=== PATIENT | male | born 1960 | race Caucasian/White ===

== ENCOUNTER → 2017-09-17 | Outpatient (CLI) | payer OTHER ==
[~2017-09-17] MED LIST: HYZ/50125; LRT5 PO; PRED20TA PO
[2017-09-17 12:07] LABS: BASO % 0.2 %; BASO ABS # 0.02 K/uL (0-0.2); COMPLETE YES; EOS % 1.4 %; HEMATOCRIT 49.2 % (42-52); IG% 1.1 %; LYMPH % 19.1 %; LYMPH ABS # 2.07 K/uL (1.2-3.4); MEAN CELL VOLUME 93.2 fL (80-100); MEAN CORPUSCULAR HGB CONC 34.3 g/dl (32-36); MEAN PLATELET VOLUME 10.3 fL (7.4-10.4); NEUT % 69.2 %; PLATELET COUNT 390 K/uL (130-400); RED BLOOD COUNT 5.28 M/uL (4.7-6.1); WHITE BLOOD COUNT 10.81 K/uL (4.8-10.8)
[2017-09-17 12:24] LABS: ALB/GLOB RATIO 1.1 (0.9-2); ALKALINE PHOSPHATASE 76 U/L (45-117); ALT/SGPT 42 U/L (12-78); AST/SGOT 19 U/L (15-37); BLOOD UREA NITROGEN 11 mg/dl (7-18); BUN/CREATININE RATIO 14.2 (10-20); CALCIUM 9.1 mg/dl (8.5-10.1); CARBON DIOXIDE 27 mmol/L (21-32); CHLORIDE 100 mmol/L (98-107); CHOLESTEROL 124 mg/dl (0-200); CHOLESTEROL/HDL RATIO 2.9; GLUCOSE 100 mg/dl (70-99); HDL CHOLESTEROL 43 mg/dl; LDL CHOLESTEROL CALCULATED 57 mg/dl; POTASSIUM 3.4 mmol/L (3.5-5.1); SODIUM 137 mmol/L (136-145); TRIGLYCERIDES 121 mg/dl (0-150); VERY LOW DENSITY LIPOPROT CALC 24 mg/dl
== END | disposition home or self-care (01) ==
LOC: C.LABBFT 08:12
PROVIDERS: ATTEND Physician Assistant Medical
DX: I10 Essential (primary) hypertension (principal); Z12.5 Encounter for screening for malignant neoplasm of prostate

== ENCOUNTER → 2017-10-03 | Outpatient (CLI) | payer OTHER ==
[2017-10-03 12:55] LABS: BASO % 0.4 %; BASO ABS # 0.03 K/uL (0-0.2); COMPLETE YES; EOS % 2.3 %; HEMATOCRIT 51.7 % (42-52); IG% 0.6 %; LYMPH % 24.6 %; LYMPH ABS # 1.95 K/uL (1.2-3.4); MEAN CELL VOLUME 92.7 fL (80-100); MEAN CORPUSCULAR HEMOGLOBIN 31.5 pg (25-34); NEUT % 62.1 %; PLATELET COUNT 345 K/uL (130-400); RED BLOOD COUNT 5.58 M/uL (4.7-6.1); WHITE BLOOD COUNT 7.92 K/uL (4.8-10.8)
[2017-10-03 13:42] LABS: ALT/SGPT 46 U/L (12-78); AST/SGOT 21 U/L (15-37); BLOOD UREA NITROGEN 17 mg/dl (7-18); BUN/CREATININE RATIO 21.5 (10-20); CALCIUM 8.9 mg/dl (8.5-10.1); CARBON DIOXIDE 29 mmol/L (21-32); CHLORIDE 101 mmol/L (98-107); GLUCOSE 101 mg/dl (70-99); POTASSIUM 3.7 mmol/L (3.5-5.1); SODIUM 134 mmol/L (136-145)
[2017-10-03 13:45] LABS: ALB/GLOB RATIO 1.2 (0.9-2); ALKALINE PHOSPHATASE 79 U/L (45-117)
[2017-10-03 13:46] LABS: ESTIMATED AVERAGE GLUCOSE 131 mg/dl; HA1C FLAG Normal (Normal)
== END | disposition home or self-care (01) ==
LOC: C.LABBFT 10:26
PROVIDERS: ATTEND Physician Assistant Medical
DX: I10 Essential (primary) hypertension (principal); R73.01 Impaired fasting glucose

== ENCOUNTER 2021-04-12 11:34 | Inpatient (IN) ==
[2021-04-12] MEDS ORDERED: ONDANSETRON INJ 2 MG/ML 2 ML VIAL IV STA (12:23)
[2021-04-12] MEDS ORDERED: MoRPHine SULFATE 4 MG/ML 1 ML CARP\\VIAL IV STA (12:23)
--- NOTE | 2021-04-12 12:38 | Emergency Department Note ---
History of Present Illness General Chief complaint: Back Injury/Pain Stated complaint: LOWER BACK PAIN ACROSS BACK,DIZZY,FELL OVER,WC Time Seen by Provider: 04/12/21 12:01 Source: patient History of Present Illness Provider complaint: Low back pain Onset (ago): hour(s) less than 1 Location: back and right Radiation: non-radiation Pain Consistency: + constant Maximum Pain Intensity: 9 Quality: + aching Exacerbated By: + movement Associated symptoms: + syncope; no chest pain, no cough, no fever/chills, no headaches, no nausea/vomiting, no shortness of breath and no weakness This is a 60-year-old male who presents with low back pain. 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 When he came to his right lower back was hurting. The pain does not radiate. He rates it a 9 out of 10 in severity. He describes it as a toothache. It is worse when he moves around. He denies any associated numbness or weakness to his legs or fecal urinary incontinence. He states he was not having back pain before he fell. He does state that he fell about a month ago when he tripped on something and he hurt his right posterior ribs and they are still bothering him. He denies having any symptoms other than lightheadedness before passing out. He did not have any chest pain, shortness of breath, palpitations, headache, neck pain, nausea or vomiting, abdominal pain, diarrhea or black or bloody stools. He does not know if he hit his head. He states that he skipped breakfast and has not eaten anything all day. Home Medications Medication Instructions Recorded Confirmed Type atorvastatin 20 mg tablet 20 mg PO HS #90 tab 02/20/21 04/12/21 Rx gabapentin 100 mg PO HS 03/10/21 04/12/21 History mirtazapine 15 mg PO HS 03/10/21 04/12/21 History tramadol 50 mg tablet 50 mg PO BID PRN #30 tab 03/14/21 04/12/21 Rx triamcinolone acetonide 0.1 % 1 applic TOPICAL BID PRN #30 g 03/14/21 04/12/21 Rx topical cream hydrochlorothiazide 25 mg PO QAM 03/26/21 04/12/21 History losartan 100 mg PO QAM 03/26/21 04/12/21 History albuterol sulfate 90 mcg/actuation 2 puff INHALATION Q6H PRN #6.7 g 04/07/21 04/12/21 Rx aerosol inhaler hydrocodone 5 mg-acetaminophen 325 1 - 2 tab PO DAILY PRN #14 tab 04/07/21 04/12/21 Rx mg tablet Allergies Allergy/AdvReac Type Severity Reaction Status Date / Time No Known Allergies Allergy Verified 04/12/21 13:39 Past Med/Surg History Medical History (Updated 04/12/21 @ 19:15 by Flaco Joiner MD) History of alcohol abuse Surgical History History of colonoscopy (10/13/12) Dr Silva, sigmoid tics, otherwise normal, recheck recommended in 5 years due to FHx (brother) S/P right knee arthroscopy 1986 Family History Brother Colorectal cancer Lung cancer Mother Lung cancer Father Myocardial infarction Denies family history of Ovarian cancer Prostate cancer Breast cancer Social History Smoking Status: Current every day smoker Tobacco Type: Cigarettes Second Hand Exposure: Yes; Hx Alcohol Use: No (quit 2010) Hx Substance Use: No Preferred Language: Turkmen 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 and A total of 10 systems reviewed and were otherwise negative Physical Exam Vital Signs Vital Signs - 24 hr 04/12/21 11:37 04/12/21 12:38 04/12/21 12:48 Temperature 36.9 C Temperature Source Temporal Artery Scan Pulse Rate 82 74 Pulse Rate [Apical] Pulse Rate from SpO2 Sensor 75 Respiratory Rate 18 25 H Respiratory Effort / Characteristics Non-Labored Spontaneous Respiratory Depth Normal Respiratory Pattern Regular Blood Pressure 115/63 139/77 Blood Pressure [Right Arm] Blood Pressure Mean 80 97 Blood Pressure Mean [Right Arm] Pulse Oximetry 93 92 92 Oxygen Delivery Method Room Air Room Air Sepsis Recent Fever Within 48 Hours No Sepsis New/Unexplained Change in Mental Status N/A Sepsis Action Taken by Nursing No Action Required 04/12/21 12:51 04/12/21 13:00 04/12/21 13:01 Temperature Temperature Source Pulse Rate 74 75 75 Pulse Rate [Apical] Pulse Rate from SpO2 Sensor 74 75 75 Respiratory Rate 24 21 26 H Respiratory Effort / Characteristics Respiratory Depth Respiratory Pattern Blood Pressure 135/75 Blood Pressure [Right Arm] Blood Pressure Mean 95 Blood Pressure Mean [Right Arm] Pulse Oximetry 90 91 92 Oxygen Delivery Method Sepsis Recent Fever Within 48 Hours Sepsis New/Unexplained Change in Mental Status Sepsis Action Taken by Nursing 04/12/21 13:30 04/12/21 14:27 04/12/21 14:28 Temperature Temperature Source Pulse Rate 75 79 Pulse Rate [Apical] Pulse Rate from SpO2 Sensor 75 78 80 Respiratory Rate 20 15 Respiratory Effort / Characteristics Respiratory Depth Respiratory Pattern Blood Pressure 139/87 Blood Pressure [Right Arm] Blood Pressure Mean 104 Blood Pressure Mean [Right Arm] Pulse Oximetry 95 96 96 Oxygen Delivery Method Sepsis Recent Fever Within 48 Hours Sepsis New/Unexplained Change in Mental Status Sepsis Action Taken by Nursing 04/12/21 14:29 04/12/21 14:30 04/12/21 15:00 Temperature Temperature Source Pulse Rate 77 Pulse Rate [Apical] 78 Pulse Rate from SpO2 Sensor 78 75 Respiratory Rate 15 16 19 Respiratory Effort / Characteristics Respiratory Depth Normal Respiratory Pattern Blood Pressure 140/83 Blood Pressure [Right Arm] 139/87 Blood Pressure Mean 102 Blood Pressure Mean [Right Arm] 104 Pulse Oximetry 96 96 94 Oxygen Delivery Method Room Air Sepsis Recent Fever Within 48 Hours Sepsis New/Unexplained Change in Mental Status Sepsis Action Taken by Nursing 04/12/21 15:01 04/12/21 15:50 04/12/21 15:51 Temperature Temperature Source Pulse Rate 79 Pulse Rate [Apical] Pulse Rate from SpO2 Sensor 73 84 80 Respiratory Rate 19 24 Respiratory Effort / Characteristics Respiratory Depth Respiratory Pattern Blood Pressure 157/91 H Blood Pressure [Right Arm] Blood Pressure Mean 113 Blood Pressure Mean [Right Arm] Pulse Oximetry 94 97 98 Oxygen Delivery Method Sepsis Recent Fever Within 48 Hours Sepsis New/Unexplained Change in Mental Status Sepsis Action Taken by Nursing 04/12/21 16:00 04/12/21 16:31 04/12/21 17:00 Temperature Temperature Source Pulse Rate 82 83 89 Pulse Rate [Apical] Pulse Rate from SpO2 Sensor 82 83 89 Respiratory Rate 17 22 18 Respiratory Effort / Characteristics Respiratory Depth Respiratory Pattern Blood Pressure 169/84 H 137/80 Blood Pressure [Right Arm] Blood Pressure Mean 112 99 Blood Pressure Mean [Right Arm] Pulse Oximetry 97 93 93 Oxygen Delivery Method Sepsis Recent Fever Within 48 Hours Sepsis New/Unexplained Change in Mental Status Sepsis Action Taken by Nursing 04/12/21 17:56 04/12/21 18:00 04/12/21 18:30 Temperature Temperature Source Pulse Rate 86 88 86 Pulse Rate [Apical] Pulse Rate from SpO2 Sensor Respiratory Rate 18 24 22 Respiratory Effort / Characteristics Respiratory Depth Respiratory Pattern Blood Pressure Blood Pressure [Right Arm] Blood Pressure Mean Blood Pressure Mean [Right Arm] Pulse Oximetry Oxygen Delivery Method Sepsis Recent Fever Within 48 Hours Sepsis New/Unexplained Change in Mental Status Sepsis Action Taken by Nursing 04/12/21 18:31 04/12/21 18:34 Temperature Temperature Source Pulse Rate 91 H 88 Pulse Rate [Apical] Pulse Rate from SpO2 Sensor Respiratory Rate 20 22 Respiratory Effort / Characteristics Respiratory Depth Respiratory Pattern Blood Pressure Blood Pressure [Right Arm] Blood Pressure Mean 139 139 Blood Pressure Mean [Right Arm] Pulse Oximetry Oxygen Delivery Method Sepsis Recent Fever Within 48 Hours Sepsis New/Unexplained Change in Mental Status Sepsis Action Taken by Nursing Constitutional: Vital signs reviewed. Eyes: Pupils are equal round reactive to light. Conjunctiva are noninjected. ENT: Pharynx is clear without erythema or exudate. Mucous membranes are moist. Neck supple without meningeal signs. Respiratory: Expiratory wheezing bilaterally. Breath sounds are equal bilaterally. Cardiovascular: Regular rate and rhythm. No rubs or gallops. GI: Soft, nondistended and nontender. Bowel sounds are present. Musculoskeletal: No peripheral edema. No lower extremity tenderness. No midline tenderness to the cervical, thoracic or lumbar spine. He does have some tenderness over the right SI joint. No hip tenderness. Integumentary: No cyanosis. or jaundice. Neurologic: The patient is awake and alert. Cranial nerves II-XII are intact. Motor is 5 out of 5 all extremities. Sensation is intact to light touch all extremities. Normal speech. No pronator drift. No limb ataxia. Psychiatric: Normal affect. Not anxious appearing. Course Administered Medications Discontinued Medications Morphine Sulfate (Morphine Sulfate 4 Mg/Ml 1 Ml Carp\Vial) 4 mg IV NOW STA Stop: 04/12/21 12:24 Last Admin: 04/12/21 12:45 Dose: 4 mg Documented by: [id number] Nicotine (Nicotine 14 Mg/24 Hr Patch) 14 mg TD NOW STA Stop: 04/12/21 16:22 Last Admin: 04/12/21 17:07 Dose: 14 mg Documented by: [id number] Nicotine Polacrilex (Nicotine Polacrilex 2 Mg Gum) 1 piece MT NOW STA Stop: 04/12/21 16:22 Last Admin: 04/12/21 17:08 Dose: 1 piece Documented by: [id number] Ondansetron HCl (Ondansetron Inj 2 Mg/Ml 2 Ml Vial) 4 mg IV NOW STA Stop: 04/12/21 12:24 Last Admin: 04/12/21 12:45 Dose: 4 mg Documented by: [id number] Medical Decision Making Differential Diagnosis Syncope, compression fracture, intervertebral disc disease, pelvic fracture, metabolic derangement, hypoglycemia, AAA Medical Records Attestation: I reviewed the patient's medical records. I did perform a limited focused review of portions of the patient's old chart on the electronic medical record. The patient did have a CT of his chest and abdomen last month which demonstrated a posterior right 11th rib fracture. He also had emphysematous changes. 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 There are also some other incidental findings. The aorta was not enlarged. Home Medications Current Medication List: was personally reviewed by me Laboratory Data Attestation: I reviewed the patient's lab results. Result diagrams: 04/12/21 12:35 04/12/21 12:35 Lab Results 04/12/21 04/12/21 04/12/21 Range/Units 12:35 12:35 12:35 WBC 8.77 (4.8-10.8) K/uL RBC 4.83 (4.7-6.1) M/uL Hgb 16.5 (14.0-18.0) g/dL Hct 46.4 (42-52) % MCV 96.1 (80-100) fL MCH 34.2 H (25-34) pg MCHC 35.6 (32-36) g/dL RDW Std Deviation 48.7 H (36.4-46.3) fL RDW Coeff of Beth 13.7 (11.5-14.5) % Plt Count 323 (130-400) K/uL MPV 9.1 (7.4-10.4) fL Immature Gran % (Auto) 0.7 % Neut % (Auto) 85.6 % Lymph % (Auto) 7.6 % Talbot % (Auto) 5.7 % Eos % (Auto) 0.3 % Baso % (Auto) 0.1 % Neut # (Auto) 7.50 H (1.4-6.5) K/uL Lymph # (Auto) 0.67 L (1.2-3.4) K/uL Talbot # (Auto) 0.50 (0.11-0.59) K/uL Eos # (Auto) 0.03 (0-0.5) K/uL Baso # (Auto) 0.01 (0-0.2) K/uL Immature Gran # (Auto) 0.06 H (0.00-0.02) K/uL Sodium 127 L (136-145) mmol/L Potassium 3.4 L (3.5-5.1) mmol/L Chloride 93 L (98-107) mmol/L Carbon Dioxide 27 (21-32) mmol/L Anion Gap 8.0 (3-11) BUN 7 (7-18) mg/dl Creatinine 0.57 L (0.6-1.4) mg/dl Est Cr Clr Drug Dosing Not Reportable Est GFR ( Amer) 128.5 ml/min Est GFR (Non-Af Amer) 110.8 ml/min BUN/Creatinine Ratio 12.3 (10-20) Glucose 110 H (70-99) mg/dl POC Glucose (70-99) mg/dl Calcium 8.5 (8.5-10.1) mg/dl Magnesium 2.3 (1.8-2.4) mg/dl Total Bilirubin 0.6 (0.2-1) mg/dl AST 34 (15-37) U/L ALT 42 (12-78) U/L Alkaline Phosphatase 68 (45-117) U/L Troponin I Cancelled < 0.015 Total Protein 6.6 (6.4-8.2) gm/dl Albumin 3.7 (3.4-5.0) gm/dl Globulin 2.9 (2.5-4.0) gm/dl Albumin/Globulin Ratio 1.3 (0.9-2) TSH 0.433 (0.300-4.500) uIu/ml Urine Color Urine Appearance (Clear) Urine pH (4.5-7.5) Ur Specific Sproul (1.000-1.030) Urine Protein (Negative) Urine Glucose (UA) (Negative) Urine Ketones (Negative) Urine Blood (Negative) Urine Nitrite (Negative) Urine Bilirubin (Negative) Urine Urobilinogen (Negative) Ur Leukocyte Esterase (Negative) Urine WBC (Auto) (0-5) /hpf Urine RBC (Auto) (0-4) /hpf U Hyaline Cast (Auto) (0-5) /lpf U Epithel Cells (Auto) (0-5) /lpf Urine Bacteria (Auto) (Negative) Ethyl Alcohol mg/dL (0-3) mg/dl COVID-19 Eval Order SARS-CoV-2 (PCR) (Negative) 04/12/21 04/12/21 04/12/21 Range/Units 12:37 12:47 14:50 WBC (4.8-10.8) K/uL RBC (4.7-6.1) M/uL Hgb (14.0-18.0) g/dL Hct (42-52) % MCV (80-100) fL MCH (25-34) pg MCHC (32-36) g/dL RDW Std Deviation (36.4-46.3) fL RDW Coeff of Beth (11.5-14.5) % Plt Count (130-400) K/uL MPV (7.4-10.4) fL Immature Gran % (Auto) % Neut % (Auto) % Lymph % (Auto) % Talbot % (Auto) % Eos % (Auto) % Baso % (Auto) % Neut # (Auto) (1.4-6.5) K/uL Lymph # (Auto) (1.2-3.4) K/uL Talbot # (Auto) (0.11-0.59) K/uL Eos # (Auto) (0-0.5) K/uL Baso # (Auto) (0-0.2) K/uL Immature Gran # (Auto) (0.00-0.02) K/uL Sodium (136-145) mmol/L Potassium (3.5-5.1) mmol/L Chloride (98-107) mmol/L Carbon Dioxide (21-32) mmol/L Anion Gap (3-11) BUN (7-18) mg/dl Creatinine (0.6-1.4) mg/dl Est Cr Clr Drug Dosing Est GFR ( Amer) ml/min Est GFR (Non-Af Amer) ml/min BUN/Creatinine Ratio (10-20) Glucose (70-99) mg/dl POC Glucose 126 H (70-99) mg/dl Calcium (8.5-10.1) mg/dl Magnesium (1.8-2.4) mg/dl Total Bilirubin (0.2-1) mg/dl AST (15-37) U/L ALT (12-78) U/L Alkaline Phosphatase (45-117) U/L Troponin I Total Protein (6.4-8.2) gm/dl Albumin (3.4-5.0) gm/dl Globulin (2.5-4.0) gm/dl Albumin/Globulin Ratio (0.9-2) TSH (0.300-4.500) uIu/ml Urine Color Urine Appearance (Clear) Urine pH (4.5-7.5) Ur Specific Sproul (1.000-1.030) Urine Protein (Negative) Urine Glucose (UA) (Negative) Urine Ketones (Negative) Urine Blood (Negative) Urine Nitrite (Negative) Urine Bilirubin (Negative) Urine Urobilinogen (Negative) Ur Leukocyte Esterase (Negative) Urine WBC (Auto) (0-5) /hpf Urine RBC (Auto) (0-4) /hpf U Hyaline Cast (Auto) (0-5) /lpf U Epithel Cells (Auto) (0-5) /lpf Urine Bacteria (Auto) (Negative) Ethyl Alcohol mg/dL 3.3 H (0-3) mg/dl COVID-19 Eval Order Covid19 at [facility] SARS-CoV-2 (PCR) (Negative) 04/12/21 04/12/21 Range/Units 14:50 15:50 WBC (4.8-10.8) K/uL RBC (4.7-6.1) M/uL Hgb (14.0-18.0) g/dL Hct (42-52) % MCV (80-100) fL MCH (25-34) pg MCHC (32-36) g/dL RDW Std Deviation (36.4-46.3) fL RDW Coeff of Beth (11.5-14.5) % Plt Count (130-400) K/uL MPV (7.4-10.4) fL Immature Gran % (Auto) % Neut % (Auto) % Lymph % (Auto) % Talbot % (Auto) % Eos % (Auto) % Baso % (Auto) % Neut # (Auto) (1.4-6.5) K/uL Lymph # (Auto) (1.2-3.4) K/uL Talbot # (Auto) (0.11-0.59) K/uL Eos # (Auto) (0-0.5) K/uL Baso # (Auto) (0-0.2) K/uL Immature Gran # (Auto) (0.00-0.02) K/uL Sodium (136-145) mmol/L Potassium (3.5-5.1) mmol/L Chloride (98-107) mmol/L Carbon Dioxide (21-32) mmol/L Anion Gap (3-11) BUN (7-18) mg/dl Creatinine (0.6-1.4) mg/dl Est Cr Clr Drug Dosing Est GFR ( Amer) ml/min Est GFR (Non-Af Amer) ml/min BUN/Creatinine Ratio (10-20) Glucose (70-99) mg/dl POC Glucose (70-99) mg/dl Calcium (8.5-10.1) mg/dl Magnesium (1.8-2.4) mg/dl Total Bilirubin (0.2-1) mg/dl AST (15-37) U/L ALT (12-78) U/L Alkaline Phosphatase (45-117) U/L Troponin I Total Protein (6.4-8.2) gm/dl Albumin (3.4-5.0) gm/dl Globulin (2.5-4.0) gm/dl Albumin/Globulin Ratio (0.9-2) TSH (0.300-4.500) uIu/ml Urine Color Yellow Urine Appearance Clear (Clear) Urine pH 6.5 (4.5-7.5) Ur Specific Sproul 1.008 (1.000-1.030) Urine Protein Negative (Negative) Urine Glucose (UA) Negative (Negative) Urine Ketones Negative (Negative) Urine Blood Trace H (Negative) Urine Nitrite Negative (Negative) Urine Bilirubin Negative (Negative) Urine Urobilinogen Negative (Negative) Ur Leukocyte Esterase Negative (Negative) Urine WBC (Auto) 0 (0-5) /hpf Urine RBC (Auto) 0-4 (0-4) /hpf U Hyaline Cast (Auto) 1-5 (0-5) /lpf U Epithel Cells (Auto) 0-5 (0-5) /lpf Urine Bacteria (Auto) Negative (Negative) Ethyl Alcohol mg/dL (0-3) mg/dl COVID-19 Eval Order SARS-CoV-2 (PCR) NEGATIVE (Negative) Imaging Data Radiologist's Impression: Cervical Spine CT 04/12/21 12:23 CT cervical spine wo con CT DOSE: 1950.78 mGy.cm CLINICAL HISTORY: 60 years-old Male with fall eval for fx. Acute head and neck injury status post fall COMPARISON: Head CT of same day TECHNIQUE: Multiple axial CT images of the cervical spine were obtained without contrast. A dose lowering technique was utilized adhering to the principles of ALARA. FINDINGS: Unremarkable soft tissues. No prevertebral edema. Calcified plaque of the carotid bulbs. Lung apices are clear without pneumothorax. Mild emphysema. Mild multilevel intervertebral disc space narrowing with associated mild to moderate spondylitic spurring and moderate facet arthrosis. Moderate to severe degeneration at C1-C2. Minimal superior endplate compression at T1 and T2, likely on a degenerative basis. No acute fracture or subluxation identified. IMPRESSION: No acute fracture or subluxation. ACT 112: Negative or not required by law. The above report was generated using voice recognition software. It may contain grammatical, syntax or spelling errors. Electronically signed by: Antonio Hunter M.D. 04/12/2021 1:[address] 04/12/21 12:23 CT head/brain wo con CLINICAL HISTORY: 60 years-old Male with syncope/fall eval for bleed. Acute head injury status post fall TECHNIQUE: Multiple axial CT images of the head were obtained without contrast. A dose lowering technique was utilized adhering to the principles of ALARA. COMPARISON: CT cervical spine of same day FINDINGS: Mildly motion degraded exam. No acute intracranial hemorrhage, midline shift, intracranial mass, hydrocephalus, territorial ischemia or abnormal extra-axial collection. The calvarium is intact. Mild mucosal thickening of the ethmoid air cells. Mastoid air cells are clear. Unremarkable soft tissues and orbits. IMPRESSION: No acute intracranial abnormality or calvarial fracture. ACT 112: Negative or not required by law. The above report was generated using voice recognition software. It may contain grammatical, syntax or spelling errors. Electronically signed by: Antonio Hunter M.D. 04/12/2021 1:[address] 04/12/21 12:23 CT lumbar spine wo con HISTORY: 60 years-old Male fall eval for fx acute low back pain status post fall COMPARISON: CT abdomen pelvis 03/10/2021, MRI lumbar spine 07/01/2007 TECHNIQUE: Multiple axial CT images of the lumbar spine were obtained without the use of IV contrast. A dose lowering technique was used consistent with the principals of ARCADIO. FINDINGS: Moderate multilevel spondylitic spurring. Mild multilevel uncovertebral disc space narrowing with moderate to severe facet arthrosis. Moderate to severe intervertebral disc space narrowing with vacuum disc phenomena at L4-L5 has progressively worsened from the 2006 comparison. Moderate sized posterior disc osteophyte complex formations at this interspace results in moderate central canal stenosis with severe narrowing of the right lateral recess. Additionally, there is a least mild to moderate right-sided neuroforaminal narrowing at this level. Multilevel posterior annular disc bulging. No acute fracture or subluxation identified. The imaged sacrum and iliac bones appear intact. Transitional lumbosacral anatomy with partial sacralization of the L5 segment. Partial bony fusion of the right SI joint. Extensive calcified plaque the abdominal aorta. No acute process of the imaged intra-abdominal or paraspinal tissues. IMPRESSION: No acute fracture or subluxation. ACT 112: Negative or not required by law. The above report was generated using voice recognition software. It may contain grammatical, syntax or spelling errors. Electronically signed by: Antonio Hunter M.D. 04/12/2021 1:27 PM Ribs w/Chest X-Ray 04/12/21 12:23 XR ribs RT min 2V w [id number] CLINICAL HISTORY: Right rib pain status post trauma COMPARISON STUDY: No previous studies for comparison. FINDINGS: The erect chest reveals no pneumothorax. There is no focal bony consolidation. There are fractures of the right posterior 10th and 11th ribs. These were present on the prior CT scan. There is increased displacement of the right 10th rib fracture. IMPRESSION: Redemonstration of right posterior 10th and 11th rib fractures. There is increased displacement of the right 10th rib fracture. ACT 112: Negative or not required by law. Electronically signed by: Emilio Tapia M.D. 04/12/2021 2:34 PM Pelvis X-Ray 04/12/21 12:39 XR pelvis 1-2V routine HISTORY: 60 years-old Male fall eval for fx acute pelvic pain status post fall COMPARISON: CT abdomen and pelvis 03/10/2021 TECHNIQUE: Portable AP view the pelvis FINDINGS: Mild to moderate osteoarthritis of the hips. No acute fracture, dislocation or avascular necrosis. Unremarkable soft tissues. IMPRESSION: No acute fracture. ACT 112: Negative or not required by law. The above report was generated using voice recognition software. It may contain grammatical, syntax or spelling errors. Electronically signed by: Antonio Hunter M.D. 04/12/2021 2:22 PM ECG Data Attestation: I personally reviewed and interpreted this ECG as follows: Indication: + syncope Rate (beats per minute): 75 Rhythm: + normal sinus ECG ST segments: no ST elevation ECG Findings: + PACs; no PVCs MDM Narrative I did evaluate the patient as noted above. The patient is presenting with a syncopal episode. He states he bent down while cleaning something at work and he just passed out. He complains of pain to the right lower back. He also has right rib pain but states that from a previous injury with rib fractures there. IV access was established. I did treat him with IV morphine and Zofran. I did place an order for continuous cardiac monitoring. The monitor showed normal sinus rhythm at a rate of 76 bpm. I did order and personally review the patient's 12-lead EKG as described above. He has no evidence of acute ischemia. I did order and personally reviewed the images of the patient's rib, chest and pelvic x-rays as described above. He has old fractures to the 10th and 11th rib with increased displacement of the 10th rib. I did order a urine analysis. He does not have a UTI. I did order and review the patient's blood work as noted in the electronic medical record. CBC is unremarkable without leukocytosis or anemia. Electrolytes demonstrate a sodium of 127 potassium of 3.4. Serum alcohol is 3.3. I did order a CT of the head, cervical and lumbar spine. I did review the images myself as well as the radiology report as described above. There is no evidence of acute intracranial hemorrhage. No acute fracture of the cervical or lumbar spine is noted. 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 I did discuss the test results with the patient. He does state that he drinks about 12 beers a day. He states that he last drank last night. He likely has hyponatremia from beer potomania. It is unclear why he passed out so I did recommend hospitalization for further work-up. He was agreeable. I did treat him with nicotine gum as well as nicotine patch. I did discuss the case with the hospitalist and correctional counselor/case manager. He currently does not show any signs of alcohol withdrawal. Impression & Plan Syncope, Acute hyponatremia, Alcohol dependence, Low back pain Discharge Plan Visit Data Chief Complaint: Back Injury/Pain Stated Complaint: LOWER BACK PAIN ACROSS BACK,DIZZY,FELL OVER,WC ED Provider: Flaco Joiner Discharge Problem: Syncope, Acute hyponatremia, Alcohol dependence, Low back pain Patient Disposition: Being Evaluated by Hospitalist Forms Stand Alone Forms: [facility] Prescriptions Prescriptions: No Action atorvastatin 20 mg tablet 20 mg PO HS Qty: 90 RF: 1 tramadol 50 mg tablet 50 mg PO BID PRN (Reason: pain) Qty: 30 RF: 0 triamcinolone acetonide 0.1 % cream 1 applic topical BID PRN (Reason: itch) Qty: 30 RF: 1 albuterol sulfate [ProAir HFA] 90 mcg/actuation HFA aerosol inhaler 2 puff inhalation Q6H PRN (Reason: shortness of breath or wheezing) Qty: 6.7 RF: 1 hydrocodone-acetaminophen 5-325 mg tablet 1 - 2 tab PO DAILY PRN (Reason: pain) Qty: 14 RF: 0 hydrochlorothiazide 25 mg tablet 25 mg PO QAM RF: 0 losartan 100 mg tablet 100 mg PO QAM RF: 0 mirtazapine 15 mg tablet 15 mg PO HS RF: 0 gabapentin 100 mg capsule 100 mg PO HS RF: 0 Referrals Referrals: Ovi Ca III, MD [Primary Care Provider] -
[2021-04-12 12:55] LABS: Basophils # (auto) 0.01 K/uL (0-0.2); Basophils % (auto) 0.1 %; Eosinophils # (auto) 0.03 K/uL (0-0.5); Eosinophils % (auto) 0.3 %; Hematocrit (blood only) 46.4 % (42-52); Hemoglobin 16.5 g/dL (14.0-18.0); Immature Granulocytes # (auto) 0.06 K/uL (0.00-0.02); Immature Granulocytes % (auto) 0.7 %; Lymphocytes # (auto) 0.67 K/uL (1.2-3.4); Lymphocytes % (auto) 7.6 %; Mean Corpuscular Hemoglobin 34.2 pg (25-34); Mean Corpuscular Hgb Conc 35.6 g/dL (32-36); Mean Corpuscular Volume 96.1 fL (80-100); Mean Platelet Volume 9.1 fL (7.4-10.4); Monocytes % (auto) 5.7 %; Neutrophils % (auto) 85.6 %; Platelet Count 323 K/uL (130-400); RDW Coefficient of Variation 13.7 % (11.5-14.5); RDW Standard Deviation 48.7 fL (36.4-46.3); Red Blood Count 4.83 M/uL (4.7-6.1); White Blood Count 8.77 K/uL (4.8-10.8)
[2021-04-12 13:14] LABS: Alanine Aminotransferase 42 U/L (12-78); Albumin Level 3.7 gm/dl (3.4-5.0); Aspartate Aminotransferase 34 U/L (15-37); BUN Creatinine Ratio 12.3 (10-20); Blood Urea Nitrogen 7 mg/dl (7-18); Calcium 8.5 mg/dl (8.5-10.1); Carbon Dioxide 27 mmol/L (21-32); Chloride 93 mmol/L (98-107); Est GFR (African American) 128.5 ml/min; Est GFR (Non-African American) 110.8 ml/min; Glucose 110 mg/dl (70-99); Magnesium 2.3 mg/dl (1.8-2.4); Potassium 3.4 mmol/L (3.5-5.1); Sodium 127 mmol/L (136-145)
--- NOTE | 2021-04-12 13:20 | CT Scan Report ---
CT head/brain wo con CLINICAL HISTORY: 60 years-old Male with syncope/fall eval for bleed. Acute head injury status post fall TECHNIQUE: Multiple axial CT images of the head were obtained without contrast. A dose lowering tech nique was utilized adhering to the principles of ALARA. COMPARISON: CT cervical spine of same day FINDINGS: Mildly motion degraded exam. No acute intracranial hemorrhage, midline shift, intracranial mass, hydr ocephalus, territorial ischemia or abnormal extra-axial collection. The calvarium is intact. Mild mucosal thickening of the ethmoid air cells. Mastoid air cells are alphonso ar. Unremarkable soft tissues and orbits. IMPRESSION: No acute intracranial abnormality or calvarial fracture. ACT 112: Negative or not required by law. The above report was generated using voice recognition software. It may contain grammatical, syntax o r spelling errors. Electronically signed by: Antonio Hunter M.D. 04/12/2021 1:19 PM
--- NOTE | 2021-04-12 13:23 | CT Scan Report ---
CT cervical spine wo con CT DOSE: 1950.78 mGy.cm CLINICAL HISTORY: 60 years-old Male with fall eval for fx. Acute head and neck injury status post fa ll COMPARISON: Head CT of same day TECHNIQUE: Multiple axial CT images of the cervical spine were obtained without contrast. A dose low ering technique was utilized adhering to the principles of ALARA. FINDINGS: Unremarkable soft tissues. No prevertebral edema. Calcified plaque of the carotid bulbs. Lung apices are clear without pneumothorax. Mild emphysema. Mild multilevel intervertebral disc space narrowing with associated mild to moderate spondylitic spur ring and moderate facet arthrosis. Moderate to severe degeneration at C1-C2. Minimal superior endplat e compression at T1 and T2, likely on a degenerative basis. No acute fracture or subluxation identifi ed. IMPRESSION: No acute fracture or subluxation. ACT 112: Negative or not required by law. The above report was generated using voice recognition software. It may contain grammatical, syntax o r spelling errors. Electronically signed by: Antonio Hunter M.D. 04/12/2021 1:22 PM
[2021-04-12 13:24] LABS: Albumin Globulin Ratio 1.3 (0.9-2); Alkaline Phosphatase 68 U/L (45-117); Bilirubin,Total 0.6 mg/dl (0.2-1); Globulin 2.9 gm/dl (2.5-4.0); Thyroid Stimulating Hormone 0.433 uIu/ml (0.300-4.500); Total Protein 6.6 gm/dl (6.4-8.2); Troponin I < 0.015 ng/ml (0-0.045)
--- NOTE | 2021-04-12 13:28 | CT Scan Report ---
CT lumbar spine wo con HISTORY: 60 years-old Male fall eval for fx acute low back pain status post fall COMPARISON: CT abdomen pelvis 03/10/2021, MRI lumbar spine 07/01/2007 TECHNIQUE: Multiple axial CT images of the lumbar spine were obtained without the use of IV contrast. A dose lowering technique was used consistent with the principals of ARCADIO. FINDINGS: Moderate multilevel spondylitic spurring. Mild multilevel uncovertebral disc space narrowing with mod erate to severe facet arthrosis. Moderate to severe intervertebral disc space narrowing with vacuum d isc phenomena at L4-L5 has progressively worsened from the 2006 comparison. Moderate sized posterior disc osteophyte complex formations at this interspace results in moderate central canal stenosis with severe narrowing of the right lateral recess. Additionally, there is a least mild to moderate right- sided neuroforaminal narrowing at this level. Multilevel posterior annular disc bulging. No acute fra cture or subluxation identified. The imaged sacrum and iliac bones appear intact. Transitional lumbos acral anatomy with partial sacralization of the L5 segment. Partial bony fusion of the right SI joint . Extensive calcified plaque the abdominal aorta. No acute process of the imaged intra-abdominal or par aspinal tissues. IMPRESSION: No acute fracture or subluxation. ACT 112: Negative or not required by law. The above report was generated using voice recognition software. It may contain grammatical, syntax o r spelling errors. Electronically signed by: Antonio Hunter M.D. 04/12/2021 1:27 PM
--- NOTE | 2021-04-12 14:24 | XRay Report ---
XR pelvis 1-2V routine HISTORY: 60 years-old Male fall eval for fx acute pelvic pain status post fall COMPARISON: CT abdomen and pelvis 03/10/2021 TECHNIQUE: Portable AP view the pelvis FINDINGS: Mild to moderate osteoarthritis of the hips. No acute fracture, dislocation or avascular necrosis. Un remarkable soft tissues. IMPRESSION: No acute fracture. ACT 112: Negative or not required by law. The above report was generated using voice recognition software. It may contain grammatical, syntax o r spelling errors. Electronically signed by: Antonio Hunter M.D. 04/12/2021 2:22 PM
--- NOTE | 2021-04-12 14:35 | XRay Report ---
XR ribs RT min 2V w CXR1V CLINICAL HISTORY: Right rib pain status post trauma COMPARISON STUDY: No previous studies for comparison. FINDINGS: The erect chest reveals no pneumothorax. There is no focal bony consolidation. There are fr actures of the right posterior 10th and 11th ribs. These were present on the prior CT scan. There is increased displacement of the right 10th rib fracture. IMPRESSION: Redemonstration of right posterior 10th and 11th rib fractures. There is increased displ acement of the right 10th rib fracture. ACT 112: Negative or not required by law. Electronically signed by: Emilio Tapia M.D. 04/12/2021 2:34 PM
[2021-04-12 16:01] LABS: Appearance Urine Clear (Clear); Bacteria Urine Automated Negative (Negative); Bilirubin Urine Negative (Negative); Blood Urine Trace (Negative); Color Urine Yellow; Epithelial Cell Urine Auto 0-5 /lpf (0-5); Glucose Urine UA Negative (Negative); Ketones Urine Negative (Negative); Leukocyte Esterase Urine Negative (Negative); Nitrite Urine Negative (Negative); Protein Urine Negative (Negative); RBC Urine Automated 0-4 /hpf (0-4); Specific Gravity Urine 1.008 (1.000-1.030); Urobilinogen Urine Negative (Negative); WBC Urine Automated 0 /hpf (0-5); pH Urine 6.5 (4.5-7.5)
[2021-04-12] MEDS ORDERED: NICOTINE POLACRILEX 2 MG GUM MT STA (16:21)
[2021-04-12] MEDS ORDERED: NICOTINE 14 MG/24 HR PATCH TD STA (16:21)
--- NOTE | 2021-04-12 18:26 | History & Physical Report ---
Date of Service April 12, 2021 Assessment & Plan (1) Syncope: From description, it sounds that the patient had a vasovagal episode. Other possibilities include orthostasis, alcohol intoxication, or vertebrobasilar insufficiency Admit to a monitored bed Check 2D echo Check orthostatics Trend cardiac enzymes Check CT angiogram of the brain/neck, namely posterior circulation With history of falls, will ask PT/OT to evaluate (2) History of alcohol abuse: Concern regarding patient's ongoing drinking. At high risk for withdrawal while hospitalized order WAAS scale, will give benzodiazepines for prevention Oral folate and thiamine (3) Wheeze: Patient is active smoker Does not appear to be short of breath and O2 sat is documented 93% on room air We will order albuterol as needed. Counseled patient presents smoking cessation. Nicotine patch ordered by ER, cindy to continue Would consider pulmonology consultation with PFTs, either here or after discharge (4) Hypertension: Continue losartan, HCTZ as ordered (5) Hyperlipidemia: Continue atorvastatin as ordered History of Present Illness Chief Complaint: Syncope Primary Care Provider: Ovi Ca MD This is a 60-year-old male with past medical history of chronic alcoholism, hypertension, hyperlipidemia that presents complaining of syncope. Patient is a very limited historian. Patient's is at bedside but was not present for the incident. 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 He tells me that he was in his normal state of health when he was scrubbing sitting on the floor. He bent over to clean something but when he stood up he had a sudden bout of coughing and then syncopized. He was out only very briefly and may have actually stopped his fall. Did not strike his head. His main complaint after this incident is pain in his back. This is mostly in the right lower spinal area without radiation down his legs or into his groin. The pain is not that severe. He denies any other symptoms either during this incident after including chest pain, abdominal pain, loss of bladder or bowel control, headache, visual changes, diaphoresis, or other issues. Patient's tells me that the patient is a significant consumer of alcohol. He drinks approximately 12 beers daily, starting as soon as he wakes up in the morning. is also concerned as the patient has had falls in the past, both at work and at home. In fact, patient was seen status post fall on 03/26 in which he fractured his 10th and 11th rib on the right.'s fractures are demonst rated on imaging today as well. Allergies Allergy/AdvReac Type Severity Reaction Status Date / Time No Known Allergies Allergy Verified 04/12/21 13:39 Home Medications Medication Instructions Recorded Confirmed Type atorvastatin 20 mg tablet 20 mg PO HS #90 tab 02/20/21 04/12/21 Rx gabapentin 100 mg PO HS 03/10/21 04/12/21 History mirtazapine 15 mg PO HS 03/10/21 04/12/21 History tramadol 50 mg tablet 50 mg PO BID PRN #30 tab 03/14/21 04/12/21 Rx triamcinolone acetonide 0.1 % 1 applic TOPICAL BID PRN #30 g 03/14/21 04/12/21 Rx topical cream hydrochlorothiazide 25 mg PO QAM 03/26/21 04/12/21 History losartan 100 mg PO QAM 03/26/21 04/12/21 History albuterol sulfate 90 mcg/actuation 2 puff INHALATION Q6H PRN #6.7 g 04/07/21 04/12/21 Rx aerosol inhaler hydrocodone 5 mg-acetaminophen 325 1 - 2 tab PO DAILY PRN #14 tab 04/07/2107/25 Rx mg tablet Past Med/Surg History Medical History History of alcohol abuse quit 2010 Surgical History History of colonoscopy (10/13/12) Dr Silva, sigmoid tics, otherwise normal, recheck recommended in 5 years due to FHx (brother) S/P right knee arthroscopy 1986 Family History Brother Colorectal cancer Lung cancer Mother Lung cancer Father Myocardial infarction Denies family history of Ovarian cancer Prostate cancer Breast cancer Social History Smoking Status: Current every day smoker Tobacco Type: Cigarettes Second Hand Exposure: Yes; Hx Alcohol Use: No (quit 2010) Hx Substance Use: No Preferred Language: Turkish 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 Soak Required: No marital status: Current Living Situation: Alone Current Living Situation Comment: [employer] current occupational status: employed Feels Safe at Home: Yes Review of Systems Constitutional: no fever, no chills, no weakness, no weight loss and no weight gain Eyes: as per Subjective / HPI Respiratory: no cough, no chest congestion, no dyspnea and no dyspnea on exertion Cardiovascular: no chest pain, no orthopnea, no palpitations, no lightheadedness and no edema Gastrointestinal: no abdominal pain, no nausea, no vomiting, no constipation and no diarrhea/loose stools Musculoskeletal: no back pain, no neck pain, no joint pain, no stiffness and no myalgia Integumentary: no rash Neurologic: + falls and + syncope; no gait abnormality, no unsteadiness, no generalized weakness, no seizure-like activity and no headache(s) Physical Exam Constitutional: cooperative; no acute distress Neck: trachea midline, no thyromegaly Respiratory: normal respiratory effort Auscultation: lungs clear to auscultation bilaterally and + wheezes (High-pitched expiratory wheeze scattered throughout); no crackles, no rales and no rhonchi Cardiovascular: Rate/Rhythm: regular rate and regular rhythm Heart Sounds: normal S1 and normal S2; no murmur Gastrointestinal (Abdomen): Inspection/Auscultation: abdomen normal to inspection Percussion/Palpation: abdomen soft; abdomen nontender, no guarding, abdomen not rigid and no hepatosplenomegaly Skin: no rashes, warm and dry Results & Data Results & Data ([facility]) Vital Signs (Past 12 Hours) Vital Signs Temp Pulse Pulse Resp BP BP Pulse Ox 04/12/21 17:00 89 18 137/80 93 04/12/21 16:31 83 22 93 04/12/21 16:00 82 17 169/84 H 97 04/12/21 15:51 79 24 98 04/12/21 15:50 157/91 H 97 04/12/21 15:01 19 94 04/12/21 15:00 19 140/83 94 04/12/21 14:30 77 16 96 04/12/21 14:29 78 15 139/87 96 04/12/21 14:28 79 15 139/87 96 04/12/21 14:27 96 04/12/21 13:30 75 20 95 04/12/21 13:01 75 26 H 92 04/12/21 13:00 75 21 135/75 91 04/12/21 12:51 74 24 90 04/12/21 12:48 92 04/12/21 12:38 74 25 H 139/77 92 04/12/21 11:37 36.9 C 82 18 115/[address] lumbar spine wo con HISTORY: 60 years-old Male fall eval for fx acute low back pain status post fall COMPARISON: CT abdomen pelvis 03/10/2021, MRI lumbar spine 07/01/2007 TECHNIQUE: Multiple axial CT images of the lumbar spine were obtained without the use of IV contrast. A dose lowering technique was used consistent with the principals of ALARA. FINDINGS: Moderate multilevel spondylitic spurring. Mild multilevel uncovertebral disc space narrowing with moderate to severe facet arthrosis. Moderate to severe intervertebral disc space narrowing with vacuum disc phenomena at L4-L5 has progressively worsened from the 2006 comparison. Moderate sized posterior disc osteophyte complex formations at this interspace results in moderate central c anal stenosis with severe narrowing of the right lateral recess. Additionally, there is a least mild to moderate right-sided neuroforaminal narrowing at this level. Multilevel posterior annular disc bulging. No acute fracture or subluxation identified. The imaged sacrum and iliac bones appear intact. Transitional lumbosacral anatomy with partial sacralization of the L5 segment. Partial bony fusion of the right SI joint. Extensive calcified plaque the abdominal aorta. No acute process of the imaged intra-abdominal or paraspinal tissues. IMPRESSION: No acute fracture or subluxation. ---- XR ribs RT min 2V w CXR1V CLINICAL HISTORY: Right rib pain status post trauma COMPARISON STUDY: No previous studies for comparison. FINDINGS: The erect chest reveals no pneumothorax. There is no focal bony consolidation. There are fractures of the right posterior 10th and 11th ribs. These were present on the prior CT scan. There is increased displacement of the right 10th rib fracture. IMPRESSION: Redemonstration of right posterior 10th and 11th rib fractures. There is increased displacement of the right 10th rib fracture. PG Care Time/CCT Total # of Minutes Spent Total Time Spent with Patient: Total time spent is greater than 50% in coordination of care (as documented) at patient's floor/unit and/or counseling patient: Coding Level of Care Code 01304 Initial Inpt Care Lvl 3 Diagnoses Syncope R55 History of alcohol abuse F10.11 Wheeze R06.2 Hypertension I10 Hyperlipidemia E78.5
[2021-04-12] MEDS ORDERED: chlordiazePOXIDE ALCOHOL WITHDRAWL 50MG PO STA (20:52)
[2021-04-12] MEDS ORDERED: ACETAMINOPHEN 325 MG TAB PO PRN (20:52)
[2021-04-12] MEDS ORDERED: ONDANSETRON INJ 2 MG/ML 2 ML VIAL IV PRN (20:52)
[2021-04-12] MEDS ORDERED: traMADol HCL 50 MG TABLET PO PRN (20:52)
[2021-04-12] MEDS ORDERED: LORazepam 1 MG/2 ML VIAL IV PRN (20:52)
[2021-04-12] MEDS ORDERED: LORazepam 1 MG TAB PO PRN (20:52)
[2021-04-12] MEDS ORDERED: MIRTAZAPINE TAB 15 MG TAB PO SCH (21:00)
[2021-04-12] MEDS ORDERED: ALBUTEROL HFA 8 GM INHALER INH PRN (21:18)
[2021-04-12] MEDS ORDERED: OPTIRAY 350 500ml IV ONE (21:24)
[2021-04-12] MEDS ORDERED: GABAPENTIN 100 MG CAP PO SCH (21:30)
[2021-04-12] MEDS ORDERED: ENOXAPARIN INJ 40 MG/0.4 ML SYR SQ SCH (21:30)
[2021-04-12] MEDS ORDERED: ATORVASTATIN 20 MG TAB PO SCH (21:30)
[2021-04-12] MEDS: THIAMINE HCL 100 MG TAB PO SCH (22:34)
[2021-04-12] MEDS: FOLIC ACID 1 MG TAB PO SCH (22:34)
[2021-04-12] MEDS: chlordiazePOXIDE HCl 25 MG CAP PO SCH (22:36)
[2021-04-13 02:44] LABS: Basophils # (auto) 0.01 K/uL (0-0.2); Basophils % (auto) 0.1 %; Eosinophils # (auto) 0.16 K/uL (0-0.5); Eosinophils % (auto) 2.3 %; Hematocrit (blood only) 47.6 % (42-52); Hemoglobin 16.5 g/dL (14.0-18.0); Immature Granulocytes # (auto) 0.05 K/uL (0.00-0.02); Immature Granulocytes % (auto) 0.7 %; Lymphocytes # (auto) 1.28 K/uL (1.2-3.4); Lymphocytes % (auto) 18.3 %; Mean Corpuscular Hemoglobin 34.1 pg (25-34); Mean Corpuscular Hgb Conc 34.7 g/dL (32-36); Mean Corpuscular Volume 98.3 fL (80-100); Monocytes # (auto) 1.14 K/uL (0.11-0.59); Monocytes % (auto) 16.3 %; Neutrophils # (auto) 4.36 K/uL (1.4-6.5); Neutrophils % (auto) 62.3 %; Platelet Count 321 K/uL (130-400); RDW Standard Deviation 50.3 fL (36.4-46.3); Red Blood Count 4.84 M/uL (4.7-6.1)
[2021-04-13 02:52] LABS: Prothrombin Time 10.1 Seconds (9.0-12.0)
[2021-04-13 03:04] LABS: BUN Creatinine Ratio 14.1 (10-20); Blood Urea Nitrogen 11 mg/dl (7-18); Calcium 8.2 mg/dl (8.5-10.1); Carbon Dioxide 34 mmol/L (21-32); Chloride 99 mmol/L (98-107); Creatinine Clr Calc Pharmacy 118.3 ml/min; Est GFR (African American) 113.5 ml/min; Est GFR (Non-African American) 97.9 ml/min; Glucose 103 mg/dl (70-99); Magnesium 2.8 mg/dl (1.8-2.4); Potassium 3.5 mmol/L (3.5-5.1); Sodium 136 mmol/L (136-145)
[2021-04-13 03:07] LABS: Chol HDL Ratio 2; Cholesterol 126 mg/dl (0-200); HDL Cholesterol 68 mg/dl; LDL Cholesterol Calculated 43 mg/dl; Triglycerides 77 mg/dl (0-150); Troponin I < 0.015 ng/ml (0-0.045); VLDL Cholesterol 15 mg/dl
[2021-04-13] MEDS: chlordiazePOXIDE HCl 25 MG CAP PO SCH ×2 (04:14→08:22)
--- NOTE | 2021-04-13 07:40 | CT Scan Report ---
NECK CTA HISTORY: syncope TECHNIQUE: Multiaxial CT images of the neck were performed following the intravenous administration o f contrast to evaluate the major cervical vessels. Maximum intensity projection images were also obta ined. All measurements were calculated based on NASCET criteria. A dose lowering technique was utili zed adhering to the principles of ALARA. COMPARISON STUDY: None. FINDINGS: The aortic arch and proximal great vessels are widely patent. There is no significant sten osis, occlusion, or dissection identified within the bilateral common carotid, internal carotid, or v ertebral arteries. Mild calcified plaque within the bilateral carotid bifurcations. Emphysema. IMPRESSION: No significant stenosis, occlusion, or dissection identified within the carotid or vertebral arteries . ACT 112: Negative or not required by law. Electronically signed by: Timothy Evans M.D. 04/13/2021 7:39 AM
[2021-04-13] MEDS: THIAMINE HCL 100 MG TAB PO SCH (08:19)
[2021-04-13] MEDS: FOLIC ACID 1 MG TAB PO SCH (08:19)
--- NOTE | 2021-04-13 08:32 | CT Scan Report ---
CTA ANGIOGRAPHY OF THE HEAD CLINICAL HISTORY: Syncope. COMPARISON STUDY: Head CT performed earlier today. TECHNIQUE: Helical axial images of the head were obtained following uneventful intravenous administr ation of 117 cc of Optiray. Sagittal and coronal reconstructions were viewed as well as maximal inten sity projections on an independent 3-D workstation. Automated exposure control was utilized for the study. A dose lowering technique was utilized adhering to the principles of ALARA. CT DOSE: 1213.81 mGycm FINDINGS: This exam is compromised by artifact. There is moderate plaque within bilateral cavernous c arotids without severe stenosis. Sensitivity for detection of stenoses within the intracranial vessel s is diminished on this exam. There is no abrupt vessel cut off. The posterior circulation is intact. No intracranial aneurysm is identified. No intraluminal thrombus is identified. Major dural sinuses are patent. There is no calvarial fracture. Ventricular system is unremarkable. Basal cisterns are pa tent. There are no extra-axial collections. IMPRESSION: 1. No intracranial aneurysm or central vessel occlusion. 2. Technically compromised exam, as described above. Moderate atherosclerotic plaque within the bilat eral cavernous carotids without severe stenosis. ACT 112: Negative or not required by law. Electronically signed by: Galen Frye M.D. 04/13/2021 8:31 AM
[2021-04-13] MEDS ORDERED: hydroCHLOROthiazide 25 MG TAB PO SCH (09:00)
[2021-04-13] MEDS ORDERED: LOSARTAN POTASSIUM 50 MG TAB PO SCH (09:00)
--- NOTE | 2021-04-13 22:51 | XCELERA ---
[id number]
--- NOTE | 2021-04-14 06:09 | Electrocardiogram Report ---
Test Reason : Blood Pressure : / mmHG Vent. Rate : 075 BPM Atrial Rate : 075 BPM P-R Int : 158 ms QRS Dur : 096 ms QT Int : 396 ms P-R-T Axes : 076 -02 070 degrees QTc Int : 442 ms Sinus rhythm with Premature atrial complexes Otherwise normal ECG When compared with ECG of 10-MAR-2021 22:20, Premature atrial complexes are now Present Nonspecific T wave abnormality no longer evident in Anterior leads Confirmed by Uday Whitt ([id number]) on 04/14/2021 6:09:01 AM Referred By: REFERRED SELF Confirmed By:Uday Whitt
--- NOTE | 2021-04-15 12:36 | Discharge Summary ---
Date of Service April 13, 2021 Admission HPI Per Admitting Provider This is a 60-year-old male with past medical history of chronic alcoholism, hypertension, hyperlipidemia that presents complaining of syncope. Patient is a very limited historian. Patient's is at bedside but was not present for the incident. 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 He tells me that he was in his normal state of health when he was scrubbing sitting on the floor. He bent over to clean something but when he stood up he had a sudden bout of coughing and then syncopized. He was out only very briefly and may have actually stopped his fall. Did not strike his head. His main complaint after this incident is pain in his back. This is mostly in the right lower spinal area without radiation down his legs or into his groin. The pain is not that severe. He denies any other symptoms either during this incident after including chest pain, abdominal pain, loss of bladder or bowel control, headache, visual changes, diaphoresis, or other issues. Patient's tells me that the patient is a significant consumer of alcohol. He drinks approximately 12 beers daily, starting as soon as he wakes up in the morning. is also concerned as the patient has had falls in the past, both at work and at home. In fact, patient was seen status post fall on 03/26 in which he fractured his 10th and 11th rib on the right.'s fractures are demonstrated on imaging today as well. Principal Diagnosis syncope Discharge Exam Constitutional: cooperative; no acute distress Neck: trachea midline, no thyromegaly Respiratory: normal respiratory effort Auscultation: lungs clear to auscultation bilaterally; no crackles, no rales and no rhonchi Cardiovascular: Rate/Rhythm: regular rate and regular rhythm Heart Sounds: normal S1 and normal S2; no murmur Gastrointestinal (Abdomen): Inspection/Auscultation: abdomen normal to inspection Percussion/Palpation: abdomen soft; abdomen nontender, no guarding, abdomen not rigid and no hepatosplenomegaly Skin: no rashes, warm and dry Discharge Data Allergies Allergy/AdvReac Type Severity Reaction Status Date / Time No Known Allergies Allergy Verified 04/12/21 13:39 Consultations 04/12/21 14:48 ED Decision to Admit Stat 04/12/21 16:21 ED Decision to Admit Stat Ordered Studies 04/12/21 12:23 CT cervical spine wo con Stat CT head/brain wo con Stat CT lumbar spine wo con Stat 04/12/21 20:52 CT angio head w con Urgent CT angio neck with con Urgent Hospital Course (1) Syncope: From description, it sounds that the patient had a vasovagal episode. Other possibilities include orthostasis, alcohol intoxication, or vertebrobasilar insufficiency Admit to a monitored bed Check 2D echo: negative BP was stable. Cardiac enzymes were negative. Checked CT angiogram of the brain/neck, namely posterior circulation: negative for stenosis. With history of falls,had PT eval patient. Patient can return home. Recomend to stop drinking, however, patient is not interested in rehab at this time. (2) History of alcohol abuse: Concern regarding patient's ongoing drinking. At high risk for withdrawal while hospitalized order WAAS scale, will give benzodiazepines for prevention Oral folate and thiamine (3) Wheeze: Patient is active smoker Does not appear to be short of breath and O2 sat is documented 93% on room air We will order albuterol as needed. Counseled patient presents smoking cessation. Nicotine patch ordered by ER, cindy to continue Would consider pulmonology consultation with PFTs, after discharge. will defer to PCP. (4) Hypertension: Continue losartan, HCTZ as ordered (5) Hyperlipidemia: Continue atorvastatin as ordered Total Time Total Time Spent Total Time Spent (In Minutes): 32 Total Time Includes: Examination of the Patient, Discharge Planning and Medication Reconciliation Discharge Plan Discharge Items Patient Disposition: Home - Self-Care Reason For Visit: syncope Discharge Diagnosis: SYNCOPE Activity: Resume your previous activity Non-emergency contact: Primary Care Provider Call non-emergency contact if: you have any medication questions Follow-up/Referrals: Ovi Ca III, MD [Primary Care Provider] - 04/19/21 10:30 am (Your appointment is with the physician assistant professor in family studies, Malina Hurley. If you have any questions or need to change this appointment, please call [phone].) Diet: Heart Healthy Add Attending Provider Instructions: You were diagnosed with a vasovagal syncopal episode. Meaning you passed out. Vasovagal syncope ([id number] [id number]) occurs when you faint because your body overreacts to certain triggers, such as the sight of blood or extreme emotional distress. The vasovagal syncope trigger causes your heart rate and blood pressure to drop suddenly. We checked your heart rate and rhythm while you were hospitalized, which was normal. We checked for any bloackages in your arteries in your neck which was also normal. Recommend you limit alcohol use. Pending Studies at Discharge: No Stand-Alone Forms: My [facility], Work/School Release, Smoking Cessation Medications and DC Order Prescriptions: New thiamine HCl (vitamin B1) [Vitamin B-1] 100 mg Tablet 100 mg PO QAM Qty: 30 RF: 0 folic acid 1 mg Tablet 1 mg PO QAM Qty: 30 RF: 0 Continued atorvastatin 20 mg tablet 20 mg PO HS Qty: 90 RF: 1 tramadol 50 mg tablet 50 mg PO BID PRN (Reason: pain) Qty: 30 RF: 0 triamcinolone acetonide 0.1 % cream 1 applic topical BID PRN (Reason: itch) Qty: 30 RF: 1 albuterol sulfate [ProAir HFA] 90 mcg/actuation HFA aerosol inhaler 2 puff inhalation Q6H PRN (Reason: shortness of breath or wheezing) Qty: 6.7 RF: 1 hydrocodone-acetaminophen 5-325 mg tablet 1 - 2 tab PO DAILY PRN (Reason: pain) Qty: 14 RF: 0 hydrochlorothiazide 25 mg tablet 25 mg PO QAM RF: 0 losartan 100 mg tablet 100 mg PO QAM RF: 0 mirtazapine 15 mg tablet 15 mg PO HS RF: 0 gabapentin 100 mg capsule 100 mg PO HS RF: 0 Discharge Orders: Discharge Order (Routine); Ordered 04/13/21 Ordered By: Norberto Cardenas Admission Data Admit Date/Time: 04/12/21 18:28 Attending Provider: Norberto Cardenas Admit Provider: Santos Shaw Primary Care Provider: Ovi Ca III Other Providers: Santos Shaw Other Interventions: Discharge Summary Assessment (RN) Last Done: 04/13/21 15:38 Coding Level of Care Code D/C Day Management >30 mins Diagnoses Syncope R55 Syncope type: unspecified History of alcohol abuse F10.11 Wheeze R06.2 Hypertension I10 Hyperlipidemia E78.5
== END 2021-04-13 17:04 | disposition home or self-care (01) | DRG 312 ==
LOC: ED 11:34 → SUATTDRO 18:28 → 2W 18:28

== ENCOUNTER 2022-07-10 14:04 | Inpatient (IN) ==
--- NOTE | 2022-07-10 14:39 | Emergency Department Note ---
History of Present Illness General Chief complaint: Referred by Doctor Stated complaint: RETAINING FLUID Time Seen by Provider: 07/10/22 14:19 History of Present Illness 61-year-old male presents to the ED with a chief complaint of having too much fluid in his body everywhere. The patient states that his symptoms have been going on for greater than 6 months. 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 He saw Dr. Velasquez on who recommended that he come to the hospital for admission. The patient denies having any chest pains. He does have exertional shortness of breath. He is a smoker. He denies any upper respiratory symptoms. He did finish a course of antibiotics 5 days ago for cellulitis of his legs. He states that Dr. Velasquez told him that he gained about 20 pounds in a short period of time. Home Medications Medication Instructions Recorded Confirmed Type gabapentin 100 mg capsule 100 mg PO HS 03/10/21 05/19/21 History mirtazapine 15 mg tablet 15 mg PO HS 03/10/21 05/19/21 History tramadol 50 mg tablet 50 mg PO BID PRN pain #30 tabs 03/14/21 05/19/21 Rx triamcinolone acetonide 0.1 % 1 applic topical BID PRN itch #30 03/14/21 05/19/21 Rx topical cream grams hydrochlorothiazide 25 mg tablet 25 mg PO QAM 03/26/21 05/19/21 History losartan 100 mg tablet 100 mg PO QAM 03/26/21 05/19/21 History albuterol sulfate 90 mcg/actuation 2 puff inhalation Q6H PRN 04/07/21 05/19/21 Rx aerosol inhaler (ProAir HFA) shortness of breath or wheezing #6.7 grams hydrocodone 5 mg-acetaminophen 325 1 - 2 tab PO DAILY PRN pain #14 04/07/21 05/19/21 Rx mg tablet tabs folic acid 1 mg tablet 1 mg PO QAM #30 tabs 04/13/21 05/19/21 Rx thiamine HCl (vitamin B1) 100 mg 100 mg PO QAM #30 tabs 04/13/21 05/19/21 Rx tablet (Vitamin B-1) fluticasone propionate 50 2 spray intranasal DAILY #9.9 mL 06/16/21 07/16/21 Rx mcg/actuation nasal spray,suspension (Allergy Relief (fluticasone)) varenicline 0.5 mg (11)-1 mg (42) See Rx Instructions .Route 04/19/21 05/19/21 Rx tablets in a dose pack (Chantix .COMPLEX #53 ea Starting Month Box) varenicline 1 mg tablet (Chantix 1 mg PO BID #56 tabs 05/09/21 05/19/21 Rx Continuing Month Box) atorvastatin 20 mg tablet 20 mg PO HS #90 tabs 09/14/21 Rx amoxicillin 875 mg-potassium 1 tab PO BID #14 tabs 11/10/21 11/10/21 Rx clavulanate 125 mg tablet (Augmentin) Allergies Allergy/AdvReac Type Severity Reaction Status Date / Time No Known Allergies Allergy Verified 05/19/21 08:58 Past Med/Surg History Medical History History of alcohol abuse Surgical History History of colonoscopy (10/13/12) Dr Silva, sigmoid tics, otherwise normal, recheck recommended in 5 years due to FHx (brother) S/P right knee arthroscopy 1986 Family History Brother Colorectal cancer Lung cancer Mother Lung cancer Father Myocardial infarction Denies family history of Ovarian cancer Prostate cancer Breast cancer Social History Smoking Status: Never smoker Tobacco Type: Cigarettes Cigarettes Per Day: 40; Second Hand Exposure: Yes; Hx Alcohol Use: Yes Alcohol type: beer Hx Substance Use: No Preferred Language: Syrian 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 Beliefs That Will Affect Care: None marital status: Current Living Situation: Alone Current Living Situation Comment: [employer] current occupational status: employed Feels Safe at Home: Yes Assistive Devices: Glasses Review of Systems A total of 10 systems reviewed and were otherwise negative Physical Exam Vital Signs Vital Signs - 24 hr 07/10/22 14:15 Temperature 36.7 C Temperature Source Oral Pulse Rate 85 Respiratory Rate 22 Respiratory Effort / Characteristics Labored Respiratory Pattern Regular Blood Pressure 142/83 H Blood Pressure Mean 102 Blood Pressure Position Sitting Pulse Oximetry 93 Oxygen Delivery Method Room Air Sepsis Recent Fever Within 48 Hours No Sepsis New/Unexplained Change in Mental Status No Sepsis Action Taken by Nursing No Action Required CONSTITUTIONAL/VITAL SIGNS: Reviewed / noted above. GENERAL: Non-toxic in appearance. INTEGUMENTARY: Warm, dry, and [place]. HEAD: Normocephalic. EYES: without scleral icterus or trauma. ENT/OROPHARYNX: clear and moist. LYMPHADENOPATHY/NECK: Is supple without lymphadenopathy or meningismus. RESPIRATORY: Basilar crackles to auscultation bilaterally. No increased work of breathing. CARDIOVASCULAR: Regular rate and rhythm. GI/ABDOMEN: Soft and nontender. No organomegaly or pulsatile mass. EXTREMITIES: Warm and well perfused. Bilateral pedal edema with multiple scratch randall and skin lesions related to scratching his legs. There is also bilateral erythema. BACK: No CVA tenderness. NEUROLOGICAL: Intact without focal deficits. PSYCHIATRIC: normal affect. MUSCULOSKELETAL: Normally developed with good muscle tone. TRIAGE NURSING DOCUMENTATION REVIEWED. Medical Decision Making Differential Diagnosis The differential was considered includes acute myocardial infarction, acute coronary syndrome, myocarditis, pericarditis, pericardial effusions /tamponad, esophageal perforation, pulmonary embolism, pneumonia, pneumothorax, cardiomyopathy, congestive heart, anemia , COPD/asthma exacerbation. Medical Records Attestation: I reviewed the patient's medical records. Home Medications Current Medication List: was personally reviewed by me Laboratory Data Attestation: I reviewed the patient's lab results. Result diagrams: 07/10/22 15:05 07/10/22 15:05 Lab Results 07/10/22 07/10/22 07/10/22 Range/Units 15:05 15:05 15:05 WBC 8.87 (4.8-10.8) K/ul RBC 4.83 (4.63-6.08) M/uL Hgb 15.7 (14.0-18.0) g/dl Hct 45.5 (40.1-51.0) % MCV 94.2 (80.0-100.0) fL MCH 32.5 (25.0-34.0) pg MCHC 34.5 (32.0-36.0) g/dL RDW Std Deviation 49.2 H (36.4-46.3) fL RDW Coeff of Beth 14.3 (11.5-14.5) % Plt Count 371 (130-400) K/uL MPV 9.4 (9.4-12.4) fL Immature Gran % (Auto) 2.7 % Neut % (Auto) 66.3 % Lymph % (Auto) 14.4 % [place] % (Auto) 12.4 % Eos % (Auto) 3.5 % Baso % (Auto) 0.7 % Neut # (Auto) 5.88 (1.4-6.5) K/uL Lymph # (Auto) 1.28 (1.2-3.4) K/uL [place] # (Auto) 1.10 H (0.24-0.82) K/uL Eos # (Auto) 0.31 (0-0.50) K/uL Baso # (Auto) 0.06 (0-0.2) K/uL Immature Gran # (Auto) 0.24 H (0.00-0.02) K/uL Sodium 134 L (136-145) mmol/L Potassium TNP Chloride 101 (98-107) mmol/L Carbon Dioxide 27 (21-32) mmol/L Anion Gap 6 (3-11) BUN 11 (6-23) mg/dl Creatinine 0.65 (0.6-1.4) mg/dl Est Cr Clr Drug Dosing 151.9 ml/min Est GFR ( Amer) 120.8 ml/min Est GFR (Non-Af Amer) 104.3 ml/min BUN/Creatinine Ratio 16.9 (10-20) Glucose 92 (70-99(Fasting)) mg/dl Calcium 8.7 (8.5-10.1) mg/dl Total Bilirubin 0.4 (0.2-1.0) mg/dl AST TNP ALT 32 (7-52) U/L Alkaline Phosphatase 63 (34-104) U/L Troponin I High Sens 11.2 (0-20) pg/ml B-Natriuretic Peptide 51 (0-100) pg/ml Total Protein 6.7 (6.0-8.3) gm/dl Albumin 3.8 (3.4-5.0) gm/dl Globulin 2.9 (2.5-4.0) gm/dl Albumin/Globulin Ratio 1.3 (0.9-2) Imaging Data Radiologist's Impression: Chest X-Ray 07/10/22 14:20 XR chest 1V portable HISTORY: Atypical Chest Pain COMPARISON: Chest and right rib series 04/12/2021. FINDINGS: No pneumothorax. No pleural effusions. The cardiac silhouette is normal in size. No focal lung consolidations to suggest pneumonia. No evidence for pulmonary edema. Mild diffuse interstitial thickening which is likely chronic. This remains unchanged. There is an old, healed left chest clavicle fracture. IMPRESSION: No significant change compared to the prior study. No acute process. ACT 112: Negative or not required by law. Electronically signed by: Timothy Evans M.D. 07/10/2022 3:45 PM ECG Data Attestation: I personally reviewed and interpreted this ECG as follows: MDM Narrative 61-year-old male with ongoing fluid buildup that has not responded well to outpatient diuretics. 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 Velasquez, recommended that he come to the hospital for admission for diuresis. Details listed above. He does have pedal edema bilaterally with some possibly chronic appearing erythema to the legs. His vital signs are stable. He does have some bibasilar crackles on exam of his lungs. The patient CBC and chemistry panel was unremarkable. Troponin is negative. BNP is normal. Chest x-ray did not show acute process. EKG shows a normal sinus rhythm. The patient was treated with IV Lasix for his peripheral edema. He will be seen by the hospitalist for further evaluation and care. Impression & Plan Pedal edema, Fluid overload, Rapid weight gain Discharge Plan Visit Data Chief Complaint: Referred by Doctor Stated Complaint: RETAINING FLUID ED Provider: Diaz Castellanos Discharge Problem: Pedal edema, Fluid overload, Rapid weight gain Patient Disposition: Being Evaluated by Hospitalist Forms Stand Alone Forms: My [facility] [employer] Prescriptions Prescriptions: No Action atorvastatin 20 mg tablet 20 mg PO HS Qty: 90 1RF tramadol 50 mg tablet 50 mg PO BID PRN (Reason: pain) Qty: 30 0RF triamcinolone acetonide 0.1 % cream 1 applic topical BID PRN (Reason: itch) Qty: 30 1RF albuterol sulfate [ProAir HFA] 90 mcg/actuation HFA aerosol inhaler 2 puff inhalation Q6H PRN (Reason: shortness of breath or wheezing) Qty: 6.7 1RF hydrocodone-acetaminophen 5-325 mg tablet 1 - 2 tab PO DAILY PRN (Reason: pain) Qty: 14 0RF Chantix Starting Month Box 0.5 mg (11)- 1 mg (42) tablets,dose pack See Rx Instructions .ROUTE .COMPLEX Qty: 53 0RF Rx Instructions: Use as directed; fluticasone propionate [Allergy Relief (fluticasone)] 50 mcg/actuation spray,suspension 2 spray intranasal DAILY Qty: 9.9 2RF Rx Instructions: administer into each nostril Chantix Continuing Month Box 1 mg tablet 1 mg PO BID Qty: 56 4RF amoxicillin-pot clavulanate [Augmentin] 875-125 mg tablet 1 tab PO BID Qty: 14 0RF hydrochlorothiazide 25 mg tablet 25 mg PO QAM losartan 100 mg tablet 100 mg PO QAM thiamine HCl (vitamin B1) [Vitamin B-1] 100 mg Tablet 100 mg PO QAM Qty: 30 0RF folic acid 1 mg Tablet 1 mg PO QAM Qty: 30 0RF mirtazapine 15 mg tablet 15 mg PO HS gabapentin 100 mg capsule 100 mg PO HS Referrals Referrals: Ovi Ca III, MD [Physician] -
[2022-07-10 15:20] LABS: Basophils # (auto) 0.06 K/uL (0-0.2); Basophils % (auto) 0.7 %; Eosinophils # (auto) 0.31 K/uL (0-0.50); Eosinophils % (auto) 3.5 %; Hematocrit (blood only) 45.5 % (40.1-51.0); Hemoglobin 15.7 g/dl (14.0-18.0); Immature Granulocytes # (auto) 0.24 K/uL (0.00-0.02); Immature Granulocytes % (auto) 2.7 %; Lymphocytes # (auto) 1.28 K/uL (1.2-3.4); Lymphocytes % (auto) 14.4 %; Mean Corpuscular Hemoglobin 32.5 pg (25.0-34.0); Mean Corpuscular Hgb Conc 34.5 g/dL (32.0-36.0); Mean Corpuscular Volume 94.2 fL (80.0-100.0); Mean Platelet Volume 9.4 fL (9.4-12.4); Monocytes % (auto) 12.4 %; Neutrophils # (auto) 5.88 K/uL (1.4-6.5); Neutrophils % (auto) 66.3 %; Platelet Count 371 K/uL (130-400); RDW Coefficient of Variation 14.3 % (11.5-14.5); RDW Standard Deviation 49.2 fL (36.4-46.3); Red Blood Count 4.83 M/uL (4.63-6.08); White Blood Count 8.87 K/ul (4.8-10.8)
--- NOTE | 2022-07-10 15:47 | XRay Report ---
XR chest 1V portable HISTORY: Atypical Chest Pain COMPARISON: Chest and right rib series 04/12/2021. FINDINGS: No pneumothorax. No pleural effusions. The cardiac silhouette is normal in size. No focal l shalonda consolidations to suggest pneumonia. No evidence for pulmonary edema. Mild diffuse interstitial t hickening which is likely chronic. This remains unchanged. There is an old, healed left chest clavicl e fracture. IMPRESSION: No significant change compared to the prior study. No acute process. ACT 112: Negative or not required by law. Electronically signed by: Timothy Evans M.D. 07/10/2022 3:45 PM
[2022-07-10 16:00] LABS: Alanine Aminotransferase 32 U/L (7-52); Albumin Globulin Ratio 1.3 (0.9-2); Albumin Level 3.8 gm/dl (3.4-5.0); Alkaline Phosphatase 63 U/L (34-104); Anion Gap 6 (3-11); BUN Creatinine Ratio 16.9 (10-20); Bilirubin,Total 0.4 mg/dl (0.2-1.0); Blood Urea Nitrogen 11 mg/dl (6-23); Calcium 8.7 mg/dl (8.5-10.1); Carbon Dioxide 27 mmol/L (21-32); Chloride 101 mmol/L (98-107); Creatinine Clr Calc Pharmacy 151.9 ml/min; Est GFR (African American) 120.8 ml/min; Est GFR (Non-African American) 104.3 ml/min; Globulin 2.9 gm/dl (2.5-4.0); Glucose 92 mg/dl (70-99(Fasting)); Sodium 134 mmol/L (136-145); Total Protein 6.7 gm/dl (6.0-8.3)
[2022-07-10 16:28] LABS: Troponin I High Sensitivity 11.2 pg/ml (0-20)
[2022-07-10] MEDS ORDERED: FUROSEMIDE 40 MG/4 ML VIAL IV ONE (16:33)
--- NOTE | 2022-07-10 17:53 | History & Physical Report ---
Date of Service July 10, 2022 Assessment & Plan (1) Acute right heart failure: Plan: Preserved EF on echo performed in May 25 with heart failure syndrome reported including LE swelling, weight gain, worsening dyspnea on exertion, decreased exercise intolerance, orthopnea and PND. Patient had normal RV systolic function and no evidence of pulmonary hypertension at that time but has severe lung disease and continues to smoke 4 packs of cigarettes per day. He is also a heavy drinker, reportedly drinking 12-24 beers daily. He has a high salt diet. Good response to Lasix 40mg IV with 2L out. Will continue IV Lasix, restrict sodium and consult cardiology. Strict I/Os, daily standing weights and low sodium diet ordered. (2) Bilateral lower leg cellulitis: Plan: Recent course of Augmentin as outpatient. This improved his redness and swelling but it is still present. There are significant scratch wounds present in lower legs and patient reports chronic bed bug infestation at his home. Notably patient has VERY poor hygiene evidenced by caked up black material on the soles of his feet which stick to his socks as one example. Will give option of benadryl as needed and would have the patient shower/clean his feet prior to considering any topical steroids. Isolation precautions. (3) Pericardial effusion: Plan: Some improvement on limited repeat echo performed in June. Management per cardiology. (4) HTN (hypertension): Plan: Elevated BP to 160/90. Cont with Lasix IV daily along with home spironolactone and losartan. Pt is somewhat stressed coming into the hospital. Will follow BP on the floor and use parenteral agents overnight as needed for persistent BP elevation. (5) Alcohol dependence: Plan: Heavy alcohol use with high risk of withdrawal. Cont home gabapentin, Ativan PO PRN symptoms. Thiamine tonight IV and then daily and folate supplementation daily. (6) Tobacco use disorder: Plan: Heavy smoker, encouraged to quit. Contemplative phase. Nicotine patch while in the hospital. (7) Granulomatous lung disease: Plan: chronic, stable but likely contributing to chronic SOB, h/o sarcoidosis and has evidence of old granulomatous lung disease per outpatient workup, though given no significantly enlarged lymph nodes, jig builder feels the left hilar calcifications seen are from prior histo or blastomycosis. (8) COPD (chronic obstructive pulmonary disease): Plan: chronic, not in exacerbation. Ongoing heavy smoking. Min wheezing related to smoking. Nicotine patch while in the hospital. Encouraged to quit. Followed by [facility] pulmonology who started him on once daily Anoro in Jun 2022. Cont this daily while admitted. Gladys PRN. (9) Severe obesity: Plan: Weight loss encouraged. Needs to change eating and lifestyle habits. (10) DVT prophylaxis: Plan: Lovenox BID Full Code confirmed on admission Girlfriend is at bedside and states she wants to be mPOA Patient has living adult children and this needs to be legally stated. Will ask CM to help with notarizing this information while patient is in the hospital if that is available. Elizabeth Mackenzie DO [facility] Hospitalist History of Present Illness Chief Complaint: swelling/weight gain Primary Care Provider: Khai Mejia MD 61 yo M presents with acute on chronic dyspnea and increased lower extremity and weight gain. 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 Weight has increased 40 lbs over the past several months. Last week, HCTZ was stopped and he was started on Lasix 40mg BID and spironolactone 12.5mg daily. He was also started on a course of Augmentin for lower extremity cellulitis which improved his legs but they are still symptomatic with swelling, itching and redness. He reports feeling very itchy and has a self-reported infestation with bedbugs at his home. Over the past several months he reports he is unable to walk 30 feet without stopping and short of breath. Now this has progressed and he is SOB at rest. ROS reveals +cough, whitish productive No fevers, no chills. He indulges in a high salt diet with 3 meat pizzas, potato chips, and easy prep food. Has +2 pillow orthopnea, +PND, denies chest pain symptoms. Smokes 4 packs cigarettes per day and drinks 12-24 beers daily. Reportedly was evicted from his residence in [place] and is homeless. 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 Allergies Allergy/AdvReac Type Severity Reaction Status Date / Time No Known Allergies Allergy Verified 07/10/22 17:55 Home Medications Medication Instructions Recorded Confirmed Type gabapentin 100 mg capsule 100 mg PO BID 03/10/21 07/10/22 History mirtazapine 15 mg tablet 15 mg PO HS 03/10/21 07/10/22 History losartan 100 mg tablet 100 mg PO QAM 03/26/21 07/10/22 History fluticasone propionate 50 2 spray intranasal DAILY #9.9 mL 04/19/21 07/10/22 Rx mcg/actuation nasal spray,suspension (Allergy Relief (fluticasone)) atorvastatin 20 mg tablet 20 mg PO HS #90 tabs 09/14/21 07/10/22 Rx acetaminophen 500 mg tablet 1,000 mg PO QID PRN Pain 07/10/22 07/10/22 History (Tylenol Extra Strength) albuterol sulfate 90 mcg/actuation 2 puff inhalation QID PRN 07/10/22 07/10/22 History aerosol inhaler Shortness Of Breath Or Wheezing furosemide 40 mg tablet 40 mg PO BID 07/10/22 07/10/22 History spironolactone 25 mg tablet 12.5 mg PO DAILY 07/10/22 07/10/22 History umeclidinium 62.5 mcg-vilanterol 1 inh inhalation QAM 07/10/22 07/10/22 History 25 mcg/actuation powdr for inhalation Past Med/Surg History Medical History Centrilobular emphysema Granulomatous lung disease History of alcohol abuse Severe obesity Tobacco use disorder Surgical History History of colonoscopy (10/13/12) Dr Silva, sigmoid tics, otherwise normal, recheck recommended in 5 years due to FHx (brother) S/P right knee arthroscopy 1986 Family History Brother Colorectal cancer Lung cancer Mother Lung cancer Father Myocardial infarction Denies family history of Ovarian cancer Prostate cancer Breast cancer Social History Smoking Status: Never smoker Tobacco Type: Cigarettes Cigarettes Per Day: 40; Second Hand Exposure: Yes; Hx Alcohol Use: Yes Alcohol type: beer Hx Substance Use: No Preferred Language: Turkish 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 Physical Exam Physical Exam: CONSTITUTIONAL: obese, vitals as above, generally well- appearing, NAD EYES: EOMI bilaterally, PERRL, normal conjunctivae, no scleral icterus ENT: external ear and nose normal, oropharynx clear NECK: trachea midline RESPIRATORY: decreased breath sounds at bilateral bases, scant wheezing in upper lobes, no crackles or rales. Normal respiratory effort but there is SOB with minimal exertion while sitting in bed, +conversational dyspnea. CARDIOVASCULAR: regular rate and rhythm, S1 and 2 heard without murmurs, gallops or rubs, no JVD, no peripheral edema CHEST: inspection of chest was normal GASTROINTESTINAL: soft, nonspecific generalized TTP, nondistended, protuberant, MUSCULOSKELETAL: strength 5/5 throughout, head is normocephalic and atraumatic, neck supple, normal palpation of chest wall without tenderness SKIN: warm and dry, with increased warmth and redness in bilateral lower extremities including feet. Skin is tense and swollen without pitting edema and there are multiple scratch wounds present. Cellulitis appearance extends to mid shins. NEUROLOGIC: CN 2-12 grossly intact, no sensory deficit, normal cognition, normal speech, no tremor PSYCHIATRIC: alert cooperative and oriented to person, place and time. Results & Data Results & Data ([facility]) Vital Signs (Past 12 Hours) Vital Signs Temp Pulse Pulse Resp BP BP Pulse Ox 07/10/22 16:06 94 H 16 160/69 H 96 07/10/22 14:20 96 07/10/22 14:15 36.7 C 85 22 142/83 H 93 O2 Del Method 07/10/22 16:06 Room Air 07/10/22 14:20 Room Air 07/10/22 14:15 Room Air Laboratory Results Short CBC 07/10/22 Range/Units 15:05 WBC 8.87 (4.8-10.8) K/ul Hgb 15.7 (14.0-18.0) g/dl Hct 45.5 (40.1-51.0) % Plt Count 371 (130-400) K/uL BMP 07/10/22 15:05 Sodium 134 L Potassium TNP Chloride 101 Carbon Dioxide 27 BUN 11 Creatinine 0.65 Glucose 92 Calcium 8.7 Liver Function 07/10/22 Range/Units 15:05 Total Bilirubin 0.4 (0.2-1.0) mg/dl AST TNP ALT 32 (7-52) U/L Alkaline Phosphatase 63 (34-104) U/L Albumin 3.8 (3.4-5.0) gm/dl Diagnostic Findings Chest X-Ray 07/10/22 14:20 XR chest 1V portable HISTORY: Atypical Chest Pain COMPARISON: Chest and right rib series 04/12/2021. FINDINGS: No pneumothorax. No pleural effusions. The cardiac silhouette is normal in size. No focal lung consolidations to suggest pneumonia. No evidence for pulmonary edema. Mild diffuse interstitial thickening which is likely chronic. This remains unchanged. There is an old, healed left chest clavicle fracture. IMPRESSION: No significant change compared to the prior study. No acute process. ACT 112: Negative or not required by law. Electronically signed by: Timothy Evans M.D. 07/10/2022 3:45 PM Code Status & VTE Plan VTE Prophylaxis Plan VTE Prophylaxis will be ordered: Yes (1) Alcohol dependence Substance use status: unspecified alcohol-induced disorder Qualified Code(s): F10.29 - Alcohol dependence with unspecified alcohol-induced disorder
[2022-07-10] MEDS ORDERED: diphenhydrAMINE Capsule 25 MG CAP PO PRN (20:05)
[2022-07-10] MEDS ORDERED: LORazepam 1 MG TAB PO PRN (20:05)
[2022-07-10] MEDS ORDERED: ALBUT/IPRATROP 3MG/0.5MG NEB 3 ML VIAL NEB PRN (20:05)
[2022-07-10] MEDS: ceFAZolin 2000MG 2,000 MG/15 ML SYR IV SCH (20:19)
[2022-07-10] MEDS ORDERED: THIAMINE HCL 100 MG in SYRINGE 9 ML IV ONE (20:30)
[2022-07-10] MEDS: THIAMINE HCL 100 MG TAB PO SCH (20:50)
[2022-07-10] MEDS: MIRTAZAPINE TAB 15 MG TAB PO SCH (20:51)
[2022-07-10] MEDS: FOLIC ACID 1 MG TAB PO SCH (20:51)
[2022-07-10] MEDS: GABAPENTIN 100 MG CAP PO SCH (20:51)
[2022-07-10] MEDS: ENOXAPARIN INJ 40 MG/0.4 ML SYR SQ SCH (20:51)
[2022-07-10] MEDS: ATORVASTATIN 20 MG TAB PO SCH (20:51)
[2022-07-10 21:19] LABS: Appearance Urine Clear (Clear); Bilirubin Urine Negative (Negative); Blood Urine Negative (Negative); Color Urine Yellow; Glucose Urine UA Negative (Negative); Ketones Urine Negative (Negative); Leukocyte Esterase Urine Negative (Negative); Nitrite Urine Negative (Negative); Protein Urine Negative (Negative); Urobilinogen Urine Negative (Negative); pH Urine 6.5 (4.5-7.5)
[2022-07-10 21:49] LABS: Amphetamines+Metham, Urine Neg (Neg); Barbiturates, Urine Neg (Neg); Benzodiazepine, Urine Neg (Neg); Cocaine, Urine Neg (Neg); Creatinine Urine Random 59.4 mg/dl; MDMA (Ecstacy), Urine Neg (Neg); Methadone, Urine Neg (Neg); Opiate, Urine Neg (Neg); Phencyclidine, Urine Neg (Neg); Protein Creatinine Ratio Urine 0.1 (0-0.2); Total Protein Urine Random 4.3 mg/dl (0-11.9)
[2022-07-10 22:17] LABS: Potassium 4.2 mmol/L (3.5-5.1)
[2022-07-10] MEDS: NICOTINE 21 MG/24 HR TDSY TD SCH (23:17)
[2022-07-11] MEDS: ceFAZolin 2000MG 2,000 MG/15 ML SYR IV SCH ×3 (04:52→21:06)
[2022-07-11 07:48] LABS: Hematocrit (blood only) 50.9 % (40.1-51.0); Hemoglobin 16.6 g/dl (14.0-18.0); Mean Corpuscular Hemoglobin 31.9 pg (25.0-34.0); Mean Corpuscular Hgb Conc 32.6 g/dL (32.0-36.0); Mean Corpuscular Volume 97.9 fL (80.0-100.0); Platelet Count 369 K/uL (130-400); RDW Coefficient of Variation 14.7 % (11.5-14.5); White Blood Count 8.59 K/ul (4.8-10.8)
[2022-07-11 08:06] LABS: Estimated Average Glucose 140 mg/dl; Hemoglobin A1C 6.5 % (4.5-5.6)
[2022-07-11 08:10] LABS: BUN Creatinine Ratio 17.1 (10-20); Est GFR (African American) 109.8 ml/min; Est GFR (Non-African American) 94.8 ml/min; Magnesium 2.3 mg/dl (1.7-2.4); Potassium 3.9 mmol/L (3.5-5.1)
--- NOTE | 2022-07-11 08:49 | Cardiology Consultation ---
Date of Consultation July 11, 2022 Assessment & Plan (1) Acute right heart failure: (2) HTN (hypertension): (3) Pericardial effusion: (1) Acute right heart failure: - patient with fluid retention, noted significant alcohol dependence, 24 beers servings per day on a regular basis. - Likely has underlying right ventricular systolic dysfunction on the basis of underlying lung disease with superimposed fluid retention. Continue current dose of furosemide 40 milligrams IV daily. - Increase spironolactone from 12.5 milligrams daily to 25 milligrams daily. (2) HTN (hypertension): - Continue furosemide, spironolactone, losartan. - Continue alcohol withdrawal prophylaxis, patient currently receiving gabapentin. (3) Pericardial effusion: - Stable on recent echocardiogram is outpatient, 06/27/22. No need to repeat at present. DVT prophylaxis: SQ lovenox. Pt on contact isolation for "bed bugs". History of Present Illness Attending Physician: Valeri Carrillo MD History of Present Illness Santos Malloy is a 61-year-old male seen in cardiology consultation per the request of Dr. Mackenzie for evaluation and management of acute on chronic right- sided congestive heart failure. Patient notes progressive lower extremity edema and shortness of breath over a six-month interval. On 07/05/2022 he had been seen as an outpatient by Dr. Velasquez of our practice in cardiology consultation for the same complaint. At that time, significant lower extremity edema noted, and inpatient level care had been recommended but the patient declined. He was therefore treated with furosemide 40 milligrams twice daily, spironolactone 25 milligrams daily. He ultimately presented yesterday to the emergency department. Patient seen 40 milligrams IV furosemide yesterday at 4:33 p.m, Another dose administered this morning. Does not appear that his intake and output summary is accurate, but the patient subjectively describes having had a vigorous diuresis urinating on m ultiple occasions. Echocardiogram performed as an outpatient at [facility] 05/10/2022 revealed mild concentric left ventricular hypertrophy, LVEF normal 64% without regional wall motion abnormalities, moderate right ventricular chamber enlargement with sotalol right ventricular hypokinesis, moderate sized anterior loculated pericardial effusion. Follow-up focused echocardiogram performed 06/27/2022 revealed interval improvement, with a small residual circumferential pericardial effusion. 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 [employer] Allergies Allergy/AdvReac Type Severity Reaction Status Date / Time No Known Allergies Allergy Verified 07/10/22 17:55 Home Medications Medication Instructions Recorded Confirmed Type gabapentin 100 mg capsule 100 mg PO BID 03/10/21 07/10/22 History mirtazapine 15 mg tablet 15 mg PO HS 03/10/21 07/10/22 History losartan 100 mg tablet 100 mg PO QAM 03/26/21 07/10/22 History fluticasone propionate 50 2 spray intranasal DAILY #9.9 mL 04/19/21 07/10/22 Rx mcg/actuation nasal spray,suspension (Allergy Relief (fluticasone)) atorvastatin 20 mg tablet 20 mg PO HS #90 tabs 09/14/21 07/10/22 Rx acetaminophen 500 mg tablet 1,000 mg PO QID PRN Pain 07/10/22 07/10/22 History (Tylenol Extra Strength) albuterol sulfate 90 mcg/actuation 2 puff inhalation QID PRN 07/10/22 07/10/22 History aerosol inhaler Shortness Of Breath Or Wheezing furosemide 40 mg tablet 40 mg PO BID 07/10/22 07/10/22 History spironolactone 25 mg tablet 12.5 mg PO DAILY 07/10/22 07/10/22 History umeclidinium 62.5 mcg-vilanterol 1 inh inhalation QAM 07/10/22 07/10/22 History 25 mcg/actuation powdr for inhalation Patient History Medical History Centrilobular emphysema Granulomatous lung disease History of alcohol abuse Severe obesity Tobacco use disorder Surgical History History of colonoscopy (10/13/12) Dr Silva, sigmoid tics, otherwise normal, recheck recommended in 5 years due to FHx (brother) S/P right knee arthroscopy 1986 Family History Brother Colorectal cancer Lung cancer Mother Lung cancer Father Myocardial infarction Denies family history of Ovarian cancer Prostate cancer Breast cancer Social History Smoking Status: Heavy tobacco smoker Tobacco Type: Cigarettes Cigarettes Per Day: 40; Second Hand Exposure: Yes; Hx Alcohol Use: Yes Alcohol type: beer Hx Substance Use: No Preferred Language: [place] Communication Ability: Effective Rough Rice Grader Required: No Beliefs That Will Affect Care: None marital status: Current Living Situation: Alone current occupational status: employed Feels Safe at Home: No Is there a partner from a previous relationship who is making you feel unsafe now?: No Would You Like to Speak to Someone About Your Situation: No ("dealing with it") Safety Concerns: Afraid for Self Assistive Devices: Glasses Review of Systems Review of Systems: All systems reviewed & are unremarkable except as noted in HPI & below Physical Exam Constitutional: no acute distress Respiratory: respiratory status comfortable, sitting up at 90, stethoscope not utilized as patient was recently placed on isolation precaution, an isolation stethoscope is not readily available to time my assessment. Cardiovascular: stethoscope not utilized as patient was recently placed on isolation precaution, an isolation stethoscope is not readily available to time my assessment. Telemetry =SR in the 60s 2+ Bilateral lower extremity edema, mild erythema with feet, skin on the lower legs with multiple ulcerations of varying levels of healing Neurologic: PERRL, EOMI, accommodation nl, no face palsy, no dysarthria Results & Data ([facility]) Vital Signs (Past 12 Hours) Vital Signs Temp Pulse Pulse Resp BP BP Pulse Ox 07/11/22 07:19 36.5 C 80 17 161/84 H 95 07/11/22 04:01 36.4 C L 76 18 151/89 H 95 07/10/22 23:00 86 07/10/22 21:45 07/10/22 23:19 36.9 C 81 20 171/99 H 165/105 H 96 O2 Del Method 07/11/22 07:19 Room Air 07/11/22 04:01 Room Air 07/10/22 23:00 07/10/22 21:45 Room Air 07/10/22 23:19 Room Air Laboratory Results Cardiac Enzymes 07/10/22 07/10/22 07/10/22 Range/Units 15:05 15:05 21:43 AST TNP 30 Troponin I High Sens 11.2 (0-20) pg/ml B-Natriuretic Peptide 51 (0-100) pg/ml Coagulation 07/10/22 Range/Units 15:05 B-Natriuretic Peptide 51 (0-100) pg/ml CBC 07/10/22 07/11/22 Range/Units 15:05 07:30 WBC 8.87 8.59 (4.8-10.8) K/ul RBC 4.83 5.20 (4.63-6.08) M/uL Hgb 15.7 16.6 (14.0-18.0) g/dl Hct 45.5 50.9 (40.1-51.0) % Plt Count 371 369 (130-400) K/uL Neut # (Auto) 5.88 (1.4-6.5) K/uL Lymph # (Auto) 1.28 (1.2-3.4) K/uL Jerome # (Auto) 1.10 H (0.24-0.82) K/uL Eos # (Auto) 0.31 (0-0.50) K/uL Baso # (Auto) 0.06 (0-0.2) K/uL Comprehensive Metabolic Panel 07/10/22 07/10/22 07/11/22 Range/Units 15:05 21:43 07:30 Sodium 134 L 138 (136-145) mmol/L Potassium TNP 4.2 3.9 Chloride 101 100 (98-107) mmol/L Carbon Dioxide 27 32 (21-32) mmol/L BUN 11 14 (6-23) mg/dl Creatinine 0.65 0.82 (0.6-1.4) mg/dl Glucose 92 111 H (70-99(Fasting)) mg/dl Calcium 8.7 9.0 (8.5-10.1) mg/dl AST TNP 30 ALT 32 (7-52) U/L Alkaline Phosphatase 63 (34-104) U/L Total Protein 6.7 (6.0-8.3) gm/dl Albumin 3.8 (3.4-5.0) gm/dl Intake and Output 07/10/22 07/11/22 07/11/22 22:59 06:59 14:59 Intake Total 550 / 550 Output Total 100 / 450 350 / 450 Balance -100 / 100 200 / 100 Intake: Oral 550 / 550 Output: Urine 100 / 450 350 / 450 Other: # Unmeasured Voids 1 Weight 118.7 kg 124.2 kg 124.2 kg Weight Measurement Method Built in [facility] Built in [facility] Patient Weight 07/12/22 06:59 Weight 124.2 kg Diagnostic Findings EKG performed today 07/10/2022 reveals sinus rhythm 89 beats per minute, normal EKG
[2022-07-11] MEDS: ENOXAPARIN INJ 40 MG/0.4 ML SYR SQ SCH ×2 (08:55→21:08)
[2022-07-11] MEDS: LOSARTAN POTASSIUM 50 MG TAB PO SCH (08:56)
[2022-07-11] MEDS: FLUTICASONE PROPIONATE NA SPR 16 GM BTL NAE SCH (08:56)
[2022-07-11] MEDS: GABAPENTIN 100 MG CAP PO SCH ×2 (08:56→21:07)
[2022-07-11] MEDS: FOLIC ACID 1 MG TAB PO SCH (08:56)
[2022-07-11] MEDS ORDERED: SPIRONOLACTONE 12.5 MG TAB PO SCH (09:00)
[2022-07-11] MEDS: UMECLIDINIUM/VILANTEROL 62.5/25MCG 7 PUFFS/INHALER INH SCH (09:00)
[2022-07-11] MEDS: FUROSEMIDE 40 MG/4 ML VIAL IV SCH (09:04)
[2022-07-11] MEDS: THIAMINE HCL 100 MG TAB PO SCH (09:04)
[2022-07-11] MEDS: NICOTINE 21 MG/24 HR TDSY TD SCH (12:47)
--- NOTE | 2022-07-11 17:42 | Electrocardiogram Report ---
Test Reason : Blood Pressure : / mmHG Vent. Rate : 089 BPM Atrial Rate : 089 BPM P-R Int : 150 ms QRS Dur : 096 ms QT Int : 356 ms P-R-T Axes : 058 -15 059 degrees QTc Int : 433 ms Normal sinus rhythm Normal ECG When compared with ECG of 12-APR-2021 13:00, Premature atrial complexes are no longer Present Confirmed by Wisam Trivedi ([id number]) on 07/11/2022 5:42:41 PM Referred By: REFERRED SELF Confirmed By:Aldo Trivedi
--- NOTE | 2022-07-11 17:50 | Hospitalist Progress Note ---
Date of Service July 11, 2022 Assessment & Plan (1) Acute right heart failure: Plan: Present on admission with worsening SOB and orthopnea. He is heavy drinker, reportedly drinking 12-24 b BNP 51 on admission ECHO on 05/25 (outpatient) showed mild concentric left ventricular hypertrophy, LVEF normal 64% without regional wall motion abnormalities, moderate right ventricular chamber enlargement with right ventricular hypokinesis, moderate sized anterior loculated pericardial effusion. Received IV lasix in the ER cardiology on board recommended to continue lasix 40mg IV and spironolactone increased to 25mg daily Monitor I/O and electrolytes (2) Bilateral lower leg cellulitis: Plan: Completed Recent course of Augmentin as outpatient. There are significant scratch wounds present in lower legs and patient reports chronic bed bug infestation at his home. Continue cefazolin IV q8h erythema clinically improves (3) Pericardial effusion: Plan: Stable on recent echocardiogram is outpatient, 06/27/22. No need to repeat echo as per cardiology (4) HTN (hypertension): Plan: BP improved Continue furosemide, spironolactone, losartan. Continue monitor BP (5) Alcohol dependence: Plan: Heavy alcohol use with high risk of withdrawal. denies any history of alcohol withdrawal ( he never spent a day without drinking any alcohol) Will add Librium BID Cont home gabapentin, Ativan PO PRN symptoms. Continue monitor closely for sign of alcohol withdrawal Continue thiamine and folic acid Counseling on alcohol cessation (6) Tobacco use disorder: Plan: Continue Nicotine patch while in the hospital. Counseling tobacco cessation (7) Granulomatous lung disease: Plan: chronic, stable but likely contributing to chronic SOB, h/o sarcoidosis and has evidence of old granulomatous lung disease per outpatient workup, though given no significantly enlarged lymph nodes, palaeontologist feels the left hilar calcifications seen are from prior histo or blastomycosis. (8) COPD (chronic obstructive pulmonary disease): Plan: Continue Anoro inhaler Follow up with [facility] pulmonology Continue Duoneb prn Counseling on tobacco cessation (9) Severe obesity: Plan: Weight loss encouraged. Needs to change eating and lifestyle habits. (10) DVT prophylaxis: Plan: Continue Lovenox BID Code status Full Code Admission and Anticipated Discharge Date Admission Date: July 10, 2022 Subjective Pt was seen and examined for follow up of SOB and LE edema and redness Lying in bed with no acute distress Pt said that his breathing improves significantly He aid that he has been diuresed well denies any chest pain, palpitation, dizziness and SOB Review of Systems Review of Systems: All systems reviewed & are unremarkable except as noted in Subjective Physical Exam Physical Exam: General- No acute distress Head- atraumatic Eyes- PERRL, EOMI, ENT- oropharynx clear Neck- supple, no JVD Lungs- clear to auscultation Heart- regular rhythm; no murmur Abdomen- normal bowel sounds, soft, nontender Extremities- + B/L edema, mild erythema with feet, multiple ulcerations/healing in both legs Neuro- alert, oriented x 3; PERRL, EOMI; no facial palsy; no dysarthria Skin- warm & dry Results & Data Results & Data ([facility]) Vital Signs (Past 12 Hours) Vital Signs Temp Pulse Pulse Resp BP Pulse Ox O2 Del Method 07/11/22 16:00 37 C 79 16 131/84 96 Room Air 07/11/22 16:31 79 07/11/22 11:39 36.4 C L 76 17 126/85 96 Room Air 07/11/22 07:00 Room Air 07/11/22 07:00 76 07/11/22 07:19 36.5 C 80 17 161/84 H 95 Room Air (1) Alcohol dependence Substance use status: unspecified alcohol-induced disorder Qualified Code(s): F10.29 - Alcohol dependence with unspecified alcohol-induced disorder
[2022-07-11] MEDS: MIRTAZAPINE TAB 15 MG TAB PO SCH (21:07)
[2022-07-11] MEDS: ATORVASTATIN 20 MG TAB PO SCH (21:08)
[2022-07-12] MEDS: ceFAZolin 2000MG 2,000 MG/15 ML SYR IV SCH ×3 (03:44→20:05)
[2022-07-12 08:05] LABS: BUN Creatinine Ratio 26.3 (10-20); Calcium 8.4 mg/dl (8.5-10.1); Creatinine Clr Calc Pharmacy 127.3 ml/min; Est GFR (African American) 113.3 ml/min; Est GFR (Non-African American) 97.8 ml/min; Potassium 3.9 mmol/L (3.5-5.1)
[2022-07-12] MEDS: NICOTINE 21 MG/24 HR TDSY TD SCH (09:40)
[2022-07-12] MEDS: GABAPENTIN 100 MG CAP PO SCH ×2 (09:40→20:08)
[2022-07-12] MEDS: ENOXAPARIN INJ 40 MG/0.4 ML SYR SQ SCH ×2 (09:41→20:07)
[2022-07-12] MEDS: LOSARTAN POTASSIUM 50 MG TAB PO SCH (09:41)
[2022-07-12] MEDS: FOLIC ACID 1 MG TAB PO SCH (09:41)
[2022-07-12] MEDS: THIAMINE HCL 100 MG TAB PO SCH (09:42)
[2022-07-12] MEDS: SPIRONOLACTONE 25 MG TAB PO SCH (09:43)
[2022-07-12] MEDS: FLUTICASONE PROPIONATE NA SPR 16 GM BTL NAE SCH (09:43)
[2022-07-12] MEDS: UMECLIDINIUM/VILANTEROL 62.5/25MCG 7 PUFFS/INHALER INH SCH (09:44)
[2022-07-12] MEDS: FUROSEMIDE 40 MG/4 ML VIAL IV SCH (09:49)
--- NOTE | 2022-07-12 10:08 | Cardiology Progress Note ---
Date of Service July 12, 2022 Assessment & Plan (1) Acute right heart failure: (2) HTN (hypertension): (3) Pericardial effusion: Plan: (1) Acute right heart failure: - patient with fluid retention, noted significant alcohol dependence, 24 beers servings per day on a regular basis. -Given vigorous diuresis in the last 24 hours, continue current dose of furosemide 40 mg IV every 24 hours, spironolactone 25 mg p.o. daily. (2) HTN (hypertension): - Continue furosemide, spironolactone, losartan. - Continue alcohol withdrawal prophylaxis, patient currently receiving Librium and gabapentin. (3) Pericardial effusion: - Stable on recent echocardiogram is outpatient, 06/27/22. No need to repeat at present. DVT prophylaxis: SQ lovenox. Admission and Anticipated Discharge Date Admission Date: July 10, 2022 Subjective Patient seen in cardiology follow-up of his chief complaint of dyspnea on exertion, lower extremity swelling. Patient reports interval improvement. He is no longer on contact isolation. 3.7 L of urine output noted in the last 24 hours, net negative balance 3.1 L. Physical Exam Constitutional: no acute distress Chronically ill appearance Respiratory: Mildly reduced breath sounds at bases Cardiovascular: 2+ lower extremity edema Skin: Multiple ulcerations of the lower legs of varying stages of healing, slightly improved compared to yesterday. Neurologic: PERRL, EOMI, accommodation nl, no face palsy, no dysarthria Results & Data ([facility]) Vital Signs (Past 12 Hours) Vital Signs Temp Pulse Pulse Resp BP Pulse Ox O2 Del Method 07/12/22 07:32 37.4 C 72 18 152/92 H 97 Room Air 07/12/22 03:41 36.5 C 80 20 150/85 H 95 Room Air 07/11/22 23:00 81 07/11/22 23:25 36.7 C 76 22 132/92 95 Room Air
--- NOTE | 2022-07-12 17:14 | Hospitalist Progress Note ---
Date of Service July 12, 2022 Assessment & Plan (1) Acute right heart failure: Plan: Present on admission with worsening SOB and orthopnea. He is heavy drinker, reportedly drinking 12-24 b BNP 51 on admission ECHO on 05/25 (outpatient) showed mild concentric left ventricular hypertrophy, LVEF normal 64% without regional wall motion abnormalities, moderate right ventricular chamber enlargement with right ventricular hypokinesis, moderate sized anterior loculated pericardial effusion. Received IV lasix in the ER cardiology on board continue lasix 40mg IV and spironolactone 25mg daily Monitor I/O and electrolytes (2) Bilateral lower leg cellulitis: Plan: Completed Recent course of Augmentin as outpatient. There are significant scratch wounds present in lower legs and patient reports chronic bed bug infestation at his home. Continue cefazolin IV q8h erythema clinically improves (3) Pericardial effusion: Plan: Stable on recent echocardiogram is outpatient, 06/27/22. No need to repeat echo as per cardiology (4) HTN (hypertension): Plan: BP improved Continue furosemide, spironolactone, losartan. Continue monitor BP (5) Alcohol dependence: Plan: Heavy alcohol use with high risk of withdrawal. denies any history of alcohol withdrawal ( he never spent a day without drinking any alcohol) Continue Librium BID for now, consider to taper tomorrow Cont home gabapentin, Ativan PO PRN symptoms. No sign of alcohol withdrawal symptoms Continue monitor closely for sign of alcohol withdrawal Continue thiamine and folic acid Counseling on alcohol cessation (6) Tobacco use disorder: Plan: Continue Nicotine patch while in the hospital. Counseling tobacco cessation (7) Granulomatous lung disease: Plan: chronic, stable but likely contributing to chronic SOB, h/o sarcoidosis and has evidence of old granulomatous lung disease per outpatient workup, though given no significantly enlarged lymph nodes, slate splitter feels the left hilar calcifications seen are from prior histo or blastomycosis. (8) COPD (chronic obstructive pulmonary disease): Plan: Continue Anoro inhaler Follow up with [facility] pulmonology Continue Duoneb prn Counseling on tobacco cessation (9) Severe obesity: Plan: Weight loss encouraged. Needs to change eating and lifestyle habits. (10) DVT prophylaxis: Plan: Continue Lovenox BID Code status Full Code Admission and Anticipated Discharge Date Admission Date: July 10, 2022 Subjective Pt was seen and examined for follow up of SOB and LE edema and redness Sitting in chair with no acute distress Pt said that he feels alot better today Pt said that his breathing continue to improve denies any chest pain, palpitation, dizziness and SOB Review of Systems Review of Systems: All systems reviewed & are unremarkable except as noted in Subjective Physical Exam Physical Exam: General- No acute distress Head- atraumatic Eyes- PERRL, EOMI, ENT- oropharynx clear Neck- supple, no JVD Lungs- clear to auscultation Heart- regular rhythm; no murmur Abdomen- normal bowel sounds, soft, nontender Extremities- + B/L edema, mild erythema with feet, multiple ulcerations/healing in both legs Neuro- alert, oriented x 3; PERRL, EOMI; no facial palsy; no dysarthria Skin- warm & dry Results & Data Results & Data ([facility]) Vital Signs (Past 12 Hours) Vital Signs Temp Pulse Pulse Resp BP Pulse Ox O2 Del Method 07/12/22 15:44 36.5 C 80 18 123/82 95 Room Air 07/12/22 11:38 72 07/12/22 11:38 Room Air 07/12/22 11:00 37.2 C 86 17 126/85 96 Room Air 07/12/22 07:32 37.4 C 72 18 152/92 H 97 Room Air (1) Alcohol dependence Substance use status: unspecified alcohol-induced disorder Qualified Code(s): F10.29 - Alcohol dependence with unspecified alcohol-induced disorder
[2022-07-12] MEDS: ACETAMINOPHEN 325 MG TAB PO PRN (20:06)
[2022-07-12] MEDS: ATORVASTATIN 20 MG TAB PO SCH (20:07)
[2022-07-12] MEDS: MIRTAZAPINE TAB 15 MG TAB PO SCH (20:08)
[2022-07-13] MEDS: ceFAZolin 2000MG 2,000 MG/15 ML SYR IV SCH ×3 (05:14→21:04)
[2022-07-13 07:26] LABS: BUN Creatinine Ratio 19.2 (10-20); Calcium 8.5 mg/dl (8.5-10.1); Creatinine Clr Calc Pharmacy 124.3 ml/min; Est GFR (African American) 112.1 ml/min; Est GFR (Non-African American) 96.7 ml/min
--- NOTE | 2022-07-13 10:11 | Cardiology Progress Note ---
Date of Service July 13, 2022 Assessment & Plan (1) Acute right heart failure: Plan: -increase furosemide to 40 mg BID at 7 am , 1400. -Continue spironolactone 25 mg daily. -Add Flomax as pt describes slow urine stream. -may consider a trial of metolazone tomorrow. (2) Bilateral lower leg cellulitis: Plan: -Continue IV cefazolin. -Lovenox for DVT prophylaxis. Admission and Anticipated Discharge Date Admission Date: July 10, 2022 Subjective Patient seen in cardiology follow up. SOB improved , but still has significant LE edema. Urine output less vigorous in the last 24 hrs. Telemetry reveals SR in the 70s. Physical Exam Constitutional: WD/WN, vitals as above Respiratory: mildly reduced BS at the bases Cardiovascular: Rate/Rhythm: regular rate Heart Sounds: no murmur Extremities: + edema (2+ LE edema ) Gastrointestinal (Abdomen): normal bowel sounds, soft, nontender, no hepatosplenomegaly Neurologic: PERRL, EOMI, accommodation nl, no face palsy, no dysarthria Results & Data ([facility]) Vital Signs (Past 12 Hours) Vital Signs Temp Pulse Pulse Resp BP BP Pulse Ox 07/13/22 07:50 36.6 C 90 19 124/84 94 07/13/22 06:27 73 07/13/22 05:15 37.2 C 82 16 157/87 H 94 07/12/22 23:28 36.7 C 71 20 112/62 95 O2 Del Method 07/13/22 07:50 Room Air 07/13/22 06:27 07/13/22 05:15 Room Air 07/12/22 23:28 Room Air
[2022-07-13] MEDS: NICOTINE 21 MG/24 HR TDSY TD SCH (10:20)
[2022-07-13] MEDS: FLUTICASONE PROPIONATE NA SPR 16 GM BTL NAE SCH (10:22)
[2022-07-13] MEDS: ENOXAPARIN INJ 40 MG/0.4 ML SYR SQ SCH ×2 (10:22→21:05)
[2022-07-13] MEDS: LOSARTAN POTASSIUM 50 MG TAB PO SCH (10:23)
[2022-07-13] MEDS: FOLIC ACID 1 MG TAB PO SCH (10:23)
[2022-07-13] MEDS: SPIRONOLACTONE 25 MG TAB PO SCH (10:23)
[2022-07-13] MEDS: GABAPENTIN 100 MG CAP PO SCH ×2 (10:23→21:05)
[2022-07-13] MEDS: THIAMINE HCL 100 MG TAB PO SCH (10:24)
[2022-07-13] MEDS: UMECLIDINIUM/VILANTEROL 62.5/25MCG 7 PUFFS/INHALER INH SCH (10:24)
[2022-07-13] MEDS: TAMSULOSIN HCL 0.4 MG CAP PO SCH (10:42)
[2022-07-13] MEDS: FUROSEMIDE 40 MG/4 ML VIAL IV SCH (13:46)
[2022-07-13] MEDS: POLYETHYLENE (MIRALAX) 17 GM PACK PO PRN (16:28)
--- NOTE | 2022-07-13 18:38 | Hospitalist Progress Note ---
Date of Service July 13, 2022 Assessment & Plan (1) Acute right heart failure: Plan: Present on admission with worsening SOB and orthopnea. He is heavy drinker, reportedly drinking 12-24 b BNP 51 on admission ECHO on 05/25 (outpatient) showed mild concentric left ventricular hypertrophy, LVEF normal 64% without regional wall motion abnormalities, moderate right ventricular chamber enlargement with right ventricular hypokinesis, moderate sized anterior loculated pericardial effusion. Received IV lasix in the ER cardiology on board Lasix increased to 40mg IV BID Continue spironolactone 25mg daily Monitor I/O and electrolytes (2) Bilateral lower leg cellulitis: Plan: Completed Recent course of Augmentin as outpatient. There are significant scratch wounds present in lower legs and patient reports chronic bed bug infestation at his home. Continue cefazolin IV q8h Stable (3) Pericardial effusion: Plan: Stable on recent echocardiogram is outpatient, 06/27/22. No need to repeat echo as per cardiology (4) HTN (hypertension): Plan: BP improved Continue furosemide, spironolactone, losartan. Continue monitor BP (5) Alcohol dependence: Plan: Heavy alcohol use with high risk of withdrawal. denies any history of alcohol withdrawal ( he never spent a day without drinking any alcohol) Continue Librium BID for now, consider to taper tomorrow Cont home gabapentin, Ativan PO PRN symptoms. No sign of alcohol withdrawal symptoms Continue monitor closely for sign of alcohol withdrawal Continue thiamine and folic acid Counseling on alcohol cessation (6) Tobacco use disorder: Plan: Continue Nicotine patch while in the hospital. Counseling tobacco cessation (7) Granulomatous lung disease: Plan: chronic, stable but likely contributing to chronic SOB, h/o sarcoidosis and has evidence of old granulomatous lung disease per outpatient workup, though given no significantly enlarged lymph nodes, chief quality officer feels the left hilar calcifications seen are from prior histo or blastomycosis. (8) COPD (chronic obstructive pulmonary disease): Plan: Continue Anoro inhaler Follow up with [facility] pulmonology Continue Duoneb prn Counseling on tobacco cessation (9) Severe obesity: Plan: Weight loss encouraged. Needs to change eating and lifestyle habits. (10) DVT prophylaxis: Plan: Continue Lovenox BID Code status Full Code Admission and Anticipated Discharge Date Admission Date: July 10, 2022 Subjective Pt was seen and examined for follow up of SOB and LE edema and redness Sitting in chair with no acute distress Pt said that he feels much better today He said that he was walking in the hallway Denies any chest pain, palpitation, dizziness and SOB Review of Systems Review of Systems: All systems reviewed & are unremarkable except as noted in Subjective Physical Exam Physical Exam: General- No acute distress Head- atraumatic Eyes- PERRL, EOMI, ENT- oropharynx clear Neck- supple, no JVD Lungs- clear to auscultation Heart- regular rhythm; no murmur Abdomen- normal bowel sounds, soft, nontender Extremities- + B/L edema, mild erythema with feet, multiple ulcerations/healing in both legs Neuro- alert, oriented x 3; PERRL, EOMI; no facial palsy; no dysarthria Skin- warm & dry Results & Data Results & Data ([facility]) Vital Signs (Past 12 Hours) Vital Signs Temp Pulse Resp BP BP Pulse Ox O2 Del Method 07/13/22 15:27 36.6 C 84 19 94/64 L 94 Room Air 07/13/22 08:00 Room Air 07/13/22 10:54 36.6 C 79 19 141/84 H 97 Room Air 07/13/22 07:50 36.6 C 90 19 124/84 94 Room Air (1) Alcohol dependence Substance use status: unspecified alcohol-induced disorder Qualified Code(s): F10.29 - Alcohol dependence with unspecified alcohol-induced disorder
[2022-07-13] MEDS: ATORVASTATIN 20 MG TAB PO SCH (21:06)
[2022-07-13] MEDS: MIRTAZAPINE TAB 15 MG TAB PO SCH (21:06)
[2022-07-14] MEDS: ceFAZolin 2000MG 2,000 MG/15 ML SYR IV SCH ×3 (03:07→20:30)
[2022-07-14] MEDS: FUROSEMIDE 40 MG/4 ML VIAL IV SCH ×3 (08:17→14:53)
[2022-07-14] MEDS: UMECLIDINIUM/VILANTEROL 62.5/25MCG 7 PUFFS/INHALER INH SCH (08:21)
[2022-07-14] MEDS: NICOTINE 21 MG/24 HR TDSY TD SCH (08:22)
[2022-07-14] MEDS: ENOXAPARIN INJ 40 MG/0.4 ML SYR SQ SCH ×2 (08:23→20:30)
[2022-07-14] MEDS: FLUTICASONE PROPIONATE NA SPR 16 GM BTL NAE SCH (08:23)
[2022-07-14] MEDS: LOSARTAN POTASSIUM 50 MG TAB PO SCH (08:24)
[2022-07-14] MEDS: GABAPENTIN 100 MG CAP PO SCH ×2 (08:24→20:31)
[2022-07-14] MEDS: SPIRONOLACTONE 25 MG TAB PO SCH (08:24)
[2022-07-14] MEDS: FOLIC ACID 1 MG TAB PO SCH (08:25)
[2022-07-14] MEDS: TAMSULOSIN HCL 0.4 MG CAP PO SCH (08:25)
[2022-07-14] MEDS: THIAMINE HCL 100 MG TAB PO SCH (08:25)
[2022-07-14] MEDS: ACETAMINOPHEN 325 MG TAB PO PRN (08:45)
[2022-07-14 09:04] LABS: BUN Creatinine Ratio 18.7 (10-20); Calcium 8.8 mg/dl (8.5-10.1); Creatinine Clr Calc Pharmacy 128.9 ml/min; Est GFR (African American) 113.9 ml/min; Est GFR (Non-African American) 98.3 ml/min
--- NOTE | 2022-07-14 11:38 | Cardiology Progress Note ---
Date of Service July 14, 2022 Assessment & Plan (1) Acute right heart failure: Plan: -continue furosemide to 40 mg BID at 7 am , 1400. -Continue spironolactone 25 mg daily. -Added Flomax as pt describes slow urine stream on 07/13. (2) Bilateral lower leg cellulitis: Plan: -Continue IV cefazolin. -Lovenox for DVT prophylaxis. (3) PSVT (paroxysmal supraventricular tachycardia): Plan: -Add low dose metoprolol. Admission and Anticipated Discharge Date Admission Date: July 10, 2022 Subjective Pt seen in follow up. 1.6 L of urine output noted yesterday. LE edema slightly improved. Telemetry reveals SR in the 80s. A [address] noted at 6:52 am today. Physical Exam Constitutional: WD/WN, vitals as above no acute distress Cardiovascular: Rate/Rhythm: regular rate Heart Sounds: no murmur Extremities: + edema (2+ LE edema ) Gastrointestinal (Abdomen): normal bowel sounds, soft, nontender, no hepatosplenomegaly Neurologic: PERRL, EOMI, accommodation nl, no face palsy, no dysarthria Results & Data ([facility]) Vital Signs (Past 12 Hours) Vital Signs Temp Pulse Pulse Resp BP Pulse Ox O2 Del Method 07/14/22 08:16 37.2 C 91 H 22 119/72 100 Room Air 07/14/22 04:11 Room Air 07/14/22 04:10 75 07/14/22 03:47 36.6 C 81 18 135/83 93 Room Air
[2022-07-14] MEDS: METOPROLOL TARTRATE 25 MG TAB PO SCH ×2 (14:49→20:31)
--- NOTE | 2022-07-14 17:52 | Hospitalist Progress Note ---
Date of Service July 14, 2022 Assessment & Plan (1) Acute right heart failure: Plan: Present on admission with worsening SOB and orthopnea. He is heavy drinker, reportedly drinking 12-24 b BNP 51 on admission ECHO on 05/25 (outpatient) showed mild concentric left ventricular hypertrophy, LVEF normal 64% without regional wall motion abnormalities, moderate right ventricular chamber enlargement with right ventricular hypokinesis, moderate sized anterior loculated pericardial effusion. Received IV lasix in the ER cardiology on board Continue Lasix 40mg IV BID Continue spironolactone 25mg daily Monitor I/O and electrolytes (2) Bilateral lower leg cellulitis: Plan: Completed Recent course of Augmentin as outpatient. There are significant scratch wounds present in lower legs and patient reports chronic bed bug infestation at his home. Continue cefazolin IV q8h Stable (3) Pericardial effusion: Plan: Stable on recent echocardiogram is outpatient, 06/27/22. No need to repeat echo as per cardiology (4) PSVT (paroxysmal supraventricular tachycardia): Plan: Tele monitor showed [address] this morning Asymptomatic cardiology awared and started on Low dde metoprolol 12.5 mg BID (5) HTN (hypertension): Plan: BP improved Continue furosemide, spironolactone, losartan. Continue monitor BP (6) Alcohol dependence: Plan: Heavy alcohol use with high risk of withdrawal. denies any history of alcohol withdrawal ( he never spent a day without drinking any alcohol) Continue Librium BID for now, will taper to 5mg BID Cont home gabapentin, Ativan PO PRN symptoms. No sign of alcohol withdrawal symptoms Continue monitor closely for sign of alcohol withdrawal Continue thiamine and folic acid Counseling on alcohol cessation (7) Tobacco use disorder: Plan: Continue Nicotine patch while in the hospital. Counseling tobacco cessation (8) Granulomatous lung disease: Plan: chronic, stable but likely contributing to chronic SOB, h/o sarcoidosis and has evidence of old granulomatous lung disease per outpatient workup, though given no significantly enlarged lymph nodes, doll wig hackler feels the left hilar calcifications seen are from prior histo or blastomycosis. (9) COPD (chronic obstructive pulmonary disease): Plan: Continue Anoro inhaler Follow up with [facility] pulmonology Continue Duoneb prn Counseling on tobacco cessation (10) Severe obesity: Plan: Weight loss encouraged. Needs to change eating and lifestyle habits. (11) DVT prophylaxis: Plan: Continue Lovenox BID Code status Full Code Admission and Anticipated Discharge Date Admission Date: July 10, 2022 Subjective Pt was seen and examined for follow up of SOB and LE edema and redness Sitting in chair with no acute distress Telemonitor showed 14 beat atrial tach this morning Denies any chest pain, palpitation, dizziness and SOB Review of Systems Review of Systems: All systems reviewed & are unremarkable except as noted in Subjective Physical Exam Physical Exam: General- No acute distress Head- atraumatic Eyes- PERRL, EOMI, ENT- oropharynx clear Neck- supple, no JVD Lungs- clear to auscultation Heart- regular rhythm; no murmur Abdomen- normal bowel sounds, soft, nontender Extremities- + B/L edema, mild erythema with feet, multiple ulcerations/healing in both legs Neuro- alert, oriented x 3; PERRL, EOMI; no facial palsy; no dysarthria Skin- warm & dry Results & Data Results & Data ([facility]) Vital Signs (Past 12 Hours) Vital Signs Temp Pulse Pulse Resp BP BP Pulse Ox 07/14/22 15:29 36.8 C 76 19 133/80 96 07/14/22 14:46 36.5 C 80 16 120/80 95 07/14/22 13:47 80/54 L 100/68 07/14/22 11:25 36.7 C 73 20 101/65 95 07/14/22 07:30 07/14/22 06:45 73 07/14/22 08:16 37.2 C 91 H 22 119/72 100 O2 Del Method 07/14/22 15:29 Room Air 07/14/22 14:46 Room Air 07/14/22 13:47 07/14/22 11:25 Room Air 07/14/22 07:30 Room Air 07/14/22 06:45 07/14/22 08:16 Room Air (1) Alcohol dependence Substance use status: unspecified alcohol-induced disorder Qualified Code(s): F10.29 - Alcohol dependence with unspecified alcohol-induced disorder
[2022-07-14] MEDS: chlordiazePOXIDE HCl 5 MG CAP PO SCH (20:30)
[2022-07-14] MEDS: ATORVASTATIN 20 MG TAB PO SCH (20:31)
[2022-07-14] MEDS: MIRTAZAPINE TAB 15 MG TAB PO SCH (20:34)
[2022-07-14] MEDS: POLYETHYLENE (MIRALAX) 17 GM PACK PO PRN (20:41)
[2022-07-15] MEDS: ceFAZolin 2000MG 2,000 MG/15 ML SYR IV SCH ×2 (04:49→13:28)
[2022-07-15] MEDS: FUROSEMIDE 40 MG/4 ML VIAL IV SCH ×2 (06:07→13:28)
[2022-07-15 08:53] LABS: BUN Creatinine Ratio 27.3 (10-20); Calcium 8.7 mg/dl (8.5-10.1); Creatinine Clr Calc Pharmacy 125.5 ml/min; Est GFR (African American) 112.7 ml/min; Est GFR (Non-African American) 97.3 ml/min; Potassium 4.2 mmol/L (3.5-5.1)
[2022-07-15] MEDS: POLYETHYLENE (MIRALAX) 17 GM PACK PO PRN (09:07)
[2022-07-15] MEDS: ACETAMINOPHEN 325 MG TAB PO PRN (09:08)
[2022-07-15] MEDS: NICOTINE 21 MG/24 HR TDSY TD SCH (09:09)
[2022-07-15] MEDS: ENOXAPARIN INJ 40 MG/0.4 ML SYR SQ SCH ×2 (09:10→20:06)
[2022-07-15] MEDS: FLUTICASONE PROPIONATE NA SPR 16 GM BTL NAE SCH (09:10)
[2022-07-15] MEDS: UMECLIDINIUM/VILANTEROL 62.5/25MCG 7 PUFFS/INHALER INH SCH (09:11)
[2022-07-15] MEDS: GABAPENTIN 100 MG CAP PO SCH ×2 (09:11→20:06)
[2022-07-15] MEDS: THIAMINE HCL 100 MG TAB PO SCH (09:11)
[2022-07-15] MEDS: FOLIC ACID 1 MG TAB PO SCH (09:11)
[2022-07-15] MEDS: METOPROLOL TARTRATE 25 MG TAB PO SCH ×2 (09:11→20:06)
[2022-07-15] MEDS: LOSARTAN POTASSIUM 50 MG TAB PO SCH (09:11)
[2022-07-15] MEDS: TAMSULOSIN HCL 0.4 MG CAP PO SCH (09:11)
[2022-07-15] MEDS: SPIRONOLACTONE 25 MG TAB PO SCH (09:13)
[2022-07-15] MEDS: chlordiazePOXIDE HCl 5 MG CAP PO SCH (09:16)
[2022-07-15] MEDS ORDERED: traMADol HCL 50 MG TABLET PO PRN (10:14)
[2022-07-15] MEDS: LIDOCAINE 5% 1 PATCH TD SCH (11:50)
[2022-07-15] MEDS ORDERED: metOLazone 2.5 MG TABLET PO ONE (13:51)
[2022-07-15] MEDS ORDERED: POTASSIUM CHLORIDE CRTAB 20 MEQ TABCR PO STA (13:57)
--- NOTE | 2022-07-15 13:57 | Cardiology Progress Note ---
Date of Service July 15, 2022 Assessment & Plan (1) Acute right heart failure: Plan: -continue furosemide 40 mg IV BID, add metolazone 2.5 mg x 1 now. -Continue spironolactone 25 mg daily. -add potassium dose x 1 as anticipate potassium loss with metolazone (2) Bilateral lower leg cellulitis: Plan: -Continue antibtiotics. Perhaps transition or oral agent to reduce IV input. (3) PSVT (paroxysmal supraventricular tachycardia): Plan: -Continue metoprolol , 25 mb BID. DISPOSITION: -pt describes himself as homeless. Perhaps case management and help connect pt to resources. Admission and Anticipated Discharge Date Admission Date: July 10, 2022 Subjective Pt seen in follow up. LE edema a bit worse today. Telemetry reveals SR in the 60s, no recurrent SVT since brief episode in am of 07/14/22/ Review of Systems Review of Systems: All systems reviewed & are unremarkable except as noted in HPI & below Physical Exam Constitutional: no acute distress Respiratory: normal respiratory effort, lungs clear to auscultation Cardiovascular: Rate/Rhythm: regular rate Heart Sounds: no murmur Extremities: + edema (2+ LE edema) Gastrointestinal (Abdomen): normal bowel sounds, soft, nontender, no hepatosplenomegaly Skin: legs ulcers Neurologic: PERRL, EOMI, accommodation nl, no face palsy, no dysarthria Results & Data ([facility]) Vital Signs (Past 12 Hours) Vital Signs Temp Pulse Resp BP Pulse Ox O2 Del Method 07/15/22 11:32 36.5 C 68 18 97/61 L 95 Room Air 07/15/22 07:18 37.2 C 75 22 113/65 92 Room Air 07/15/22 04:00 36.5 C 79 18 137/81 90 Room Air
--- NOTE | 2022-07-15 15:37 | Hospitalist Progress Note ---
Date of Service July 15, 2022 Assessment & Plan (1) Acute right heart failure: Plan: Present on admission with worsening SOB and orthopnea. He is heavy drinker, reportedly drinking 12-24 b BNP 51 on admission ECHO on 05/25 (outpatient) showed mild concentric left ventricular hypertrophy, LVEF normal 64% without regional wall motion abnormalities, moderate right ventricular chamber enlargement with right ventricular hypokinesis, moderate sized anterior loculated pericardial effusion. Received IV lasix in the ER cardiology on board Continue Lasix 40mg IV BID and spironolactone 25mg daily Metolazone 2.5mg x1 given today Monitor I/O and electrolytes Continue monitor BMP while on diuretic (2) Bilateral lower leg cellulitis: Plan: Completed Recent course of Augmentin as outpatient. There are significant scratch wounds present in lower legs and patient reports chronic bed bug infestation at his home. On cefazolin IV q8h, will transition to Cefdinir Stable (3) Pericardial effusion: Plan: Stable on recent echocardiogram is outpatient, 06/27/22. No need to repeat echo as per cardiology (4) PSVT (paroxysmal supraventricular tachycardia): Plan: Tele monitor showed [address] this morning Asymptomatic Continue metoprolol 12.5 mg BID (5) HTN (hypertension): Plan: BP improved Continue furosemide, spironolactone, losartan. Continue monitor BP (6) Alcohol dependence: Plan: Heavy alcohol use with high risk of withdrawal. denies any history of alcohol withdrawal ( he never spent a day without drinking any alcohol) Continue Librium BID for now, will taper to 5mg daily, then d/c Cont home gabapentin, Ativan PO PRN symptoms. No sign of alcohol withdrawal symptoms Continue monitor closely for sign of alcohol withdrawal Continue thiamine and folic acid Counseling on alcohol cessation (7) Tobacco use disorder: Plan: Continue Nicotine patch while in the hospital. Counseling tobacco cessation (8) Granulomatous lung disease: Plan: chronic, stable but likely contributing to chronic SOB, h/o sarcoidosis and has evidence of old granulomatous lung disease per outpatient workup, though given no significantly enlarged lymph nodes, it support technician feels the left hilar calcifications seen are from prior histo or blastomycosis. (9) COPD (chronic obstructive pulmonary disease): Plan: Continue Anoro inhaler [place] [facility] [place] Continue Duoneb prn Counseling on tobacco cessation (10) Severe obesity: Plan: Weight loss encouraged. Needs to change eating and lifestyle habits. (11) DVT prophylaxis: Plan: Continue Lovenox BID Code status Full Code Admission and Anticipated Discharge Date Admission Date: July 10, 2022 Subjective Pt was seen and examined for follow up of SOB and LE edema and redness Sitting in chair with no acute distress He said that early today that he had back pain and stiffness Denies any chest pain, palpitation, dizziness and SOB Review of Systems Review of Systems: All systems reviewed & are unremarkable except as noted in Subjective Physical Exam Physical Exam: General- No acute distress Head- atraumatic Eyes- PERRL, EOMI, ENT- oropharynx clear Neck- supple, no JVD Lungs- clear to auscultation Heart- regular rhythm; no murmur Abdomen- normal bowel sounds, soft, nontender Extremities- + B/L edema, mild erythema with feet, multiple ulcerations/healing in both legs Neuro- alert, oriented x 3; PERRL, EOMI; no facial palsy; no dysarthria Skin- warm & dry Results & Data Results & Data ([facility]) Vital Signs (Past 12 Hours) Vital Signs Temp Pulse Resp BP Pulse Ox O2 Del Method 07/15/22 15:17 36.5 C 65 20 122/76 95 Room Air 07/15/22 11:32 36.5 C 68 18 97/61 L 95 Room Air 07/15/22 07:18 37.2 C 75 22 113/65 92 Room Air 07/15/22 04:00 36.5 C 79 18 137/81 90 Room Air (1) Alcohol dependence Substance use status: unspecified alcohol-induced disorder Qualified Code(s): F10.29 - Alcohol dependence with unspecified alcohol-induced disorder
[2022-07-15] MEDS ORDERED: POTASSIUM CHLORIDE CRTAB 20 MEQ TABCR PO ONE (18:00)
[2022-07-15] MEDS: ATORVASTATIN 20 MG TAB PO SCH (20:06)
[2022-07-15] MEDS: MIRTAZAPINE TAB 15 MG TAB PO SCH (20:06)
[2022-07-15] MEDS: CEFDINIR 300 MG CAP PO SCH (20:06)
[2022-07-16] MEDS: FUROSEMIDE 40 MG/4 ML VIAL IV SCH ×2 (06:11→14:18)
[2022-07-16 07:04] LABS: BUN Creatinine Ratio 30.9 (10-20); Calcium 8.7 mg/dl (8.5-10.1); Creatinine Clr Calc Pharmacy 141.9 ml/min; Est GFR (African American) 118.6 ml/min; Est GFR (Non-African American) 102.4 ml/min; Potassium 4.1 mmol/L (3.5-5.1)
[2022-07-16] MEDS ORDERED: chlordiazePOXIDE HCl 5 MG CAP PO SCH (09:00)
[2022-07-16] MEDS: SPIRONOLACTONE 25 MG TAB PO SCH (10:07)
[2022-07-16] MEDS: THIAMINE HCL 100 MG TAB PO SCH (10:08)
[2022-07-16] MEDS: CEFDINIR 300 MG CAP PO SCH ×2 (10:08→20:30)
[2022-07-16] MEDS: GABAPENTIN 100 MG CAP PO SCH ×2 (10:08→20:30)
[2022-07-16] MEDS: TAMSULOSIN HCL 0.4 MG CAP PO SCH (10:08)
[2022-07-16] MEDS: FOLIC ACID 1 MG TAB PO SCH (10:09)
[2022-07-16] MEDS: METOPROLOL TARTRATE 25 MG TAB PO SCH ×2 (10:09→20:30)
[2022-07-16] MEDS: LOSARTAN POTASSIUM 50 MG TAB PO SCH (10:09)
[2022-07-16] MEDS: LIDOCAINE 5% 1 PATCH TD SCH (10:10)
[2022-07-16] MEDS: FLUTICASONE PROPIONATE NA SPR 16 GM BTL NAE SCH (10:11)
[2022-07-16] MEDS: ENOXAPARIN INJ 40 MG/0.4 ML SYR SQ SCH ×2 (10:11→20:30)
[2022-07-16] MEDS: NICOTINE 21 MG/24 HR TDSY TD SCH (10:12)
[2022-07-16] MEDS: UMECLIDINIUM/VILANTEROL 62.5/25MCG 7 PUFFS/INHALER INH SCH (10:13)
[2022-07-16] MEDS ORDERED: POTASSIUM CHLORIDE CRTAB 20 MEQ TABCR PO STA (13:36)
[2022-07-16] MEDS ORDERED: metOLazone 2.5 MG TABLET PO ONE (13:38)
[2022-07-16] MEDS: ACETAMINOPHEN 325 MG TAB PO PRN (14:18)
[2022-07-16] MEDS: POLYETHYLENE (MIRALAX) 17 GM PACK PO PRN (14:19)
--- NOTE | 2022-07-16 15:37 | Cardiology Progress Note ---
Date of Service July 16, 2022 Assessment & Plan (1) Acute right heart failure: Plan: -continue furosemide 40 mg IV BID, add metolazone 2.5 mg x 1 now (administer 07/15, 07/16) -Continue spironolactone 25 mg daily. -add potassium dose x 2 given treatment with metolazone. (2) Bilateral lower leg cellulitis: Plan: -Transition to oral cefdinir 07/15/2022. (3) PSVT (paroxysmal supraventricular tachycardia): Plan: -Without clinical recurrence on telemetry. Continue metoprolol , 25 mg BID. (4) Alcohol dependence: Plan: -Patient on Librium for withdrawal prophylaxis. DISPOSITION: -pt describes himself as homeless. Case management input noted and appreciated with regards to providing patient with list of shelters, patient also apparently has some family with whom he can stay on a short-term basis. Admission and Anticipated Discharge Date Admission Date: July 10, 2022 Subjective Patient seen in cardiology follow-up of shortness of breath, lower extremity edema. Most significant subjective complaint is back pain when he walks in the hallway at present. Telemetry reveals sinus rhythm in the 70s. He received met olazone 2.5 mg orally yesterday 07/15/2022 in addition to 40 mg of IV furosemide twice daily, with significant urine output, 3.7 L of urine output, net -2.4 L. IV antibiotics have since been discontinued and he is on treatment oral cefdinir. Review of Systems Review of Systems: All systems reviewed & are unremarkable except as noted in HPI & below Physical Exam Constitutional: no acute distress Respiratory: normal respiratory effort, lungs clear to auscultation Cardiovascular: Rate/Rhythm: regular rate Heart Sounds: no murmur Extremities: + edema (2+ LE edema) Gastrointestinal (Abdomen): normal bowel sounds, soft, nontender, no hepatosplenomegaly Neurologic: PERRL, EOMI, accommodation nl, no face palsy, no dysarthria Results & Data ([facility]) Vital Signs (Past 12 Hours) Vital Signs Temp Pulse Pulse Resp BP Pulse Ox O2 Del Method 07/16/22 11:12 36.8 C 78 18 141/84 H 96 Room Air 07/16/22 06:57 71 07/16/22 06:33 36.6 C 69 17 139/79 95 Room Air 07/16/22 04:07 63 (1) Alcohol dependence Substance use status: unspecified alcohol-induced disorder Qualified Code(s): F10.29 - Alcohol dependence with unspecified alcohol-induced disorder
--- NOTE | 2022-07-16 18:17 | Hospitalist Progress Note ---
Date of Service July 16, 2022 Assessment & Plan (1) Acute right heart failure: Plan: Present on admission with worsening SOB and orthopnea. He is heavy drinker, reportedly drinking 12-24 b BNP 51 on admission ECHO on 05/25 (outpatient) showed mild concentric left ventricular hypertrophy, LVEF normal 64% without regional wall motion abnormalities, moderate right ventricular chamber enlargement with right ventricular hypokinesis, moderate sized anterior loculated pericardial effusion. Received IV lasix in the ER cardiology on board Continue Lasix 40mg IV BID and spironolactone 25mg daily Metolazone 2.5mg x1 given today Monitor I/O and electrolytes Continue monitor BMP while on diuretic (2) Bilateral lower leg cellulitis: Plan: Completed Recent course of Augmentin as outpatient. There are significant scratch wounds present in lower legs and patient reports chronic bed bug infestation at his home. On cefazolin IV q8h, will transition to Cefdinir Continue cefdinir daily Stable (3) Pericardial effusion: Plan: Stable on recent echocardiogram is outpatient, 06/27/22. No need to repeat echo as per cardiology (4) PSVT (paroxysmal supraventricular tachycardia): Plan: Tele monitor showed [address] this morning Asymptomatic Continue metoprolol 12.5 mg BID (5) HTN (hypertension): Plan: BP improved Continue furosemide, spironolactone, losartan. Continue monitor BP (6) Alcohol dependence: Plan: Heavy alcohol use with high risk of withdrawal. denies any history of alcohol withdrawal ( he never spent a day without drinking any alcohol) Librium taper, then D/C today Cont home gabapentin, Ativan PO PRN symptoms. No sign of alcohol withdrawal symptoms Continue monitor closely for sign of alcohol withdrawal Continue thiamine and folic acid Counseling on alcohol cessation (7) Tobacco use disorder: Plan: Continue Nicotine patch while in the hospital. 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 (9) COPD (chronic obstructive pulmonary disease): Plan: Continue Anoro inhaler Follow up with [facility] pulmonology Continue Duoneb prn Counseling on tobacco cessation (10) Severe obesity: Plan: Weight loss encouraged. Needs to change eating and lifestyle habits. (11) DVT prophylaxis: Plan: Continue Lovenox BID Code status Full Code Admission and Anticipated Discharge Date Admission Date: July 10, 2022 Subjective Pt was seen and examined for follow up of SOB and LE edema and redness Sitting in chair with no acute distress He said that his pain improves Denies any chest pain, palpitation, dizziness and SOB Review of Systems Review of Systems: All systems reviewed & are unremarkable except as noted in Subjective Physical Exam Physical Exam: General- No acute distress Head- atraumatic Eyes- PERRL, EOMI, ENT- oropharynx clear Neck- supple, no JVD Lungs- clear to auscultation Heart- regular rhythm; no murmur Abdomen- normal bowel sounds, soft, nontender Extremities- + B/L edema, mild erythema with feet, multiple ulcerations/healing in both legs Neuro- alert, oriented x 3; PERRL, EOMI; no facial palsy; no dysarthria Skin- warm & dry Results & Data Results & Data ([facility]) Vital Signs (Past 12 Hours) Vital Signs Temp Pulse Pulse Resp BP Pulse Ox O2 Del Method 07/16/22 08:00 Room Air 07/16/22 15:59 36.5 C 68 18 94/66 L 95 Room Air 07/16/22 11:12 36.8 C 78 18 141/84 H 96 Room Air 07/16/22 06:57 71 07/16/22 06:33 36.6 C 69 17 139/79 95 Room Air (1) Alcohol dependence Substance use status: unspecified alcohol-induced disorder Qualified Code(s): F10.29 - Alcohol dependence with unspecified alcohol-induced disorder
[2022-07-16] MEDS: MIRTAZAPINE TAB 15 MG TAB PO SCH (20:30)
[2022-07-16] MEDS: ATORVASTATIN 20 MG TAB PO SCH (20:30)
[2022-07-16] MEDS ORDERED: POTASSIUM CHLORIDE CRTAB 20 MEQ TABCR PO ONE (21:00)
[2022-07-17] MEDS: FUROSEMIDE 40 MG/4 ML VIAL IV SCH ×2 (05:54→14:34)
[2022-07-17 07:44] LABS: BUN Creatinine Ratio 25.7 (10-20); Calcium 8.8 mg/dl (8.5-10.1); Creatinine Clr Calc Pharmacy 95.5 ml/min; Est GFR (Non-African American) 79.3 ml/min
[2022-07-17] MEDS: METOPROLOL TARTRATE 25 MG TAB PO SCH ×2 (09:20→21:05)
[2022-07-17] MEDS: GABAPENTIN 100 MG CAP PO SCH ×2 (09:20→21:05)
[2022-07-17] MEDS: THIAMINE HCL 100 MG TAB PO SCH (09:21)
[2022-07-17] MEDS: LIDOCAINE 5% 1 PATCH TD SCH (09:21)
[2022-07-17] MEDS: TAMSULOSIN HCL 0.4 MG CAP PO SCH (09:21)
[2022-07-17] MEDS: CEFDINIR 300 MG CAP PO SCH (09:21)
[2022-07-17] MEDS: FOLIC ACID 1 MG TAB PO SCH (09:21)
[2022-07-17] MEDS: SPIRONOLACTONE 25 MG TAB PO SCH (09:21)
[2022-07-17] MEDS: LOSARTAN POTASSIUM 50 MG TAB PO SCH (09:21)
[2022-07-17] MEDS: FLUTICASONE PROPIONATE NA SPR 16 GM BTL NAE SCH (09:22)
[2022-07-17] MEDS: ENOXAPARIN INJ 40 MG/0.4 ML SYR SQ SCH ×2 (09:22→21:06)
[2022-07-17] MEDS: NICOTINE 21 MG/24 HR TDSY TD SCH (09:23)
[2022-07-17] MEDS: UMECLIDINIUM/VILANTEROL 62.5/25MCG 7 PUFFS/INHALER INH SCH (09:24)
--- NOTE | 2022-07-17 12:07 | Cardiology Progress Note ---
Date of Service July 17, 2022 Assessment & Plan (1) Acute right heart failure: Plan: -continue furosemide 40 mg IV BID, add metolazone 2.5 mg x 1 (administered 07/15, 07/16) -Continue spironolactone 25 mg daily. -will reconsider another dose of metolazone 07/18, none today. -Now on flomax to help with urinary outflow , facilitate diureses (2) Bilateral lower leg cellulitis: Plan: -Transitioned to oral cefdinir 07/15/2022. (3) PSVT (paroxysmal supraventricular tachycardia): Plan: -Without clinical recurrence on telemetry. Continue metoprolol , 25 mg BID. (4) Alcohol dependence: Plan: -Patient on Librium for withdrawal prophylaxis. DISPOSITION: -pt describes himself as homeless. Case management input noted and appreciated with regards to providing patient with list of shelters, patient also apparently has some family with whom he can stay on a short-term basis. Admission and Anticipated Discharge Date Admission Date: July 10, 2022 Subjective Patient seen in cardiology follow-up. He continues to walk in the [place]. Ongoing lower extremity edema. Urine output of 2.9 L yesterday with the administration of furosemide and metolazone, net -2 L. Physical Exam Constitutional: no acute distress Respiratory: normal respiratory effort, lungs clear to auscultation Cardiovascular: Rate/Rhythm: regular rate Heart Sounds: no murmur Extremities: + edema (2+ LE edema) Gastrointestinal (Abdomen): normal bowel sounds, soft, nontender, no hepatosplenomegaly Neurologic: PERRL, EOMI, accommodation nl, no face palsy, no dysarthria Results & Data ([facility]) Vital Signs (Past 12 Hours) Vital Signs Temp Pulse Resp BP Pulse Ox O2 Del Method 07/17/22 11:09 36.5 C 71 18 99/63 L 96 Room Air 07/17/22 07:18 36.7 C 66 17 110/73 91 Room Air 07/17/22 03:40 36.4 C L 72 20 124/70 90 Room Air Laboratory Results Comprehensive Metabolic Panel 07/17/22 Range/Units 06:34 Sodium 133 L (136-145) mmol/L Potassium 4.0 (3.5-5.1) mmol/L Chloride 95 L (98-107) mmol/L Carbon Dioxide 32 (21-32) mmol/L BUN 26 H (6-23) mg/dl Creatinine 1.01 D (0.6-1.4) mg/dl Glucose 117 H (70-99(Fasting)) mg/dl Calcium 8.8 (8.5-10.1) mg/dl Intake and Output 07/16/22 07/17/22 07/17/22 22:59 06:59 14:59 Intake Total 120 / 965 Output Total 200 / 2991 1000 / 2991 Balance -200 / -2025 - / -2025 Intake: Oral 120 / 965 Output: Urine 200 / 2990 1000 / 2990 (1) Alcohol dependence Substance use status: unspecified alcohol-induced disorder Qualified Code(s): F10.29 - Alcohol dependence with unspecified alcohol-induced disorder
--- NOTE | 2022-07-17 17:45 | Hospitalist Progress Note ---
Date of Service July 17, 2022 Assessment & Plan (1) Acute right heart failure: Plan: Present on admission with worsening SOB and orthopnea. He is heavy drinker, reportedly drinking 12-24 b BNP 51 on admission ECHO on 05/25 (outpatient) showed mild concentric left ventricular hypertrophy, LVEF normal 64% without regional wall motion abnormalities, moderate right ventricular chamber enlargement with right ventricular hypokinesis, moderate sized anterior loculated pericardial effusion. Received IV lasix in the ER cardiology on board Currently on Lasix 40mg IV BID and spironolactone 25mg daily. Held last dose of Lasix due to low BP and dizziness Monitor I/O and electrolytes Continue monitor BMP while on diuretic (2) Bilateral lower leg cellulitis: Plan: Completed Recent course of Augmentin as outpatient. There are significant scratch wounds present in lower legs and patient reports chronic bed bug infestation at his home. On cefazolin IV q8h, will transition to Cefdinir Continue cefdinir BID Stable (3) Pericardial effusion: Plan: Stable on recent echocardiogram is outpatient, 06/27/22. No need to repeat echo as per cardiology (4) PSVT (paroxysmal supraventricular tachycardia): Plan: Tele monitor showed [address] this morning Asymptomatic Continue metoprolol 12.5 mg BID (5) HTN (hypertension): Plan: BP was running low today On furosemide, spironolactone, losartan. Last dose lasix was help Will hold losartan Continue monitor BP (6) Alcohol dependence: Plan: Heavy alcohol use with high risk of withdrawal. denies any history of alcohol withdrawal ( he never spent a day without drinking any alcohol) Librium taper, then D/C today Cont home gabapentin, Ativan PO PRN symptoms. No sign of alcohol withdrawal symptoms Continue monitor closely for sign of alcohol withdrawal Continue thiamine and folic acid Counseling on alcohol cessation stable (7) Tobacco use disorder: Plan: Continue Nicotine patch while in the hospital. Counseling tobacco cessation (8) Granulomatous lung disease: Plan: chronic, stable but likely contributing to chronic SOB, h/o sarcoidosis and has evidence of old granulomatous lung disease per outpatient workup, though given no significantly enlarged lymph nodes, manager printing feels the left hilar calcifications seen are from prior histo or blastomycosis. (9) COPD (chronic obstructive pulmonary disease): Plan: Continue Anoro inhaler Follow up with [facility] [place] pulmonology Continue Duoneb prn Counseling on tobacco cessation (10) Severe obesity: Plan: Weight loss encouraged. Needs to change eating and lifestyle habits. (11) DVT prophylaxis: Plan: Continue Lovenox BID Code status Full Code Admission and Anticipated Discharge Date Admission Date: July 10, 2022 Subjective Pt was seen and examined for follow up of SOB and LE edema and redness Sitting in chair with no acute distress early this morning Nurse said pt blood pressure was low in the 80's and he was feeling dizzy I checked on him later around 5pm and he said that he feels ok with no dizziness now Denies any chest pain, palpitation, dizziness and SOB Review of Systems Review of Systems: All systems reviewed & are unremarkable except as noted in Subjective Physical Exam Physical Exam: General- No acute distress Head- atraumatic Eyes- PERRL, EOMI, ENT- oropharynx clear Neck- supple, no JVD Lungs- clear to auscultation Heart- regular rhythm; no murmur Abdomen- normal bowel sounds, soft, nontender Extremities- + B/L edema, mild erythema with feet, multiple ulcerations/healing in both legs Neuro- alert, oriented x 3; PERRL, EOMI; no facial palsy; no dysarthria Skin- warm & dry Results & Data Results & Data ([facility]) Vital Signs (Past 12 Hours) Vital Signs Temp Pulse Pulse Resp BP Pulse Ox O2 Del Method 07/17/22 13:40 80 80/54 L 07/17/22 15:51 36.6 C 64 17 94/63 L 95 Room Air 07/17/22 12:57 68 07/17/22 12:57 Room Air 07/17/22 11:09 36.5 C 71 18 99/63 L 96 Room Air 07/17/22 07:18 36.7 C 66 17 110/73 91 Room Air (1) Alcohol dependence Substance use status: unspecified alcohol-induced disorder Qualified Code(s): F10.29 - Alcohol dependence with unspecified alcohol-induced disorder
[2022-07-17] MEDS: MIRTAZAPINE TAB 15 MG TAB PO SCH (21:05)
[2022-07-17] MEDS: ATORVASTATIN 20 MG TAB PO SCH (21:05)
[2022-07-18 06:27] LABS: BUN Creatinine Ratio 29.6 (10-20); Calcium 8.7 mg/dl (8.5-10.1); Creatinine Clr Calc Pharmacy 98.5 ml/min; Est GFR (African American) 95.4 ml/min; Est GFR (Non-African American) 82.3 ml/min; Magnesium 2.3 mg/dl (1.7-2.4)
[2022-07-18] MEDS: FUROSEMIDE 40 MG/4 ML VIAL IV SCH ×2 (08:02→13:48)
[2022-07-18] MEDS: ENOXAPARIN INJ 40 MG/0.4 ML SYR SQ SCH ×2 (09:12→21:06)
[2022-07-18] MEDS: FLUTICASONE PROPIONATE NA SPR 16 GM BTL NAE SCH (09:13)
[2022-07-18] MEDS: METOPROLOL TARTRATE 25 MG TAB PO SCH ×2 (09:13→21:05)
[2022-07-18] MEDS: THIAMINE HCL 100 MG TAB PO SCH (09:14)
[2022-07-18] MEDS: SPIRONOLACTONE 25 MG TAB PO SCH (09:15)
[2022-07-18] MEDS: TAMSULOSIN HCL 0.4 MG CAP PO SCH (09:15)
[2022-07-18] MEDS: GABAPENTIN 100 MG CAP PO SCH ×2 (09:15→21:05)
[2022-07-18] MEDS: LIDOCAINE 5% 1 PATCH TD SCH (09:16)
[2022-07-18] MEDS: FOLIC ACID 1 MG TAB PO SCH (09:16)
[2022-07-18] MEDS: NICOTINE 21 MG/24 HR TDSY TD SCH (09:17)
[2022-07-18] MEDS: UMECLIDINIUM/VILANTEROL 62.5/25MCG 7 PUFFS/INHALER INH SCH (09:17)
--- NOTE | 2022-07-18 16:32 | Hospitalist Progress Note ---
Date of Service July 18, 2022 Assessment & Plan (1) Acute right heart failure: Plan: Present on admission with worsening SOB and orthopnea. He is heavy drinker, reportedly drinking 12-24 b BNP 51 on admission ECHO on 05/25 (outpatient) showed mild concentric left ventricular hypertrophy, LVEF normal 64% without regional wall motion abnormalities, moderate right ventricular chamber enlargement with right ventricular hypokinesis, moderate sized anterior loculated pericardial effusion. Received IV lasix in the ER Appreciate cardiology input and recommendation Currently on Lasix 40mg IV BID and spironolactone 25mg daily. Held last dose of Lasix due to low BP and dizziness Has been getting metolazone as well as per instruction Blood pressure has been stable at more than 100 systolic Denies any more dizziness with ambulation Monitor I/O and electrolytes -advised to drink not more than 1500 mL of fluid in a day Will monitor electrolytes (2) Bilateral lower leg cellulitis: Plan: Completed Recent course of Augmentin as outpatient. There are significant scratch wounds present in lower legs and patient reports chronic bed bug infestation at his home. On cefazolin IV q8h, will transition to Cefdinir Continue cefdinir BID Stable No aspirating of infection and will continue current antibiotic for a total of 7 to 10-day (3) Pericardial effusion: Plan: Stable on recent echocardiogram is outpatient, 06/27/22. No need to repeat echo as per cardiology (4) PSVT (paroxysmal supraventricular tachycardia): Plan: Tele monitor showed [address] this morning Asymptomatic Continue metoprolol 12.5 mg BID No cardiac symptoms (5) HTN (hypertension): Plan: BP was running low today On furosemide, spironolactone, losartan. Last dose lasix was help Will hold losartan Continue monitor BP (6) Alcohol dependence: Plan: Heavy alcohol use with high risk of withdrawal. denies any history of alcohol withdrawal ( he never spent a day without drinking any alcohol) Librium taper, then D/C today Cont home gabapentin, Ativan PO PRN symptoms. No sign of alcohol withdrawal symptoms Continue monitor closely for sign of alcohol withdrawal Continue thiamine and folic acid Counseling on alcohol cessation Strongly advised to quit drinking (7) Tobacco use disorder: Plan: Continue Nicotine patch while in the hospital. Counseling tobacco cessation Strongly advised to quit smoking (8) Granulomatous lung disease: Plan: chronic, stable but likely contributing to chronic SOB, h/o sarcoidosis and has evidence of old granulomatous lung disease per outpatient workup, though given no significantly enlarged lymph nodes, gas tester feels the left hilar calcifications seen are from prior histo or blastomycosis. (9) COPD (chronic obstructive pulmonary disease): Plan: Continue Anoro inhaler Follow up with [facility] pulmonology Continue Duoneb prn Counseling on tobacco cessation (10) Severe obesity: Plan: Weight loss encouraged. Needs to change eating and lifestyle habits. (11) DVT prophylaxis: Plan: Continue Lovenox BID Code status Full Code Admission and Anticipated Discharge Date Admission Date: July 10, 2022 Subjective 07/18/2022 The patient was seen and examined in telemetry unit He has had dizzy spells last night likely secondary to low blood pressure Blood pressure has been running more than 95 and denies any more spells Denies any other symptoms Review of Systems Review of Systems: All systems reviewed and are unremarkable except as noted below Cardiovascular: Additional Comments: No chest pain palpitation or shortness of breath Physical Exam Physical Exam: Sitting on a chair without any acute distress Constitutional: well developed, well nourished and + obese Eyes: PERRL, conjunctivae normal, anicteric sclerae ENMT: external ear and nose normal, oropharynx normal Neck: trachea midline, no thyromegaly Respiratory: no respiratory distress Auscultation: + diminished lung sounds; no crackles Cardiovascular: Rate/Rhythm: regular rate and regular rhythm; not tachycardic Heart Sounds: normal S1 and normal S2; no murmur Extremities: + edema (1+ e little bilaterally) Gastrointestinal (Abdomen): Inspection/Auscultation: normal bowel sounds; abdomen not distended Percussion/Palpation: abdomen soft; abdomen nontender Musculoskeletal: No acute arthritis involving any joint Neurologic: Alert, awake and oriented x3. No focal sensory or no motor deficit appreciated Psychiatric: A+Ox3, euthymic affect Lymphatic: no cervical or axillary lymphadenopathy Results & Data Results & Data ([facility]) Vital Signs (Past 12 Hours) Vital Signs Temp Pulse Pulse Resp BP Pulse Ox O2 Del Method 07/18/22 06:45 69 07/18/22 08:00 Room Air 07/18/22 07:20 36.5 C 78 16 114/72 94 Room Air Laboratory Results [facility] 07/18/22 05:59 Sodium 133 L Potassium 4.0 Chloride 96 L Carbon Dioxide 30 BUN 29 H Creatinine 0.98 Glucose 122 H Calcium 8.7 Medications Administered Current Inpatient Medications Acetaminophen (Acetaminophen 325 Mg Tab) 650 mg PO Q4H PRN PRN Reason: Pain or Fever Stop: 08/09/22 20:04 Last Admin: 07/16/22 14:18 Dose: 650 mg Albuterol (Albut/Ipratrop 3mg/0.5mg Neb 3 Ml Vial) 3 ml NEB QIDR PRN; Protocol PRN Reason: SOB/wheezing Stop: 08/09/22 20:04 Atorvastatin Calcium (Atorvastatin 20 Mg Tab) 20 mg PO HS FINESSE Stop: 08/09/22 20:59 Last Admin: 07/17/22 21:05 Dose: 20 mg Diphenhydramine HCl (Diphenhydramine Capsule 25 Mg Cap) 25 mg PO Q6H PRN PRN Reason: itching Stop: 08/09/22 20:04 Last Admin: 07/11/22 21:25 Dose: 25 mg Enoxaparin Sodium (Enoxaparin Inj 40 Mg/0.4 Ml Syr) 40 mg SQ Q12 [facility] Stop: 08/09/22 20:59 Last Admin: 07/18/22 09:12 Dose: 40 mg Fluticasone Propionate (Fluticasone Propionate Na Spr 16 Gm Btl) 2 sprays [place] DAILY [facility] Stop: 08/10/22 08:59 Last Admin: 07/18/22 09:13 Dose: 2 sprays Folic Acid (Folic Acid 1 Mg Tab) 1 mg PO QAM [facility] Stop: 08/09/22 20:04 Last Admin: 07/18/22 09:16 Dose: 1 mg Furosemide (Furosemide 40 Mg/4 Ml Vial) 40 mg IV [id number] [facility] Stop: 08/12/22 13:59 Last Admin: 07/18/22 13:48 Dose: 40 mg Gabapentin (Gabapentin 100 Mg Cap) 100 mg PO BID [facility] Stop: 08/09/22 20:59 Last Admin: 07/18/22 09:15 Dose: 100 mg Lidocaine (Lidocaine 5% 1 Patch) 1 patch TD QAM [facility] Stop: 08/14/22 10:29 Last Admin: 07/18/22 09:16 Dose: 1 patch Lorazepam (Lorazepam 1 Mg Tab) 1 mg PO ONE PRN; Protocol PRN Reason: EtoH Withdrawal AWSS 6,7,8,9,10 Losartan Potassium (Losartan Potassium 50 Mg Tab) 100 mg PO QAM [facility] Stop: 08/10/22 08:59 Last Admin: 07/17/22 09:21 Dose: 100 mg Metoprolol Tartrate (Metoprolol Tartrate 25 Mg Tab) 12.5 mg PO BID [facility] Stop: 08/13/22 11:44 Last Admin: 07/18/22 09:13 Dose: 12.5 mg Mirtazapine (Mirtazapine Tab 15 Mg Tab) 15 mg PO HS [facility]ES[facility] Stop: 08/09/22 20:59 Last Admin: 07/17/22 21:05 Dose: 15 mg Miscellaneous (Remove Nicoderm Patch) 1 each N/A DAILY@0859 [facility] Stop: 08/10/22 08:58 Last Admin: 07/18/22 09:13 Dose: 1 each Miscellaneous (Remove Lidoderm Patch) 1 each N/A DAILY@2100 [facility] Stop: 08/14/22 20:59 Last Admin: 07/17/22 21:05 Dose: 1 each Nicotine (Nicotine 21 Mg/24 Hr Tdsy) 21 mg TD QAM [facility] Stop: 08/09/22 17:44 Last Admin: 07/18/22 09:17 Dose: 21 mg Polyethylene Glycol (Polyethylene (Miralax) 17 Gm Pack) 17 gm PO DAILY PRN PRN Reason: Constipation Stop: 08/09/22 20:04 Last Admin: 07/16/22 14:19 Dose: 17 gm Spironolactone (Spironolactone 25 Mg Tab) 25 mg PO DAILY [facility] Stop: 08/11/22 08:59 Last Admin: 07/18/22 09:15 Dose: 25 mg Tamsulosin HCl (Tamsulosin Hcl 0.4 Mg Cap) 0.4 mg PO QAM [facility] Stop: 08/12/22 10:14 Last Admin: 07/18/22 09:15 Dose: 0.4 mg Thiamine HCl (Thiamine Hcl 100 Mg Tab) 100 mg PO QAM [facility] Stop: 08/09/22 20:04 Last Admin: 07/18/22 09:14 Dose: 100 mg Tramadol HCl (Tramadol Hcl 50 Mg Tablet) 50 mg PO Q12H PRN PRN Reason: Pain Stop: 08/14/22 10:13 Last Admin: 07/16/22 10:06 Dose: 50 mg Umeclidinium/Vilanterol (Umeclidinium/Vilanterol 62.5/25mcg 7 Puffs/Inhaler) 1 puffs INH QAM [facility] Stop: 08/10/22 08:59 Last Admin: 07/18/22 09:17 Dose: 1 puffs (1) Alcohol dependence Substance use status: unspecified alcohol-induced disorder Qualified Code(s): F10.29 - Alcohol dependence with unspecified alcohol-induced disorder
--- NOTE | 2022-07-18 18:41 | Cardiology Progress Note ---
Date of Service July 18, 2022 Assessment & Plan (1) Acute right heart failure: Plan: -continue furosemide 40 mg IV BID, add metolazone 2.5 mg x 1 (administered 07/15, 07/16) -Continue spironolactone 25 mg daily. -Held off on additional metolazone given sodium of 133, chloride 96. -Now on flomax to help with urinary outflow , facilitate diureses -Slowly making progress. (2) Bilateral lower leg cellulitis: Plan: -Transitioned to oral cefdinir 07/15/2022. (3) PSVT (paroxysmal supraventricular tachycardia): Plan: -Without clinical recurrence on telemetry. Continue metoprolol , 25 mg BID. (4) Alcohol dependence: Plan: -Patient on Librium for withdrawal prophylaxis. DISPOSITION: -pt describes himself as homeless. Case management input noted and appreciated with regards to providing patient with list of shelters, patient also apparently has some family with whom he can stay on a short-term basis. Admission and Anticipated Discharge Date Admission Date: July 10, 2022 Subjective Patient seen in cardiology follow-up. Edema slightly improved. Telemetry reveals sinus rhythm in the 70s Physical Exam Constitutional: no acute distress Respiratory: normal respiratory effort, lungs clear to auscultation Cardiovascular: Rate/Rhythm: regular rate Heart Sounds: no murmur Extremities: + edema (2+ LE edema) Gastrointestinal (Abdomen): normal bowel sounds, soft, nontender, no hepatosplenomegaly Neurologic: PERRL, EOMI, accommodation nl, no face palsy, no dysarthria Results & Data ([facility]) Vital Signs (Past 12 Hours) Vital Signs Temp Pulse Pulse Resp BP Pulse Ox O2 Del Method 07/18/22 15:00 78 07/18/22 06:45 69 07/18/22 08:00 Room Air 07/18/22 07:20 36.5 C 78 16 114/72 94 Room Air (1) Alcohol dependence Substance use status: unspecified alcohol-induced disorder Qualified Code(s): F10.29 - Alcohol dependence with unspecified alcohol-induced disorder
[2022-07-18] MEDS ORDERED: ALBUTEROL HFA 8 GM INHALER INH PRN (20:23)
[2022-07-18] MEDS: ATORVASTATIN 20 MG TAB PO SCH (21:06)
[2022-07-18] MEDS: MIRTAZAPINE TAB 15 MG TAB PO SCH (21:06)
[2022-07-19 08:05] LABS: Basophils # (auto) 0.05 K/uL (0-0.2); Basophils % (auto) 0.7 %; Eosinophils # (auto) 0.22 K/uL (0-0.50); Eosinophils % (auto) 2.9 %; Hematocrit (blood only) 54.6 % (40.1-51.0); Hemoglobin 18.3 g/dl (14.0-18.0); Immature Granulocytes # (auto) 0.14 K/uL (0.00-0.02); Immature Granulocytes % (auto) 1.8 %; Mean Corpuscular Hemoglobin 31.8 pg (25.0-34.0); Mean Corpuscular Hgb Conc 33.5 g/dL (32.0-36.0); Mean Platelet Volume 9.7 fL (9.4-12.4); Monocytes # (auto) 1.11 K/uL (0.24-0.82); Monocytes % (auto) 14.5 %; Neutrophils # (auto) 4.81 K/uL (1.4-6.5); Neutrophils % (auto) 63.1 %; Platelet Count 345 K/uL (130-400); RDW Coefficient of Variation 13.5 % (11.5-14.5); RDW Standard Deviation 47.3 fL (36.4-46.3); Red Blood Count 5.75 M/uL (4.63-6.08); White Blood Count 7.63 K/ul (4.8-10.8)
[2022-07-19] MEDS: METOPROLOL TARTRATE 25 MG TAB PO SCH ×2 (08:05→20:10)
[2022-07-19] MEDS: THIAMINE HCL 100 MG TAB PO SCH (08:06)
[2022-07-19] MEDS: SPIRONOLACTONE 25 MG TAB PO SCH (08:06)
[2022-07-19] MEDS: GABAPENTIN 100 MG CAP PO SCH ×2 (08:06→20:10)
[2022-07-19] MEDS: ENOXAPARIN INJ 40 MG/0.4 ML SYR SQ SCH ×2 (08:06→20:09)
[2022-07-19] MEDS: FLUTICASONE PROPIONATE NA SPR 16 GM BTL NAE SCH (08:06)
[2022-07-19] MEDS: FUROSEMIDE 40 MG/4 ML VIAL IV SCH ×2 (08:06→15:00)
[2022-07-19] MEDS: FOLIC ACID 1 MG TAB PO SCH (08:06)
[2022-07-19] MEDS: TAMSULOSIN HCL 0.4 MG CAP PO SCH (08:06)
[2022-07-19] MEDS: NICOTINE 21 MG/24 HR TDSY TD SCH (08:07)
[2022-07-19] MEDS: LIDOCAINE 5% 1 PATCH TD SCH (08:07)
[2022-07-19] MEDS: UMECLIDINIUM/VILANTEROL 62.5/25MCG 7 PUFFS/INHALER INH SCH (08:08)
[2022-07-19 09:54] LABS: Calcium 9.2 mg/dl (8.5-10.1); Creatinine Clr Calc Pharmacy 95.8 ml/min; Est GFR (African American) 93.1 ml/min; Est GFR (Non-African American) 80.3 ml/min; Magnesium 2.2 mg/dl (1.7-2.4); Phosphorus 2.8 mg/dl (2.5-4.9); Potassium 3.6 mmol/L (3.5-5.1)
--- NOTE | 2022-07-19 13:27 | Cardiology Progress Note ---
Date of Service July 19, 2022 Assessment & Plan (1) Acute right heart failure: Plan: -Patient has been on furosemide 40 mg IV BID, metolazone 2.5 mg x 2 doses (administered 07/15, 07/16) -Continue spironolactone 25 mg daily. -Stable mild hyponatremia noted, 133 mmol/L, chloride also little bit low. Likely related to vigorous diuresis. -Now on flomax to help with urinary outflow , facilitate diureses -Discontinue IV furosemide after 2 PM dose 07/19. -Start furosemide 40 mg p.o. twice daily 07/20, if blood pressure stable, chemistry panel stable -Losartan remains on hold due to relative hypotension for now. (2) Bilateral lower leg cellulitis: Plan: -Transitioned to oral cefdinir 07/15/2022. (3) PSVT (paroxysmal supraventricular tachycardia): Plan: -Without clinical recurrence on telemetry. Continue metoprolol , 25 mg BID. (4) Alcohol dependence: Plan: -Patient on Librium for withdrawal prophylaxis. DISPOSITION: -pt describes himself as homeless. Case management input noted and appreciated with regards to providing patient with list of shelters, patient also apparently has some family with whom he can stay on a short-term basis. When I discussed this with him however today 07/19/2022, he states he did not have any family members with whom he can stay. Anticipated cardiology medications at discharge Furosemide 40 mg p.o. twice daily Spironolactone 25 mg daily Likely resume losartan 50 mg daily at time of discharge Metoprolol tartrate 25 mg twice daily Atorvastatin 20 mg daily Admission and Anticipated Discharge Date Admission Date: July 10, 2022 Subjective Patient seen in cardiology follow-up of lower extremity edema, shortness of breath. Notes breathing is doing well. Chronic musculoskeletal back pain relatively stable and unchanged. He has been going for frequent walks in the hallway. Edema slightly improved. Urine output 2.9 L in the last 24 hours, -2.8 L for the day. Review of Systems Review of Systems: All systems reviewed & are unremarkable except as noted in HPI & below Physical Exam Constitutional: no acute distress Respiratory: normal respiratory effort, lungs clear to auscultation Cardiovascular: Rate/Rhythm: regular rate Heart Sounds: no murmur Extremities: + edema (2+ LE edema) Gastrointestinal (Abdomen): normal bowel sounds, soft, nontender, no hepatosplenomegaly Neurologic: PERRL, EOMI, accommodation nl, no face palsy, no dysarthria Results & Data ([facility]) Vital Signs (Past 12 Hours) Vital Signs Temp Pulse Pulse Resp BP Pulse Ox O2 Del Method 07/19/22 08:00 66 07/19/22 08:00 Room Air 07/19/22 08:13 36.7 C 77 18 135/77 95 Room Air 07/19/22 03:55 36.6 C 62 20 116/78 97 Room Air Laboratory Results CBC 07/19/22 Range/Units 07:48 WBC 7.63 (4.8-10.8) K/ul RBC 5.75 (4.63-6.08) M/uL Hgb 18.3 H (14.0-18.0) g/dl Hct 54.6 H (40.1-51.0) % Plt Count 345 (130-400) K/uL Neut # (Auto) 4.81 (1.4-6.5) K/uL Lymph # (Auto) 1.30 (1.2-3.4) K/uL [place] # (Auto) 1.11 H (0.24-0.82) K/uL Eos # (Auto) 0.22 (0-0.50) K/uL Baso # (Auto) 0.05 (0-0.2) K/uL Comprehensive Metabolic Panel 07/19/22 07/19/22 Range/Units 07:48 09:06 Sodium Cancelled 132 L Potassium Cancelled 3.6 Chloride Cancelled 90 L Carbon Dioxide Cancelled 35 H BUN Cancelled 24 H Creatinine Cancelled 1.00 Glucose Cancelled 191 H Calcium Cancelled 9.2 Intake and Output 07/18/22 07/19/22 07/19/22 22:59 06:59 14:59 Intake Total 100 / 100 Output Total 2350 / 2950 600 / 2950 Balance -2350 / -2850 -500 / -2850 Intake: Oral 100 / 100 Output: Urine 2350 / 2950 600 / 2950 Other: # Unmeasured Voids 1 Weight 121.9 kg Weight Measurement Method Standing Scale (1) Alcohol dependence Substance use status: unspecified alcohol-induced disorder Qualified Code(s): F10.29 - Alcohol dependence with unspecified alcohol-induced disorder
[2022-07-19] MEDS: ACETAMINOPHEN 325 MG TAB PO PRN (15:04)
--- NOTE | 2022-07-19 16:25 | Hospitalist Progress Note ---
Date of Service July 19, 2022 Assessment & Plan (1) Acute right heart failure: Plan: Present on admission with worsening SOB and orthopnea. He is heavy drinker, reportedly drinking 12-24 b BNP 51 on admission ECHO on 05/25 (outpatient) showed mild concentric left ventricular hypertrophy, LVEF normal 64% without regional wall motion abnormalities, moderate right ventricular chamber enlargement with right ventricular hypokinesis, moderate sized anterior loculated pericardial effusion. Received IV lasix in the ER Appreciate cardiology input and recommendation Currently on Lasix 40mg IV BID and spironolactone 25mg daily. Held last dose of Lasix due to low BP and dizziness Has been getting metolazone as well as per instruction Blood pressure has been stable at more than 100 systolic Denies any more dizziness with ambulation Monitor I/O and electrolytes -advised to drink not more than 1500 mL of fluid in a day Will monitor electrolytes Medications have been adjusted as per the cardiology He remains stable to be discharged (2) Bilateral lower leg cellulitis: Plan: Completed Recent course of Augmentin as outpatient. There are significant scratch wounds present in lower legs and patient reports chronic bed bug infestation at his home. On cefazolin IV q8h, will transition to Cefdinir Continue cefdinir BID Stable No aspirating of infection and will continue current antibiotic for a total of 7 to 10-day No evidence of worsening cellulitis (3) Pericardial effusion: Plan: Stable on recent echocardiogram is outpatient, 06/27/22. No need to repeat echo as per cardiology (4) PSVT (paroxysmal supraventricular tachycardia): Plan: Tele monitor showed [address] this morning Asymptomatic Continue metoprolol 12.5 mg BID No cardiac symptoms (5) HTN (hypertension): Plan: BP was running low today On furosemide, spironolactone, losartan. Last dose lasix was help Will hold losartan Continue monitor BP (6) Alcohol dependence: Plan: Heavy alcohol use with high risk of withdrawal. denies any history of alcohol withdrawal ( he never spent a day without drinking any alcohol) Librium taper, then D/C today Cont home gabapentin, Ativan PO PRN symptoms. No sign of alcohol withdrawal symptoms Continue monitor closely for sign of alcohol withdrawal Continue thiamine and folic acid Counseling on alcohol cessation Strongly advised to quit drinking (7) Tobacco use disorder: Plan: Continue Nicotine patch while in the hospital. Counseling tobacco cessation Strongly advised to quit smoking (8) Granulomatous lung disease: Plan: chronic, stable but likely contributing to chronic SOB, h/o sarcoidosis and has evidence of old granulomatous lung disease per outpatient workup, though given no significantly enlarged lymph nodes, analyst sales feels the left hilar calcifications seen are from prior histo or blastomycosis. (9) COPD (chronic obstructive pulmonary disease): Plan: Continue Anoro inhaler Follow up with [facility] pulmonology Continue Duoneb prn Counseling on tobacco cessation (10) Severe obesity: Plan: Weight loss encouraged. Needs to change eating and lifestyle habits. (11) DVT prophylaxis: Plan: Continue Lovenox BID Code status Full Code Admission and Anticipated Discharge Date Admission Date: July 10, 2022 Subjective 07/18/2022 The patient was seen and examined in telemetry unit He has had dizzy spells last night likely secondary to low blood pressure Blood pressure has been running more than 95 and denies any more spells Denies any other symptoms 07/19/2022 Patient was seen and examined in telemetry unit He has been feeling much better and is ready to be discharged but he does not have any place to go Denies any more symptoms of dizziness and has been moving around in the hallway without any symptoms Review of Systems Review of Systems: All systems reviewed and are unremarkable except as noted below Cardiovascular: Additional Comments: No chest pain palpitation or shortness of breath Physical Exam Physical Exam: Sitting on a chair without any acute distress Constitutional: well developed, well nourished and + obese Eyes: PERRL, conjunctivae normal, anicteric sclerae ENMT: external ear and nose normal, oropharynx normal Neck: trachea midline, no thyromegaly Respiratory: no respiratory distress Auscultation: + diminished lung sounds; no crackles Cardiovascular: Rate/Rhythm: regular rate and regular rhythm; not tachycardic Heart Sounds: normal S1 and normal S2; no murmur Extremities: + edema (1+ edema bilaterally) Gastrointestinal (Abdomen): Inspection/Auscultation: normal bowel sounds; abdomen not distended Percussion/Palpation: abdomen soft; abdomen nontender Psychiatric: A+Ox3, euthymic affect Lymphatic: no cervical or axillary lymphadenopathy Results & Data Results & Data ([facility]) Vital Signs (Past 12 Hours) Vital Signs Temp Pulse Pulse Resp BP Pulse Ox O2 Del Method 07/19/22 08:00 66 07/19/22 08:00 Room Air 07/19/22 08:13 36.7 C 77 18 135/77 95 Room Air Laboratory Results Short CBC 07/19/22 Range/Units 07:48 WBC 7.63 (4.8-10.8) K/ul Hgb 18.3 H (14.0-18.0) g/dl Hct 54.6 H (40.1-51.0) % Plt Count 345 (130-400) K/uL BMP 07/19/22 07/19/22 07:48 09:06 Sodium Cancelled 132 L Potassium Cancelled 3.6 Chloride Cancelled 90 L Carbon Dioxide Cancelled 35 H BUN Cancelled 24 H Creatinine Cancelled 1.00 Glucose Cancelled 191 H Calcium Cancelled 9.2 Medications Administered Current Inpatient Medications Acetaminophen (Acetaminophen 325 Mg Tab) 650 mg PO Q4H PRN PRN Reason: Pain or Fever Stop: 08/09/22 20:04 Last Admin: 07/19/22 15:04 Dose: 650 mg Albuterol (Albuterol Hfa 8 Gm Inhaler) 2 puffs INH QIDR PRN PRN Reason: Shortness Of Breath Or Wheezin Stop: 08/17/22 20:22 Last Admin: 07/18/22 21:04 Dose: 2 puffs Atorvastatin Calcium (Atorvastatin 20 Mg Tab) 20 mg PO HS [facility] Stop: 08/09/22 20:59 Last Admin: 07/18/22 21:06 Dose: 20 mg Diphenhydramine HCl (Diphenhydramine Capsule 25 Mg Cap) 25 mg PO Q6H PRN PRN Reason: itching Stop: 08/09/22 20:04 Last Admin: 07/11/22 21:25 Dose: 25 mg Enoxaparin Sodium (Enoxaparin Inj 40 Mg/0.4 Ml Syr) 40 mg SQ Q12 [facility] Stop: 08/09/22 20:59 Last Admin: 07/19/22 08:06 Dose: 40 mg Fluticasone Propionate (Fluticasone Propionate Na Spr 16 Gm Btl) 2 sprays HAYDEN DAILY [facility] Stop: 08/10/22 08:59 Last Admin: 07/19/22 08:06 Dose: 2 sprays Folic Acid (Folic Acid 1 Mg Tab) 1 mg PO QAM [facility] Stop: 08/09/22 20:04 Last Admin: 07/19/22 08:06 Dose: 1 mg Gabapentin (Gabapentin 100 Mg Cap) 100 mg PO BID [facility] Stop: 08/09/22 20:59 Last Admin: 07/19/22 08:06 Dose: 100 mg Lidocaine (Lidocaine 5% 1 Patch) 1 patch TD QAM [facility] Stop: 08/14/22 10:29 Last Admin: 07/19/22 08:07 Dose: 1 patch Lorazepam (Lorazepam 1 Mg Tab) 1 mg PO ONE PRN; Protocol PRN Reason: EtoH Withdrawal AWSS 6,7,8,9,10 Losartan Potassium (Losartan Potassium 50 Mg Tab) 100 mg PO QAM [facility] Stop: 08/10/22 08:59 Last Admin: 07/17/22 09:21 Dose: 100 mg Metoprolol Tartrate (Metoprolol Tartrate 25 Mg Tab) 12.5 mg PO BID [facility] Stop: 08/13/22 11:44 Last Admin: 07/19/22 08:05 Dose: 12.5 mg Mirtazapine (Mirtazapine Tab 15 Mg Tab) 15 mg PO HS [facility] Stop: 08/09/22 20:59 Last Admin: 07/18/22 21:06 Dose: 15 mg Miscellaneous (Remove Nicoderm Patch) 1 each N/A DAILY@0859 [facility] Stop: 08/10/22 08:58 Last Admin: 07/19/22 08:08 Dose: 1 each Miscellaneous (Remove Lidoderm Patch) 1 each N/A DAILY@2100 [facility] Stop: 08/14/22 20:59 Last Admin: 07/18/22 21:06 Dose: 1 each Nicotine (Nicotine 21 Mg/24 Hr Tdsy) 21 mg TD QAM [facility] Stop: 08/09/22 17:44 Last Admin: 07/19/22 08:07 Dose: 21 mg Polyethylene Glycol (Polyethylene (Miralax) 17 Gm Pack) 17 gm PO DAILY PRN PRN Reason: Constipation Stop: 08/09/22 20:04 Last Admin: 07/16/22 14:19 Dose: 17 gm Spironolactone (Spironolactone 25 Mg Tab) 25 mg PO DAILY [facility] Stop: 08/11/22 08:59 Last Admin: 07/19/22 08:06 Dose: 25 mg Tamsulosin HCl (Tamsulosin Hcl 0.4 Mg Cap) 0.4 mg PO QAM [facility] Stop: 08/12/22 10:14 Last Admin: 07/19/22 08:06 Dose: 0.4 mg Thiamine HCl (Thiamine Hcl 100 Mg Tab) 100 mg PO QAM [facility] Stop: 08/09/22 20:04 Last Admin: 07/19/22 08:06 Dose: 100 mg Tramadol HCl (Tramadol Hcl 50 Mg Tablet) 50 mg PO Q12H PRN PRN Reason: Pain Stop: 08/14/22 10:13 Last Admin: 07/16/22 10:06 Dose: 50 mg Umeclidinium/Vilanterol (Umeclidinium/Vilanterol 62.5/25mcg 7 Puffs/Inhaler) 1 puffs INH QAM [facility] Stop: 08/10/22 08:59 Last Admin: 07/19/22 08:08 Dose: 1 puffs (1) Alcohol dependence Substance use status: unspecified alcohol-induced disorder Qualified Code(s): F10.29 - Alcohol dependence with unspecified alcohol-induced disorder
[2022-07-19] MEDS: ATORVASTATIN 20 MG TAB PO SCH (20:08)
[2022-07-19] MEDS: MIRTAZAPINE TAB 15 MG TAB PO SCH (20:11)
[2022-07-20] MEDS ORDERED: FUROSEMIDE 40 MG TAB PO SCH (07:00)
[2022-07-20] MEDS: METOPROLOL TARTRATE 25 MG TAB PO SCH ×2 (09:08→20:32)
[2022-07-20] MEDS: FOLIC ACID 1 MG TAB PO SCH (09:09)
[2022-07-20] MEDS: TAMSULOSIN HCL 0.4 MG CAP PO SCH (09:09)
[2022-07-20] MEDS: FLUTICASONE PROPIONATE NA SPR 16 GM BTL NAE SCH (09:09)
[2022-07-20] MEDS: SPIRONOLACTONE 25 MG TAB PO SCH (09:09)
[2022-07-20] MEDS: GABAPENTIN 100 MG CAP PO SCH ×2 (09:09→20:31)
[2022-07-20] MEDS: THIAMINE HCL 100 MG TAB PO SCH (09:09)
[2022-07-20] MEDS: LIDOCAINE 5% 1 PATCH TD SCH (09:10)
[2022-07-20] MEDS: NICOTINE 21 MG/24 HR TDSY TD SCH (09:10)
[2022-07-20] MEDS: UMECLIDINIUM/VILANTEROL 62.5/25MCG 7 PUFFS/INHALER INH SCH (09:11)
[2022-07-20] MEDS: ENOXAPARIN INJ 40 MG/0.4 ML SYR SQ SCH ×2 (09:16→20:31)
[2022-07-20 10:25] LABS: BUN Creatinine Ratio 27.9 (10-20); Calcium 9.1 mg/dl (8.5-10.1); Creatinine Clr Calc Pharmacy 111.7 ml/min; Est GFR (African American) 107.7 ml/min; Est GFR (Non-African American) 92.9 ml/min; Potassium 3.5 mmol/L (3.5-5.1)
--- NOTE | 2022-07-20 10:51 | Cardiology Progress Note ---
Date of Service July 20, 2022 Assessment & Plan (1) Acute right heart failure: Plan: -Hemoglobin has measured on 07/19/2022 up to 18.3, compared to 16.6 on 07/11/2022, sodium 131 (relatively stable compared to 132 on 07/19) chloride 92 (improved compared to 90 as measured on 07/19/2020). Lab work consistent with patient having been aggressively diuresed. -Patient with interval clinical improvement since admission. -Plan to discharge to home on furosemide 40 mg daily. (2) Bilateral lower leg cellulitis: Plan: -Transitioned to oral cefdinir 07/15/2022. (3) PSVT (paroxysmal supraventricular tachycardia): Plan: -Without clinical recurrence on telemetry. Continue metoprolol , 25 mg BID. (4) Alcohol dependence: Plan: -Patient on Librium for withdrawal prophylaxis. DISPOSITION: -pt describes himself as homeless. Case management input noted and appreciated with regards to providing patient with list of shelters, patient also apparently has some family with whom he can stay on a short-term basis. When I discussed this with him however today 07/19/2022, he states he did not have any family members with whom he can stay. Anticipated cardiology medications at discharge Furosemide 40 mg p.o. ONE TIME per day Spironolactone 25 mg daily Likely resume losartan 50 mg daily at time of discharge Metoprolol tartrate 25 mg twice daily Atorvastatin 20 mg daily -Will request cardiology follow up visit. Admission and Anticipated Discharge Date Admission Date: July 10, 2022 Subjective Patient seen in cardiology follow-up of lower extremity edema and shortness of breath. Telemetry reveals sinus rhythm in the 60s to 70s. Patient feeling well, has been ambulating in the hallway. Net negative another 1.4 L in the l ast 24 hours. Respiratory status improved compared to admission. Physical Exam Constitutional: no acute distress Respiratory: normal respiratory effort, lungs clear to auscultation Cardiovascular: Rate/Rhythm: regular rate Heart Sounds: no murmur Extremities: + edema (1+ LE edema) Gastrointestinal (Abdomen): normal bowel sounds, soft, nontender, no hepatosplenomegaly Neurologic: PERRL, EOMI, accommodation nl, no face palsy, no dysarthria Results & Data ([facility]) Vital Signs (Past 12 Hours) Vital Signs Temp Pulse Pulse Resp BP BP Pulse Ox 07/20/22 09:07 83 136/83 07/20/22 07:35 36.4 C L 72 18 150/84 H 95 07/20/22 07:23 72 07/20/22 04:34 36.8 C 69 18 106/64 92 07/19/22 23:18 36.5 C 60 16 126/71 95 07/19/22 22:57 63 O2 Del Method 07/20/22 09:07 07/20/22 07:35 Room Air 07/20/22 07:23 07/20/22 04:34 Room Air 07/19/22 23:18 Room Air 07/19/22 22:57 Laboratory Results Comprehensive Metabolic Panel 07/20/22 Range/Units 09:11 Sodium 131 L (136-145) mmol/L Potassium 3.5 (3.5-5.1) mmol/L Chloride 92 L (98-107) mmol/L Carbon Dioxide 31 (21-32) mmol/L BUN 24 H (6-23) mg/dl Creatinine 0.86 (0.6-1.4) mg/dl Glucose 197 H (70-99(Fasting)) mg/dl Calcium 9.1 (8.5-10.1) mg/dl Intake and Output 07/19/22 07/20/22 07/20/22 22:59 06:59 14:59 Output Total 999 Balance -999 -1450 Output: Urine 999 Other: Weight 122.5 kg Weight Measurement Method Built in [facility] (1) Alcohol dependence Substance use status: unspecified alcohol-induced disorder Qualified Code(s): F10.29 - Alcohol dependence with unspecified alcohol-induced disorder
--- NOTE | 2022-07-20 16:39 | Hospitalist Progress Note ---
Date of Service July 20, 2022 Assessment & Plan (1) Acute right heart failure: Plan: Present on admission with worsening SOB and orthopnea. He is heavy drinker, reportedly drinking 12-24 b BNP 51 on admission ECHO on 05/25 (outpatient) showed mild concentric left ventricular hypertrophy, LVEF normal 64% without regional wall motion abnormalities, moderate right ventricular chamber enlargement with right ventricular hypokinesis, moderate sized anterior loculated pericardial effusion. Received IV lasix in the ER Appreciate cardiology input and recommendation Currently on Lasix 40mg IV BID and spironolactone 25mg daily. Held last dose of Lasix due to low BP and dizziness Has been getting metolazone as well as per instruction Blood pressure has been stable at more than 100 systolic Denies any more dizziness with ambulation Monitor I/O and electrolytes -advised to drink not more than 1500 mL of fluid in a day No more cardiac symptoms and denies any shortness of breath with ambulation Stable to be discharged (2) Bilateral lower leg cellulitis: Plan: Completed Recent course of Augmentin as outpatient. There are significant scratch wounds present in lower legs and patient reports chronic bed bug infestation at his home. On cefazolin IV q8h, will transition to Cefdinir Continue cefdinir BID Stable No aspirating of infection and will continue current antibiotic for a total of 7 to 10-day No evidence of worsening cellulitis Has been cleared (3) Pericardial effusion: Plan: Stable on recent echocardiogram is outpatient, 06/27/22. No need to repeat echo as per cardiology (4) PSVT (paroxysmal supraventricular tachycardia): Plan: Tele monitor showed [address] this morning Asymptomatic Continue metoprolol 12.5 mg BID No cardiac symptoms (5) HTN (hypertension): Plan: BP was running low today On furosemide, spironolactone, losartan. Last dose lasix was help Will hold losartan Continue monitor BP (6) Alcohol dependence: Plan: Heavy alcohol use with high risk of withdrawal. denies any history of alcohol withdrawal ( he never spent a day without drinking any alcohol) Librium taper, then D/C today Cont home gabapentin, Ativan PO PRN symptoms. No sign of alcohol withdrawal symptoms Continue monitor closely for sign of alcohol withdrawal Continue thiamine and folic acid Counseling on alcohol cessation Strongly advised to quit drinking (7) Tobacco use disorder: Plan: Continue Nicotine patch while in the hospital. Counseling tobacco cessation Strongly advised to quit smoking (8) Granulomatous lung disease: Plan: chronic, stable but likely contributing to chronic SOB, h/o sarcoidosis and has evidence of old granulomatous lung disease per outpatient workup, though given no significantly enlarged lymph nodes, stick puller feels the left hilar calcifications seen are from prior histo or blastomycosis. (9) COPD (chronic obstructive pulmonary disease): Plan: Continue Anoro inhaler [place] [facility] [place] Continue Duoneb prn Counseling on tobacco cessation (10) Severe obesity: Plan: Weight loss encouraged. Needs to change eating and lifestyle habits. (11) DVT prophylaxis: Plan: Continue Lovenox BID Code status Full Code Admission and Anticipated Discharge Date Admission Date: July 10, 2022 Subjective 07/18/2022 The patient was seen and examined in telemetry unit He has had dizzy spells last night likely secondary to low blood pressure Blood pressure has been running more than 95 and denies any more spells Denies any other symptoms 07/19/2022 Patient was seen and examined in telemetry unit He has been feeling much better and is ready to be discharged but he does not h ave any place to go Denies any more symptoms of dizziness and has been moving around in the hallway without any symptoms 07/20/2022 The patient was seen and examined in telemetry unit He has been feeling much better and remains stable Denies any more dizziness and the blood pressure is controlled Review of Systems Review of Systems: All systems reviewed and are unremarkable except as noted below Cardiovascular: Additional Comments: No chest pain palpitation or shortness of breath Physical Exam Physical Exam: Sitting on a chair without any acute distress Constitutional: well developed, well nourished and + obese Eyes: PERRL, conjunctivae normal, anicteric sclerae ENMT: external ear and nose normal, oropharynx normal Neck: trachea midline, no thyromegaly Respiratory: no respiratory distress Auscultation: + diminished lung sounds; no crackles Cardiovascular: Rate/Rhythm: regular rate and regular rhythm; not tachycardic Heart Sounds: normal S1 and normal S2; no murmur Extremities: + edema (1+ edema bilaterally) Gastrointestinal (Abdomen): Inspection/Auscultation: normal bowel sounds; abdomen not distended Percussion/Palpation: abdomen soft; abdomen nontender Musculoskeletal: No acute arthritis involving any joint Psychiatric: A+Ox3, euthymic affect Lymphatic: no cervical or axillary lymphadenopathy Results & Data Results & Data ([facility]) Vital Signs (Past 12 Hours) Vital Signs Temp Pulse Pulse Resp BP Pulse Ox O2 Del Method 07/20/22 15:40 36.4 C L 68 18 134/85 98 Room Air 07/20/22 15:00 71 07/20/22 12:14 36.7 C 73 18 134/84 95 Room Air 07/20/22 09:07 83 136/83 07/20/22 07:35 36.4 C L 72 18 150/84 H 95 Room Air 07/20/22 07:23 72 Laboratory Results [facility] 07/20/22 09:11 Sodium 131 L Potassium 3.5 Chloride 92 L Carbon Dioxide 31 BUN 24 H Creatinine 0.86 Glucose 197 H Calcium 9.1 Medications Administered Current Inpatient Medications Acetaminophen (Acetaminophen 325 Mg Tab) 650 mg PO Q4H PRN PRN Reason: Pain or Fever Stop: 08/09/22 20:04 Last Admin: 07/19/22 15:04 Dose: 650 mg Albuterol (Albuterol Hfa 8 Gm Inhaler) 2 puffs INH QIDR PRN PRN Reason: Shortness Of Breath Or Wheezin Stop: 08/17/22 20:22 Last Admin: 07/18/22 21:04 Dose: 2 puffs Atorvastatin Calcium (Atorvastatin 20 Mg Tab) 20 mg PO HS [facility] Stop: 08/09/22 20:59 Last Admin: 07/19/22 20:08 Dose: 20 mg Diphenhydramine HCl (Diphenhydramine Capsule 25 Mg Cap) 25 mg PO Q6H PRN PRN Reason: itching Stop: 08/09/22 20:04 Last Admin: 07/11/22 21:25 Dose: 25 mg Enoxaparin Sodium (Enoxaparin Inj 40 Mg/0.4 Ml Syr) 40 mg SQ Q12 [facility] Stop: 08/09/22 20:59 Last Admin: 07/20/22 09:16 Dose: 40 mg Fluticasone Propionate (Fluticasone Propionate Na Spr 16 Gm Btl) 2 sprays HAYDEN DAILY [facility] Stop: 08/10/22 08:59 Last Admin: 07/20/22 09:09 Dose: 2 sprays Folic Acid (Folic Acid 1 Mg Tab) 1 mg PO QAM [facility] Stop: 08/09/22 20:04 Last Admin: 07/20/22 09:09 Dose: 1 mg Gabapentin (Gabapentin 100 Mg Cap) 100 mg PO BID [facility] Stop: 08/09/22 20:59 Last Admin: 07/20/22 09:09 Dose: 100 mg Lidocaine (Lidocaine 5% 1 Patch) 1 patch TD QAM [facility] Stop: 08/14/22 10:29 Last Admin: 07/20/22 09:10 Dose: 1 patch Lorazepam (Lorazepam 1 Mg Tab) 1 mg PO ONE PRN; Protocol PRN Reason: EtoH Withdrawal AWSS 6,7,8,9,10 Losartan Potassium (Losartan Potassium 50 Mg Tab) 100 mg PO QAM [facility] Stop: 08/10/22 08:59 Last Admin: 07/17/22 09:21 Dose: 100 mg Metoprolol Tartrate (Metoprolol Tartrate 25 Mg Tab) 12.5 mg PO BID [facility] Stop: 08/13/22 11:44 Last Admin: 07/20/22 09:08 Dose: 12.5 mg Mirtazapine (Mirtazapine Tab 15 Mg Tab) 15 mg PO HS [facility] Stop: 08/09/22 20:59 Last Admin: 07/19/22 20:11 Dose: 15 mg Miscellaneous (Remove Nicoderm Patch) 1 each N/A DAILY@0859 [facility] Stop: 08/10/22 08:58 Last Admin: 07/20/22 09:16 Dose: 1 each Miscellaneous (Remove Lidoderm Patch) 1 each N/A DAILY@2100 [facility] Stop: 08/14/22 20:59 Last Admin: 07/19/22 20:12 Dose: 1 each Nicotine (Nicotine 21 Mg/24 Hr Tdsy) 21 mg TD QAM [facility] Stop: 08/09/22 17:44 Last Admin: 07/20/22 09:10 Dose: 21 mg Polyethylene Glycol (Polyethylene (Miralax) 17 Gm Pack) 17 gm PO DAILY PRN PRN Reason: Constipation Stop: 08/09/22 20:04 Last Admin: 07/16/22 14:19 Dose: 17 gm Spironolactone (Spironolactone 25 Mg Tab) 25 mg PO DAILY [facility] Stop: 08/11/22 08:59 Last Admin: 07/20/22 09:09 Dose: 25 mg Tamsulosin HCl (Tamsulosin Hcl 0.4 Mg Cap) 0.4 mg PO QAM [facility] Stop: 08/12/22 10:14 Last Admin: 07/20/22 09:09 Dose: 0.4 mg Thiamine HCl (Thiamine Hcl 100 Mg Tab) 100 mg PO QAM [facility] Stop: 08/09/22 20:04 Last Admin: 07/20/22 09:09 Dose: 100 mg Tramadol HCl (Tramadol Hcl 50 Mg Tablet) 50 mg PO Q12H PRN PRN Reason: Pain Stop: 08/14/22 10:13 Last Admin: 07/16/22 10:06 Dose: 50 mg Umeclidinium/Vilanterol (Umeclidinium/Vilanterol 62.5/25mcg 7 Puffs/Inhaler) 1 puffs INH QAM [facility] Stop: 08/10/22 08:59 Last Admin: 07/20/22 09:11 Dose: 1 puffs (1) Alcohol dependence Substance use status: unspecified alcohol-induced disorder Qualified Code(s): F10.29 - Alcohol dependence with unspecified alcohol-induced disorder
[2022-07-20] MEDS: ATORVASTATIN 20 MG TAB PO SCH (20:30)
[2022-07-20] MEDS: MIRTAZAPINE TAB 15 MG TAB PO SCH (20:32)
[2022-07-21 07:55] LABS: Basophils # (auto) 0.04 K/uL (0-0.2); Basophils % (auto) 0.5 %; Eosinophils # (auto) 0.26 K/uL (0-0.50); Eosinophils % (auto) 3.3 %; Hematocrit (blood only) 48.2 % (40.1-51.0); Hemoglobin 16.1 g/dl (14.0-18.0); Immature Granulocytes # (auto) 0.14 K/uL (0.00-0.02); Immature Granulocytes % (auto) 1.8 %; Lymphocytes # (auto) 1.22 K/uL (1.2-3.4); Lymphocytes % (auto) 15.3 %; Mean Corpuscular Hemoglobin 31.8 pg (25.0-34.0); Mean Corpuscular Hgb Conc 33.4 g/dL (32.0-36.0); Mean Corpuscular Volume 95.3 fL (80.0-100.0); Mean Platelet Volume 9.7 fL (9.4-12.4); Monocytes # (auto) 1.31 K/uL (0.24-0.82); Monocytes % (auto) 16.4 %; Neutrophils # (auto) 5.01 K/uL (1.4-6.5); Neutrophils % (auto) 62.7 %; Platelet Count 363 K/uL (130-400); RDW Coefficient of Variation 13.4 % (11.5-14.5); RDW Standard Deviation 47.4 fL (36.4-46.3); Red Blood Count 5.06 M/uL (4.63-6.08); White Blood Count 7.98 K/ul (4.8-10.8)
[2022-07-21 08:26] LABS: BUN Creatinine Ratio 26.6 (10-20); Calcium 8.9 mg/dl (8.5-10.1); Creatinine Clr Calc Pharmacy 121.5 ml/min; Est GFR (African American) 111.5 ml/min; Est GFR (Non-African American) 96.2 ml/min; Magnesium 2.3 mg/dl (1.7-2.4); Potassium 3.9 mmol/L (3.5-5.1)
[2022-07-21] MEDS: UMECLIDINIUM/VILANTEROL 62.5/25MCG 7 PUFFS/INHALER INH SCH (09:42)
[2022-07-21] MEDS: FLUTICASONE PROPIONATE NA SPR 16 GM BTL NAE SCH (09:43)
[2022-07-21] MEDS: TAMSULOSIN HCL 0.4 MG CAP PO SCH (09:43)
[2022-07-21] MEDS: SPIRONOLACTONE 25 MG TAB PO SCH (09:43)
[2022-07-21] MEDS: THIAMINE HCL 100 MG TAB PO SCH (09:43)
[2022-07-21] MEDS: FOLIC ACID 1 MG TAB PO SCH (09:43)
[2022-07-21] MEDS: LIDOCAINE 5% 1 PATCH TD SCH (09:43)
[2022-07-21] MEDS: GABAPENTIN 100 MG CAP PO SCH ×2 (09:43→20:09)
[2022-07-21] MEDS: METOPROLOL TARTRATE 25 MG TAB PO SCH ×2 (09:43→20:09)
[2022-07-21] MEDS: ENOXAPARIN INJ 40 MG/0.4 ML SYR SQ SCH ×2 (09:43→20:09)
[2022-07-21] MEDS: NICOTINE 21 MG/24 HR TDSY TD SCH (09:44)
[2022-07-21] MEDS: ACETAMINOPHEN 325 MG TAB PO PRN (09:52)
--- NOTE | 2022-07-21 15:00 | Hospitalist Progress Note ---
Date of Service July 21, 2022 Assessment & Plan (1) Acute right heart failure: Plan: Present on admission with worsening SOB and orthopnea. He is heavy drinker, reportedly drinking 12-24 b BNP 51 on admission ECHO on 05/25 (outpatient) showed mild concentric left ventricular hypertrophy, LVEF normal 64% without regional wall motion abnormalities, moderate right ventricular chamber enlargement with right ventricular hypokinesis, moderate sized anterior loculated pericardial effusion. Received IV lasix in the ER Appreciate cardiology input and recommendation Currently on Lasix 40mg IV BID and spironolactone 25mg daily. Held last dose of Lasix due to low BP and dizziness Has been getting metolazone as well as per instruction Blood pressure has been stable at more than 100 systolic Denies any more dizziness with ambulation Monitor I/O and electrolytes -advised to drink not more than 1500 mL of fluid in a day No more cardiac symptoms and denies any shortness of breath with ambulation Stable to be discharged (2) Bilateral lower leg cellulitis: Plan: Completed Recent course of Augmentin as outpatient. There are significant scratch wounds present in lower legs and patient reports chronic bed bug infestation at his home. On cefazolin IV q8h, will transition to Cefdinir Continue cefdinir BID Stable No aspirating of infection and will continue current antibiotic for a total of 7 to 10-day No evidence of worsening cellulitis Has been cleared and the leg swelling is improved (3) Pericardial effusion: Plan: Stable on recent echocardiogram is outpatient, 06/27/22. No need to repeat echo as per cardiology (4) PSVT (paroxysmal supraventricular tachycardia): Plan: Tele monitor showed [address] this morning Asymptomatic Continue metoprolol 12.5 mg BID No cardiac symptoms (5) HTN (hypertension): Plan: BP was running low today On furosemide, spironolactone, losartan. Last dose lasix was help Will hold losartan Continue monitor BP (6) Alcohol dependence: Plan: Heavy alcohol use with high risk of withdrawal. denies any history of alcohol withdrawal ( he never spent a day without drinking any alcohol) Librium taper, then D/C today Cont home gabapentin, Ativan PO PRN symptoms. No sign of alcohol withdrawal symptoms Continue monitor closely for sign of alcohol withdrawal Continue thiamine and folic acid Counseling on alcohol cessation Strongly advised to quit drinking (7) Tobacco use disorder: Plan: Continue Nicotine patch while in the hospital. Counseling tobacco cessation Strongly advised to quit smoking (8) Granulomatous lung disease: Plan: chronic, stable but likely contributing to chronic SOB, h/o sarcoidosis and has evidence of old granulomatous lung disease per outpatient workup, though given no significantly enlarged lymph nodes, helper driver feels the left hilar calcifications seen are from prior histo or blastomycosis. (9) COPD (chronic obstructive pulmonary disease): Plan: Continue Anoro inhaler Follow up with [facility] pulmonology Continue Duoneb prn Counseling on tobacco cessation (10) Severe obesity: Plan: Weight loss encouraged. Needs to change eating and lifestyle habits. (11) DVT prophylaxis: Plan: Continue Lovenox BID Code status Full Code Admission and Anticipated Discharge Date Admission Date: July 10, 2022 Subjective 07/18/2022 The patient was seen and examined in telemetry unit He has had dizzy spells last night likely secondary to low blood pressure Blood pressure has been running more than 95 and denies any more spells Denies any other symptoms 07/19/2022 Patient was seen and examined in telemetry unit He has been feeling much better and is ready to be discharged but he does not have any place to go Denies any more symptoms of dizziness and has been moving around in the hallway without any symptoms 07/20/2022 The patient was seen and examined in telemetry unit He has been feeling much better and remains stable Denies any more dizziness and the blood pressure is controlled 07/21/2022 The patient was seen and examined in telemetry unit He remained stable and has been waiting for a place to go Review of Systems Review of Systems: All systems reviewed and are unremarkable except as noted below Cardiovascular: Additional Comments: No chest pain palpitation or shortness of breath Physical Exam Physical Exam: Sitting on a chair without any acute distress Constitutional: well developed, well nourished and + obese Eyes: PERRL, conjunctivae normal, anicteric sclerae ENMT: external ear and nose normal, oropharynx normal Neck: trachea midline, no thyromegaly Respiratory: no respiratory distress Auscultation: + diminished lung sounds; no crackles Cardiovascular: Rate/Rhythm: regular rate and regular rhythm; not tachycardic Heart Sounds: normal S1 and normal S2; no murmur Extremities: + edema (1+ edema bilaterally) Gastrointestinal (Abdomen): Inspection/Auscultation: normal bowel sounds; abdomen not distended Percussion/Palpation: abdomen soft; abdomen nontender Psychiatric: A+Ox3, euthymic affect Lymphatic: no cervical or axillary lymphadenopathy Results & Data Results & Data ([facility]) Vital Signs (Past 12 Hours) Vital Signs Temp Pulse Pulse Resp BP BP Pulse Ox 07/21/22 11:21 36.8 C 62 20 149/82 H 98 07/21/22 08:00 62 07/21/22 08:00 07/21/22 07:31 36.4 C L 70 20 143/77 H 93 07/21/22 03:04 36.4 C L 71 18 109/67 91 O2 Del Method 07/21/22 11:21 Room Air 07/21/22 08:00 07/21/22 08:00 Room Air 07/21/22 07:31 Room Air 07/21/22 03:04 Room Air Laboratory Results Short CBC 07/21/22 Range/Units 07:32 WBC 7.98 (4.8-10.8) K/ul Hgb 16.1 (14.0-18.0) g/dl Hct 48.2 (40.1-51.0) % Plt Count 363 (130-400) K/uL BMP 07/21/22 07:32 Sodium 134 L Potassium 3.9 Chloride 99 Carbon Dioxide 31 BUN 21 Creatinine 0.79 Glucose 106 H Calcium 8.9 Medications Administered Current Inpatient Medications Acetaminophen (Acetaminophen 325 Mg Tab) 650 mg PO Q4H PRN PRN Reason: Pain or Fever Stop: 08/09/22 20:04 Last Admin: 07/21/22 09:52 Dose: 650 mg Albuterol (Albuterol Hfa 8 Gm Inhaler) 2 puffs INH QIDR PRN PRN Reason: Shortness Of Breath Or Wheezin Stop: 08/17/22 20:22 Last Admin: 07/18/22 21:04 Dose: 2 puffs Atorvastatin Calcium (Atorvastatin 20 Mg Tab) 20 mg PO HS [facility] Stop: 08/09/22 20:59 Last Admin: 07/20/22 20:30 Dose: 20 mg Diphenhydramine HCl (Diphenhydramine Capsule 25 Mg Cap) 25 mg PO Q6H PRN PRN Reason: itching Stop: 08/09/22 20:04 Last Admin: 07/11/22 21:25 Dose: 25 mg Enoxaparin Sodium (Enoxaparin Inj 40 Mg/0.4 Ml Syr) 40 mg SQ Q12 [facility] Stop: 08/09/22 20:59 Last Admin: 07/21/22 09:43 Dose: 40 mg Fluticasone Propionate (Fluticasone Propionate Na Spr 16 Gm Btl) 2 sprays HAYDEN DAILY [facility] Stop: 08/10/22 08:59 Last Admin: 07/21/22 09:43 Dose: 2 sprays Folic Acid (Folic Acid 1 Mg Tab) 1 mg PO QAM [facility] Stop: 08/09/22 20:04 Last Admin: 07/21/22 09:43 Dose: 1 mg Gabapentin (Gabapentin 100 Mg Cap) 100 mg PO BID [facility] Stop: 08/09/22 20:59 Last Admin: 07/21/22 09:43 Dose: 100 mg Lidocaine (Lidocaine 5% 1 Patch) 1 patch TD QAM [facility] Stop: 08/14/22 10:29 Last Admin: 07/21/22 09:43 Dose: 1 patch Lorazepam (Lorazepam 1 Mg Tab) 1 mg PO ONE PRN; Protocol PRN Reason: EtoH Withdrawal AWSS 6,7,8,9,10 Losartan Potassium (Losartan Potassium 50 Mg Tab) 100 mg PO QAM [facility] Stop: 08/10/22 08:59 Last Admin: 07/17/22 09:21 Dose: 100 mg Metoprolol Tartrate (Metoprolol Tartrate 25 Mg Tab) 12.5 mg PO BID [facility] Stop: 08/13/22 11:44 Last Admin: 07/21/22 09:43 Dose: 12.5 mg Mirtazapine (Mirtazapine Tab 15 Mg Tab) 15 mg PO HS [facility] Stop: 08/09/22 20:59 Last Admin: 07/20/22 20:32 Dose: 15 mg Miscellaneous (Remove Nicoderm Patch) 1 each N/A DAILY@0859 [facility] Stop: 08/10/22 08:58 Last Admin: 07/21/22 09:45 Dose: 1 each Miscellaneous (Remove Lidoderm Patch) 1 each N/A DAILY@2100 [facility] Stop: 08/14/22 20:59 Last Admin: 07/20/22 20:33 Dose: 1 each Nicotine (Nicotine 21 Mg/24 Hr Tdsy) 21 mg TD QAM [facility] Stop: 08/09/22 17:44 Last Admin: 07/21/22 09:44 Dose: 21 mg Polyethylene Glycol (Polyethylene (Miralax) 17 Gm Pack) 17 gm PO DAILY PRN PRN Reason: Constipation Stop: 08/09/22 20:04 Last Admin: 07/16/22 14:19 Dose: 17 gm Spironolactone (Spironolactone 25 Mg Tab) 25 mg PO DAILY [facility] Stop: 08/11/22 08:59 Last Admin: 07/21/22 09:43 Dose: 25 mg Tamsulosin HCl (Tamsulosin Hcl 0.4 Mg Cap) [facility] Stop: 08/12/22 10:14 Last Admin: 07/21/22 09:43 Dose: 0.4 mg Thiamine HCl (Thiamine Hcl 100 Mg Tab) 100 mg PO QAM [facility] Stop: 08/09/22 20:04 Last Admin: 07/21/22 09:43 Dose: 100 mg Tramadol HCl (Tramadol Hcl 50 Mg Tablet) 50 mg PO Q12H PRN PRN Reason: Pain Stop: 08/14/22 10:13 Last Admin: 07/16/22 10:06 Dose: 50 mg Umeclidinium/Vilanterol (Umeclidinium/Vilanterol 62.5/25mcg 7 Puffs/Inhaler) 1 puffs INH [facility] Stop: 08/10/22 08:59 Last Admin: 07/21/22 09:42 Dose: 1 puffs (1) Alcohol dependence Substance use status: unspecified alcohol-induced disorder Qualified Code(s): F10.29 - Alcohol dependence with unspecified alcohol-induced disorder
[2022-07-21] MEDS: ATORVASTATIN 20 MG TAB PO SCH (20:08)
[2022-07-21] MEDS: MIRTAZAPINE TAB 15 MG TAB PO SCH (20:11)
[2022-07-22] MEDS: GABAPENTIN 100 MG CAP PO SCH ×2 (07:37→20:00)
[2022-07-22] MEDS: NICOTINE 21 MG/24 HR TDSY TD SCH (07:37)
[2022-07-22] MEDS: SPIRONOLACTONE 25 MG TAB PO SCH (07:37)
[2022-07-22] MEDS: FOLIC ACID 1 MG TAB PO SCH (07:37)
[2022-07-22] MEDS: METOPROLOL TARTRATE 25 MG TAB PO SCH ×2 (07:37→20:00)
[2022-07-22] MEDS: THIAMINE HCL 100 MG TAB PO SCH (07:37)
[2022-07-22] MEDS: TAMSULOSIN HCL 0.4 MG CAP PO SCH (07:38)
[2022-07-22] MEDS: LIDOCAINE 5% 1 PATCH TD SCH (07:38)
[2022-07-22] MEDS: UMECLIDINIUM/VILANTEROL 62.5/25MCG 7 PUFFS/INHALER INH SCH (07:38)
[2022-07-22] MEDS: FLUTICASONE PROPIONATE NA SPR 16 GM BTL NAE SCH (07:38)
[2022-07-22] MEDS: ENOXAPARIN INJ 40 MG/0.4 ML SYR SQ SCH ×2 (07:38→20:00)
--- NOTE | 2022-07-22 14:13 | Hospitalist Progress Note ---
Date of Service July 22, 2022 Assessment & Plan (1) Acute right heart failure: Plan: Present on admission with worsening SOB and orthopnea. He is heavy drinker, reportedly drinking 12-24 b BNP 51 on admission ECHO on 05/25 (outpatient) showed mild concentric left ventricular hypertrophy, LVEF normal 64% without regional wall motion abnormalities, moderate right ventricular chamber enlargement with right ventricular hypokinesis, moderate sized anterior loculated pericardial effusion. Received IV lasix in the ER Appreciate cardiology input and recommendation Currently on Lasix 40mg IV BID and spironolactone 25mg daily. Held last dose of Lasix due to low BP and dizziness Has been getting metolazone as well as per instruction Blood pressure has been stable at more than 100 systolic Denies any more dizziness with ambulation Monitor I/O and electrolytes -advised to drink not more than 1500 mL of fluid in a day No more cardiac symptoms and denies any shortness of breath with ambulation No symptoms of fluid overload and/or CHF (2) Bilateral lower leg cellulitis: Plan: Completed Recent course of Augmentin as outpatient. There are significant scratch wounds present in lower legs and patient reports chronic bed bug infestation at his home. On cefazolin IV q8h, will transition to Cefdinir Continue cefdinir BID Stable No aspirating of infection and will continue current antibiotic for a total of 7 to 10-day No evidence of worsening cellulitis Has been cleared and the leg swelling is improved Cellulitis is resolved (3) Pericardial effusion: Plan: Stable on recent echocardiogram is outpatient, 06/27/22. No need to repeat echo as per cardiology (4) PSVT (paroxysmal supraventricular tachycardia): Plan: Tele monitor showed [address] this morning Asymptomatic Continue metoprolol 12.5 mg BID No cardiac symptoms (5) HTN (hypertension): Plan: BP was running low today On furosemide, spironolactone, losartan. Last dose lasix was help Will hold losartan Continue monitor BP (6) Alcohol dependence: Plan: Heavy alcohol use with high risk of withdrawal. denies any history of alcohol withdrawal ( he never spent a day without drinking any alcohol) Librium taper, then D/C today Cont home gabapentin, Ativan PO PRN symptoms. No sign of alcohol withdrawal symptoms Continue monitor closely for sign of alcohol withdrawal Continue thiamine and folic acid Counseling on alcohol cessation Strongly advised to quit drinking (7) Tobacco use disorder: Plan: Continue Nicotine patch while in the hospital. 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 (9) COPD (chronic obstructive pulmonary disease): Plan: Continue Anoro inhaler Follow up with [facility] pulmonology Continue Duoneb prn Counseling on tobacco cessation (10) Severe obesity: Plan: Weight loss encouraged. Needs to change eating and lifestyle habits. (11) DVT prophylaxis: Plan: Continue Lovenox BID Code status Full Code Admission and Anticipated Discharge Date Admission Date: July 10, 2022 Subjective 07/18/2022 The patient was seen and examined in telemetry unit He has had dizzy spells last night likely secondary to low blood pressure Blood pressure has been running more than 95 and denies any more spells Denies any other symptoms 07/19/2022 Patient was seen and examined in telemetry unit He has been feeling much better and is ready to be discharged but he does not have any place to go Denies any more symptoms of dizziness and has been moving around in the hallway without any symptoms 07/20/2022 The patient was seen and examined in telemetry unit He has been feeling much better and remains stable Denies any more dizziness and the blood pressure is controlled 07/21/2022 The patient was seen and examined in telemetry unit He remained stable and has been waiting for a place to go 07/22/2022 The patient was seen and examined in telemetry unit He does not have any symptoms and ready to be discharged Review of Systems Review of Systems: All systems reviewed and are unremarkable except as noted below Cardiovascular: Additional Comments: No chest pain palpitation or shortness of breath Physical Exam Physical Exam: Sitting on a chair without any acute distress Constitutional: well developed, well nourished and + obese Eyes: PERRL, conjunctivae normal, anicteric sclerae ENMT: external ear and nose normal, oropharynx normal Neck: trachea midline, no thyromegaly Respiratory: no respiratory distress Auscultation: + diminished lung vickie nds; no crackles Cardiovascular: Rate/Rhythm: regular rate and regular rhythm; not tachycardic Heart Sounds: normal S1 and normal S2; no murmur Extremities: + edema (1+ edema bilaterally) Gastrointestinal (Abdomen): Inspection/Auscultation: normal bowel sounds; abdomen not distended Percussion/Palpation: abdomen soft; abdomen nontender Psychiatric: A+Ox3, euthymic affect Lymphatic: no cervical or axillary lymphadenopathy Results & Data Results & Data ([facility]) Vital Signs (Past 12 Hours) Vital Signs Temp Pulse Pulse Pulse Resp BP BP 07/22/22 11:27 36.4 C L 58 L 17 122/77 07/22/22 08:00 65 07/22/22 08:00 07/22/22 07:19 36.4 C L 63 18 118/70 07/22/22 04:43 36.5 C 61 16 103/66 Pulse Ox O2 Del Method 07/22/22 11:27 96 Room Air 07/22/22 08:00 07/22/22 08:00 Room Air 07/22/22 07:19 95 Room Air 07/22/22 04:43 93 Room Air Medications Administered Current Inpatient Medications Acetaminophen (Acetaminophen 325 Mg Tab) 650 mg PO Q4H PRN PRN Reason: Pain or Fever Stop: 08/09/22 20:04 Last Admin: 07/21/22 09:52 Dose: 650 mg Albuterol (Albuterol Hfa 8 Gm Inhaler) 2 puffs INH QIDR PRN PRN Reason: Shortness Of Breath Or Wheezin Stop: 08/17/22 20:22 Last Admin: 07/18/22 21:04 Dose: 2 puffs Atorvastatin Calcium (Atorvastatin 20 Mg Tab) 20 mg PO HS [facility] Stop: 08/09/22 20:59 Last Admin: 07/21/22 20:08 Dose: 20 mg Diphenhydramine HCl (Diphenhydramine Capsule 25 Mg Cap) 25 mg PO Q6H PRN PRN Reason: itching Stop: 08/09/22 20:04 Last Admin: 07/11/22 21:25 Dose: 25 mg Enoxaparin Sodium (Enoxaparin Inj 40 Mg/0.4 Ml Syr) 40 mg SQ Q12 [facility] Stop: 08/09/22 20:59 Last Admin: 07/22/22 07:38 Dose: 40 mg Fluticasone Propionate (Fluticasone Propionate Na Spr 16 Gm Btl) 2 sprays HAYDEN DAILY [facility] Stop: 08/10/22 08:59 Last Admin: 07/22/22 07:38 Dose: 2 sprays Folic Acid (Folic Acid 1 Mg Tab) 1 mg PO QAM [facility] Stop: 08/09/22 20:04 Last Admin: 07/22/22 07:37 Dose: 1 mg Gabapentin (Gabapentin 100 Mg Cap) 100 mg PO BID [facility] Stop: 08/09/22 20:59 Last Admin: 07/22/22 07:37 Dose: 100 mg Lidocaine (Lidocaine 5% 1 Patch) 1 patch TD QAM [facility] Stop: 08/14/22 10:29 Last Admin: 07/22/22 07:38 Dose: 1 patch Lorazepam (Lorazepam 1 Mg Tab) 1 mg PO ONE PRN; Protocol PRN Reason: EtoH Withdrawal AWSS 6,7,8,9,10 Losartan Potassium (Losartan Potassium 50 Mg Tab) 100 mg PO QAM [facility] Stop: 08/10/22 08:59 Last Admin: 07/17/22 09:21 Dose: 100 mg Metoprolol Tartrate (Metoprolol Tartrate 25 Mg Tab) 12.5 mg PO BID [facility] Stop: 08/13/22 11:44 Last Admin: 07/22/22 07:37 Dose: 12.5 mg Mirtazapine (Mirtazapine Tab 15 Mg Tab) 15 mg PO HS [facility] Stop: 08/09/22 20:59 Last Admin: 07/21/22 20:11 Dose: 15 mg Miscellaneous (Remove Nicoderm Patch) 1 each N/A DAILY@0859 [facility] Stop: 08/10/22 08:58 Last Admin: 07/22/22 07:39 Dose: 1 each Miscellaneous (Remove Lidoderm Patch) 1 each N/A DAILY@2100 [facility] Stop: 08/14/22 20:59 Last Admin: 07/21/22 20:11 Dose: 1 each Nicotine (Nicotine 21 Mg/24 Hr Tdsy) 21 mg TD QAM [facility] Stop: 08/09/22 17:44 Last Admin: 07/22/22 07:37 Dose: 21 mg Polyethylene Glycol (Polyethylene (Miralax) 17 Gm Pack) 17 gm PO DAILY PRN PRN Reason: Constipation Stop: 08/09/22 20:04 Last Admin: 07/16/22 14:19 Dose: 17 gm Spironolactone (Spironolactone 25 Mg Tab) 25 mg PO DAILY [facility] Stop: 08/11/22 08:59 Last Admin: 07/22/22 07:37 Dose: 25 mg Tamsulosin HCl (Tamsulosin Hcl 0.4 Mg Cap) 0.4 mg PO QAM [facility] Stop: 08/12/22 10:14 Last Admin: 07/22/22 07:38 Dose: 0.4 mg Thiamine HCl (Thiamine Hcl 100 Mg Tab) 100 mg PO QAM [facility] Stop: 08/09/22 20:04 Last Admin: 07/22/22 07:37 Dose: 100 mg Tramadol HCl (Tramadol Hcl 50 Mg Tablet) 50 mg PO Q12H PRN PRN Reason: Pain Stop: 08/14/22 10:13 Last Admin: 07/16/22 10:06 Dose: 50 mg Umeclidinium/Vilanterol (Umeclidinium/Vilanterol 62.5/25mcg 7 Puffs/Inhaler) 1 puffs INH QAM [facility] Stop: 08/10/22 08:59 Last Admin: 07/22/22 07:38 Dose: 1 puffs (1) Alcohol dependence Substance use status: unspecified alcohol-induced disorder Qualified Code(s): F10.29 - Alcohol dependence with unspecified alcohol-induced disorder
[2022-07-22] MEDS: MIRTAZAPINE TAB 15 MG TAB PO SCH (20:00)
[2022-07-22] MEDS: ATORVASTATIN 20 MG TAB PO SCH (20:00)
[2022-07-23] MEDS: FLUTICASONE PROPIONATE NA SPR 16 GM BTL NAE SCH (07:48)
[2022-07-23] MEDS: UMECLIDINIUM/VILANTEROL 62.5/25MCG 7 PUFFS/INHALER INH SCH (07:48)
[2022-07-23] MEDS: ENOXAPARIN INJ 40 MG/0.4 ML SYR SQ SCH ×2 (07:49→21:14)
[2022-07-23] MEDS: LIDOCAINE 5% 1 PATCH TD SCH (07:49)
[2022-07-23] MEDS: TAMSULOSIN HCL 0.4 MG CAP PO SCH (07:50)
[2022-07-23] MEDS: FOLIC ACID 1 MG TAB PO SCH (07:50)
[2022-07-23] MEDS: METOPROLOL TARTRATE 25 MG TAB PO SCH ×2 (07:50→21:15)
[2022-07-23] MEDS: THIAMINE HCL 100 MG TAB PO SCH (07:50)
[2022-07-23] MEDS: NICOTINE 21 MG/24 HR TDSY TD SCH (07:50)
[2022-07-23] MEDS: GABAPENTIN 100 MG CAP PO SCH ×2 (07:50→21:14)
[2022-07-23] MEDS: SPIRONOLACTONE 25 MG TAB PO SCH (07:51)
[2022-07-23 08:54] LABS: Calcium 8.5 mg/dl (8.5-10.1); Creatinine Clr Calc Pharmacy 113.5 ml/min; Est GFR (African American) 108.2 ml/min; Est GFR (Non-African American) 93.4 ml/min; Potassium 4.1 mmol/L (3.5-5.1)
--- NOTE | 2022-07-23 13:58 | Hospitalist Progress Note ---
Date of Service July 23, 2022 Assessment & Plan (1) Acute right heart failure: Plan: Present on admission with worsening SOB and orthopnea. He is heavy drinker, reportedly drinking 12-24 b BNP 51 on admission ECHO on 05/25 (outpatient) showed mild concentric left ventricular hypertrophy, LVEF normal 64% without regional wall motion abnormalities, moderate right ventricular chamber enlargement with right ventricular hypokinesis, moderate sized anterior loculated pericardial effusion. Received IV lasix in the ER Appreciate cardiology input and recommendation Currently on Lasix 40mg IV BID and spironolactone 25mg daily. Held last dose of Lasix due to low BP and dizziness Has been getting metolazone as well as per instruction Blood pressure has been stable at more than 100 systolic Denies any more dizziness with ambulation Monitor I/O and electrolytes -advised to drink not more than 1500 mL of fluid in a day No more cardiac symptoms and denies any shortness of breath with ambulation He has been ambulating without any difficulties and waiting to be discharged (2) Bilateral lower leg cellulitis: Plan: Completed Recent course of Augmentin as outpatient. There are significant scratch wounds present in lower legs and patient reports chronic bed bug infestation at his home. On cefazolin IV q8h, will transition to Cefdinir Continue cefdinir BID Stable No aspirating of infection and will continue current antibiotic for a total of 7 to 10-day No evidence of worsening cellulitis Has been cleared and the leg swelling is improved Cellulitis is resolved (3) Pericardial effusion: Plan: Stable on recent echocardiogram is outpatient, 06/27/22. No need to repeat echo as per cardiology (4) PSVT (paroxysmal supraventricular tachycardia): Plan: Tele monitor showed [address] this morning Asymptomatic Continue metoprolol 12.5 mg BID No cardiac symptoms (5) HTN (hypertension): Plan: BP was running low today On furosemide, spironolactone, losartan. Last dose lasix was help Will hold losartan Continue monitor BP (6) Alcohol dependence: Plan: Heavy alcohol use with high risk of withdrawal. denies any history of alcohol withdrawal ( he never spent a day without drinking any alcohol) Librium taper, then D/C today Cont home gabapentin, Ativan PO PRN symptoms. No sign of alcohol withdrawal symptoms Continue monitor closely for sign of alcohol withdrawal Continue thiamine and folic acid Counseling on alcohol cessation Strongly advised to quit drinking (7) Tobacco use disorder: Plan: Continue Nicotine patch while in the hospital. 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 (9) COPD (chronic obstructive pulmonary disease): Plan: Continue Anoro inhaler [place] [facility] [place] Continue Duoneb prn Counseling on tobacco cessation (10) Severe obesity: Plan: Weight loss encouraged. Needs to change eating and lifestyle habits. (11) DVT prophylaxis: Plan: Continue Lovenox BID Code status Full Code Plan Has been waiting for a long term before discharge Admission and Anticipated Discharge Date Admission Date: July 10, 2022 Subjective 07/18/2022 The patient was seen and examined in telemetry unit He has had dizzy spells last night likely secondary to low blood pressure Blood pressure has been running more than 95 and denies any more spells Denies any other symptoms 07/19/2022 Patient was seen and examined in telemetry unit He has been feeling much better and is ready to be discharged but he does not have any place to go Denies any more symptoms of dizziness and has been moving around in the hallway without any symptoms 07/20/2022 The patient was seen and examined in telemetry unit He has been feeling much better and remains stable Denies any more dizziness and the blood pressure is controlled 07/21/2022 The patient was seen and examined in telemetry unit He remained stable and has been waiting for a place to go 07/22/2022 The patient was seen and examined in telemetry unit He does not have any symptoms and ready to be discharged 07/23/2022 The patient was seen and examined in telemetry unit He has been walking around in the hallway without any significant symptoms of shortness of breath and/or pain His leg swelling has improved Review of Systems Review of Systems: All systems reviewed and are unremarkable except as noted below Cardiovascular: Additional Comments: No chest pain palpitation or shortness of breath Physical Exam Physical Exam: Sitting on a chair without any acute distress Constitutional: well developed, well nourished and + obese Eyes: PERRL, conjunctivae normal, anicteric sclerae ENMT: external ear and nose normal, oropharynx normal Neck: trachea midline, no thyromegaly Respiratory: no respiratory distress Auscultation: + diminished lung sounds; no crackles Cardiovascular: Rate/Rhythm: regular rate and regular rhythm; not tachycardic Heart Sounds: normal S1 and normal S2; no murmur Extremities: + edema (1+ edema bilaterally) Gastrointestinal (Abdomen): Inspection/Auscultation: normal bowel sounds; abdomen not distended Percussion/Palpation: abdomen soft; abdomen nontender Musculoskeletal: No acute arthritis in any joint Psychiatric: A+Ox3, euthymic affect Lymphatic: no cervical or axillary lymphadenopathy Results & Data Results & Data ([facility]) Vital Signs (Past 12 Hours) Vital Signs Temp Pulse Pulse Resp BP Pulse Ox O2 Del Method 07/23/22 11:26 36.6 C 65 20 122/80 96 Room Air 07/23/22 10:37 Room Air 07/23/22 07:17 72 07/23/22 07:05 36.6 C 71 16 143/83 H 94 Room Air 07/23/22 03:10 36.4 C L 68 16 110/71 94 Room Air Laboratory Results [facility] 07/23/22 07:55 Sodium 138 Potassium 4.1 Chloride 104 Carbon Dioxide 30 BUN 17 Creatinine 0.85 Glucose 116 H Calcium 8.5 Medications Administered Current Inpatient Medications Acetaminophen (Acetaminophen 325 Mg Tab) 650 mg PO Q4H PRN PRN Reason: Pain or Fever Stop: 08/09/22 20:04 Last Admin: 07/21/22 09:52 Dose: 650 mg Albuterol (Albuterol Hfa 8 Gm Inhaler) 2 puffs INH QIDR PRN PRN Reason: Shortness Of Breath Or Wheezin Stop: 08/17/22 20:22 Last Admin: 07/18/22 21:04 Dose: 2 puffs Atorvastatin Calcium (Atorvastatin 20 Mg Tab) 20 mg PO HS [facility] Stop: 08/09/22 20:59 Last Admin: 07/22/22 20:00 Dose: 20 mg Diphenhydramine HCl (Diphenhydramine Capsule 25 Mg Cap) 25 mg PO Q6H PRN PRN Reason: itching Stop: 08/09/22 20:04 Last Admin: 07/11/22 21:25 Dose: 25 mg Enoxaparin Sodium (Enoxaparin Inj 40 Mg/0.4 Ml Syr) 40 mg SQ Q12 [facility] Stop: 08/09/22 20:59 Last Admin: 07/23/22 07:49 Dose: Not Given Fluticasone Propionate (Fluticasone Propionate Na Spr 16 Gm Btl) 2 sprays [place]AYDEN DAILY [facility] Stop: 08/10/22 08:59 Last Admin: 07/23/22 07:48 Dose: 2 sprays Folic Acid (Folic Acid 1 Mg Tab) 1 mg PO QAM [facility] Stop: 08/09/22 20:04 Last Admin: 07/23/22 07:50 Dose: 1 mg Gabapentin (Gabapentin 100 Mg Cap) 100 mg PO BID [facility] Stop: 08/09/22 20:59 Last Admin: 07/23/22 07:50 Dose: 100 mg Lidocaine (Lidocaine 5% 1 Patch) 1 patch TD QAM [facility] Stop: 08/14/22 10:29 Last Admin: 07/23/22 07:49 Dose: 1 patch Lorazepam (Lorazepam 1 Mg Tab) 1 mg PO ONE PRN; Protocol PRN Reason: EtoH Withdrawal AWSS 6,7,8,9,10 Losartan Potassium (Losartan Potassium 50 Mg Tab) 100 mg PO QAM [facility] Stop: 08/10/22 08:59 Last Admin: 07/17/22 09:21 Dose: 100 mg Metoprolol Tartrate (Metoprolol Tartrate 25 Mg Tab) 12.5 mg PO BID [facility] Stop: 08/13/22 11:44 Last Admin: 07/23/22 07:50 Dose: 12.5 mg Mirtazapine (Mirtazapine Tab 15 Mg Tab) 15 mg PO HS [facility] Stop: 08/09/22 20:59 Last Admin: 07/22/22 20:00 Dose: 15 mg Miscellaneous (Remove Nicoderm Patch) 1 each N/A DAILY@0859 [facility] Stop: 08/10/22 08:58 Last Admin: 07/23/22 07:50 Dose: 1 each Miscellaneous (Remove Lidoderm Patch) 1 each N/A DAILY@2100 [facility] Stop: 08/14/22 20:59 Last Admin: 07/22/22 20:00 Dose: 1 each Nicotine (Nicotine 21 Mg/24 Hr Tdsy) 21 mg TD QAM [facility] Stop: 08/09/22 17:44 Last Admin: 07/23/22 07:50 Dose: 21 mg Polyethylene Glycol (Polyethylene (Miralax) 17 Gm Pack) 17 gm PO DAILY PRN PRN Reason: Constipation Stop: 08/09/22 20:04 Last Admin: 07/16/22 14:19 Dose: 17 gm Spironolactone (Spironolactone 25 Mg Tab) 25 mg PO DAILY [facility] Stop: 08/11/22 08:59 Last Admin: 07/23/22 07:51 Dose: 25 mg Tamsulosin HCl (Tamsulosin Hcl 0.4 Mg Cap) 0.4 mg PO QAM [facility] Stop: 08/12/22 10:14 Last Admin: 07/23/22 07:50 Dose: 0.4 mg Thiamine HCl (Thiamine Hcl 100 Mg Tab) 100 mg PO QAM [facility] Stop: 08/09/22 20:04 Last Admin: 07/23/22 07:50 Dose: 100 mg Tramadol HCl (Tramadol Hcl 50 Mg Tablet) 50 mg PO Q12H PRN PRN Reason: Pain Stop: 08/14/22 10:13 Last Admin: 07/16/22 10:06 Dose: 50 mg Umeclidinium/Vilanterol (Umeclidinium/Vilanterol 62.5/25mcg 7 Puffs/Inhaler) 1 puffs INH QAM [facility] Stop: 08/10/22 08:59 Last Admin: 07/23/22 07:48 Dose: 1 puffs (1) Alcohol dependence Substance use status: unspecified alcohol-induced disorder Qualified Code(s): F10.29 - Alcohol dependence with unspecified alcohol-induced disorder
[2022-07-23] MEDS: ATORVASTATIN 20 MG TAB PO SCH (21:14)
[2022-07-23] MEDS: MIRTAZAPINE TAB 15 MG TAB PO SCH (21:36)
[2022-07-24] MEDS: UMECLIDINIUM/VILANTEROL 62.5/25MCG 7 PUFFS/INHALER INH SCH (08:56)
[2022-07-24] MEDS: FLUTICASONE PROPIONATE NA SPR 16 GM BTL NAE SCH (08:56)
[2022-07-24] MEDS: NICOTINE 21 MG/24 HR TDSY TD SCH (08:57)
[2022-07-24] MEDS: LIDOCAINE 5% 1 PATCH TD SCH (08:57)
[2022-07-24] MEDS: METOPROLOL TARTRATE 25 MG TAB PO SCH ×2 (08:58→20:17)
[2022-07-24] MEDS: GABAPENTIN 100 MG CAP PO SCH ×2 (08:58→20:16)
[2022-07-24] MEDS: FOLIC ACID 1 MG TAB PO SCH (08:58)
[2022-07-24] MEDS: ENOXAPARIN INJ 40 MG/0.4 ML SYR SQ SCH ×2 (08:58→20:16)
[2022-07-24] MEDS: SPIRONOLACTONE 25 MG TAB PO SCH (08:58)
[2022-07-24] MEDS: TAMSULOSIN HCL 0.4 MG CAP PO SCH (08:58)
[2022-07-24] MEDS: THIAMINE HCL 100 MG TAB PO SCH (08:58)
--- NOTE | 2022-07-24 14:48 | Hospitalist Progress Note ---
Date of Service July 24, 2022 Assessment & Plan (1) Acute right heart failure: Plan: Present on admission with worsening SOB and orthopnea. He is heavy drinker, reportedly drinking 12-24 b BNP 51 on admission ECHO on 05/25 (outpatient) showed mild concentric left ventricular hypertrophy, LVEF normal 64% without regional wall motion abnormalities, moderate right ventricular chamber enlargement with right ventricular hypokinesis, moderate sized anterior loculated pericardial effusion. Received IV lasix in the ER Appreciate cardiology input and recommendation Currently on Lasix 40mg IV BID and spironolactone 25mg daily. Held last dose of Lasix due to low BP and dizziness Has been getting metolazone as well as per instruction Blood pressure has been stable at more than 100 systolic Denies any more dizziness with ambulation Monitor I/O and electrolytes -advised to drink not more than 1500 mL of fluid in a day No more cardiac symptoms and denies any shortness of breath with ambulation He has been ambulating without any difficulties and waiting to be discharged No acute symptoms (2) Bilateral lower leg cellulitis: Plan: Completed Recent course of Augmentin as outpatient. There are significant scratch wounds present in lower legs and patient reports chronic bed bug infestation at his home. On cefazolin IV q8h, will transition to Cefdinir Continue cefdinir BID Stable No aspirating of infection and will continue current antibiotic for a total of 7 to 10-day No evidence of worsening cellulitis Has been cleared and the leg swelling is improved Cellulitis is resolved Minimal swelling in the legs (3) Pericardial effusion: Plan: Stable on recent echocardiogram is outpatient, 06/27/22. No need to repeat echo as per cardiology (4) PSVT (paroxysmal supraventricular tachycardia): Plan: Tele monitor showed [address] this morning Asymptomatic Continue metoprolol 12.5 mg BID No cardiac symptoms (5) HTN (hypertension): Plan: BP was running low today On furosemide, spironolactone, losartan. Last dose lasix was help Will hold losartan Continue monitor BP (6) Alcohol dependence: Plan: Heavy alcohol use with high risk of withdrawal. denies any history of alcohol withdrawal ( he never spent a day without drinking any alcohol) Librium taper, then D/C today Cont home gabapentin, Ativan PO PRN symptoms. No sign of alcohol withdrawal symptoms Continue monitor closely for sign of alcohol withdrawal Continue thiamine and folic acid Counseling on alcohol cessation Strongly advised to quit drinking (7) Tobacco use disorder: Plan: Continue Nicotine patch while in the hospital. Counseling tobacco cessation Strongly advised to quit smoking (8) Granulomatous lung disease: Plan: chronic, stable but likely contributing to chronic SOB, h/o sarcoidosis and has evidence of old granulomatous lung disease per outpatient workup, though given no significantly enlarged lymph nodes, finishing supervisor feels the left hilar calcifications seen are from prior histo or blastomycosis. (9) COPD (chronic obstructive pulmonary disease): Plan: Continue Anoro inhaler [place] [facility] [place] Continue Duoneb prn Counseling on tobacco cessation (10) Severe obesity: Plan: Weight loss encouraged. Needs to change eating and lifestyle habits. (11) DVT prophylaxis: Plan: Continue Lovenox BID Code status Full Code Plan Has been waiting for a fci before discharge Admission and Anticipated Discharge Date Admission Date: July 10, 2022 Subjective 07/18/2022 The patient was seen and examined in telemetry unit He has had dizzy spells last night likely secondary to low blood pressure Blood pressure has been running more than 95 and denies any more spells Denies any other symptoms 07/19/2022 Patient was seen and examined in telemetry unit He has been feeling much better and is ready to be discharged but he does not have any place to go Denies any more symptoms of dizziness and has been moving around in the hallway without any symptoms 07/20/2022 The patient was seen and examined in telemetry unit He has been feeling much better and remains stable Denies any more dizziness and the blood pressure is controlled 07/21/2022 The patient was seen and examined in telemetry unit He remained stable and has been waiting for a place to go 07/22/2022 The patient was seen and examined in telemetry unit He does not have any symptoms and ready to be discharged 07/23/2022 The patient was seen and examined in telemetry unit He has been walking around in the hallway without any significant symptoms of shortness of breath and/or pain His leg swelling has improved 07/24/2022 The patient was seen and examined in telemetry unit He has been stable and denies any significant symptoms Waiting for a fci before discharge Review of Systems Review of Systems: All systems reviewed and are unremarkable except as noted below Cardiovascular: Additional Comments: No chest pain palpitation or shortness of breath Physical Exam Physical Exam: Sitting on a chair without any acute distress Constitutional: well developed, well nourished and + obese Eyes: PERRL, conjunctivae normal, anicteric sclerae ENMT: external ear and nose normal, oropharynx normal Neck: trachea midline, no thyromegaly Respiratory: no respiratory distress Auscultation: + diminished lung sounds; no crackles Cardiovascular: Rate/Rhythm: regular rate and regular rhythm; not tachycardic Heart Sounds: normal S1 and normal S2; no murmur Extremities: + edema (1+ edema bilaterally) Gastrointestinal (Abdomen): Inspection/Auscultation: normal bowel sounds; abdomen not distended Percussion/Palpation: abdomen soft; abdomen nontender Psychiatric: A+Ox3, euthymic affect Lymphatic: no cervical or axillary lymphadenopathy Results & Data Results & Data ([facility]) Vital Signs (Past 12 Hours) Vital Signs Temp Pulse Pulse Resp BP Pulse Ox O2 Del Method 07/24/22 11:34 36.5 C 65 18 124/83 97 Room Air 07/24/22 09:32 Room Air 07/24/22 08:11 36.6 C 72 18 117/76 94 Room Air 07/24/22 07:46 67 07/24/22 04:46 36.3 C L 65 18 143/81 H 93 Room Air Diagnostic Findings Current Inpatient Medications Acetaminophen (Acetaminophen 325 Mg Tab) 650 mg PO Q4H PRN PRN Reason: Pain or Fever Stop: 08/09/22 20:04 Last Admin: 07/21/22 09:52 Dose: 650 mg Albuterol (Albuterol Hfa 8 Gm Inhaler) 2 puffs INH QIDR PRN PRN Reason: Shortness Of Breath Or Wheezin Stop: 08/17/22 20:22 Last Admin: 07/18/22 21:04 Dose: 2 puffs Atorvastatin Calcium (Atorvastatin 20 Mg Tab) 20 mg PO HS [facility] Stop: 08/09/22 20:59 Last Admin: 07/23/22 21:14 Dose: 20 mg Diphenhydramine HCl (Diphenhydramine Capsule 25 Mg Cap) 25 mg PO Q6H PRN PRN Reason: itching Stop: 08/09/22 20:04 Last Admin: 07/11/22 21:25 Dose: 25 mg Enoxaparin Sodium (Enoxaparin Inj 40 Mg/0.4 Ml Syr) 40 mg SQ Q12 [facility] Stop: 08/09/22 20:59 Last Admin: 07/24/22 08:58 Dose: Not Given Fluticasone Propionate (Fluticasone Propionate Na Spr 16 Gm Btl) 2 sprays [place]AY[place] DAILY [facility] Stop: 08/10/22 08:59 Last Admin: 07/24/22 08:56 Dose: 2 sprays Folic Acid (Folic Acid 1 Mg Tab) 1 mg PO QAM [facility] Stop: 08/09/22 20:04 Last Admin: 07/24/22 08:58 Dose: 1 mg Gabapentin (Gabapentin 100 Mg Cap) 100 mg PO BID [facility] Stop: 08/09/22 20:59 Last Admin: 07/24/22 08:58 Dose: 100 mg Lidocaine (Lidocaine 5% 1 Patch) 1 patch TD QAM [facility] Stop: 08/14/22 10:29 Last Admin: 07/24/22 08:57 Dose: 1 patch Lorazepam (Lorazepam 1 Mg Tab) 1 mg PO ONE PRN; Protocol PRN Reason: EtoH Withdrawal AWSS 6,7,8,9,10 Losartan Potassium (Losartan Potassium 50 Mg Tab) 100 mg PO QAM [facility] Stop: 08/10/22 08:59 Last Admin: 07/17/22 09:21 Dose: 100 mg Metoprolol Tartrate (Metoprolol Tartrate 25 Mg Tab) 12.5 mg PO BID [facility] Stop: 08/13/22 11:44 Last Admin: 07/24/22 08:58 Dose: 12.5 mg Mirtazapine (Mirtazapine Tab 15 Mg Tab) 15 mg PO HS [facility] Stop: 08/09/22 20:59 Last Admin: 07/23/22 21:36 Dose: 15 mg Miscellaneous (Remove Nicoderm Patch) 1 each N/A DAILY@0859 [facility] Stop: 08/10/22 08:58 Last Admin: 07/24/22 08:58 Dose: 1 each Miscellaneous (Remove Lidoderm Patch) 1 each N/A DAILY@2100 [facility] Stop: 08/14/22 20:59 Last Admin: 07/23/22 21:15 Dose: 1 each Nicotine (Nicotine 21 Mg/24 Hr Tdsy) 21 mg TD QAM [facility] Stop: 08/09/22 17:44 Last Admin: 07/24/22 08:57 Dose: 21 mg Polyethylene Glycol (Polyethylene (Miralax) 17 Gm Pack) 17 gm PO DAILY PRN PRN Reason: Constipation Stop: 08/09/22 20:04 Last Admin: 07/16/22 14:19 Dose: 17 gm Spironolactone (Spironolactone 25 Mg Tab) 25 mg PO DAILY [facility] Stop: 08/11/22 08:59 Last Admin: 07/24/22 08:58 Dose: 25 mg Tamsulosin HCl (Tamsulosin Hcl 0.4 Mg Cap) 0.4 mg PO QAM [facility] Stop: 08/12/22 10:14 Last Admin: 07/24/22 08:58 Dose: 0.4 mg Thiamine HCl (Thiamine Hcl 100 Mg Tab) 100 mg PO QAM [facility] Stop: 08/09/22 20:04 Last Admin: 07/24/22 08:58 Dose: 100 mg Tramadol HCl (Tramadol Hcl 50 Mg Tablet) 50 mg PO Q12H PRN PRN Reason: Pain Stop: 08/14/22 10:13 Last Admin: 07/16/22 10:06 Dose: 50 mg Umeclidinium/Vilanterol (Umeclidinium/Vilanterol 62.5/25mcg 7 Puffs/Inhaler) 1 puffs INH QAM [facility] Stop: 08/10/22 08:59 Last Admin: 07/24/22 08:56 Dose: 1 puffs (1) Alcohol dependence Substance use status: unspecified alcohol-induced disorder Qualified Code(s): F10.29 - Alcohol dependence with unspecified alcohol-induced disorder
[2022-07-24] MEDS: ATORVASTATIN 20 MG TAB PO SCH (20:16)
[2022-07-24] MEDS: MIRTAZAPINE TAB 15 MG TAB PO SCH (20:17)
[2022-07-25] MEDS: ENOXAPARIN INJ 40 MG/0.4 ML SYR SQ SCH ×2 (09:18→20:38)
[2022-07-25] MEDS: FLUTICASONE PROPIONATE NA SPR 16 GM BTL NAE SCH (09:20)
[2022-07-25] MEDS: FOLIC ACID 1 MG TAB PO SCH (09:20)
[2022-07-25] MEDS: METOPROLOL TARTRATE 25 MG TAB PO SCH ×2 (09:20→20:37)
[2022-07-25] MEDS: GABAPENTIN 100 MG CAP PO SCH ×2 (09:20→21:14)
[2022-07-25] MEDS: SPIRONOLACTONE 25 MG TAB PO SCH (09:21)
[2022-07-25] MEDS: NICOTINE 21 MG/24 HR TDSY TD SCH (09:21)
[2022-07-25] MEDS: TAMSULOSIN HCL 0.4 MG CAP PO SCH (09:21)
[2022-07-25] MEDS: THIAMINE HCL 100 MG TAB PO SCH (09:21)
[2022-07-25] MEDS: UMECLIDINIUM/VILANTEROL 62.5/25MCG 7 PUFFS/INHALER INH SCH (09:21)
[2022-07-25] MEDS: LIDOCAINE 5% 1 PATCH TD SCH (09:22)
--- NOTE | 2022-07-25 15:41 | Hospitalist Progress Note ---
Date of Service July 25, 2022 Assessment & Plan (1) Acute right heart failure: Plan: Present on admission with worsening SOB and orthopnea. He is heavy drinker, reportedly drinking 12-24 b BNP 51 on admission ECHO on 05/25 (outpatient) showed mild concentric left ventricular hypertrophy, LVEF normal 64% without regional wall motion abnormalities, moderate right ventricular chamber enlargement with right ventricular hypokinesis, moderate sized anterior loculated pericardial effusion. Received IV lasix in the ER Appreciate cardiology input and recommendation Currently on Lasix 40mg IV BID and spironolactone 25mg daily. Held last dose of Lasix due to low BP and dizziness Has been getting metolazone as well as per instruction Blood pressure has been stable at more than 100 systolic Denies any more dizziness with ambulation Monitor I/O and electrolytes -advised to drink not more than 1500 mL of fluid in a day No more cardiac symptoms and denies any shortness of breath with ambulation He has been ambulating without any difficulties and waiting to be discharged Remains stable and asymptomatic (2) Bilateral lower leg cellulitis: Plan: Completed Recent course of Augmentin as outpatient. There are significant scratch wounds present in lower legs and patient reports chronic bed bug infestation at his home. On cefazolin IV q8h, will transition to Cefdinir Continue cefdinir BID Stable No aspirating of infection and will continue current antibiotic for a total of 7 to 10-day No evidence of worsening cellulitis Has been cleared and the leg swelling is improved Cellulitis is resolved Minimal swelling in the legs Advised to continue activity and keep the legs elevated while sleeping (3) Pericardial effusion: Plan: Stable on recent echocardiogram is outpatient, 06/27/22. No need to repeat echo as per cardiology (4) PSVT (paroxysmal supraventricular tachycardia): Plan: Tele monitor showed [address] this morning Asymptomatic Continue metoprolol 12.5 mg BID No cardiac symptoms (5) HTN (hypertension): Plan: BP was running low today On furosemide, spironolactone, losartan. Last dose lasix was help Will hold losartan Continue monitor BP (6) Alcohol dependence: Plan: Heavy alcohol use with high risk of withdrawal. denies any history of alcohol withdrawal ( he never spent a day without drinking any alcohol) Librium taper, then D/C today Cont home gabapentin, Ativan PO PRN symptoms. No sign of alcohol withdrawal symptoms Continue monitor closely for sign of alcohol withdrawal Continue thiamine and folic acid Counseling on alcohol cessation Strongly advised to quit drinking (7) Tobacco use disorder: Plan: Continue Nicotine patch while in the hospital. 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 (9) COPD (chronic obstructive pulmonary disease): Plan: Continue Anoro inhaler Follow up with [facility] pulmonology Continue Duoneb prn Counseling on tobacco cessation (10) Severe obesity: Plan: Weight loss encouraged. Needs to change eating and lifestyle habits. (11) DVT prophylaxis: Plan: Continue Lovenox BID Code status Full Code Likely discharge when there is a nursing home available for him Plan Has been waiting for a nursing home before discharge Admission and Anticipated Discharge Date Admission Date: July 10, 2022 Subjective 07/18/2022 The patient was seen and examined in telemetry unit He has had dizzy spells last night likely secondary to low blood pressure Blood pressure has been running more than 95 and denies any more spells Denies any other symptoms 07/19/2022 Patient was seen and examined in telemetry unit He has been feeling much better and is ready to be discharged but he does not have any place to go Denies any more symptoms of dizziness and has been moving around in the hallway without any symptoms 07/20/2022 The patient was seen and examined in telemetry unit He has been feeling much better and remains stable Denies any more dizziness and the blood pressure is controlled 07/21/2022 The patient was seen and examined in telemetry unit He remained stable and has been waiting for a place to go 07/22/2022 The patient was seen and examined in telemetry unit He does not have any symptoms and ready to be discharged 07/23/2022 The patient was seen and examined in telemetry unit He has been walking around in the hallway without any significant symptoms of shortness of breath and/or pain His leg swelling has improved 07/24/2022 The patient was seen and examined in telemetry unit He has been stable and denies any significant symptoms Waiting for a nursing home before discharge 07/25/2022 The patient was seen and examined in telemetry unit He has been stable and sitting on a chair without any acute distress His leg swelling has improved a lot and there is no more cellulitis Review of Systems Review of Systems: All systems reviewed and are unremarkable except as noted below Cardiovascular: Additional Comments: No chest pain palpitation or shortness of breath Physical Exam Physical Exam: Sitting on a chair without any acute distress Constitutional: well developed, well nourished and + obese Eyes: PERRL, conjunctivae normal, anicteric sclerae ENMT: external ear and nose normal, oropharynx normal Neck: trachea midline, no thyromegaly Respiratory: no respiratory distress Auscultation: + diminished lung sounds; no crackles Cardiovascular: Rate/Rhythm: regular rate and regular rhythm; not tachycardic Heart Sounds: normal S1 and normal S2; no murmur Extremities: + edema (1+ edema bilaterally) Gastrointestinal (Abdomen): Inspection/Auscultation: normal bowel sounds; abdomen not distended Percussion/Palpation: abdomen soft; abdomen nontender Neurologic: normal touch/pain/proprioception and moves all extremities; no focal motor deficits Psychiatric: A+Ox3, euthymic affect Lymphatic: no cervical or axillary lymphadenopathy Results & Data Results & Data ([facility]) Vital Signs (Past 12 Hours) Vital Signs Temp Pulse Pulse Resp BP Pulse Ox O2 Del Method 07/25/22 15:24 36.5 C 70 20 114/81 96 Room Air 07/25/22 12:21 36.4 C L 68 18 108/71 94 Room Air 07/25/22 08:11 36.7 C 78 18 117/74 93 Room Air 07/25/22 04:04 36.4 C L 67 24 110/68 94 Room Air Medications Administered Current Inpatient Medications Acetaminophen (Acetaminophen 325 Mg Tab) 650 mg PO Q4H PRN PRN Reason: Pain or Fever Stop: 08/09/22 20:04 Last Admin: 07/21/22 09:52 Dose: 650 mg Albuterol (Albuterol Hfa 8 Gm Inhaler) 2 puffs INH QIDR PRN PRN Reason: Shortness Of Breath Or Wheezin Stop: 08/17/22 20:22 Last Admin: 07/18/22 21:04 Dose: 2 puffs Atorvastatin Calcium (Atorvastatin 20 Mg Tab) 20 mg PO HS [facility] Stop: 08/09/22 20:59 Last Admin: 07/24/22 20:16 Dose: 20 mg Diphenhydramine HCl (Diphenhydramine Capsule 25 Mg Cap) 25 mg PO Q6H PRN PRN Reason: itching Stop: 08/09/22 20:04 Last Admin: 07/11/22 21:25 Dose: 25 mg Enoxaparin Sodium (Enoxaparin Inj 40 Mg/0.4 Ml Syr) 40 mg SQ Q12 [facility] Stop: 08/09/22 20:59 Last Admin: 07/25/22 09:18 Dose: Not Given Fluticasone Propionate (Fluticasone Propionate Na Spr 16 Gm Btl) 2 sprays [place]AYDEN DAILY [facility] Stop: 08/10/22 08:59 Last Admin: 07/25/22 09:20 Dose: 2 sprays Folic Acid (Folic Acid 1 Mg Tab) 1 mg PO QAM [facility] Stop: 08/09/22 20:04 Last Admin: 07/25/22 09:20 Dose: 1 mg Gabapentin (Gabapentin 100 Mg Cap) 100 mg PO BID [facility] Stop: 08/09/22 20:59 Last Admin: 07/25/22 09:20 Dose: 100 mg Lidocaine (Lidocaine 5% 1 Patch) 1 patch TD QAM [facility] Stop: 08/14/22 10:29 Last Admin: 07/25/22 09:22 Dose: Not Given Lorazepam (Lorazepam 1 Mg Tab) 1 mg PO ONE PRN; Protocol PRN Reason: EtoH Withdrawal AWSS 6,7,8,9,10 Losartan Potassium (Losartan Potassium 50 Mg Tab) 100 mg PO QAM [facility] Stop: 08/10/22 08:59 Last Admin: 07/17/22 09:21 Dose: 100 mg Metoprolol Tartrate (Metoprolol Tartrate 25 Mg Tab) 12.5 mg PO BID [facility] Stop: 08/13/22 11:44 Last Admin: 07/25/22 09:20 Dose: 12.5 mg Mirtazapine (Mirtazapine Tab 15 Mg Tab) 15 mg PO HS [facility] Stop: 08/09/22 20:59 Last Admin: 07/24/22 20:17 Dose: 15 mg Miscellaneous (Remove Nicoderm Patch) 1 each N/A DAILY@0859 [facility] Stop: 08/10/22 08:58 Last Admin: 07/25/22 10:03 Dose: 1 each Miscellaneous (Remove Lidoderm Patch) 1 each N/A DAILY@2100 [facility] Stop: 08/14/22 20:59 Last Admin: 07/24/22 20:17 Dose: 1 each Nicotine (Nicotine 21 Mg/24 Hr Tdsy) 21 mg TD QAM [facility] Stop: 08/09/22 17:44 Last Admin: 07/25/22 09:21 Dose: 21 mg Polyethylene Glycol (Polyethylene (Miralax) 17 Gm Pack) 17 gm PO DAILY PRN PRN Reason: Constipation Stop: 08/09/22 20:04 Last Admin: 07/16/22 14:19 Dose: 17 gm Spironolactone (Spironolactone 25 Mg Tab) 25 mg PO DAILY [facility] Stop: 08/11/22 08:59 Last Admin: 07/25/22 09:21 Dose: 25 mg Tamsulosin HCl (Tamsulosin Hcl 0.4 Mg Cap) [facility] Stop: 08/12/22 10:14 Last Admin: 07/25/22 09:21 Dose: 0.4 mg Thiamine HCl (Thiamine Hcl 100 Mg Tab) [facility] Stop: 08/09/22 20:04 Last Admin: 07/25/22 09:21 Dose: 100 mg Tramadol HCl (Tramadol Hcl 50 Mg Tablet) 50 mg PO Q12H PRN PRN Reason: Pain Stop: 08/14/22 10:13 Last Admin: 07/16/22 10:06 Dose: 50 mg Umeclidinium/Vilanterol (Umeclidinium/Vilanterol 62.5/25mcg 7 Puffs/Inhaler) [facility] Stop: 08/10/22 08:59 Last Admin: 07/25/22 09:21 Dose: 1 puffs (1) Alcohol dependence Substance use status: unspecified alcohol-induced disorder Qualified Code(s): F10.29 - Alcohol dependence with unspecified alcohol-induced disorder
[2022-07-25] MEDS: ATORVASTATIN 20 MG TAB PO SCH (20:36)
[2022-07-25] MEDS: MIRTAZAPINE TAB 15 MG TAB PO SCH (20:38)
[2022-07-26 05:39] LABS: Basophils # (auto) 0.05 K/uL (0-0.2); Basophils % (auto) 0.6 %; Eosinophils # (auto) 0.33 K/uL (0-0.50); Eosinophils % (auto) 4.1 %; Hematocrit (blood only) 46.3 % (40.1-51.0); Hemoglobin 15.7 g/dl (14.0-18.0); Immature Granulocytes # (auto) 0.13 K/uL (0.00-0.02); Immature Granulocytes % (auto) 1.6 %; Lymphocytes # (auto) 1.39 K/uL (1.2-3.4); Lymphocytes % (auto) 17.4 %; Mean Corpuscular Hemoglobin 32.7 pg (25.0-34.0); Mean Corpuscular Hgb Conc 33.9 g/dL (32.0-36.0); Mean Corpuscular Volume 96.5 fL (80.0-100.0); Mean Platelet Volume 9.5 fL (9.4-12.4); Monocytes # (auto) 0.84 K/uL (0.24-0.82); Monocytes % (auto) 10.5 %; Neutrophils # (auto) 5.27 K/uL (1.4-6.5); Neutrophils % (auto) 65.8 %; Platelet Count 330 K/uL (130-400); RDW Coefficient of Variation 13.5 % (11.5-14.5); RDW Standard Deviation 48.3 fL (36.4-46.3); White Blood Count 8.01 K/ul (4.8-10.8)
[2022-07-26 05:57] LABS: Calcium 8.7 mg/dl (8.5-10.1); Creatinine Clr Calc Pharmacy 115.5 ml/min; Est GFR (African American) 108.8 ml/min; Est GFR (Non-African American) 93.8 ml/min; Potassium 4.5 mmol/L (3.5-5.1)
[2022-07-26] MEDS: UMECLIDINIUM/VILANTEROL 62.5/25MCG 7 PUFFS/INHALER INH SCH (09:19)
[2022-07-26] MEDS: ENOXAPARIN INJ 40 MG/0.4 ML SYR SQ SCH (09:19)
[2022-07-26] MEDS: FLUTICASONE PROPIONATE NA SPR 16 GM BTL NAE SCH (09:20)
[2022-07-26] MEDS: NICOTINE 21 MG/24 HR TDSY TD SCH (09:20)
[2022-07-26] MEDS: GABAPENTIN 100 MG CAP PO SCH (09:22)
[2022-07-26] MEDS: METOPROLOL TARTRATE 25 MG TAB PO SCH (09:22)
[2022-07-26] MEDS: SPIRONOLACTONE 25 MG TAB PO SCH (09:23)
[2022-07-26] MEDS: THIAMINE HCL 100 MG TAB PO SCH (09:23)
[2022-07-26] MEDS: LIDOCAINE 5% 1 PATCH TD SCH (09:23)
[2022-07-26] MEDS: FOLIC ACID 1 MG TAB PO SCH (09:23)
[2022-07-26] MEDS: TAMSULOSIN HCL 0.4 MG CAP PO SCH (09:23)
--- NOTE | 2022-07-26 12:58 | Hospitalist Progress Note ---
Date of Service July 26, 2022 Assessment & Plan (1) Acute right heart failure: Plan: Present on admission with worsening SOB and orthopnea. He is heavy drinker, reportedly drinking 12-24 b BNP 51 on admission ECHO on 05/25 (outpatient) showed mild concentric left ventricular hypertrophy, LVEF normal 64% without regional wall motion abnormalities, moderate right ventricular chamber enlargement with right ventricular hypokinesis, moderate sized anterior loculated pericardial effusion. Received IV lasix in the ER Appreciate cardiology input and recommendation Currently on Lasix 40mg IV BID and spironolactone 25mg daily. Held last dose of Lasix due to low BP and dizziness Has been getting metolazone as well as per instruction Blood pressure has been stable at more than 100 systolic Denies any more dizziness with ambulation Monitor I/O and electrolytes -advised to drink not more than 1500 mL of fluid in a day No more cardiac symptoms and denies any shortness of breath with ambulation He has been ambulating without any difficulties and waiting to be discharged Remains stable and asymptomatic He will be discharged home this afternoon (2) Bilateral lower leg cellulitis: Plan: Completed Recent course of Augmentin as outpatient. There are significant scratch wounds present in lower legs and patient reports chronic bed bug infestation at his home. On cefazolin IV q8h, will transition to Cefdinir Continue cefdinir BID Stable No aspirating of infection and will continue current antibiotic for a total of 7 to 10-day No evidence of worsening cellulitis Has been cleared and the leg swelling is improved Cellulitis is resolved Minimal swelling in the legs Advised to continue activity and keep the legs elevated while sleeping Remains stable and denies any symptoms (3) Pericardial effusion: Plan: Stable on recent echocardiogram is outpatient, 06/27/22. No need to repeat echo as per cardiology (4) PSVT (paroxysmal supraventricular tachycardia): Plan: Tele monitor showed [address] this morning Asymptomatic Continue metoprolol 12.5 mg BID No cardiac symptoms Heart rate is controlled (5) HTN (hypertension): Plan: BP was running low today On furosemide, spironolactone, losartan. Last dose lasix was help Will hold losartan Continue monitor BP -blood pressure remains controlled (6) Alcohol dependence: Plan: Heavy alcohol use with high risk of withdrawal. denies any history of alcohol withdrawal ( he never spent a day without drinking any alcohol) Librium taper, then D/C today Cont home gabapentin, Ativan PO PRN symptoms. No sign of alcohol withdrawal symptoms Continue monitor closely for sign of alcohol withdrawal Continue thiamine and folic acid Counseling on alcohol cessation Strongly advised to quit drinking (7) Tobacco use disorder: Plan: Continue Nicotine patch while in the hospital. Counseling tobacco cessation Strongly advised to quit smoking (8) Granulomatous lung disease: Plan: chronic, stable but likely contributing to chronic SOB, h/o sarcoidosis and has evidence of old granulomatous lung disease per outpatient workup, though given no significantly enlarged lymph nodes, loom changer feels the left hilar zenia cifications seen are from prior histo or blastomycosis. (9) COPD (chronic obstructive pulmonary disease): Plan: Continue Anoro inhaler Follow up with [facility] pulmonology Continue Duoneb prn Counseling on tobacco cessation (10) Severe obesity: Plan: Weight loss encouraged. Needs to change eating and lifestyle habits. (11) DVT prophylaxis: Plan: Continue Lovenox BID Code status Full Code Likely discharge when there is a [facility] available for him Plan Has been waiting for a [facility] before discharge Admission and Anticipated Discharge Date Admission Date: July 10, 2022 Subjective 07/18/2022 The patient was seen and examined in telemetry unit He has had dizzy spells last night likely secondary to low blood pressure Blood pressure has been running more than 95 and denies any more spells Denies any other symptoms 07/19/2022 Patient was seen and examined in telemetry unit He has been feeling much better and is ready to be discharged but he does not have any place to go Denies any more symptoms of dizziness and has been moving around in the hallway without any symptoms 07/20/2022 The patient was seen and examined in telemetry unit He has been feeling much better and remains stable Denies any more dizziness and the blood pressure is controlled 07/21/2022 The patient was seen and examined in telemetry unit He remained stable and has been waiting for a place to go 07/22/2022 The patient was seen and examined in telemetry unit He does not have any symptoms and ready to be discharged 07/23/2022 The patient was seen and examined in telemetry unit He has been walking around in the hallway without any significant symptoms of shortness of breath and/or pain His leg swelling has improved 07/24/2022 The patient was seen and examined in telemetry unit He has been stable and denies any significant symptoms Waiting for a [facility] before discharge 07/25/2022 The patient was seen and examined in telemetry unit He has been stable and sitting on a chair without any acute distress His leg swelling has improved a lot and there is no more cellulitis 07/26/2022 The patient was seen and examined in telemetry unit Remained stable and has been ambulating without any difficulties He has a [facility] to go and he will be discharged this afternoon Review of Systems Review of Systems: All systems reviewed and are unremarkable except as noted below Cardiovascular: Additional Comments: No chest pain palpitation or shortness of breath Physical Exam Physical Exam: Sitting on a chair without any acute distress Constitutional: well developed, well nourished and + obese Eyes: PERRL, conjunctivae normal, anicteric sclerae ENMT: external ear and nose normal, oropharynx normal Neck: trachea midline, no thyromegaly Respiratory: no respiratory distress Auscultation: + diminished lung sounds; no crackles Cardiovascular: Rate/Rhythm: regular rate and regular rhythm; not tachycardic Heart Sounds: normal S1 and normal S2; no murmur Extremities: + edema (1+ edema bilaterally) Gastrointestinal (Abdomen): Inspection/Auscultation: normal bowel sounds; abdomen not distended Percussion/Palpation: abdomen soft; abdomen nontender Neurologic: normal touch/pain/proprioception and moves all extremities; no focal motor deficits Psychiatric: A+Ox3, euthymic affect Lymphatic: no cervical or axillary lymphadenopathy Results & Data Results & Data ([facility]) Vital Signs (Past 12 Hours) Vital Signs Temp Pulse Pulse Pulse Resp BP Pulse Ox 07/26/22 11:02 36.8 C 68 18 122/79 96 07/26/22 07:58 61 07/26/22 07:15 36.5 C 78 18 119/79 94 07/26/22 03:33 36.5 C 64 16 115/76 95 O2 Del Method 07/26/22 11:02 Room Air 07/26/22 07:58 07/26/22 07:15 Room Air 07/26/22 03:33 Room Air Laboratory Results Short CBC 07/26/22 Range/Units 05:30 WBC 8.01 (4.8-10.8) K/ul Hgb 15.7 (14.0-18.0) g/dl Hct 46.3 (40.1-51.0) % Plt Count 330 (130-400) K/uL BMP 07/26/22 05:30 Sodium 140 Potassium 4.5 Chloride 107 Carbon Dioxide 28 BUN 16 Creatinine 0.84 Glucose 107 H Calcium 8.7 Medications Administered Current Inpatient Medications Acetaminophen (Acetaminophen 325 Mg Tab) 650 mg PO Q4H PRN PRN Reason: Pain or Fever Stop: 08/09/22 20:04 Last Admin: 07/21/22 09:52 Dose: 650 mg Albuterol (Albuterol Hfa 8 Gm Inhaler) 2 puffs INH QIDR PRN PRN Reason: Shortness Of Breath Or Wheezin Stop: 08/17/22 20:22 Last Admin: 07/18/22 21:04 Dose: 2 puffs Atorvastatin Calcium (Atorvastatin 20 Mg Tab) 20 mg PO HS [facility] Stop: 08/09/22 20:59 Last Admin: 07/25/22 20:36 Dose: 20 mg Diphenhydramine HCl (Diphenhydramine Capsule 25 Mg Cap) 25 mg PO Q6H PRN PRN Reason: itching Stop: 08/09/22 20:04 Last Admin: 07/11/22 21:25 Dose: 25 mg Enoxaparin Sodium (Enoxaparin Inj 40 Mg/0.4 Ml Syr) 40 mg SQ Q12 [facility] Stop: 08/09/22 20:59 Last Admin: 07/26/22 09:19 Dose: Not Given Fluticasone Propionate (Fluticasone Propionate Na Spr 16 Gm Btl) 2 sprays [place]AY[place] DAILY [facility] Stop: 08/10/22 08:59 Last Admin: 07/26/22 09:20 Dose: 2 sprays Folic Acid (Folic Acid 1 Mg Tab) 1 mg PO QAM [facility] Stop: 08/09/22 20:04 Last Admin: 07/26/22 09:23 Dose: 1 mg Gabapentin (Gabapentin 100 Mg Cap) 100 mg PO BID [facility] Stop: 08/09/22 20:59 Last Admin: 07/26/22 09:22 Dose: 100 mg Lidocaine (Lidocaine 5% 1 Patch) 1 patch TD QAM [facility] Stop: 08/14/22 10:29 Last Admin: 07/26/22 09:23 Dose: Not Given Lorazepam (Lorazepam 1 Mg Tab) 1 mg PO ONE PRN; Protocol PRN Reason: EtoH Withdrawal AWSS 6,7,8,9,10 Losartan Potassium (Losartan Potassium 50 Mg Tab) 100 mg PO QAM [facility] Stop: 08/10/22 08:59 Last Admin: 07/17/22 09:21 Dose: 100 mg Metoprolol Tartrate (Metoprolol Tartrate 25 Mg Tab) 12.5 mg PO BID [facility] Stop: 08/13/22 11:44 Last Admin: 07/26/22 09:22 Dose: 12.5 mg Mirtazapine (Mirtazapine Tab 15 Mg Tab) 15 mg PO HS [facility] Stop: 08/09/22 20:59 Last Admin: 07/25/22 20:38 Dose: 15 mg Miscellaneous (Remove Nicoderm Patch) 1 each N/A DAILY@0859 [facility] Stop: 08/10/22 08:58 Last Admin: 07/26/22 09:18 Dose: 1 each Miscellaneous (Remove Lidoderm Patch) 1 each N/A DAILY@2100 [facility] Stop: 08/14/22 20:59 Last Admin: 07/25/22 20:38 Dose: 1 each Nicotine (Nicotine 21 Mg/24 Hr Tdsy) 21 mg TD QAM [facility] Stop: 08/09/22 17:44 Last Admin: 07/26/22 09:20 Dose: 21 mg Polyethylene Glycol (Polyethylene (Miralax) 17 Gm Pack) 17 gm PO DAILY PRN PRN Reason: Constipation Stop: 08/09/22 20:04 Last Admin: 07/16/22 14:19 Dose: 17 gm Spironolactone (Spironolactone 25 Mg Tab) 25 mg PO DAILY [facility] Stop: 08/11/22 08:59 Last Admin: 07/26/22 09:23 Dose: 25 mg Tamsulosin HCl (Tamsulosin Hcl 0.4 Mg Cap) [facility] [place]: 08/12/22 10:14 Last Admin: 07/26/22 09:23 Dose: 0.4 mg Thiamine HCl (Thiamine Hcl 100 Mg Tab) 100 mg PO QAM [facility] Stop: 08/09/22 20:04 Last Admin: 07/26/22 09:23 Dose: 100 mg Tramadol HCl (Tramadol Hcl 50 Mg Tablet) 50 mg PO Q12H PRN PRN Reason: Pain Stop: 08/14/22 10:13 Last Admin: 07/16/22 10:06 Dose: 50 mg Umeclidinium/Vilanterol (Umeclidinium/Vilanterol 62.5/25mcg 7 Puffs/Inhaler) 1 puffs INH QAM [facility] Stop: 08/10/22 08:59 Last Admin: 07/26/22 09:19 Dose: 1 puffs (1) Alcohol dependence Substance use status: unspecified alcohol-induced disorder Qualified Code(s): F10.29 - Alcohol dependence with unspecified alcohol-induced disorder
--- NOTE | 2022-07-26 15:59 | Discharge Summary ---
Date of Service July 26, 2022 Admission HPI Per Admitting Provider 61 yo M presents with acute on chronic dyspnea and increased lower extremity and weight gain. He was recently seen by his care process manager on Saturday and declined recommended inpatient management of heart failure symptoms and marked edema of both lower extremities. Weight has increased 40 lbs over the past several months. Last week, HCTZ was stopped and he was started on Lasix 40mg BID and spironolactone 12.5mg daily. He was also started on a course of Augmentin for lower extremity cellulitis which improved his legs but they are still symptomatic with swelling, itching and redness. He reports feeling very itchy and has a self-reported infestation with bedbugs at his home. Over the past several months he reports he is unable to walk 30 feet without stopping and short of breath. Now this has progressed and he is SOB at rest. ROS reveals +cough, whitish productive No fevers, no chills. He indulges in a high salt diet with 3 meat pizzas, potato chips, and easy prep food. Has +2 pillow orthopnea, +PND, denies chest pain symptoms. Smokes 4 packs cigarettes per day and drinks 12-24 beers daily. Reportedly was evicted from his residence in [place] and is homeless. 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 Admission Exam Per Admitting Provider Physical Exam: CONSTITUTIONAL: obese, vitals as above, generally well- appearing, NAD EYES: EOMI bilaterally, PERRL, normal conjunctivae, no scleral icterus ENT: external ear and nose normal, oropharynx clear NECK: trachea midline RESPIRATORY: decreased breath sounds at bilateral bases, scant wheezing in upper lobes, no crackles or rales. Normal respiratory effort but there is SOB with minimal exertion while sitting in bed, +conversational dyspnea. CARDIOVASCULAR: regular rate and rhythm, S1 and 2 heard without murmurs, gallops or rubs, no JVD, no peripheral edema CHEST: inspection of chest was normal GASTROINTESTINAL: soft, nonspecific generalized TTP, nondistended, protuberant, MUSCULOSKELETAL: strength 5/5 throughout, head is normocephalic and atraumatic, neck supple, normal palpation of chest wall without tenderness SKIN: warm and dry, with increased warmth and redness in bilateral lower extremities including feet. Skin is tense and swollen without pitting edema and there are multiple scratch wounds present. Cellulitis appearance extends to mid shins. NEUROLOGIC: CN 2-12 grossly intact, no sensory deficit, normal cognition, normal speech, no tremor PSYCHIATRIC: alert cooperative and oriented to person, place and time. Principal Diagnosis Acute right heart failure, bilateral lower leg cellulitis, PSVT, hypertension. Alcohol dependence Discharge Exam Sitting on a chair without any acute distress Constitutional well developed, well nourished and + obese Eyes PERRL, conjunctivae normal, anicteric sclerae ENMT external ear and nose normal, oropharynx normal Neck trachea midline, no thyromegaly Respiratory no respiratory distress Auscultation: + diminished lung sounds; no crackles Cardiovascular Rate/Rhythm: regular rate and regular rhythm; not tachycardic Heart Sounds: normal S1 and normal S2; no murmur Extremities: + edema (1+ edema bilaterally) Gastrointestinal (Abdomen) Inspection/Auscultation: normal bowel sounds; abdomen not distended Percussion/Palpation: abdomen soft; abdomen nontender Neurologic normal touch/pain/proprioception and moves all extremities; no focal motor deficits Psychiatric A+Ox3, euthymic affect Lymphatic no cervical or axillary lymphadenopathy Discharge Data Allergies Allergy/AdvReac Type Severity Reaction Status Date / Time No Known Allergies Allergy Verified 07/10/22 17:55 Consultations 07/10/22 16:52 ED Decision to Admit Stat 07/10/22 20:05 Consult Cardiology Routine Hospital Course (1) Acute right heart failure: Present on admission with worsening SOB and orthopnea. He is heavy drinker, reportedly drinking 12-24 b BNP 51 on admission ECHO on 05/25 (outpatient) showed mild concentric left ventricular hypertrophy, LVEF normal 64% without regional wall motion abnormalities, moderate right ventricular chamber enlargement with right ventricular hypokinesis, moderate sized anterior loculated pericardial effusion. Received IV lasix in the ER Appreciate cardiology input and recommendation Currently on Lasix 40mg IV BID and spironolactone 25mg daily. Held last dose of Lasix due to low BP and dizziness Has been getting metolazone as well as per instruction Blood pressure has been stable at more than 100 systolic Denies any more dizziness with ambulation Monitor I/O and electrolytes -advised to drink not more than 1500 mL of fluid in a day No more cardiac symptoms and denies any shortness of breath with ambulation He has been ambulating without any difficulties and waiting to be discharged Remains stable and asymptomatic He will be discharged home this afternoon (2) Bilateral lower leg cellulitis: Completed Recent course of Augmentin as outpatient. There are significant scratch wounds present in lower legs and patient reports chronic bed bug infestation at his home. On cefazolin IV q8h, will transition to Cefdinir Continue cefdinir BID Stable No aspirating of infection and will continue current antibiotic for a total of 7 to 10-day No evidence of worsening cellulitis Has been cleared and the leg swelling is improved Cellulitis is resolved Minimal swelling in the legs Advised to continue activity and keep the legs elevated while sleeping Remains stable and denies any symptoms (3) Pericardial effusion: Stable on recent echocardiogram is outpatient, 06/27/22. No need to repeat echo as per cardiology (4) PSVT (paroxysmal supraventricular tachycardia): Tele monitor showed [address] this morning Asymptomatic Continue metoprolol 12.5 mg BID No cardiac symptoms Heart rate is controlled (5) HTN (hypertension): BP was running low today On furosemide, spironolactone, losartan. Last dose lasix was help Will hold losartan Continue monitor BP -blood pressure remains controlled (6) Alcohol dependence: Heavy alcohol use with high risk of withdrawal. denies any history of alcohol withdrawal ( he never spent a day without drinking any alcohol) Librium taper, then D/C today Cont home gabapentin, Ativan PO PRN symptoms. No sign of alcohol withdrawal symptoms Continue monitor closely for sign of alcohol withdrawal Continue thiamine and folic acid Counseling on alcohol cessation Strongly advised to quit drinking (7) Tobacco use disorder: Continue Nicotine patch while in the hospital. Counseling tobacco cessation Strongly advised to quit smoking (8) Granulomatous lung disease: chronic, stable but likely contributing to chronic SOB, h/o sarcoidosis and has evidence of old granulomatous lung disease per outpatient workup, though given no significantly enlarged lymph nodes, nib adjuster feels the left hilar calcifications seen are from prior histo or blastomycosis. (9) COPD (chronic obstructive pulmonary disease): Continue Anoro inhaler [place] [facility] Continue Duoneb prn Counseling on tobacco cessation (10) Severe obesity: Weight loss encouraged. Needs to change eating and lifestyle habits. (11) DVT prophylaxis: Continue Lovenox BID Code status Full Code Likely discharge when there is a fdc available for him Plan Has been waiting for a fdc before discharge Total Time Total Time Spent Total Time Spent (In Minutes): 35 minutes Discharge Plan Discharge Items Patient Disposition: Home - Home Health Services Reason For Visit: ACUTE RIGHT HEART FAILURE EXACERBATION Discharge Diagnosis: Acute right heart failure, bilateral lower leg cellulitis, PSVT, hypertension. Alcohol dependence Condition on Discharge: Good Activity: Resume your previous activity Non-emergency contact: Primary Care Provider Call non-emergency contact if: you have any medication questions and your symptoms worsen Follow-up/Referrals: [facility] [Other] (Mr. Malloy- we had spoken about the [facility] program for you once you are in a more stable home environment. The number to call is . I have asked for a field nurse case manager, located at Dr Mejia's office, to get in touch with you to assist with your medical needs after discharge. ) Oleg Parson DO [Service Desk Director] - (Date & Time 08/02/2022 9:30 AM Provider Oleg Parson DO Department Cardiology, [facility] ) Khai Mejia MD [Primary Care Provider] - (Date & Time 08/01/2022 2:00 PM Provider Khai Mejia III, MD Department [facility] ) Diet: Heart Healthy and Low Sodium (2gm) Addtl Attending Provider Instructions: Please take precautions to avoid falls Take your medications as advised Please give appointment with your healthcare providers Pending Studies at Discharge: No Stand-Alone Forms: [facility] [place], Work/School Release, Smoking Cessation Medications and DC Order Prescriptions: New folic acid 1 mg Tablet 1 mg PO QAM Qty: 30 0RF thiamine HCl (vitamin B1) 100 mg Tablet 100 mg PO QAM Qty: 30 0RF lidocaine 5 % Adhesive Patch,Medicated 1 patch transdermal QAM Qty: 30 0RF tamsulosin 0.4 mg Capsule 0.4 mg PO QAM Qty: 30 0RF nicotine [Nicoderm CQ] 21 mg/24 hr Patch 24 Hour 21 mg transdermal QAM Qty: 28 0RF spironolactone 25 mg Tablet 25 mg PO DAILY Qty: 30 0RF metoprolol tartrate 25 mg Tablet 12.5 mg PO BID Qty: 30 0RF Continued atorvastatin 20 mg tablet 20 mg PO HS Qty: 90 1RF fluticasone propionate [Allergy Relief (fluticasone)] 50 mcg/actuation spray,suspension 2 spray intranasal DAILY Qty: 9.9 2RF Rx Instructions: administer into each nostril losartan 100 mg tablet 100 mg PO QAM mirtazapine 15 mg tablet 15 mg PO HS gabapentin 100 mg capsule 100 mg PO BID umeclidinium-vilanterol 62.5-25 mcg/actuation Blister With Device 1 inh INHALATION QAM acetaminophen [Tylenol Extra Strength] 500 mg Tablet 1,000 mg PO QID PRN (Reason: Pain) albuterol sulfate 90 mcg/actuation Hfa Aerosol Inhaler 2 puff INHALATION QID PRN (Reason: Shortness Of Breath Or Wheezing) Changed furosemide 40 mg Tablet 40 mg PO DAILY Qty: 30 0RF Discontinued spironolactone 25 mg Tablet 12.5 mg PO DAILY Discharge Orders: Discharge Order (Routine); Ordered 07/26/22 Ordered By: Justin Cruz/Other Patient Handouts: A1C, Heart Failure: Being Active, 5 Steps for Eating Healthier Admission Data Admit Date/Time: 07/10/22 17:40 Attending Provider: Justin Donis Admit Provider: Elizabeth Mackenzie Primary Care Provider: Khai Mejia Other Providers: Elizabeth Mackenzie ; Jordy Parish ; Valeri Carrillo Other Interventions: Discharge Summary Assessment (RN) Last Done: 07/26/22 13:40
== END 2022-07-26 16:30 | disposition home health service (06) | DRG 292 ==
LOC: ED 14:04 → SUATTDRO 17:40 → 2E 17:40 → 2S 18:56

== ENCOUNTER 2025-03-05 21:41 | Inpatient (IN) ==
--- NOTE | 2025-03-05 21:50 | Emergency Department Note ---
Impression & Plan Acute hypoxemic respiratory failure, Bilateral cellulitis of lower leg, Localized swelling of both lower legs, Acute exacerbation of chronic obstructive pulmonary disease ED Provider Note NAME: SIDRA GRIFFITH AGE: 64 SEX: M : 1960 ARRIVES VIA: Walk-In INFORMANT: Patient, ED PROVIDER(S): Charan Vera MD CHIEF COMPLAINT: Shortness of breath MEDICAL DECISION MAKING: Patient presents for shortness of breath. The patient with some wheezing on exam as well as lower extremity swelling with complaints of orthopnea and [place]. The patient could have concomitant COPD and CHF as the patient has a prior history. IV was established and blood work was obtained. Patient was ordered [employer] blood work chest x-ray EKG troponin and the patient was also ordered IV methylprednisolone 125 mg and DuoNeb treatment. Pending results of the blood work and chest x-ray for IV Lasix. Patient was ordered IV Lasix 40 mg. Patient did receive IV Rocephin for his lower extremity cellulitis in addition to the possibility of a concomitant COPD exacerbation. The patient was noted to be hypoxemic at 87% was placed on 2 L nasal cannula. Patient was ordered additional breathing treatments. I did speak with the on-call hospitalist service Dr. Baca and the patient was admitted to the medicine service. Critical Care: I have personally spent 55 minutes of critical care time in direct management of this patient. This includes bedside care, interpretation of diagnostic studies, and testing, discussion with consultants, patient, and family members, and other require inpatient management activities. This 55 minutes is in excess of all separately billable procedures. Discussion w/ other healthcare providers: Dr. Baca inpatient medicine service. Prior /Outside records reviewed: none Differential diagnosis: Reactive airway disease, pneumonia, pneumothorax, COPD, CHF, ACS, pulmonary embolism, musculoskeletal, GERD as well as other pathologies were considered. Diagnostics, as interpreted by me: ECG: Sinus with PACs, rate of 79, normal intervals, left axis deviation. No ST elevations. Cardiac monitoring: An order was placed for continuous cardiac monitoring. The monitor shows a rate of 75 with sinus rhythm. Patient was placed on pulse oximetry Medical decision rules: none Imaging studies: I informally interpreted the patient's chest x-ray does not show obvious pneumonia or pneumothorax no obvious pulmonary edema with formal report to follow. HPI: Patient presents due to concern for worsening shortness of breath. This has been ongoing over about a week and a half. The patient has had associated cough with productive sputum that is discolored which is worse from his baseline. The patient has had [place] and states that he cannot read flat he gets very short of breath. Patient denies any falls or trauma. No recent travel. The patient is also noticed increasing leg swelling. The patient states that he is compliant with his medications although did not take his evening meds. Patient does follow with Dr. 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 Patient does not take daily weights. PAST MEDICAL HISTORY: See Below PAST SURGICAL HISTORY: See Below SOCIAL HISTORY: See Below HOME MEDICATIONS: See Below ALLERGIES: See Below VITALS: See Below PHYSICAL EXAMINATION: GENERAL: NAD, non-toxic. EYE EXAM: Normal conjunctiva. PERRL, no anisocoria and EOM's grossly intact w/o pain. OROPHARYNX: Moist mucus membranes, grossly normal dentition. NECK: Trachea midline, no stridor. LUNGS: Scant wheezes throughout. Normal chest wall mechanics. HEART: NSR, no MRG. ABDOMEN: Abdomen soft, non-tender, no masses, no rebound or guarding. BACK: No CVA TTP. SKIN: No rashes and no bruising. UPPER EXTREMITIES: Upper extremities are grossly normal. LOWER EXTREMITIES: Grossly normal, 1+ pretibial edema without calf pain, mild erythema. NEURO EXAM: A&O x3, cranial nerves II-XII grossly intact, normal speech, moves all 4 extremities. Past Med/Surg History Problem List (Updated 03/06/25 @ 23:01 by Charan Vera MD) Acute exacerbation of chronic obstructive pulmonary disease (Acute) Localized swelling of both lower legs (Acute) Bilateral cellulitis of lower leg (Acute) Acute hypoxemic respiratory failure (Acute) Acute hypoxemic respiratory failure PSVT (paroxysmal supraventricular tachycardia) HTN (hypertension) COPD (chronic obstructive pulmonary disease) Pericardial effusion Bilateral lower leg cellulitis DVT prophylaxis Tobacco use disorder Severe obesity Granulomatous lung disease Centrilobular emphysema Acute right heart failure Pedal edema (Acute) Fluid overload (Acute) Rapid weight gain (Acute) Acute URI Acute hyponatremia (Acute) Alcohol dependence (Acute) Low back pain (Acute) Wheeze Syncope (Acute) History of alcohol abuse Liver lesion Pulmonary nodule Abnormal CT of the chest Lesion of adrenal gland Screening for malignant neoplasm of prostate Impaired fasting glucose Hyperlipidemia Hypertension Encounter for health maintenance examination in adult Surgical History History of colonoscopy (10/13/12) Dr Silva, sigmoid tics, otherwise normal, recheck recommended in 5 years due to FHx (brother) S/P right knee arthroscopy 1986 Family History Brother Colorectal cancer Lung cancer Mother Lung cancer Father Myocardial infarction Denies family history of Ovarian cancer Prostate cancer Breast cancer Social History Smoking Status: Heavy tobacco smoker Tobacco Type: Cigarettes Cigarettes Per Day: 1-1.5 packs; Second Hand Exposure: Yes; Do You Dip or Chew Tobacco: No; Tobacco Cessation Education Requested by Patient: No Hx Alcohol Use: Yes Alcohol type: beer Hx Substance Use: No Preferred Language: Polish Communication Ability: Effective Research Nurse Required: No Beliefs That Will Affect Care: None marital status: Current Living Situation: Alone current occupational status: employed Other Information That Helps Us Care for You: No Feels Safe at Home: Yes Safety Concerns: Feels Safe At This Time Assistive Devices: Glasses Allergies Allergies Allergy/AdvReac Type Severity Reaction Status Date / Time No Known Allergies Allergy Verified 03/05/25 23:33 Home Meds Home Medications Medication Instructions Recorded Confirmed losartan 100 mg tablet 100 mg PO QAM 03/26/21 03/05/25 acetaminophen 500 mg tablet 1,000 mg PO TID Pain 07/10/22 03/05/25 (Tylenol Extra Strength) albuterol sulfate 90 mcg/actuation 2 puff inhalation Q4H PRN 07/10/22 03/05/25 aerosol inhaler Shortness Of Breath Or Wheezing furosemide 40 mg tablet 40 mg PO QAM 12/07/22 03/05/25 gabapentin 300 mg capsule 300 mg PO BID 12/07/22 03/05/25 aripiprazole 5 mg tablet 5 mg PO DAILY 01/22/25 03/05/25 atorvastatin 20 mg tablet 20 mg PO QAM 01/22/25 03/05/25 fluticasone fur. 100 mcg-umeclid 1 inh inhalation QAM 01/22/25 03/05/25 62.5 mcg-vilant 25 mcg inhalat.powder (Trelegy Ellipta) naltrexone microspheres 380 mg 0 mg IM MONTHLY 01/22/25 03/05/25 intramuscular suspension,extended release nicotine 21 mg/24 hr daily 1 patch transdermal DAILY 01/22/25 03/05/25 transdermal patch sertraline 100 mg tablet 150 mg PO QAM 01/22/25 03/05/25 Previous Rx's Medication Instructions Recorded folic acid 1 mg tablet 1 mg PO QAM #30 tabs 07/26/22 tamsulosin 0.4 mg capsule 0.4 mg PO QAM #30 caps 07/26/22 thiamine HCl (vitamin B1) 100 mg 100 mg PO QAM #30 tabs 07/26/22 tablet Results & Data (ED) Vital Signs Vital Signs - 24 hr 03/06/25 00:10 03/06/25 00:23 03/06/25 02:01 Pulse Rate Pulse Rate [Right Finger] 69 72 Respiratory Rate 20 20 Respiratory Effort / Characteristics Non-Labored Spontaneous Respiratory Depth Normal Respiratory Pattern Regular Blood Pressure [Right Arm] 147/80 H 132/61 Blood Pressure Mean [Right Arm] 102 84 Blood Pressure Position [Right Arm] Lying Lying Pulse Oximetry 87 L 96 95 Oxygen Delivery Method Room Air Nasal Cannula Nasal Cannula Oxygen Flow Rate 3 2 03/06/25 02:01 Pulse Rate 73 Pulse Rate [Right Finger] Respiratory Rate Respiratory Effort / Characteristics Respiratory Depth Respiratory Pattern Blood Pressure [Right Arm] Blood Pressure Mean [Right Arm] Blood Pressure Position [Right Arm] Pulse Oximetry Oxygen Delivery Method Oxygen Flow Rate Home Medications Current Medication List: was personally reviewed by me Laboratory Data Attestation: I reviewed the patient's lab results. 03/06/25 03:44 03/06/25 03:44 Lab Results 03/05/25 03/05/25 03/06/25 Range/Units 22:29 23:37 01:29 WBC 8.19 (4.8-10.8) K/ul RBC 4.90 (4.70-6.10) M/uL Hgb 15.3 (14.0-18.0) g/dl Hct 44.7 (42.0-52.0) % MCV 91.2 (80.0-100.0) fL MCH 31.2 (25.0-34.0) pg MCHC 34.2 (32.0-36.0) g/dL RDW Std Deviation 48.4 H (36.4-46.3) fL RDW Coeff of Beth 14.6 H (11.5-14.5) % Plt Count 264 (130-400) K/uL MPV 9.5 (9.4-12.4) fL Immature Gran % (Auto) 1.5 % Neut % (Auto) 67.1 % Lymph % (Auto) 14.5 % [place] % (Auto) 13.7 % Eos % (Auto) 2.8 % Baso % (Auto) 0.4 % Neut # (Auto) 5.50 (1.40-6.50) K/uL Lymph # (Auto) 1.19 L (1.20-3.40) K/uL [place] # (Auto) 1.12 H (0.11-0.59) K/uL Eos # (Auto) 0.23 (0.00-0.50) K/uL Baso # (Auto) 0.03 (0.00-0.20) K/uL Immature Gran # (Auto) 0.12 (0.01-0.20) K/uL PT 10.3 (9.0-12.0) Seconds INR 0.9 (0.9-1.1) APTT 31 (21-31) Seconds PTT Ratio 1.2 VBG pH 7.33 L (7.36-7.41) VBG pCO2 46 (38-50) mmHg VBG pO2 81 mmHg VBG HCO3 24 mmol/L VBG O2 Saturation 95.8 % VBG Base Excess -1.9 mEq/L Sodium 131 L 133 L (136-145) mmol/L Potassium 3.4 L (3.5-5.1) mmol/L Chloride 96 L (98-107) mmol/L Carbon Dioxide 25 (21-32) mmol/L Anion Gap 10 (3-11) BUN 7 (6-23) mg/dl Creatinine 0.61 (0.6-1.4) mg/dl Est Cr Clr Drug Dosing 157.9 ml/min eGFR 106.59 BUN/Creatinine Ratio 11.5 (10-20) Glucose 110 H (70-99(Fasting)) mg/dl Calcium 8.3 L (8.6-10.3) mg/dl Magnesium 2.1 (1.7-2.4) mg/dl Total Bilirubin 0.4 (0.2-1.0) mg/dl AST 18 (13-39) U/L ALT 17 (7-52) U/L Alkaline Phosphatase 62 (34-104) U/L Troponin I High Sens 12.3 (0-20) pg/ml B-Natriuretic Peptide 30 (0-100) pg/ml Total Protein 6.2 (6.0-8.3) gm/dl Albumin 3.9 (3.4-5.0) gm/dl Globulin 2.3 L (2.5-4.0) gm/dl Albumin/Globulin Ratio 1.7 (0.9-2) Ethyl Alcohol mg/dL 99.3 H (<10.0) mg/dl SARS-CoV-2 (PCR) NEGATIVE (Negative) Influenza Type A (PCR) Negative (Neg) Influenza Type B (PCR) Negative (Neg) RSV (RT-PCR) Negative (Neg) Administered Medications Acetaminophen (Acetaminophen 325 Mg Tab) 650 mg PO QID PRN PRN Reason: pain/fever Stop: 04/05/25 19:36 Last Admin: 03/06/25 20:18 Dose: 650 mg Documented By: VALARIE Albuterol (Albut/Ipratrop 3mg/0.5mg Neb 3 Ml Vial) 3 ml NEB QIDR [facility]; Protocol Stop: 04/05/25 06:59 Last Admin: 03/06/25 19:48 Dose: 3 ml Documented By: Admin: 03/06/25 14:35 Dose: 3 ml Documented By: Admin: 03/06/25 11:01 Dose: 3 ml Documented By: Admin: 03/06/25 07:08 Dose: 3 ml Documented By: BENITO Amoxicillin/Clavulanate Potassium (Amoxicillin/Clavulanate 875 Mg Tab) 1 tab PO BIDM [facility]; Protocol Stop: 03/11/25 07:59 Last Admin: 03/06/25 16:56 Dose: 1 tab Documented By: Admin: 03/06/25 07:57 Dose: 1 tab Documented By: VERONIQUE Aripiprazole (Aripiprazole 5 Mg Tab) 5 mg PO DAILY [facility] Stop: 04/05/25 08:59 Last Admin: 03/06/25 09:58 Dose: 5 mg Documented By: VERONIQUE Atorvastatin Calcium (Atorvastatin 20 Mg Tab) [facility] [place] Stop: 04/05/25 08:59 Last Admin: 03/06/25 09:57 Dose: 20 mg Documented By: VERONIQUE Enoxaparin Sodium (Enoxaparin Inj 40 Mg/0.4 Ml Syr) 40 mg SQ QAM [facility] Stop: 04/05/25 08:59 Last Admin: 03/06/25 07:58 Dose: 40 mg Documented By: VERONIQUE Fluticasone Furoate (Fluticasone Furoate 100mcg 14 Puffs/Inhaler) 1 puffs INH DAILY [facility] Stop: 04/05/25 08:59 Last Admin: 03/06/25 13:37 Dose: 1 puffs Documented By: VERONIQUE Folic Acid (Folic Acid 1 Mg Tab) 1 mg PO QAM [facility] Stop: 04/05/25 08:59 Last Admin: 03/06/25 07:58 Dose: 1 mg Documented By: VERONIQUE Gabapentin (Gabapentin 300 Mg Cap) 300 mg PO BID [facility] Stop: 04/05/25 08:59 Last Admin: 03/06/25 20:18 Dose: 300 mg Documented By: Admin: 03/06/25 09:57 Dose: 300 mg Documented By: VERONIQUE Multivitamins (Multivitamin Tab) 1 tab PO [facility] Stop: 04/05/25 08:59 Last Admin: 03/06/25 07:57 Dose: 1 tab Documented By: VERONIQUE Nicotine (Nicotine 21 Mg/24 Hr Tdsy) 1 patch TD [facility] Stop: 04/05/25 05:09 Last Admin: 03/06/25 06:19 Dose: 1 patch Documented By: VALARIE Prednisone (Prednisone 20 Mg Tab) 40 mg PO DAILY [facility] Stop: 03/10/25 08:59 Last Admin: 03/06/25 07:57 Dose: 40 mg Documented By: VERONIQUE Sertraline HCl (Sertraline Hcl 50 Mg Tablet) 150 mg PO [facility] Stop: 04/05/25 08:59 Last Admin: 03/06/25 09:57 Dose: 150 mg Documented By: VERONIQUE Tamsulosin HCl (Tamsulosin Hcl 0.4 Mg Cap) 0.4 mg PO [facility] Stop: 04/05/25 08:59 Last Admin: 03/06/25 09:58 Dose: 0.4 mg Documented By: VERONIQUE Umeclidinium/Vilanterol (Umeclidinium/Vilanterol 62.5/25mcg 7 Puffs/Inhaler) 1 puffs INH DAILY [facility] Stop: 04/05/25 08:59 Last Admin: 03/06/25 10:00 Dose: 1 puffs Documented By: VERONIQUE Discontinued Medications Albuterol (Albut/Ipratrop 3mg/0.5mg Neb 3 Ml Vial) 3 ml INH NOW STA Stop: 03/05/25 22:14 Last Admin: 03/05/25 22:24 Dose: 3 ml Documented By: DIONNE Albuterol (Albut/Ipratrop 3mg/0.5mg Neb 3 Ml Vial) 6 ml NEB NOW STA; Protocol Stop: 03/06/25 00:35 Last Admin: 03/06/25 02:07 Dose: 6 ml Documented By: Furosemide (Furosemide 40 Mg/4 Ml Vial) 40 mg IV ONE ONE Stop: 03/06/25 00:31 Last Admin: 03/06/25 02:04 Dose: 40 mg Documented By: Furosemide (Furosemide 40 Mg/4 Ml Vial) 40 mg IV ONE ONE Stop: 03/06/25 08:01 Last Admin: 03/06/25 07:56 Dose: 40 mg Documented By: VERONIQUE Ceftriaxone Sodium (Rocephin) 2,000 mg in 50 mls @ 100 mls/hr IV NOW STA Stop: 03/05/25 23:23 Last Infusion: 03/06/25 01:28 Dose: Infused Documented By: Admin: 03/06/25 00:18 Dose: 100 mls/hr Documented By: Calcium Gluconate () 1,000 mg in 60 mls @ 240 mls/hr IV NOW STA Stop: 03/06/25 00:44 Last Infusion: 03/06/25 02:21 Dose: Infused Documented By: Admin: 03/06/25 02:05 Dose: 240 mls/hr Documented By: Ampicillin Sodium/Sulbactam Sodium (Unasyn) 3,000 mg in 100 mls @ 200 mls/hr IV NOW STA Stop: 03/06/25 02:20 Last Infusion: 03/06/25 03:38 Dose: Infused Documented By: Admin: 03/06/25 02:28 Dose: 200 mls/hr Documented By: Thiamine HCl 100 mg/ Syringe 10 mls @ 2 mls/min IV NOW STA Stop: 03/06/25 02:55 Last Admin: 03/06/25 04:02 Dose: 2 mls/min Documented By: Ioversol (Optiray 320 125ml) 101 ml IV ONCE ONE Stop: 03/06/25 04:43 Last Admin: 03/06/25 04:43 Dose: 101 ml Documented By: PLW Methylprednisolone (Methylprednisolone 125 Mg/2 Ml Vial) 125 mg IV NOW STA Stop: 03/05/25 22:14 Last Admin: 03/05/25 22:54 Dose: 125 mg Documented By: SHB Potassium Chloride (Potassium Chloride Crtab 20 Meq Tabcr) 40 meq PO NOW STA Stop: 03/06/25 01:00 Last Admin: 03/06/25 02:06 Dose: 40 meq Documented By: Imaging Data Radiologist's Impression: Chest X-Ray 03/05/25 22:13 Exam(s): XR CXR 1 VIEW EXAM: XR Chest, 1 View CLINICAL HISTORY: Reason for exam: Dyspnea. TECHNIQUE: Frontal view of the chest. COMPARISON: Prior chest x-ray from January 22, 2025. FINDINGS: Lungs: Mild to moderate peribronchial thickening of the central and lower lobe bronchi with increased interstitial opacities in the lower lobes. No consolidation. Pleural space: Unremarkable. No pneumothorax. Heart: Unremarkable. No cardiomegaly. Mediastinum: Unremarkable. Normal mediastinal contour. Bones/joints: Unremarkable. No acute fracture. IMPRESSION: Bronchitis, which may be of infectious or inflammatory etiologies. No consolidation or pleural effusion. Electronically signed by: Lanny Del Angel MD 03/06/25 01:09 AM Discharge Plan Visit Data Chief Complaint: Swelling/Edema to Extremity Stated Complaint: SWOLLEN LEGS ED Provider: Charan Vera Discharge Problem: Acute hypoxemic respiratory failure, Bilateral cellulitis of lower leg, Localized swelling of both lower legs, Acute exacerbation of chronic obstructive pulmonary disease Patient Disposition: Admitted As Inpatient Condition: Fair Discharge Instructions Interventions: ED Discharge Assessment Last Done: 03/06/25 03:58
[2025-03-05] MEDS: ALBUT/IPRATROP 3MG/0.5MG NEB 3 ML VIAL INH STA (22:24)
--- OUTSIDE RECORDS SUMMARY | 2025-03-05 22:37 | External Medical Summary | Summary of Care ---
Author Name Unknown Organization [facility] Address [address] [place] [address] Phone [phone] Care Team Providers Care Die Repairer Stamping Name Role Phone Roberto COVARRUBIAS MD, Khai Hanson Primary Care Provider [phone] Reason for Visit * Reason Onset Date Comments Order Request 01/21/2025 Authorization fo r release of information Encounter Details Date Type Department Care Team (Late st Contact Info) Description 01/21/2025 Telephone Family Practice [facility] [address] [place] [address] Khai Mejia III, MD [address] [place] [address] Order Request (Authorization for release o... Allergies No known active allergiesdocumented as of this encounter (statuses as of 02/17/2025) Medications Acetaminophen 500 MG Oral Tablet (Tylenol) 2 Tablets. 2 Active Nebulizer Use every 6 hours as directed 1 Each 3 Active hydrOXYzine HCl 25 MG Oral Tablet TAKE 1 TABLET BY MOUTH EVERY 6 HOURS NEEDED FOR ITCHING Strength: 25 mg 40 Tablet 2 4 Active Additional Information Patient not taking.Reported on 01/29/2025 Naltrexone 380 MG Intramuscular Suspension Reconstituted (Vivitrol) 5 Active Ventolin HFA 108 (90 Base) MCG/ACT Inhalation Aerosol Solution Inhale 2 Puffs by mouth every 4 hours as needed for Wheezing. 18 g 2 5 Active Trelegy Ellipta 100-62.5-25 MCG/ACT Aerosol Powder Breath Activated (Fluticasone-Umec lidinium-Vilanter ol) Inhale 1 Puff by mouth in the morning. Rinse mouth after use. 180 Blister Dosing Unit 3 5 Active ARIPiprazole 5 MG Oral Tablet (Abilify) 5 Active Folic Acid 1 MG Oral Tablet Take 1 Tablet by mouth in the morning. 30 Tablet 5 5 Active Tamsulosin HCl 0.4 MG Oral Capsule (Flomax) Take 1 Capsule by mouth in the morning. 30 Capsule 5 5 Active Sertraline HCl 100 MG Oral Tablet (Zoloft) Take 1.5 Tablets by mouth in the morning. 135 Tablet 3 5 Active Thiamine HCl 100 MG Oral Tablet (vitamin B-1) Take 1 Tablet by mouth in the morning. 90 Tablet 3 5 Active Nicotine 21 MG/24HR Transdermal Patch 24 Hour (Nicoderm CQ) Place 1 Patch over 24 hours topically on the skin in the morning. On upper body/upper arm, change once a day for 6 weeks.. 42 Patch 5 Active documented as of this encounter (statuses as of 02/17/2025) Active Problems Problem Noted Date Diagnosed Date Hypertensive heart disease w ith chronic right-sided congestive heart failure 01/29/2025 Bipolar II disorder 12/28/2024 Recurrent major depressive disorder 12/28/2024 Class 2 severe obesity due t o excess calories with serious comorbidity and body mass index (BMI) of 39.0 to 39.9 in adult 12/03/2024 HTN, goal below 140/90 01/24/2024 Other specified peripheral vascular diseases Prediabetes 07/15/2023 Overview: Per Prediabetes protocol Osteoarthritis of back 12/25/2022 Dyslipidemia, goal LDL below 70 10/12/2022 Uncomplicated alcohol dependence 10/12/2022 Chronic right heart failure 10/03/2022 BPH with obstruction/lower urinary tract symptom s 10/03/2022 COPD, group C, by GOLD 2017 classification 08/13 Centrilobular emphysema 06/22/2022 Tobacco use disorder 06/22/2022 documented as of this encounter (statuses as of 02/17/2025) Resolved Problems Problem Noted Date Diagnosed Date Resolved Date Major depressive disorder with single episode 12/03/19 25 01/29/2025 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 9 with comorbidity) 06/22/2022 10/03/2022 documented as of this encounter (statuses as of 02/17/2025) Immunizations Name Administration Dates Next Due PPD 07/16/2023,05/20/2018 Pneumococcal Conjugate Vaccine, 20-valent (Prevn ar20) 12/24/2022 Seasonal Influenza Virus Vac cine, Unspecified Formulation 10/17/2018,10/03/2017 Seasonal Influenza, High Dos e, Trivalent, PF, IM (Fluzone HD) 12/03/2024 Seasonal Influenza, PF, 6 M & above, IM , (FluLaval or Fluzone) 07/18/2023,08/01/2022 TDAP (age 10 and older)(Boostrix) 07/04/2023 Zoster Vaccine Recombinant (Shingrix) 07/04/2023 ,12/24/2022 documented as of this encounter Social History Tobacco Use Types Packs/Day Years Used Date Smoking Tobacco: Every Day Cigarettes 1.5 30 Smokeless Tobacco: Never Alcohol Use Standard Drinks/Week Comments Not Currently 4 (1 standard drink = 0.6 oz pure alcohol) 1-2 drinks daily, trying to quit PHQ-2 Answer Date Recorded PHQ Adult Total Score 0 01/13/2025 Hunger Vital Sign Answer Date Recorded Within the past 12 months, y ou worried that your food would run out before you got the money to buy more. Never true 12/23/19 25 Within the past 12 months, t he food you bought just didn't last and you didn't have money to get more. Never true 12/23/2024 Childcare Answer Date Recorded Do you feel overwhelmed with taking care of a child, family member or friend? No 12/23/2024 Does your family need help f inding childcare? (Household - for ages 0-17 years) Not on file 12/23/2024 Clothing Answer Date Recorded Have you been unable to get clothing when it was really needed? No 12/23/2024 Is your family able to get c lothes or diapers when needed? (Household - for ages 0-17 years) Not on file 12/23/2024 Personal Safety Answer Date Recorded Do you feel unsafe or have concerns for your saf ety? No 12/23/2024 Do you have concerns for you r family's safety? (Household - for ages 0-17 years) Not on file 12/23/2024 Utilities Answer Date Recorded Do you have trouble paying y our heating, water, or electric bill? No 12/23/2024 Is your family able to pay t he heat, water, or electric bill? (Household - for ages 0-17 years) Not on file 12/23/2024 Does your family have access to good internet? (Household - for ages 0-17 years) Not on file 12/23/2024 Employment Status Answer Date Recorded Are you unemployed or without regular income? No 12/23/2024 Does the household have a re gular source of income? (Household - for ages 0-17 years) Not on file 12/23/2024 Social Connections Answer Date Recorded How often do you feel lonely or isolated from those around you? Sometimes 12/23/2024 Financial Resource Strain Answer Date R ecorded Do you have any trouble payi ng for your medications, or do you think you might in the future? No 12/23/2024 Does your family have troubl e paying for medicine? (Household - for ages 0-17 years) Not on file 12/23/2024 Transportation Needs Answer Date Record ed Do you have trouble getting a ride to medical visits or work? (Adult - for ages 18 years and over) Not on file 12/23/2024 Does your family have a hard time getting a ride to doctors visits? (Household - for ages 0-17 years) Not on file 12/23/2024 Has lack of transportation k ept you from medical appointments, meetings, work, or from getting things needed for daily living? Check all that apply. No 12/23/2024 Do you (or your family) have trouble finding or paying for a ride (transportation)? (Household - for ages 0-17 years) Not on file 12/23/2024 Housing Stability Answer Date Recorded Do you currently live in a s helter or have no steady place to sleep at night? No 12/23/2024 Do you think you are at risk of becoming homeless? (Adult - for ages 18 years and over) Not on file 12/23/2024 Does your family worry about paying for your home or becoming homeless? (Household - for ages 0-17 years) Not on file 0 12/23/2024 Are you homeless or worried that you might be in the future? No 12/23/2024 Are you (or your family) janeth eless or worried that you might be in the future? (Household - for ages 0-17 years) Not on file Food Insecurity Answer Date Recorded Do you need food for this week? No 12/02/2023 Are you able to get enough f ood for your family? (Household - for ages 0-17 years) Not on file 12/02/2023 Does your family need food t his week? (Household - for ages 0-17 years) Not on file 12/02/2023 Do you always have enough fo od for your family? (Household - for ages 0-17 years) Not on file 12/02/2023 Food Insecurity Answer Date Recorded Within the past 12 months, y ou worried that your food would run out before you got the money to buy more. Never true 12/23/19 25 Within the past 12 months, t he food you bought just didn't last and you didn't have money to get more. Never true 12/23/2024 Do you need food for this week? No 12/23/2024 Sex and Gender Information Value Date Recorded Sex Assigned at Not on file Legal Sex Male 7:03 PM EST Gender Identity Not on file Sexual Orientation Not on file documented as of this encounter Miscellaneous Notes * Telephone Encounter - Juan Miguel Nesbitt CMA - 01/21/2025 3:37 PM EDT [facility] faxed over an Authorization for release of infromation that was placed in Dr. Mckay folder for signature. documented in this encounter Plan of Treatment Upcoming Encounters Date Type Department Care Team (Late st Contact Info) Description 03/01/2025 9:40 AM EDT Office Visit [facility] [address] [facility] [place] [address] Rupinder Pascual MD [address] [facility] [place] [address] 06/29/2025 9:40 AM EDT Office Visit [facility] [address] [facility] [place] [address] Khai Mejia III, MD [address] [facility] [place] [address] 07/01/2025 3:00 PM EDT Office Visit Cardiology, [facility] [address] [place] [phone] Elinor Thomason CRNP [address] [facility] [place] [address] Health Maintenance Due Date Last Done Comments Colonoscopy 2004 Fecal Occult Blood Test 2004 Sigmoidoscopy 2004 *ADVANCE DIRECTIVE NOT ON FILE 08/18/2022 DISCUSS TOBACCO CESSATION (REFER TO SMARTSET #3291) 06/22/2023 06/22/2022 Lung Cancer Screening 06/10/2024 06/10/2023, 022 COVID-19 Vaccine ( season) 2024 HbA1c 12/23/2025 12/23/2024, 01/03, 07/04/2023 Depression Monitoring 01/13/2026 01/13/2025 GFR 01/29/2026 01/29/2025, 12/05, 01/24/2024, Additional history exists O2 ASSESSMENT COMPLETED IN PAST YEAR FOR COPD 01/29/2026 01/29/2025 Cologuard 02/17/2026 02/17/2023 Colorectal Cancer Screening 02/17/2026 Albumin/Creatinine Ratio 12/23/2027 12/23/2024 Lipid Panel 12/23/2029 12/23/2024, 01/03, 07/04/2023, Additional history exists DTap/Tdap Vaccines (2 - Td or Tdap) 07/04/2033 07/04/2023 Alpha-1 Antitrypsin Completed 06/27/2022 Pneumococcal Vaccine: 50+ Years Completed 12/24/2022 Zoster Vaccines Completed 07/04/2023, 12/24/2022 Influenza Vaccine (FLU shot) Completed , 07/18/2023, 08/01/2022, Additional history exists AAA Screening Completed 12/23/2024 HPV (Gardasil) Vaccine Aged Out No lo nger eligible based on patient's age to complete this topic Hepatitis B Vaccine Aged Out No longe r eligible based on patient's age to complete this topic MENINGOCOCCAL (MENACTRA/MENVEO) Aged Out No longer eligible based on patient's age to complete this topic Meningitis B Vaccine (Bexsero/Trumemba) Aged Out No longer eligible based on patient's age to complete this topic documented as of this encounter Medical Devices Not on filedocumented as of this encounter Care Teams Die Repairer Stamping Relationship Specialty Start Date End Date Khai Mejia III, MD [address] [facility] [place] [address] PCP - General Family Medicine 01/19/22 documented as of this encounter
--- OUTSIDE RECORDS SUMMARY | 2025-03-05 22:37 | External Medical Summary | Summary of Care ---
Author Name Unknown Organization [facility] Address [address] [place] [address] Phone [phone] Care Team Providers Care Primary Substance Abuse Counselor Name Role Phone Roberto COVARRUBIAS MD, Khai Hanson Primary Care Provider [phone] Reason for Visit * Reason Onset Date Comments Abnormal Test Results 01/29/2025 Encounter Details Date Type Department Care Team (Late st Contact Info) Description 01/29/2025 Telephone Family Practice [facility] [address] [place] [address] Rupinder Pascual MD 200 [place] [address] Abnormal Test Results Allergies No known active allergiesdocumented as of this encounter (statuses as of 01/29/2025) Medications Acetaminophen 500 MG Oral Tablet (Tylenol) [...] for Wheezing. 18 g 2 5 Active Atorvastatin Calcium 20 MG Oral Tablet (Lipitor)Indicati ons:Dyslipidemia, goal LDL below 70 Take 1 Tablet by mouth in the morning. 90 Tablet 3 5 Active Gabapentin 300 MG Oral Capsule (Neurontin)Indica tions:Generalized pruritus Take 1 Capsule by mouth in the morning and 1 Capsule in the evening. 180 Capsule 3 5 Active Losartan Potassium 100 MG Oral Tablet (Cozaar) Take 1 Tablet by mouth in the morning. 90 Tablet 3 5 Active Trelegy Ellipta 100-62.5-25 MCG/ACT Aerosol Powder Breath Activated (Fluticasone-Umec lidinium-Vilanter ol) Inhale 1 Puff by mouth in the morning. Rinse mouth after use. 180 Blister Dosing Unit 3 5 Active Furosemide 40 MG Oral Tablet (Lasix)Indication s:Chronic right heart failure (HCC) Take 1 Tablet by mouth in the morning. 90 Tablet 3 5 Active ARIPiprazole 5 MG Oral [...] for 6 weeks.. 42 Patch 5 Active Cephalexin 500 MG Oral Capsule (Keflex) Take 1 Capsule by mouth in the morning and 1 Capsule at noon and 1 Capsule in the evening and 1 Capsule before bedtime. Active Mupirocin 2 % External Ointment (Bactroban)Indica tions:Cellulitis of upper extremity, unspecified laterality Apply topically to affected area 3 times a day for 14 days. To affected area for up to 14 days. 22 g 1 025 Active documented as of this encounter (statuses as of 01/29/2025) Active Problems Problem Noted Date Diagnosed Date [...] as of this encounter (statuses as of 01/29/2025) Resolved Problems Problem Noted Date Diagnosed Date [...] as of this encounter (statuses as of 01/29/2025) Immunizations Name Administration Dates Next Due PPD [...] encounter Miscellaneous Notes * Telephone Encounter - Marilyn Tariq LPN - 01/29/2025 1:08 PM EDT Called patient and made aware. Verbalized understanding * Telephone Encounter - Rupinder Pascual MD - 01/29/2025 11:19 AM EDT Please call Santos and let him know his sodium has come up to 127. I've ordered another BMP for him to come in and have done in 1 week. documented in this encounter Plan of Treatment Upcoming Encounters Date Type Department Care Team (Late st Contact Info) Description 03/01/2025 9:40 AM EDT Office Visit [facility] [address] [place], [place] [address] Rupnider Pascual MD [address] [place], [place] [address] 06/29/2025 9:40 AM EDT Office Visit [facility] [address] [place] [address] Khai Mejia III, MD [address] [place] [phone] Scheduled Orders Name Type Priority Associated Diagnoses Orde r Schedule BASIC METABOLIC PANEL Lab Routine Acute hyponatremia Expected: 02/05/2025 (Approximate), Expires: 01/29/2026 Health Maintenance Due Date Last Done Comments Colonoscopy 2004 Fecal Occult Blood Test 2004 Sigmoidoscopy 2004 *ADVANCE DIRECTIVE NOT ON FILE 08/18/2022 DISCUSS TOBACCO CESSATION (REFER TO SMARTSET #3291) 06/22/2023 06/22/2022 COVID-19 Vaccine ( season) 2024 HbA1c 12/23/2025 [...] 06/27/2022 Pneumococcal Vaccine: 50+ Years Completed 12/24/2022 Lung Cancer Screening Completed 06/10/2023, 022 Zoster Vaccines Completed 07/04/2023, 12/24/2022 Influenza Vaccine [...] Not on filedocumented as of this encounter Visit Diagnoses Diagnosis Acute hyponatremia- Primary Hyposmolality and/or hyponatremia documented in this encounter Care Teams Primary Substance Abuse Counselor Relationship Specialty Start Date End Date Khai Mejia III, MD 200 [place] [address] PCP - General Family Medicine 01/19/22 documented as of this encounter
--- OUTSIDE RECORDS SUMMARY | 2025-03-05 22:37 | External Medical Summary | Summary of Care ---
Author Name Unknown Organization [facility] Address [address] [place] [address] Phone [phone] Care Team Providers Care Ct Mri Technologist Name Role Phone Roberto COVARRUBIAS MD, John E Primary Care Provider [phone] Reason for Visit * Reason Onset Date Comments Med Request 02/08/2025 Encounter Details Date Type Department Care Team (Late st Contact Info) Description 02/08/2025 Refill Family Practice [facility] [address] [facility] [place] [address] Michael Murdock III, MD 200 [place] [address] Chronic right heart failure (HCC); Dyslipidemia, goal LDL below 70; Generalized pruritus Allergies No known active allergiesdocumented as of this encounter (statuses as of 02/09/2025) Medications Acetaminophen 500 MG Oral Tablet (Tylenol) 2 Tablets. 07/10/20 22 Active Nebulizer Use every 6 hours as directed 1 Each 12/12/19 23 Active hydrOXYzine HCl 25 MG Oral Tablet TAKE 1 TABLET BY MOUTH EVERY 6 HOURS NEEDED FOR ITCHING Strength: 25 mg 40 Tablet 2 06/24/20 24 Active Additional Information Patient not taking.Reported on 01/29/2025 Naltrexone 380 MG Intramuscular Suspension Reconstituted (Vivitrol) 12/03/19 25 Active Ventolin HFA 108 (90 Base) MCG/ACT Inhalation Aerosol Solution Inhale 2 Puffs by mouth every 4 hours as needed for Wheezing. 18 g 2 12/03/19 25 Active Trelegy Ellipta 100-62.5-25 MCG/ACT Aerosol Powder Breath Activated (Fluticasone-Umec lidinium-Vilanter ol) Inhale 1 Puff by mouth in the morning. Rinse mouth after use. 180 Blister Dosing Unit 3 12/03/19 25 Active ARIPiprazole 5 MG Oral Tablet (Abilify) 12/22/19 25 Active Folic Acid 1 MG Oral Tablet Take 1 Tablet by mouth in the morning. 30 Tablet 5 12/27/19 25 Active Tamsulosin HCl 0.4 MG Oral Capsule (Flomax) Take 1 Capsule by mouth in the morning. 30 Capsule 5 12/27/19 25 Active Sertraline HCl 100 MG Oral Tablet (Zoloft) Take 1.5 Tablets by mouth in the morning. 135 Tablet 3 12/28/19 25 Active Thiamine HCl 100 MG Oral Tablet (vitamin B-1) Take 1 Tablet by mouth in the morning. 90 Tablet 3 12/28/19 25 Active Nicotine 21 MG/24HR Transdermal Patch 24 Hour (Nicoderm CQ) Place 1 Patch over 24 hours topically on the skin in the morning. On upper body/upper arm, change once a day for 6 weeks.. 42 Patch 12/28/19 25 Active Cephalexin 500 MG Oral Capsule (Keflex) [...] up to 14 days. 22 g 1 01/30/20 25 025 Active Furosemide 40 MG Oral Tablet (Lasix)Indication s:Chronic right heart failure (HCC) Take 1 Tablet by mouth in the morning. 90 Tablet 3 02/10/20 25 Active Losartan Potassium 100 MG Oral Tablet (Cozaar) Take 1 Tablet by mouth in the morning. 90 Tablet 02/10/20 25 Active Atorvastatin Calcium 20 MG Oral Tablet (Lipitor)Indicati ons:Dyslipidemia, goal LDL below 70 Take 1 Tablet by mouth in the morning. 90 Tablet 3 02/10/20 25 Active Gabapentin 300 MG Oral Capsule (Neurontin)Indica tions:Generalized pruritus Take 1 Capsule by mouth in the morning and 1 Capsule in the evening. 180 Capsule 3 02/10/20 25 Active Atorvastatin Calcium 20 MG Oral Tablet (Lipitor)Indicati ons:Dyslipidemia, goal LDL below 70 Take 1 Tablet by mouth in the morning. 90 Tablet 3 12/03/19 25 025 Discontin ued(Refil l) Gabapentin 300 MG Oral Capsule (Neurontin)Indica tions:Generalized pruritus Take 1 Capsule by mouth in the morning and 1 Capsule in the evening. 180 Capsule 3 12/03/19 25 025 Discontin ued(Refil l) Losartan Potassium 100 MG Oral Tablet (Cozaar) Take 1 Tablet by mouth in the morning. 90 Tablet 3 12/03/19 25 025 Discontin ued(Refil l) Furosemide 40 MG Oral Tablet (Lasix)Indication s:Chronic right heart failure (HCC) Take 1 Tablet by mouth in the morning. 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 9 with comorbidity) 06/22/2022 10/03/2022 documented as of this encounter (statuses as of 02/09/2025) Immunizations Name Administration Dates Next Due PPD [...] 12/23/2024 Does the household have a re lar source of income? (Household - for ages [...] encounter Miscellaneous Notes * Telephone Encounter - Wayne Garcia [facility] - 02/09/2025 12:43 PM EDTSigned Prescriptions: Disp Refills Furosemide 40 MG Oral Tablet (Lasix) 90 Tab*3 Sig: Take 1 Tablet by mouth in the morning. Authorizing Provider: MICHAEL MURDOCK III Ordering User: WAYNE GARCIA Losartan Potassium 100 MG Oral Tablet (Coz*90 Tab*3 Sig: Take 1 Tablet by mouth in the morning. Authorizing Provider: MICHAEL MURDOCK III Ordering User: WAYNE GARCIA< BR> Atorvastatin Calcium 20 MG Oral Tablet (Li*90 Tab*3 Sig: Take 1 Tablet by mouth in the morning. Authorizing Provider: MICHAEL MURDOCK III Ordering User: WAYNE GARCIA Gabapentin 300 MG Oral Capsule (Neurontin) 180 Ca*3 Sig: Take 1 Capsule by mouth in the morning and 1 Capsule in the evening. Authorizing Provider: MICHAEL MURDOCK III Ordering User: WAYNE GARCIA Electronically signed by Wayne Garcia, [facility] at 02/09/2025 12:43 PM EDT * Telephone Encounter - Marvin Nuñez, marketing strategist - 02/08/2025 3:12 PM EDT Please reroute Rx to [id number] Pending Prescriptions: Disp Refills Furosemide 40 MG Oral Tablet (Lasix) 90 Tab*3 Sig: Take 1 Tablet by mouth in the morning. Losartan Potassium 100 MG Oral Tablet (Co*90 Tab*3 Sig: Take 1 Tablet by mouth in the morning. Atorvastatin Calcium 20 MG Oral Tablet (L*90 Tab*3 Sig: Take 1 Tablet by mouth in the morning. Gabapentin 300 MG Oral Capsule (Neurontin)180 Ca*3 Sig: Take 1 Capsule by mouth in the morning and 1 Capsule in the evening. Last Visit: 01/29/2025 (in office), Visit date not found (telemedicine) 03/01/2025 If no future appointments scheduled, and last appointment is greater than a year ago, please schedule patient for a follow-up appointment Last date the medication was ordered: 12/04/2024, 12/03/2024 Patient Phone Numbers mobile [phone] Labs: Lab Results Component Value Date/Time CREAT 0.8 01/29/2025 09:18 AM POTASSIUM 5.2 (H) 01/29/2025 09:18 AM TSH 2.12 12/23/2024 09:16 AM LDL 139 (H) 12/23/2024 09:16 AM ALT 23 12/23/2024 09:16 AM HGBA1C 6.1 (H) 12/23/2024 09:16 AM documented in this encounter Plan of Treatment Upcoming Encounters Date Type Department Care Team (Late st Contact Info) Description 03/01/2025 9:40 AM EDT Office Visit [facility] 200 [facility] [place] [address] Rupinder Pascual MD 200 [facility] [place] [address] 06/29/2025 9:40 AM EDT Office Visit [facility] [address] [facility] [place] [address] Michael Murdock III, MD [address] [facility] [place] [address] 07/01/2025 3:00 PM EDT Office Visit Cardiology, [facility] [address] [place] [phone] Elinor Thomason CRNP [address] [place] [address] [place] [id number] Health Maintenance Due Date Last Done Comments [...] as of this encounter Visit Diagnoses Diagnosis Chronic right heart failure (HCC) Dyslipidemia, goal LDL below 70 Other and unspecified hyperlipidemia Generalized pruritus Unspecified pruritic disorder documented in this encounter Care Teams Ct Mri Technologist Relationship Specialty Start Date End Date Michael Murdock III, MD [address] [facility] [place] [address] PCP - General Family Medicine 01/19/22 documented as of this encounter
--- OUTSIDE RECORDS SUMMARY | 2025-03-05 22:37 | External Medical Summary | Summary of Care ---
Author Name Unknown Organization [facility] Address [address] [place] [address] Phone [phone] Care Team Providers Care Instrumentation Chemist Name Role Phone Roberto COVARRUBIAS MD, Khai Hanson Primary Care Provider [phone] Reason for Visit * Reason Comments Outpatient Testing Encounter Details Date Type Department Care Team (Late st Contact Info) Description 01/29/2025 9:40 AM EDT Laboratory Laboratory [facility] [address] [place] [id number] [place], [facility] [facility] [address] Acute hyponatremia; Cellulitis of upper extremity, unspecified laterality Allergies No known active allergiesdocumented as of [...] up to 14 days. 22 g 1 5 025 Active documented as of this encounter [...] on file documented as of this encounter Plan of Treatment Upcoming Encounters Date Type Department Care Team (Late st Contact Info) Description 03/01/2025 9:40 AM EDT Office Visit [facility] [address] [place] [address] Rupinder Pascual MD 200 [facility] [place] [address] 06/29/2025 9:40 AM EDT Office Visit [facility] [address] [place] [address] Khai Mejia III, MD 200 [facility] [place] [address] Pending Results Name Type Priority Associated Diagnoses Date /Time BASIC METABOLIC PANEL Lab Routine Acute hyponatremia 01/29/2025 9:18 AM EDT Health Maintenance Due Date Last Done Comments Colonoscopy 2004 Fecal Occult Blood Test 2004 Sigmoidoscopy 2004 *ADVANCE DIRECTIVE NOT ON FILE 08/18/2022 DISCUSS TOBACCO CESSATION (REFER TO SMARTSET #3291) 06/22/2023 06/22/2022 COVID-19 Vaccine ( season) 2024 GFR 12/23/2025 12/23/2024, 01/03, 11/08/2023, Additional history exists HbA1c 12/23/2025 12/23/2024, 01/03, 07/04/2023 Depression Monitoring 01/13/2026 01/13/2025 O2 ASSESSMENT COMPLETED IN PAST YEAR FOR [...] Not on filedocumented as of this encounter Procedures Procedure Name Priority Date/Time Associated Diagnosis Comments DIFFERENTIAL, AUTOMATED Routine 01/29/2025 9:18 AM EDT Cellulitis of upper extremity, unspecified laterality CBC Routine 01/29/2025 9:18 AM EDT Cellulitis of upper extremity, unspecified laterality CBC Routine 01/29/2025 9:18 AM EDT Cellulitis of upper extremity, unspecified laterality DIFFERENTIAL, TECHNOLOGIST REVIEW Routine 01/29/2025 9:18 AM EDT Cellulitis of upper extremity, unspecified laterality documented in this encounter Results * (ABNORMAL) DIFFERENTIAL, TECHNOLOGIST REVIEW (01/29/2025 9:18 AM EDT) Pathologist [facility] nRs 01/29/2025 9:35 AM EDT [facility] 56-02 Reactive Lymphocytes Present(A ) None Seen 01/29/2025 9:35 AM EDT [facility] 56-02 Blood Venous blood specimen / Unknown Venipuncture / Unknown 01/29/2025 9:18 AM EDT 01/29/2025 9:18 AM EDT us Rupinder Pascual MD LAB BLOOD ORDERABLES Final Resu lt [facility] 56- [address] [place] [address] * (ABNORMAL) DIFFERENTIAL, AUTOMATED (01/29/2025 9:18 AM EDT) Pathologist [facility] WBC 7.92 4.00 - 10.80 K/uL 01/29/2025 9:35 AM EDT [facility] 56-02 Neutrophils % 68.0 40.0 - 75.0 % 01/29/2025 9:35 AM EDT [facility] 56-02 Lymphocytes % 15.4(L) 18.0 - 42.0 % 01/29/2025 9:35 AM EDT [facility] 56-02 Monocytes % 14.4(H) 1.0 - 11.0 % 01/29/2025 9:35 AM EDT [facility] 56-02 Eosinophils % 1.8 0.0 - 6.0 % 01/29/2025 9:35 AM EDT [facility] 56-02 Basophils % 0.4 0.0 - 2.0 % 01/29/2025 9:35 AM EDT [facility] 56-02 Absolute Neutrophils 5.39 1.80 - 7.70 K/uL 01/29/2025 9:35 AM EDT [facility] 56 Absolute Lymphocytes 1.22 1.00 - 4.80 K/ul 01/29/2025 9:35 AM EDT [facility] Absolute Monocytes 1.14(H) 0.00 - 1.10 K/uL 01/29/2025 9:35 AM EDT [facility] 56 Absolute Eosinophils 0.14 0.00 - 0.70 K/uL 01/29/2025 9:35 AM EDT [facility] 56 Absolute Basophils 0.03 0.00 - 0.20 K/uL 01/29/2025 9:35 AM EDT [facility] Blood Venous blood specimen / Unknown Venipuncture / Unknown 01/29/2025 9:18 AM EDT 01/29/2025 9:18 AM EDT us Rupinder Pascual MD LAB BLOOD ORDERABLES Final Resu lt [facility] [address] [place] [address] * CBC (01/29/2025 9:18 AM EDT) WBC 7.92 4.00 - 10.80 K/uL 01/29/2025 9:35 AM EDT [facility] RBC 5.11 4.50 - 5.25 M/uL 01/29/2025 9:35 AM EDT [facility] HGB 16.2 14.0 - 16.8 g/dL 01/29/2025 9:35 AM EDT [facility] HCT 47.5 40.0 - 48.4 % 01/29/2025 9:35 AM EDT [facility] MCV 93.0 82.0 - 99.5 fL 01/29/2025 9:35 AM EDT [facility] MCH 31.7 27.0 - 34.0 pg 01/29/2025 9:35 AM EDT [facility] MCHC 34.1 32.0 - 36.0 g/dL 01/29/2025 9:35 AM EDT [facility] RDW 13.7 11.5 - 15.5 % 01/29/2025 9:35 AM EDT [facility] PLT 346 140 - 400 K/uL 01/29/2025 9:35 AM EDT [facility] MPV 9.4 6.6 - 11.1 fL 01/29/2025 9:35 AM EDT [facility] Blood Venous blood specimen / Unknown Venipuncture / Unknown 01/29/2025 9:18 AM EDT 01/29/2025 9:18 AM EDT us Rupinder Pascual MD LAB BLOOD ORDERABLES Final Resu lt [facility] [address] [facility] [address] documented in this encounter Visit Diagnoses Diagnosis Acute hyponatremia Hyposmolality and/or hyponatremia Cellulitis of upper extremity, unspecified laterality documented in this encounter Care Teams Instrumentation Chemist Relationship Specialty Start Date End Date Khai Mejia III, MD 200 [facility] [place] [address] PCP - General Family Medicine 01/19/22 documented as of this encounter
--- OUTSIDE RECORDS SUMMARY | 2025-03-05 22:37 | External Medical Summary | Summary of Care ---
Author Name Unknown Organization [facility] Address [address] [place] [address] Phone [phone] Care Team Providers Care Punchboard Assembler Name Role Phone Roberto COVARRUBIAS MD, Khai Hanson Primary Care Provider [phone] Reason for Visit * Reason Comments eRx-Medication Refill Encounter Details Date Type Department Care Team (Late st Contact Info) Description 02/03/2025 Refill Family Practice [facility] 200 [facility] [place] [address] Khai Mejia III, MD 200 [place] [address] Allergies No known active allergiesdocumented as of this encounter (statuses as of 02/04/2025) Medications Acetaminophen 500 MG Oral Tablet (Tylenol) [...] as of this encounter (statuses as of 02/04/2025) Active Problems Problem Noted Date Diagnosed Date [...] as of this encounter (statuses as of 02/04/2025) Resolved Problems Problem Noted Date Diagnosed Date [...] as of this encounter (statuses as of 02/04/2025) Immunizations Name Administration Dates Next Due PPD [...] encounter Miscellaneous Notes * Telephone Encounter - Evens Marino RPh - 02/04/2025 1:51 PM EDT Refused Prescriptions: Disp Refills Losartan Potassium 100 MG Oral Tablet (Coz*30 Tab*3 Sig: TAKE 1TABLET BY MOUTH EVERY DAY IN THE MORNINGRefused By: EVENS MARINO for Refusal: Too so on documented in this encounter Plan of Treatment Upcoming Encounters Date Type Department Care Team (Late st Contact Info) Description 03/01/2025 9:40 AM EDT Office Visit Family [facility] [place] [address] [place] [address] Rupinder Pascual MD [address] [place] [address] 06/29/2025 9:40 AM EDT Office Visit Family [facility] [address] [place] [address] Khai Mejia III, MD 200 [facility] [place] [address] Health Maintenance Due Date Last Done Comments [...] filedocumented as of this encounter Care Teams Punchboard Assembler Relationship Specialty Start Date End Date Khai Mejia III, MD [address] [place] [address] PCP - General Family Medicine 01/19/22 documented as of this encounter
--- OUTSIDE RECORDS SUMMARY | 2025-03-05 22:37 | External Medical Summary | Summary of Care ---
Author Name Unknown Organization [facility] Address [address] [place] [address] Phone [phone] Care Team Providers Care Multicut Line Operator Name Role Phone Roberto COVARRUBIAS MD, Khai Hanson Primary Care Provider [phone] Reason for Visit * Reason Onset Date Comments Abnormal Test Results 01/29/2025 Encounter Details Date Type Department Care Team (Late st Contact Info) Description 01/29/2025 Telephone Family Practice [facility] [address] [place] [address] Rupinder Pascual MD 200 [place] [address] Abnormal Test Results Allergies No known active [...] Description 03/01/2025 9:40 AM EDT Office Visit [facility] [address] [place], [place] [address] Rupinder Pascual MD [address] [place], [place] [address] 06/29/2025 9:40 AM EDT Office Visit [facility] [address] [place] [address] Khai Mejia III, MD [address] [place] [address] Scheduled Orders Name Type Priority Associated Diagnoses [...] hyponatremia documented in this encounter Care Teams Multicut Line Operator Relationship Specialty Start Date End Date Khai Mejia III, MD 200 [facility] [address] PCP - General Family Medicine 01/19/22 documented as of this encounter
--- OUTSIDE RECORDS SUMMARY | 2025-03-05 22:38 | External Medical Summary | Summary of Care ---
Author Name Unknown Organization [facility] Address [address] [place] [address] Phone [phone] Care Team Providers Care Cafeteria Clerk Name Role Phone Roberto COVARRUBIAS MD, John E Primary Care Provider [phone] Reason for Visit * Reason Onset Date Comments Advice 01/22/2025 Encounter Details Date Type Department Care Team (Late st Contact Info) Description 01/22/2025 Telephone Family Practice [facility] 200 [facility] [address] Khai Mejia III, MD 200 [place] [address] Advice Allergies No known active allergiesdocumented as of this encounter (statuses as of 01/22/2025) Medications Acetaminophen 500 MG Oral Tablet (Tylenol) 2 Tablets. 2 Active Nebulizer Use every 6 hours as directed 1 Each 3 Active Additional Information Patient not taking.Reported on 12/28/2024 hydrOXYzine HCl 25 MG Oral Tablet TAKE 1 TABLET BY MOUTH EVERY 6 HOURS NEEDED FOR ITCHING Strength: 25 mg 40 Tablet 2 4 Active Additional Information Patient not taking.Reported on 12/28/2024 Naltrexone 380 MG Intramuscular Suspension Reconstituted (Vivitrol) [...] as of this encounter (statuses as of 01/22/2025) Active Problems Problem Noted Date Diagnosed Date Bipolar II disorder 12/28/2024 Recurrent major depressive disorder 12/28/2024 Major depressive disorder with single episode Severe obesity (BMI 35.0-35.9 with comorbidity) 12/03/2024 HTN, goal below 140/90 01/24/2024 Other specified peripheral vascular diseases Prediabetes 07/15/2023 Overview: Per Prediabetes protocol Osteoarthritis of back 12/25/2022 Dyslipidemia, goal LDL below 70 10/12/2022 Uncomplicated alcohol dependence 10/12/2022 Chronic right heart failure 10/03/2022 Morbid obesity due to excess calories 10/03/2022 BPH with obstruction/lower urinary tract symptom s 10/03/2022 COPD, group C, by GOLD 2017 classification 08/13 Centrilobular emphysema 06/22/2022 Tobacco use disorder 06/22/2022 documented as of this encounter (statuses as of 01/22/2025) Resolved Problems Problem Noted Date Diagnosed Date Resolved Date 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 9 with comorbidity) 06/22/2022 10/03/2022 documented as of this encounter (statuses as of 01/22/2025) Immunizations Name Administration Dates Next Due PPD [...] encounter Miscellaneous Notes * Telephone Encounter - Dolores Turner LPN - 01/22/2025 1:21 PM EDT Addressed in triage encounter * Telephone Encounter - Sade Ramírez OSA - 01/22/2025 12:24 PM EDT Miguel with [facility] called back in regarding this message. Message processed as a red flag due to red flag symptoms. * Telephone Encounter - Aba Hood OSA - 01/22/2025 12:04 PM EDT Reason for patient's call: Miguel (Casemanager) called in requesting to speak to a nurse, Miguel saidthe pt has a concerning medical question. Puffy/Swollen Feet, Swollen arms, and hands. Pt is thinking it may be an infection. Attempted to transfer Miguel to [facility], There was no answer. Please call back fredy. documented in this encounter Plan of Treatment Upcoming Encounters Date Type Department Care Team (Late st Contact Info) Description 06/29/2025 9:40 AM EDT Office Visit [facility] [address] [place] [address] Khai Mejia III, MD [address] [place] [address] Health Maintenance Due Date Last Done Comments Colonoscopy 2004 Fecal Occult Blood Test 2004 Sigmoidoscopy 2004 *ADVANCE DIRECTIVE NOT ON FILE 08/18/2022 DISCUSS TOBACCO CESSATION (REFER TO SMARTSET #7457) 06/22/2023 06/22/2022 COVID-19 Vaccine ( season) 2024 GFR 12/23/2025 12/23/2024, 01/03, 11/08/2023, Additional history exists HbA1c 12/23/2025 12/23/2024, 01/03, 07/04/2023 O2 ASSESSMENT COMPLETED IN PAST YEAR FOR COPD 12/28/2025 12/28/2024 Depression Monitoring 01/13/2026 01/13/2025 Cologuard 02/17/2026 02/17/2023 Colorectal Cancer Screening 02/17/2026 [...] filedocumented as of this encounter Care Teams Cafeteria Clerk Relationship Specialty Start Date End Date Roberto COVARRUBIAS, Khai Hanson MD [address] [place] [address] PCP - General Family Medicine 01/19/22 documented as of this encounter
--- OUTSIDE RECORDS SUMMARY | 2025-03-05 22:38 | External Medical Summary | Summary of Care ---
Author Name Unknown Organization [facility] Address [address] [place] [address] Phone [phone] Care Team Providers Care Risk Tech Name Role Phone Roberto COVARRUBIAS MD, John E Primary Care Provider [phone] Reason for Visit * Reason Onset Date Comments transfer of records 01/22/2025 Encounter Details Date Type Department Care Team (Late st Contact Info) Description 01/22/2025 Telephone Family Practice [facility] 200 [facility] [place] [address] Khai Mejia III, MD 200 [facility] [address] transfer of records Allergies No known active allergiesdocumented as of [...] encounter Miscellaneous Notes * Telephone Encounter - Mona Sanchez OSA - 01/22/2025 3:01 PM EDT Pt [place] [facility]Intellectual Disabilities/Early Intervention/Drug & Alcohol for continued of care Thank you Forward to [facility] documented in this encounter Plan of Treatment Upcoming Encounters Date Type Department Care Team (Late st Contact Info) Description 06/29/2025 9:40 AM EDT Office Visit Family Practice [facility] [address] [facility] [place] [address] Khai Mejia III, MD 200 [facility] [place] [address] Health Maintenance Due Date Last Done Comments [...] filedocumented as of this encounter Care Teams Risk Tech Relationship Specialty Start Date End Date Khai Mejia III, MD [address] [place] [address] PCP - General Family Medicine 01/19/22 documented as of this encounter
--- OUTSIDE RECORDS SUMMARY | 2025-03-05 22:38 | External Medical Summary ---
Author Name Unknown Address Unknown Organization K09:[facility] [place] [address] Laboratory Report Ordering Provider Test Date Status KWAME MANZANARES 01/29/2025 09:18:27 Final Observation Date Value Abnormality Reference (Units ) Status BUN 01/29/2025 09:18:27 10 6-20 (mg/dL) Final Creatinine 01/29/2025 09:18:27 0.8 0.6-1.2 (mg/dL) Final Glomerular filtration rate/1.73 sq M.predicted [Volume Rate/Area] in Serum, Plasma or Blood by Creatinine-based formula (CKD-EPI) 01/29/2025 09:18:27 >90 >=60 (mL/min) Final eGFR is calculated based on the CKD-EPI 2020 equation. Sodium 01/29/2025 09:18:27 127 Below low normal 135 -146 (mmol/L) Final Potassium 01/29/2025 09:18:27 5.2 Above high normal 3. 5-5.1 (mmol/L) Final Cl 01/29/2025 09:18:27 89 Below low normal 98- 107 (mmol/L) Final CO2 01/29/2025 09:18:27 26 22-32 (mmo l/L) Final Anion gap 01/29/2025 09:18:27 12 7-15 (mmol /L) Final Glucose 01/29/2025 09:18:27 106 70-120 (mg /dL) Final Calcium 01/29/2025 09:18:27 9.1 8.4-10.2 ( mg/dL) Final Performing Location [facility] [place] [address]
--- OUTSIDE RECORDS SUMMARY | 2025-03-05 22:38 | External Medical Summary | Summary of Care ---
Author Name Unknown Organization [facility] Address [address] [place] [address] Phone [phone] Care Team Providers Care Network Pricing Consultant Name Role Phone Roberto COVARRUBIAS MD, Khai Hanson Primary Care Provider [phone] Reason for Visit * Reason Comments Emergency Department Follow-Up Encounter Details Date Type Department Care Team (Latest Contact Info) Description 01/29/2025 9:00 AM EDT Office Visit Family Practice [facility] [address] [place] [address] Rupinder Pascual MD [address] [place] [address] Cellulitis of upper extremity, unspecified laterality*; Acute hyponatremia; Hypertensive heart disease with chronic right-sided congestive heart failure (HCC); HTN, goal below 140/90; Prediabetes; Dyslipidemia, goal LDL below 70; Centrilobular emphysema (HCC); COPD, group C, by GOLD 2017 classification ([facility]); Tobacco use disorder; Uncomplicated alcohol dependence (HCC); Class 2 severe obesity due to excess calories with serious comorbidity and body mass index (BMI) of 39.0 to 39.9 in adult (HCC) Allergies No known active allergiesdocumented as of [...] Wheezing. 18 g 2 12/03/19 25 Active Atorvastatin Calcium 20 MG Oral Tablet (Lipitor)Indicat ions:Dyslipidemi a, goal LDL below 70 Take 1 Tablet by mouth in the morning. 90 Tablet 3 12/03/19 25 Active Gabapentin 300 MG Oral Capsule (Neurontin)Indic ations:Generaliz ed pruritus Take 1 Capsule by mouth in the morning and 1 Capsule in the evening. 180 Capsule 3 12/03/19 25 Active Losartan Potassium 100 MG Oral Tablet (Cozaar) Take 1 Tablet by mouth in the morning. 90 Tablet 12/03/19 25 Active Trelegy Ellipta 100-62.5-25 MCG/ACT Aerosol Powder Breath Activated (Fluticasone-Ume clidinium-Vilant shashank) Inhale 1 Puff by mouth in the morning. Rinse mouth after use. 180 Blister Dosing Unit 3 12/03/19 25 Active Furosemide 40 MG Oral Tablet (Lasix)Indicatio ns:Chronic right heart failure (HCC) Take 1 Tablet by mouth in the morning. 90 Tablet 3 12/04/19 25 Active ARIPiprazole 5 MG Oral Tablet [...] day for 6 weeks.. 42 Patch 12/28/19 Active Cephalexin 500 MG Oral Capsule (Keflex) Take 1 Capsule by mouth in the morning and 1 Capsule at noon and 1 Capsule in the evening and 1 Capsule before bedtime. Active Mupirocin 2 % External Ointment (Bactroban)Indic ations:Celluliti s of upper extremity, unspecified laterality Apply topically to affected area 3 times a day for 14 days. To affected area for up to 14 days. 22 g 1 01/30/20 25 2024 Active Arexvy 120 MCG/0.5ML Intramuscular Suspension Reconstituted (RSV PreF3 Vac Recomb Adjuvanted) Inject 0.5 mL into a large muscle once for 1 dose. Vaccine stock replacement 1 Each 12/03/192024 Discontinued documented as of this encounter (statuses as [...] Date Major depressive disorder with single episode 12/03/1901/29/2025 Functional disorder of polym orphonuclear neutrophils 12/24/2022 [...] on file documented as of this encounter Last Filed Vital Signs Vital Sign Reading Time Taken Comments Blood Pressure 110/60 01/29/2025 8:45 AM EDT Pulse 77 01/29/2025 8:45 AM EDT Temperature 36.2 °C (97.2 °F) 01/29/2025 8:45 AM ED T Respiratory Rate 20 01/29/2025 8:45 AM EDT Oxygen Saturation 91% 01/29/2025 8:45 AM EDT Inhaled Oxygen Concentration - - Weight 120.7 kg (266 lb) 01/29/2025 8:45 AM EDT Height - - Body Mass Index 39.28 12/03/2024 8:39 AM EST documented in this encounter Progress Notes * Rupinder Pascual MD - 01/29/2025 8:48 AM EDT Subjective Chief Complaint Patient presents with Emergency Department Follow-Up HPI: Santos Malloy is a 64 year old male. Patient is accompanied by his sister. he following issues were addressed today: Patient presents today for ER follow-up. He presented to [facility] on 01/22/25 with excoriations on his upper extremities and was treated with Rocephin for cellulitis. He was found to have hyponatremia on labs (Na 119). Recommended inpatient treatment and further work-up but patient left AMA. Discharged with Keflex and Bactrim. Last labs in office done 12/23/24 and Na was 139 at that time. He continues to have itching of his upper extremities. States he is only taking one of the antibiotics he was discharged with but unsure which one. He is using topical mupirocin. Feeling better over all. Sister states his arms look better. Has history of alcohol use. He is drinking 4 beers every 3 days. He is on Vivitrol injections. States she has been tired. Denies nausea, vomiting, dizziness, or worsened shortness of breath. He stopped Trelegy inhaler and is only taking albuterol. States he coughed more with the Trelegy. Review of Systems: See HPI Objective BP 110/60 | Pulse 77 | Temp 97.2 °F (36.2 °C) (Tympanic) | Resp 20 | Wt 266 lb (120.7 kg) | SpO2 91% | BMI 39.28 kg/m² | BSA 2.42 m² Wt Readings from Last 3 Encounters: 01/29/25 266 lb (120.7 kg) 12/28/24 268 lb 9.6 oz (121.8 kg) 12/03/24 257 lb 9.6 oz (116.8 kg) BP Readings from Last 3 Encounters: 01/29/25 110/60 12/28/24 128/64 12/23/24 132/78 General: Well-appearing, no acute distress Cardiovascular: Regular rate and rhythm, no murmur Respiratory: Good respiratory effort, expiratory wheezing Abdomen: Soft, non-distended, non-tender, normoactive bowel sounds Extremities: 1+ pitting edema bilateral ankles Skin: Scattered excoriations upper extremities, minimal surrounding erythema, no active bleeding ordrainage Neurological: Alert and oriented Psychiatric: Appropriate mood and affect Assessment & Plan 1. Cellulitis of upper extremity, unspecified laterality Improving. Finish antibiotic(s) as prescribed. Will recheck CBC with labs today. Mupirocin refilled. - CBC WITH WBC DIFFERENTIAL; Future - Mupirocin 2 % External Ointment (Bactroban); Apply topically to affected area 3 times a day for 14 days. To affected area for up to 14 days. Dispense: 22 g; Refill: 1 2. Acute hyponatremia Discussed risks of untreated acute hyponatremia. Patient aware and does not want to go back to the ER at this time. He is agreeable to rechecking a BMP today and if Na has not improved, he will go back to [facility]. Will discuss this afternoon when results back. - BASIC METABOLIC PANEL; Future 3. Hypertensive heart disease with chronic right-sided congestive heart failure (HCC) Stable. Continue current medications. 4. HTN, goal below 140/90 Well-controlled. Continue losartan 100mg. 5. Prediabetes Stable. 6. Dyslipidemia, goal LDL below 70 Stable. Continue atorvastatin 20mg. 7. Centrilobular emphysema (HCC) 8. COPD, group C, by GOLD 2017 classification (HCC) Symptoms stable. Encouraged to restart Trelegy daily. Continue albuterol PRN. 9. Tobacco use disorder We discussed the importance of smoking cessation today. 10. Uncomplicated alcohol dependence (HCC) Continue Vivitrol IM. Continue folic acid and thiamine supplementations. 11. Class 2 severe obesity due to excess calories with serious comorbidity and body mass index (BMI) of 39.0 to 39.9 in adult (HCC) Return in about 4 weeks (around 02/26/2025) for follow-up with Dr. Mejia. This note was electronically signed by Rupinder Pascual MD documented in this encounter Nursing Notes * Marilyn Tariq LPN - 01/29/2025 8:41 AM EDT Santos Malloy presents for hospital follow up. Medications & HM reviewed. [facility] ER 01/22/25 cellulitis, hyponatremia documented in this encounter Plan of Treatment Upcoming Encounters Date Type Department Care Team (Late st Contact Info) Description 03/01/2025 9:40 AM EDT [facility] Visit [facility] [place] [address] [place] [address] Rupinder Pascual MD [address] [place] [address] 06/29/2025 9:40 AM EDT Office Visit [facility] [place] [address] [facility] [address] [place] [address] Khai Mejia III, MD [address] [place] [address] Pending Results Name Type Priority Associated Diagnoses Date /Time BASIC METABOLIC PANEL Lab Routine Acute hyponatremia 01/29/2025 9:18 AM EDT Scheduled Orders Name Type Priority Associated Diagnoses Orde r Schedule BASIC METABOLIC PANEL Lab Routine Acute hyponatremia Expected: 01/29/2025 (Approximate), Expires: 01/29/2026 Health Maintenance Due Date [...] as of this encounter Visit Diagnoses Diagnosis Cellulitis of upper extremity, unspecified laterality- Primary Acute hyponatremia Hyposmolality and/or hyponatremia Hypertensive heart disease with chronic right-sided congestive heart failure (HCC) HTN, goal below 140/90 Unspecified essential hypertension Prediabetes Other abnormal glucose Dyslipidemia, goal LDL below 70 Other and unspecified hyperlipidemia Centrilobular emphysema (HCC) Other emphysema COPD, group C, by GOLD 2017 classification (HCC) Tobacco use disorder Uncomplicated alcohol dependence (HCC) Other and unspecified alcohol dependence, unspecified drinking behavior Class 2 severe obesity due to excess calories with serious comorbidity and body mass index (BMI) of 39.0 to 39.9 in adult (HCC) documented in this encounter Care Teams Network Pricing Consultant Relationship Specialty Start Date End Date Khai Mejia III, MD [address] [place] [address] PCP - General Family Medicine 01/19/22 documented as of this encounter"
--- OUTSIDE RECORDS SUMMARY | 2025-03-05 22:38 | External Medical Summary | Summary of Care ---
Author Name Unknown Organization [facility] Address [address] [place] [address] Phone [phone] Care Team Providers Care Burlap Bag Sewer Name Role Phone Roberto COVARRUBIAS MD, John E Primary Care Provider [phone] Reason for Visit * Reason Onset Date Comments Advice 01/22/2025 Encounter Details Date Type Department Care Team (Late st Contact Info) Description 01/22/2025 Telephone Family Practice [facility] [address] [place] [address] Khai Mejia III, MD [address] [place] [address] Advice Allergies No known active allergiesdocumented as [...] - 01/22/2025 12:24 PM EDT Miguel with [facility] called back in regarding this message. [...] State Beulah Soliman [address] [place] [address] Khai Mejia III, MD [address] [place] [address] Health Maintenance Due Date Last Done Comments Colonoscopy 2004 Fecal Occult Blood Test 2004 Sigmoidoscopy 2004 *ADVANCE DIRECTIVE NOT ON FILE 08/18/2022 DISCUSS TOBACCO CESSATION (REFER TO SMARTSET #1820) 06/22/2023 06/22/2022 COVID-19 Vaccine ( season) 2024 [...] filedocumented as of this encounter Care Teams Burlap Bag Sewer Relationship Specialty Start Date End Date Roberto COVARRUBIAS, Khai Hanson MD [address] [place] [address] PCP - General Family Medicine 01/19/22 documented as of this encounter
--- OUTSIDE RECORDS SUMMARY | 2025-03-05 22:38 | External Medical Summary ---
Author Name Unknown Address Unknown Organization [id number][facility] [place] [address] Laboratory Report Ordering Provider Test Date Status KWAME MANZANARES 01/29/2025 09:18:27 Final Observation Date Value Abnormality Reference (Units ) Status WBC, Total 01/29/2025 09:18:27 7.92 4.00-10.8 0 (K/uL) Final RBC 01/29/2025 09:18:27 5.11 4.50-5.25 (M/uL) Final Hemoglobin 01/29/2025 09:18:27 16.2 14.0-16.8 (g/dL) Final HCT 01/29/2025 09:18:27 47.5 40.0-48.4 (%) Final MCV 01/29/2025 09:18:27 93.0 82.0-99.5 (fL) Final MCH 01/29/2025 09:18:27 31.7 27.0-34.0 (pg) Final MCHC 01/29/2025 09:18:27 34.1 32.0-36.0 (g/dL) Final RDW 01/29/2025 09:18:27 13.7 11.5-15.5 (%) Final Platelets 01/29/2025 09:18:27 346 140-400 (K /uL) Final MPV 01/29/2025 09:18:27 9.4 6.6-11.1 ( fL) Final Performing Location [facility] [place] [address]
--- OUTSIDE RECORDS SUMMARY | 2025-03-05 22:38 | External Medical Summary ---
Author Name Unknown Address Unknown Organization [id number][facility] [place] [place] [address] Laboratory Report Ordering Provider Test Date Status LEIGHTONPUENTE 01/29/2025 09:18:27 Final Observation Date Value Abnormality Reference (Units ) Status Nucleated erythrocytes/100 leukocytes [Ratio] in Blood by Automated count 01/29/2025 09:18:27 Final Variant lymphocytes [Presence] in Blood by Light microscopy 01/29/2025 09:18:27 Present Abnormal None Seen Final Performing Location [facility] [place] [address]
--- OUTSIDE RECORDS SUMMARY | 2025-03-05 22:38 | External Medical Summary ---
Author Name Unknown Address Unknown Organization [id number][facility] [place] [address] Laboratory Report Ordering Provider Test Date Status KWAME MANZANARES 01/29/2025 09:18:27 Final Observation Date Value Abnormality Reference (Units ) Status SYNC LEUKOCYTES IN BLOOD BY AUTOMATED COUNT 01/29/2025 09:18:27 7.92 4.00-10.80 (K/uL) Final Segs 01/29/2025 09:18:27 68.0 40.0-75.0 (%) Final Lymphs % 01/29/2025 09:18:27 15.4 Below low normal 18.0-42.0 (%) Final Monos 01/29/2025 09:18:27 14.4 Above high normal 1.0-11.0 (%) Final Eosinophils 01/29/2025 09:18:27 1.8 0.0-6.0 (%) Final Basos 01/29/2025 09:18:27 0.4 0.0-2.0 (%) Final Absolute Segs 01/29/2025 09:18:27 5.39 1.80-7.70 (K/uL) Final Lymphs, absolute 01/29/2025 09:18:27 1.22 1.00-4.80 (K/ul) Final Monos, Abs 01/29/2025 09:18:27 1.14 Above high normal 0.00-1.10 (K/uL) Final Eos, Abs 01/29/2025 09:18:27 0.14 0.00-0.70 (K/uL) Final Basos, Abs 01/29/2025 09:18:27 0.03 0.00-0.20 (K/uL) Final Performing Location [facility] [address] [place] [address]
[2025-03-05] MEDS: methylPREDNISolone 125 MG/2 ML VIAL IV STA (22:54)
[2025-03-05 23:32] LABS: Influenza A virus by PCR Negative (Neg); Influenza B virus by PCR Negative (Neg); RSV by PCR Negative (Neg); SARS CoV2 RNA(COVID-19) Ceph NEGATIVE (Negative)
[2025-03-05 23:50] LABS: Basophils # (auto) 0.03 K/uL (0.00-0.20); Basophils % (auto) 0.4 %; Eosinophils # (auto) 0.23 K/uL (0.00-0.50); Eosinophils % (auto) 2.8 %; Hematocrit (blood only) 44.7 % (42.0-52.0); Hemoglobin 15.3 g/dl (14.0-18.0); Immature Granulocytes # (auto) 0.12 K/uL (0.01-0.20); Immature Granulocytes % (auto) 1.5 %; Lymphocytes # (auto) 1.19 K/uL (1.20-3.40); Lymphocytes % (auto) 14.5 %; Mean Corpuscular Hemoglobin 31.2 pg (25.0-34.0); Mean Corpuscular Hgb Conc 34.2 g/dL (32.0-36.0); Mean Corpuscular Volume 91.2 fL (80.0-100.0); Mean Platelet Volume 9.5 fL (9.4-12.4); Monocytes # (auto) 1.12 K/uL (0.11-0.59); Monocytes % (auto) 13.7 %; Neutrophils % (auto) 67.1 %; Platelet Count 264 K/uL (130-400); RDW Coefficient of Variation 14.6 % (11.5-14.5); RDW Standard Deviation 48.4 fL (36.4-46.3); White Blood Count 8.19 K/ul (4.8-10.8)
[2025-03-06 00:09] LABS: Albumin Globulin Ratio 1.7 (0.9-2); Albumin Level 3.9 gm/dl (3.4-5.0); BUN Creatinine Ratio 11.5 (10-20); Bilirubin,Total 0.4 mg/dl (0.2-1.0); Calcium 8.3 mg/dl (8.6-10.3); Creatinine Clr Calc Pharmacy 157.9 ml/min; Globulin 2.3 gm/dl (2.5-4.0); Magnesium 2.1 mg/dl (1.7-2.4); Potassium 3.4 mmol/L (3.5-5.1); Total Protein 6.2 gm/dl (6.0-8.3)
[2025-03-06 00:15] LABS: Troponin I High Sensitivity 12.3 pg/ml (0-20)
[2025-03-06] MEDS: cefTRIAXone SODIUM 2,000 MG/50 ML BAG IV STA (00:18)
[2025-03-06 00:28] LABS: INR 0.9 (0.9-1.1); Partial Thromboplastin Ratio 1.2; Partial Thromboplastin Time 31 Seconds (21-31); Prothrombin Time 10.3 Seconds (9.0-12.0)
--- NOTE | 2025-03-06 01:10 | XRay Report ---
Exam(s): XR CXR 1 VIEW EXAM: XR Chest, 1 View CLINICAL HISTORY: Reason for exam: Dyspnea. TECHNIQUE: Frontal view of the chest. COMPARISON: Prior chest x-ray from January 22, 2025. FINDINGS: Lungs: Mild to moderate peribronchial thickening of the central and lower lobe bronchi with increased interstitial opacities in the lower lobes. No consolidation. Pleural space: Unremarkable. No pneumothorax. Heart: Unremarkable. No cardiomegaly. Mediastinum: Unremarkable. Normal mediastinal contour. Bones/joints: Unremarkable. No acute fracture. IMPRESSION: Bronchitis, which may be of infectious or inflammatory etiologies. No consolidation or pleural effusion. Electronically signed by: Lanny Del Angel MD 03/06/25 01:09 AM
[2025-03-06 01:35] LABS: Base Excess VBG -1.9 mEq/L; HCO3 VBG 24 mmol/L; Oxygen Saturation VBG 95.8 %; PCO2 VBG 46 mmHg (38-50); PO2 VBG 81 mmHg; pH VBG 7.33 (7.36-7.41)
[2025-03-06] MEDS: FUROSEMIDE 40 MG/4 ML VIAL IV ONE ×2 (02:04→07:56)
[2025-03-06] MEDS: CALCIUM GLUCONATE 1,000 MG/60 ML BAG IV STA (02:05)
[2025-03-06] MEDS: POTASSIUM CHLORIDE CRTAB 20 MEQ TABCR PO STA (02:06)
[2025-03-06] MEDS: ALBUT/IPRATROP 3MG/0.5MG NEB 3 ML VIAL NEB STA (02:07)
[2025-03-06] MEDS: AMPICILLIN/SULBACTAM SOD 3,000 MG/100 ML BAG IV STA (02:28)
--- NOTE | 2025-03-06 02:45 | History & Physical Report ---
Date of Service March 06, 2025 Assessment & Plan (1) Acute hypoxemic respiratory failure: Plan: Acute hypoxemic respiratory failure Multifactorial: COPD exacerbation secondary to possible aspiration pneumonitis, no sepsis for now Decompensated heart failure, patient presenting with right side heart failure symptoms mild TR hypertension, stable hyperlipidemia, on statin Rx prediabetes, hemoglobin A1c of 6.05 December 2024 chronic hyponatremia, in the setting of alcohol abuse anxiety/mood disorder, at baseline ongoing tobacco abuse Admit to PCU Unasyn followed by Augmentin course, nebs RTC, prednisone course Pulmonary consult if without improvement Diuretic Rx Strict I/Os, daily weights, CHF education, fluid restriction May benefit from cardiology input YVONNE S at risk protocol, DT precautions Nicotine patch DVT prophylaxis. Lovenox subcu Full code Total critical care time was 40 minutes. Text document was generated using Spontly voice recognition software. It may contain grammatical or spelling errors. Kindly contact undersigned for clarification of any documentation item in question. History of Present Illness Chief Complaint: Worsening shortness of breath cough, fluid retention Primary Care Provider: Khai Mejia MD History obtained from patient and records. Medical history significant for chronic right-sided heart failure (EF 60 to 64%, TTE 2024), mild TR, hypertension, hyperlipidemia, COPD, prediabetes, chronic hyponatremia, BPH, morbid obesity, anxiety/mood disorder ongoing tobacco/alcohol abuse. Last confinement July 2022 for right-sided heart failure, pericardial effusion. Patient with worsening junky cough symptoms and SOB the last few days. Admits to coughing with meals/water intake. Chest pain from coughing. Fluid retention and weight gain about 10 pounds. Lowest O2 sats of 80s upon arrival at the ER. Medical History as above Surgical History : Knee surgery Family History : Lung cancer, heart disease Personal/Social history : 1 pack daily, alcohol abuse Allergies Allergy/AdvReac Type Severity Reaction Status Date / Time No Known Allergies Allergy Verified 03/05/25 23:33 Home Medications Medication Instructions Recorded Confirmed Type losartan 100 mg tablet 100 mg PO QAM 03/26/21 03/05/25 History acetaminophen 500 mg tablet 1,000 mg PO TID Pain 07/10/22 03/05/25 History (Tylenol Extra Strength) albuterol sulfate 90 mcg/actuation 2 puff inhalation Q4H PRN 07/10/22 03/05/25 History aerosol inhaler Shortness Of Breath Or Wheezing folic acid 1 mg tablet 1 mg PO QAM #30 tabs 07/26/22 03/05/25 Rx tamsulosin 0.4 mg capsule 0.4 mg PO QAM #30 caps 07/26/22 03/05/25 Rx thiamine HCl (vitamin B1) 100 mg 100 mg PO QAM #30 tabs 07/26/22 03/05/25 Rx tablet furosemide 40 mg tablet 40 mg PO QAM 12/07/22 03/05/25 History gabapentin 300 mg capsule 300 mg PO BID 12/07/22 03/05/25 History aripiprazole 5 mg tablet 5 mg PO DAILY 01/22/25 03/05/25 History atorvastatin 20 mg tablet 20 mg PO QAM 01/22/25 03/05/25 History fluticasone fur. 100 mcg-umeclid 1 inh inhalation QA 01/22/25 03/05/25 History 62.5 mcg-vilant 25 mcg inhalat.powder (Trelegy Ellipta) naltrexone microspheres 380 mg 0 mg IM MONTHLY 01/22/25 03/05/25 History intramuscular suspension,extended release nicotine 21 mg/24 hr daily 1 patch transdermal DAILY 01/22/25 03/05/25 History transdermal patch sertraline 100 mg tablet 150 mg PO QAM 01/22/25 03/05/25 History Past Med/Surg History Problem List (Updated 03/06/25 @ 23:01 by Charan Vera MD) Acute exacerbation of chronic obstructive pulmonary disease (Acute) Localized swelling of both lower legs (Acute) Bilateral cellulitis of lower leg (Acute) Acute hypoxemic respiratory failure (Acute) Acute hypoxemic respiratory failure PSVT (paroxysmal supraventricular tachycardia) HTN (hypertension) COPD (chronic obstructive pulmonary disease) Pericardial effusion Bilateral lower leg cellulitis DVT prophylaxis Tobacco use disorder Severe obesity Granulomatous lung disease Centrilobular emphysema Acute right heart failure Pedal edema (Acute) Fluid overload (Acute) Rapid weight gain (Acute) Acute URI Acute hyponatremia (Acute) Alcohol dependence (Acute) Low back pain (Acute) Wheeze Syncope (Acute) History of alcohol abuse Liver lesion Pulmonary nodule Abnormal CT of the chest Lesion of adrenal gland Screening for malignant neoplasm of prostate Impaired fasting glucose Hyperlipidemia Hypertension Encounter for health maintenance examination in adult Surgical History History of colonoscopy (10/13/12) Dr Silva, sigmoid tics, otherwise normal, recheck recommended in 5 years due to FHx (brother) S/P right knee arthroscopy 1986 Family History Brother Colorectal cancer Lung cancer Mother Lung cancer Father Myocardial infarction Denies family history of Ovarian cancer Prostate cancer Breast cancer Social History Smoking Status: Heavy tobacco smoker Tobacco Type: Cigarettes Cigarettes Per Day: 1-1.5 packs; Second Hand Exposure: Yes; Do You Dip or Chew Tobacco: No; Tobacco Cessation Education Requested by Patient: No Hx Alcohol Use: Yes Alcohol type: beer Hx Substance Use: No Preferred Language: Indonesian Communication Ability: Effective 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 Beliefs That Will Affect Care: None marital status: Current Living Situation: Alone current occupational status: employed Other Information That Helps Us Care for You: No Feels Safe at Home: Yes Safety Concerns: Feels Safe At This Time Assistive Devices: Glasses Review of Systems Review of Systems: As per HPI, all other systems reviewed and negative Physical Exam Physical Exam: GENERAL: Comfortable, obese, no respiratory distress SKIN: Normal color, warm HEENT: Alopecia, [place] palpebral conjunctivae, no ptosis, moist buccal mucosa, nasal cannula in place NECK : Supple, short, no tenderness CHEST : Decreased breath sounds, expiratory wheezes, no tenderness HEART : RRR, no obvious murmurs ABDOMEN: Some distention, nontender EXTREMITIES : Bilateral LE swelling, without tenderness, palpable pulses, no other conspicuous deformities noted NEUROLOGIC : Coherent, no facial asymmetry, no other gross focality Results & Data Results & Data Vital Signs (Past 12 Hours) Vital Signs Temp Pulse Pulse Resp BP BP Pulse Ox 03/06/25 02:01 73 03/06/25 02:01 72 20 132/61 95 03/06/25 00:23 69 20 147/80 H 96 03/06/25 00:10 87 L 03/05/25 22:16 93 03/05/25 22:07 73 25 H 117/79 94 03/05/25 21:57 71 03/05/25 21:45 36.6 C 83 22 147/82 H 92 O2 Del Method O2 Flow Rate 03/06/25 02:01 03/06/25 02:01 Nasal Cannula 2 03/06/25 00:23 Nasal Cannula 3 03/06/25 00:10 Room Air 03/05/25 22:16 Room Air 03/05/25 22:07 Room Air 03/05/25 21:57 03/05/25 21:45 Room Air Laboratory Results Laboratory Results WBC 8.19 K/ul (4.8-10.8) 03/05/25 23:37 RBC 4.90 M/uL (4.70-6.10) 03/05/25 23:37 Hgb 15.3 g/dl (14.0-18.0) 03/05/25 23:37 Hct 44.7 % (42.0-52.0) 03/05/25 23:37 MCV 91.2 fL (80.0-100.0) 03/05/25 23:37 MCH 31.2 pg (25.0-34.0) 03/05/25 23:37 MCHC 34.2 g/dL (32.0-36.0) 03/05/25 23:37 RDW Std Deviation 48.4 fL (36.4-46.3) H 03/05/25 23:37 RDW Coeff of Beth 14.6 % (11.5-14.5) H 03/05/25 23:37 Plt Count 264 K/uL (130-400) 03/05/25 23:37 MPV 9.5 fL (9.4-12.4) 03/05/25 23:37 Immature Gran % (Auto) 1.5 % 03/05/25 23:37 Neut % (Auto) 67.1 % 03/05/25 23:37 Lymph % (Auto) 14.5 % 03/05/25 23:37 [place] % (Auto) 13.7 % 03/05/25 23:37 Eos % (Auto) 2.8 % 03/05/25 23:37 Baso % (Auto) 0.4 % 03/05/25 23:37 Neut # (Auto) 5.50 K/uL (1.40-6.50) 03/05/25 23:37 Lymph # (Auto) 1.19 K/uL (1.20-3.40) L 03/05/25 23:37 [place] # (Auto) 1.12 K/uL (0.11-0.59) H 03/05/25 23:37 Eos # (Auto) 0.23 K/uL (0.00-0.50) 03/05/25 23:37 Baso # (Auto) 0.03 K/uL (0.00-0.20) 03/05/25 23:37 Immature Gran # (Auto) 0.12 K/uL (0.01-0.20) 03/05/25 23:37 PT 10.3 Seconds (9.0-12.0) 03/05/25 23:37 INR 0.9 (0.9-1.1) 03/05/25 23:37 APTT 31 Seconds (21-31) 03/05/25 23:37 PTT Ratio 1.2 03/05/25 23:37 VBG pH 7.33 (7.36-7.41) L 03/06/25 01:29 VBG pCO2 46 mmHg (38-50) 03/06/25 01:29 VBG pO2 81 mmHg 03/06/25 01:29 VBG HCO3 24 mmol/L 03/06/25 01:29 VBG O2 Saturation 95.8 % 03/06/25 01:29 VBG Base Excess -1.9 mEq/L 03/06/25 01:29 Sodium 133 mmol/L (136-145) L 03/06/25 01:29 Potassium 3.4 mmol/L (3.5-5.1) L 03/05/25 23:37 Chloride 96 mmol/L (98-107) L 03/05/25 23:37 Carbon Dioxide 25 mmol/L (21-32) 03/05/25 23:37 Anion Gap 10 (3-11) 03/05/25 23:37 BUN 7 mg/dl (6-23) 03/05/25 23:37 Creatinine 0.61 mg/dl (0.6-1.4) 03/05/25 23:37 Est Cr Clr Drug Dosing 157.9 ml/min 03/05/25 23:37 eGFR 106.59 03/05/25 23:37 BUN/Creatinine Ratio 11.5 (10-20) 03/05/25 23:37 Glucose 110 mg/dl (70-99(Fasting)) H 03/05/25 23:37 Calcium 8.3 mg/dl (8.6-10.3) L 03/05/25 23:37 Magnesium 2.1 mg/dl (1.7-2.4) 03/05/25 23:37 Total Bilirubin 0.4 mg/dl (0.2-1.0) 03/05/25 23:37 AST 18 U/L (13-39) 03/05/25 23:37 ALT 17 U/L (7-52) 03/05/25 23:37 Alkaline Phosphatase 62 U/L (34-104) 03/05/25 23:37 Troponin I High Sens 12.3 pg/ml (0-20) 03/05/25 23:37 B-Natriuretic Peptide 30 pg/ml (0-100) 03/05/25 23:37 Total Protein 6.2 gm/dl (6.0-8.3) 03/05/25 23:37 Albumin 3.9 gm/dl (3.4-5.0) 03/05/25 23:37 Globulin 2.3 gm/dl (2.5-4.0) L 03/05/25 23:37 Albumin/Globulin Ratio 1.7 (0.9-2) 03/05/25 23:37 Ethyl Alcohol mg/dL 99.3 mg/dl (<10.0) H 03/06/25 01:29 SARS-CoV-2 (PCR) NEGATIVE (Negative) 03/05/25 22:29 Influenza Type A (PCR) Negative (Neg) 03/05/25 22:29 Influenza Type B (PCR) Negative (Neg) 03/05/25 22:29 RSV (RT-PCR) Negative (Neg) 03/05/25 22:29 Impressions Chest X-Ray 03/05/25 22:13 Exam(s): XR CXR 1 VIEW EXAM: XR Chest, 1 View CLINICAL HISTORY: Reason for exam: Dyspnea. TECHNIQUE: Frontal view of the chest. COMPARISON: Prior chest x-ray from January 22, 2025. FINDINGS: Lungs: Mild to moderate peribronchial thickening of the central and lower lobe bronchi with increased interstitial opacities in the lower lobes. No consolidation. Pleural space: Unremarkable. No pneumothorax. Heart: Unremarkable. No cardiomegaly. Mediastinum: Unremarkable. Normal mediastinal contour. Bones/joints: Unremarkable. No acute fracture. IMPRESSION: Bronchitis, which may be of infectious or inflammatory etiologies. No consolidation or pleural effusion. Electronically signed by: Lanny Del Angel MD 03/06/25 01:09 AM Chest CTA: 1. No evidence of pulmonary thromboembolism. 2. Bilateral basilar mild ligament thickening/effusion with lower lobes basal segments atelectatic changes, possibly postinflammatory/reactive. New. 3. Upper lung lobes mild emphysematous changes more appreciated than previous CT study. Diagnostic Findings EKG as per my interpretation :Rate 80, NSR, LAD, LAFB, no ischemia
[2025-03-06] MEDS ORDERED: LORazepam 2 MG/1 ML VIAL IV PRN (02:47)
[2025-03-06] MEDS: THIAMINE HCL 100 MG in SYRINGE 9 ML IV STA (04:02)
[2025-03-06 04:26] LABS: Basophils # (auto) 0.02 K/uL (0.00-0.20); Basophils % (auto) 0.3 %; Hematocrit (blood only) 49.5 % (42.0-52.0); Hemoglobin 17.1 g/dl (14.0-18.0); Immature Granulocytes # (auto) 0.09 K/uL (0.01-0.20); Immature Granulocytes % (auto) 1.4 %; Lymphocytes # (auto) 0.58 K/uL (1.20-3.40); Lymphocytes % (auto) 8.9 %; Mean Corpuscular Hemoglobin 31.4 pg (25.0-34.0); Mean Corpuscular Hgb Conc 34.5 g/dL (32.0-36.0); Mean Corpuscular Volume 90.8 fL (80.0-100.0); Mean Platelet Volume 9.8 fL (9.4-12.4); Monocytes # (auto) 0.07 K/uL (0.11-0.59); Monocytes % (auto) 1.1 %; Neutrophils # (auto) 5.75 K/uL (1.40-6.50); Neutrophils % (auto) 88.3 %; Platelet Count 296 K/uL (130-400); RDW Coefficient of Variation 14.2 % (11.5-14.5); RDW Standard Deviation 47.5 fL (36.4-46.3); Red Blood Count 5.45 M/uL (4.70-6.10); White Blood Count 6.51 K/ul (4.8-10.8)
[2025-03-06 04:41] LABS: BUN Creatinine Ratio 10.9 (10-20); Creatinine Clr Calc Pharmacy 175.1 ml/min; Potassium 3.6 mmol/L (3.5-5.1)
[2025-03-06] MEDS: OPTIRAY 320 125ml IV ONE (04:43)
--- NOTE | 2025-03-06 05:23 | CT Scan Report ---
EXAM: CT angio chest PE protocol CLINICAL HISTORY: Chest pain. TECHNIQUE: CT angiography of the chest was performed with and without intravenous contrast with the following protocol: axial images with reconstructed coronal and sagittal images. Intravenous contrast 101 ml Optiray 320 was administered using automated injection techniques. Bolus tracking was employed to optimize arterial phase imaging. One of these 3D techniques was utilized: Maximum Intensity Pixel (MIP), 3D Reconstructed Images, Volume Rendered Images, Surface Shaded Rendering. One of the following dose reduction techniques was utilized for this exam: Automated exposure control, adjustment of the mA and/or kV according to patient size, and use of iterative reconstruction. COMPARISON: Comparison is made with CT 03/26/2021 and prior xrays last dated 01/22/2025. FINDINGS: Aorta and Great Vessels: Ascending Aorta: Normal in caliber, no aneurysm, dissection. Bilateral basilar mild ligament thickening/effusion with lower lobes basal segments atelectatic changes, possibly postinflammatory/reactive. New Upper lung lobes mild emphysematous changes more appreciated than previous CT study. Scattered atheromatous calcification of the ascending aorta and aortic arch. Mildly nodular thickening of both adrenals more on the left side. Small hiatus hernia Aortic Arch: Normal in caliber, no aneurysm, dissection.Scattered atheromatous calcification of the ascending aorta and aortic arch. Descending Aorta: Normal in caliber, no aneurysm, dissection, or significant atherosclerosis. Pulmonary Arteries: The main pulmonary artery and its branches are patent. No evidence of pulmonary embolism or significant stenosis. Heart: Cardiac Chambers: Normal in size. No evidence of cardiomegaly. Pericardium: No pericardial effusion or thickening. Lungs and Pleura: Bilateral basilar mild ligament thickening/effusion with lower lobes basal segments atelectatic changes, possibly postinflammatory/reactive. New. Upper lung lobes mild emphysematous changes more appreciated than previous CT study. Mediastinum: No mediastinal mass or abnormal lymphadenopathy. Normal appearance of the trachea and central bronchi. Hilar Structures: Hilar structures are normal without enlargement. Chest Wall: No mass lesions or abnormalities in the chest wall. Vascular Structures: Superior Vena Cava: Patent without evidence of stenosis or thrombus. Inferior Vena Cava: Patent without evidence of stenosis or thrombus. Bones and Soft Tissues: No fractures, lytic, or blastic lesions of the visualized bony structures. Mildly nodular thickening of both adrenals more on the left side Small hiatus hernia Thoracic spondylosis IMPRESSION: 1. No evidence of pulmonary thromboembolism. 2. Bilateral basilar mild ligament thickening/effusion with lower lobes basal segments atelectatic changes, possibly postinflammatory/reactive. New. 3. Upper lung lobes mild emphysematous changes more appreciated than previous CT study. Electronically signed by Corby Ochoa 03-06-2025 05:22 AM
[2025-03-06] MEDS: NICOTINE 21 MG/24 HR TDSY TD SCH (06:19)
[2025-03-06] MEDS: ALBUT/IPRATROP 3MG/0.5MG NEB 3 ML VIAL NEB SCH (07:08)
[2025-03-06] MEDS: AMOXICILLIN/CLAVULANATE 875 MG TAB PO SCH (07:57)
[2025-03-06] MEDS: predniSONE 20 MG TAB PO SCH (07:57)
[2025-03-06] MEDS: MULTIVITAMIN TAB PO SCH (07:57)
[2025-03-06] MEDS: FOLIC ACID 1 MG TAB PO SCH (07:58)
[2025-03-06] MEDS: ENOXAPARIN INJ 40 MG/0.4 ML SYR SQ SCH (07:58)
[2025-03-06] MEDS ORDERED: NON-FORMULARY MEDICATION (Fluticasone-Umeclidin-Vilanter [Trelegy Ellipta] 100-62.5-25 mcg INH SCH (09:00)
[2025-03-06] MEDS: SERTRALINE HCL 50 MG TABLET PO SCH (09:57)
[2025-03-06] MEDS: ATORVASTATIN 20 MG TAB PO SCH (09:57)
[2025-03-06] MEDS: GABAPENTIN 300 MG CAP PO SCH (09:57)
[2025-03-06] MEDS: ARIPiprazole 5 MG TAB PO SCH (09:58)
[2025-03-06] MEDS: TAMSULOSIN HCL 0.4 MG CAP PO SCH (09:58)
[2025-03-06] MEDS: UMECLIDINIUM/VILANTEROL 62.5/25MCG 7 PUFFS/INHALER INH SCH (10:00)
[2025-03-06] MEDS: FLUTICASONE FUROATE 100MCG 14 PUFFS/INHALER INH SCH (13:37)
--- NOTE | 2025-03-06 13:39 | Hospitalist Progress Note ---
Date of Service March 06, 2025 Assessment & Plan (1) Acute hypoxemic respiratory failure: Plan Pt is a 64yoM with PMhx significant for chronic right-sided heart failure (EF 60 to 64%, TTE 2024), mild TR, hypertension, hyperlipidemia, COPD, prediabetes, chronic hyponatremia, BPH, morbid obesity, anxiety/mood disorder ongoing tobacco/alcohol abuse who presented with concern for cough/SOB and swelling. Acute hypoxemic respiratory failure COPD exacerbation secondary to possible aspiration pneumonitis, no sepsis for now CTA chest with no PE, notes emphysematous changes and possible postinflammatory/reactive changes Unasyn followed by Augmentin course nebs RTC prednisone course Pulmonary consult if without improvement Oxygen supplementation as needed, continue to monitor Possible decompensated Heart failure patient presenting with right side heart failure symptoms On po lasix 40mg at home daily Diuretic Rx for CHF component- has received 2 doses of IV lasix 40mg with about 6L outpt, down approx 5lbs from admission Continue with IV lasix 40mg daily Strict I/Os, daily weights, CHF education, fluid restriction Consider Cardiology consult Oxygen supplementation as needed, continue to monitor Chronic Alcohol Use AWSS at risk protocol, DT precautions Chronic Medical Problems: mild TR hypertension, stable hyperlipidemia, on statin Rx prediabetes, hemoglobin A1c of 6.05 December 2024 chronic hyponatremia, in the setting of alcohol abuse anxiety/mood disorder, at baseline ongoing tobacco abuse DVT prophylaxis. Lovenox subcu Full code Admission and Anticipated Discharge Date Admission Date: March 06, 2025 Subjective pt was seen sitting up in bed Notes he would like to stop drinking and has tried many times Does not use oxygen at home No chest pain or SOB at the time of exam Review of Systems Review of Systems: All systems reviewed & are unremarkable except as noted in Subjective Physical Exam Physical Exam: General: Alert, oriented. No acute distress HEENT: NC/AT CV: RRR Resp: Breath sounds with wheezing bilaterally, no increased effort of breathing Abdomen: Soft, nontender Extremities: edema in lower extremities bilaterally. Results & Data Results & Data Vital Signs (Past 12 Hours) Vital Signs Temp Pulse Pulse Resp BP BP Pulse Ox 03/06/25 11:01 81 18 93 03/06/25 11:00 77 03/06/25 10:52 36.8 C 79 18 145/82 H 92 03/06/25 07:29 03/06/25 07:09 74 19 91 03/06/25 07:00 36.5 C 80 18 148/83 H 93 03/06/25 05:04 86 03/06/25 05:04 03/06/25 05:04 36.7 C 84 20 134/77 93 03/06/25 03:58 76 20 126/75 95 03/06/25 02:01 73 03/06/25 02:01 72 20 132/61 95 O2 Del Method O2 Flow Rate 03/06/25 11:01 Nasal Cannula 2 03/06/25 11:00 03/06/25 10:52 Nasal Cannula 2.0 03/06/25 07:29 Nasal Cannula 2 03/06/25 07:09 Nasal Cannula 2 03/06/25 07:00 Nebulizer 03/06/25 05:04 03/06/25 05:04 Nasal Cannula 2 03/06/25 05:04 Nasal Cannula 2 03/06/25 03:58 Nasal Cannula 2 03/06/25 02:01 03/06/25 02:01 Nasal Cannula 2 Diagnostic Findings Chest X-Ray 03/05/25 22:13 Exam(s): XR CXR 1 VIEW EXAM: XR Chest, 1 View CLINICAL HISTORY: Reason for exam: Dyspnea. TECHNIQUE: Frontal view of the chest. COMPARISON: Prior chest x-ray from January 22, 2025. FINDINGS: Lungs: Mild to moderate peribronchial thickening of the central and lower lobe bronchi with increased interstitial opacities in the lower lobes. No consolidation. Pleural space: Unremarkable. No pneumothorax. Heart: Unremarkable. No cardiomegaly. Mediastinum: Unremarkable. Normal mediastinal contour. Bones/joints: Unremarkable. No acute fracture. IMPRESSION: Bronchitis, which may be of infectious or inflammatory etiologies. No consolidation or pleural effusion. Electronically signed by: Lanny Del Angel MD 03/06/25 01:09 AM Chest CTA 03/06/25 02:49 EXAM: CT angio chest PE protocol CLINICAL HISTORY: Chest pain. TECHNIQUE: CT angiography of the chest was performed with and without intravenous contrast with the following protocol: axial images with reconstructed coronal and sagittal images. Intravenous contrast 101 ml Optiray 320 was administered using automated injection techniques. Bolus tracking was employed to optimize arterial phase imaging. One of these 3D techniques was utilized: Maximum Intensity Pixel (MIP), 3D Reconstructed Images, Volume Rendered Images, Surface Shaded Rendering. One of the following dose reduction techniques was utilized for this exam: Automated exposure control, adjustment of the mA and/or kV according to patient size, and use of iterative reconstruction. COMPARISON: Comparison is made with CT 03/26/2021 and prior xrays last dated 01/22/2025. FINDINGS: Aorta and Great Vessels: Ascending Aorta: Normal in caliber, no aneurysm, dissection. Bilateral basilar mild ligament thickening/effusion with lower lobes basal segments atelectatic changes, possibly postinflammatory/reactive. New Upper lung lobes mild emphysematous changes more appreciated than previous CT study. Scattered atheromatous calcification of the ascending aorta and aortic arch. Mildly nodular thickening of both adrenals more on the left side. Small hiatus hernia Aortic Arch: Normal in caliber, no aneurysm, dissection.Scattered atheromatous calcification of the ascending aorta and aortic arch. Descending Aorta: Normal in caliber, no aneurysm, dissection, or significant atherosclerosis. Pulmonary Arteries: The main pulmonary artery and its branches are patent. No evidence of pulmonary embolism or significant stenosis. Heart: Cardiac Chambers: Normal in size. No evidence of cardiomegaly. Pericardium: No pericardial effusion or thickening. Lungs and Pleura: Bilateral basilar mild ligament thickening/effusion with lower lobes basal segments atelectatic changes, possibly postinflammatory/reactive. New. Upper lung lobes mild emphysematous changes more appreciated than previous CT study. Mediastinum: No mediastinal mass or abnormal lymphadenopathy. Normal appearance of the trachea and central bronchi. Hilar Structures: Hilar structures are normal without enlargement. Chest Wall: No mass lesions or abnormalities in the chest wall. Vascular Structures: Superior Vena Cava: Patent without evidence of stenosis or thrombus. Inferior Vena Cava: Patent without evidence of stenosis or thrombus. Bones and Soft Tissues: No fractures, lytic, or blastic lesions of the visualized bony structures. Mildly nodular thickening of both adrenals more on the left side Small hiatus hernia Thoracic spondylosis IMPRESSION: 1. No evidence of pulmonary thromboembolism. 2. Bilateral basilar mild ligament thickening/effusion with lower lobes basal segments atelectatic changes, possibly postinflammatory/reactive. New. 3. Upper lung lobes mild emphysematous changes more appreciated than previous CT study. Electronically signed by Corby Ochoa 03-06-2025 05:22 AM
[2025-03-06] MEDS ORDERED: oxyCODONE HCL IR 5 MG TAB (IMMEDIATE RELEASE) PO PRN (19:37)
[2025-03-06] MEDS ORDERED: PROMETHAZINE 12.5 MG/50.5 ML BAG IV PRN (19:37)
[2025-03-06] MEDS: ACETAMINOPHEN 325 MG TAB PO PRN (20:18)
[2025-03-07] MEDS: THIAMINE HCL 100 MG TAB PO SCH (07:53)
[2025-03-07] MEDS: FUROSEMIDE INJ 20 MG/2 ML VIAL IV SCH (07:55)
[2025-03-07] MEDS ORDERED: FUROSEMIDE INJ 20 MG/2 ML VIAL IV SCH (09:00)
[2025-03-07] MEDS ORDERED: FUROSEMIDE 20 MG TAB PO SCH (09:00)
--- NOTE | 2025-03-07 09:13 | Electrocardiogram Report ---
Test Reason : Blood Pressure : */* mmHG Vent. Rate : 79 BPM Atrial Rate : 79 BPM P-R Int : 174 ms QRS Dur : 112 ms QT Int : 364 ms P-R-T Axes : 72 -49 77 degrees QTcB Int : 417 ms Sinus rhythm with Premature atrial complexes Left anterior fascicular block Non-specific intra-ventricular conduction delay Abnormal ECG When compared with ECG of 02-May-2023 15:50, Premature atrial complexes are now Present Confirmed by Kamla Bazan ([id number]) on 03/07/2025 9:12:40 AM Referred By: REFERRED SELF Confirmed By: Kamla Bazan
[2025-03-07 09:16] LABS: Basophils # (auto) 0.02 K/uL (0.00-0.20); Basophils % (auto) 0.2 %; Eosinophils # (auto) 0.03 K/uL (0.00-0.50); Eosinophils % (auto) 0.3 %; Hematocrit (blood only) 50.5 % (42.0-52.0); Hemoglobin 17.2 g/dl (14.0-18.0); Lymphocytes # (auto) 1.16 K/uL (1.20-3.40); Lymphocytes % (auto) 11.9 %; Mean Corpuscular Hemoglobin 31.3 pg (25.0-34.0); Mean Corpuscular Hgb Conc 34.1 g/dL (32.0-36.0); Mean Corpuscular Volume 91.8 fL (80.0-100.0); Mean Platelet Volume 9.7 fL (9.4-12.4); Monocytes % (auto) 8.2 %; Neutrophils # (auto) 7.67 K/uL (1.40-6.50); Neutrophils % (auto) 78.4 %; Platelet Count 306 K/uL (130-400); RDW Coefficient of Variation 15.1 % (11.5-14.5); RDW Standard Deviation 50.4 fL (36.4-46.3); White Blood Count 9.78 K/ul (4.8-10.8)
[2025-03-07 09:36] LABS: Albumin Globulin Ratio 1.6 (0.9-2); Albumin Level 4.2 gm/dl (3.4-5.0); BUN Creatinine Ratio 20.8 (10-20); Bilirubin,Total 0.5 mg/dl (0.2-1.0); Calcium 9.2 mg/dl (8.6-10.3); Creatinine Clr Calc Pharmacy 121.9 ml/min; Globulin 2.7 gm/dl (2.5-4.0); Magnesium 2.2 mg/dl (1.7-2.4); Phosphorus 3.4 mg/dl (2.5-4.9); Potassium 3.6 mmol/L (3.5-5.1); Total Protein 6.9 gm/dl (6.0-8.3)
--- NOTE | 2025-03-07 13:54 | Hospitalist Progress Note ---
Date of Service March 07, 2025 Assessment & Plan (1) Acute exacerbation of chronic obstructive pulmonary disease: Plan Pt is a 64yoM with PMhx significant for chronic right-sided heart failure (EF 60 to 64%, TTE 2024), mild TR, hypertension, hyperlipidemia, COPD, prediabetes, chronic hyponatremia, BPH, morbid obesity, anxiety/mood disorder ongoing tobacco/alcohol abuse who presented with concern for cough/SOB and swelling. Acute hypoxemic respiratory failure COPD exacerbation secondary to possible aspiration pneumonitis, no sepsis for now CTA chest with no PE, notes emphysematous changes and possible postinflammatory/reactive changes Unasyn followed by Augmentin course nebs RTC prednisone course Pulmonary consult if without improvement Oxygen supplementation as needed, continue to monitor Possible decompensated Heart failure patient presenting with right side heart failure symptoms On po lasix 40mg at home daily Diuretic Rx for CHF component- has received 2 doses of IV lasix 40mg with about 6L outpt, down approx 5lbs from admission Continue with IV lasix 40mg daily Strict I/Os, daily weights, CHF education, fluid restriction Consider Cardiology consult Oxygen supplementation as needed, continue to monitor Chronic Alcohol Use AWSS at risk protocol, DT precautions Chronic Medical Problems: mild TR hypertension, stable hyperlipidemia, on statin Rx prediabetes, hemoglobin A1c of 6.05 December 2024 chronic hyponatremia, in the setting of alcohol abuse anxiety/mood disorder, at baseline ongoing tobacco abuse DVT prophylaxis. Lovenox subcu Full code Admission and Anticipated Discharge Date Admission Date: March 06, 2025 Subjective pt was seen sitting up in bed, coloring Notes swelling improving Still wheezing. Staes his hands are shaking, last drink before he was admitted No chest pain or SOB at the time of exam Review of Systems Review of Systems: All systems reviewed & are unremarkable except as noted in Subjective Physical Exam Physical Exam: General: Alert, oriented. No acute distress HEENT: NC/AT CV: RRR Resp: Breath sounds with wheezing bilaterally, no increased effort of breathing Abdomen: Soft, nontender Extremities: edema in lower extremities bilaterally. Results & Data Results & Data Vital Signs (Past 12 Hours) Vital Signs Temp Pulse Resp BP Pulse Ox O2 Del Method O2 Flow Rate 03/07/25 11:19 36.6 C 74 18 139/78 94 Nasal Cannula 2 03/07/25 11:00 74 16 94 Nasal Cannula 2 03/07/25 08:36 Nasal Cannula 2 03/07/25 07:16 70 16 96 Nasal Cannula 2 03/07/25 07:00 36.7 C 87 16 145/75 H 92 Nasal Cannula 2 03/07/25 02:54 36.4 C L 65 18 137/79 91 Room Air
[2025-03-08 08:06] LABS: Basophils # (auto) 0.03 K/uL (0.00-0.20); Basophils % (auto) 0.3 %; Eosinophils # (auto) 0.09 K/uL (0.00-0.50); Hematocrit (blood only) 50.9 % (42.0-52.0); Hemoglobin 16.9 g/dl (14.0-18.0); Immature Granulocytes # (auto) 0.11 K/uL (0.01-0.20); Immature Granulocytes % (auto) 1.3 %; Lymphocytes # (auto) 1.26 K/uL (1.20-3.40); Lymphocytes % (auto) 14.4 %; Mean Corpuscular Hemoglobin 30.8 pg (25.0-34.0); Mean Corpuscular Hgb Conc 33.2 g/dL (32.0-36.0); Mean Corpuscular Volume 92.7 fL (80.0-100.0); Mean Platelet Volume 9.3 fL (9.4-12.4); Monocytes # (auto) 0.83 K/uL (0.11-0.59); Monocytes % (auto) 9.5 %; Neutrophils # (auto) 6.41 K/uL (1.40-6.50); Neutrophils % (auto) 73.5 %; Platelet Count 286 K/uL (130-400); RDW Standard Deviation 51.1 fL (36.4-46.3); Red Blood Count 5.49 M/uL (4.70-6.10); White Blood Count 8.73 K/ul (4.8-10.8)
[2025-03-08 08:24] LABS: Albumin Globulin Ratio 1.6 (0.9-2); BUN Creatinine Ratio 22.6 (10-20); Bilirubin,Total 0.6 mg/dl (0.2-1.0); Creatinine Clr Calc Pharmacy 111.6 ml/min; Globulin 2.5 gm/dl (2.5-4.0); Magnesium 2.4 mg/dl (1.7-2.4); Phosphorus 4.1 mg/dl (2.5-4.9); Total Protein 6.5 gm/dl (6.0-8.3)
--- NOTE | 2025-03-08 14:58 | Hospitalist Progress Note ---
Date of Service March 08, 2025 Assessment & Plan (1) Acute exacerbation of chronic obstructive pulmonary disease: Plan Pt is a 64yoM with PMhx significant for chronic right-sided heart failure (EF 60 to 64%, TTE 2024), mild TR, hypertension, hyperlipidemia, COPD, prediabetes, chronic hyponatremia, BPH, morbid obesity, anxiety/mood disorder ongoing tobacco/alcohol abuse who presented with concern for cough/SOB and swelling. Acute hypoxemic respiratory failure COPD exacerbation secondary to possible aspiration pneumonitis, no sepsis for now CTA chest with no PE, notes emphysematous changes and possible postinflammatory/reactive changes Unasyn followed by Augmentin course nebs RTC prednisone course Pulmonary consult if without improvement Oxygen supplementation as needed, continue to monitor Possible decompensated Heart failure patient presenting with right side heart failure symptoms On po lasix 40mg at home daily Diuretic Rx for CHF component- has received 3 doses of IV lasix 40mg with about 11L outpt, down approx 6.1 Kg Transitioned from IV lasix 40mg daily to home dose of po 40mg Strict I/Os, daily weights, CHF education, fluid restriction Consider Cardiology consult Oxygen supplementation as needed, continue to monitor Chronic Alcohol Use AWSS at risk protocol, DT precautions Chronic Medical Problems: mild TR hypertension, stable hyperlipidemia, on statin Rx prediabetes, hemoglobin A1c of 6.05 December 2024 chronic hyponatremia, in the setting of alcohol abuse anxiety/mood disorder, at baseline ongoing tobacco abuse DVT prophylaxis. Lovenox subcu Full code Admission and Anticipated Discharge Date Admission Date: March 06, 2025 Subjective pt was seen sitting up in bed, coloring Notes swelling improving Still wheezing. Now off oxygen has not yet worked with PT Review of Systems Review of Systems: All systems reviewed & are unremarkable except as noted in Subjective Physical Exam Physical Exam: General: Alert, oriented. No acute distress HEENT: NC/AT CV: RRR Resp: Breath sounds with wheezing bilaterally, no increased effort of breathing Abdomen: Soft, nontender Extremities: edema in lower extremities bilaterally. Results & Data Results & Data Vital Signs (Past 12 Hours) Vital Signs Temp Pulse Resp BP Pulse Ox O2 Del Method O2 Flow Rate 03/08/25 10:44 78 16 90 Room Air 03/08/25 10:39 36.7 C 76 20 149/83 H 90 Room Air 03/08/25 07:36 36.3 C L 63 20 152/85 H 90 Nasal Cannula 2 03/08/25 07:05 76 18 90 Nasal Cannula 1
[2025-03-09 07:59] LABS: Basophils # (auto) 0.03 K/uL (0.00-0.20); Basophils % (auto) 0.4 %; Eosinophils # (auto) 0.16 K/uL (0.00-0.50); Eosinophils % (auto) 2.2 %; Hematocrit (blood only) 50.7 % (42.0-52.0); Immature Granulocytes # (auto) 0.16 K/uL (0.01-0.20); Immature Granulocytes % (auto) 2.2 %; Lymphocytes # (auto) 1.16 K/uL (1.20-3.40); Lymphocytes % (auto) 15.7 %; Mean Corpuscular Hgb Conc 33.5 g/dL (32.0-36.0); Mean Corpuscular Volume 92.3 fL (80.0-100.0); Mean Platelet Volume 9.4 fL (9.4-12.4); Monocytes # (auto) 1.02 K/uL (0.11-0.59); Monocytes % (auto) 13.8 %; Neutrophils # (auto) 4.88 K/uL (1.40-6.50); Neutrophils % (auto) 65.7 %; Platelet Count 286 K/uL (130-400); RDW Coefficient of Variation 14.6 % (11.5-14.5); RDW Standard Deviation 49.3 fL (36.4-46.3); Red Blood Count 5.49 M/uL (4.70-6.10); White Blood Count 7.41 K/ul (4.8-10.8)
[2025-03-09 08:15] LABS: Albumin Globulin Ratio 1.6 (0.9-2); Albumin Level 4.1 gm/dl (3.4-5.0); BUN Creatinine Ratio 27.7 (10-20); Bilirubin,Total 0.5 mg/dl (0.2-1.0); Calcium 8.9 mg/dl (8.6-10.3); Creatinine Clr Calc Pharmacy 142.4 ml/min; Globulin 2.5 gm/dl (2.5-4.0); Magnesium 2.4 mg/dl (1.7-2.4); Potassium 3.8 mmol/L (3.5-5.1); Total Protein 6.6 gm/dl (6.0-8.3)
[2025-03-09] MEDS: FUROSEMIDE 40 MG TAB PO SCH (10:06)
--- NOTE | 2025-03-09 15:38 | Discharge Summary ---
Discharge Summary Date of Service March 09, 2025 Principal Dx & Hospital Course #1 = Principal Diagnosis (1) Acute exacerbation of chronic obstructive pulmonary disease: Plan Pt is a 64yoM with PMhx significant for chronic right-sided heart failure (EF 60 to 64%, TTE 2024), mild TR, hypertension, hyperlipidemia, COPD, prediabetes, chronic hyponatremia, BPH, morbid obesity, anxiety/mood disorder ongoing tobacco/alcohol abuse who presented with concern for cough/SOB and swelling. Acute hypoxemic respiratory failure COPD exacerbation secondary to possible aspiration pneumonitis, no sepsis for now CTA chest with no PE, notes emphysematous changes and possible postinflammatory/reactive changes Unasyn followed by Augmentin course, discharged with 4 more days with probiotic nebs prednisone course, discharged with prednisone 40mg daily to complete 5 day course of rx Oxygen supplementation as needed, pt weaned off of oxygen Consider outpatient pulmonology followup Possible decompensated Heart failure patient presenting with right side heart failure symptoms On po lasix 40mg at home daily Diuretic Rx for CHF component- has received multiple doses of IV lasix 40mg with about 14L outpt, weight 125.1kg on admission, down to 116.1 kg on day of discharge. Transitioned from IV lasix 40mg daily to home dose of po 40mg Strict I/Os, daily weights, CHF education, fluid restriction Consider Cardiology followup as an outpatient pt weaned off of oxygen Chronic Alcohol Use AWSS at risk protocol, DT precautions Pt remained stable while hospitalized Chronic Medical Problems: mild TR hypertension, stable hyperlipidemia, on statin Rx prediabetes, hemoglobin A1c of 6.05 December 2024 chronic hyponatremia, in the setting of alcohol abuse anxiety/mood disorder, at baseline ongoing tobacco abuse Notes For Next Care Provider As above Medication Changes From Visit As above Admission HPI Per Admitting Provider History obtained from patient and records. Medical history significant for chronic right-sided heart failure (EF 60 to 64%, TTE 2024), mild TR, hypertension, hyperlipidemia, COPD, prediabetes, chronic hyponatremia, BPH, morbid obesity, anxiety/mood disorder ongoing tobacco/alcohol abuse. Last confinement July 2022 for right-sided heart failure, pericardial effusion. Patient with worsening junky cough symptoms and SOB the last few days. Admits to coughing with meals/water intake. Chest pain from coughing. Fluid retention and weight gain about 10 pounds. Lowest O2 sats of 80s upon arrival at the ER. Medical History as above Surgical History : Knee surgery Family History : Lung cancer, heart disease Personal/Social history : 1 pack daily, alcohol abuse Admission Exam Per Admitting Provider GENERAL: Comfortable, obese, no respiratory distress SKIN: Normal color, warm HEENT: Alopecia, [place] palpebral conjunctivae, no ptosis, moist buccal mucosa, nasal cannula in place NECK : Supple, short, no tenderness CHEST : Decreased breath sounds, expiratory wheezes, no tenderness HEART : RRR, no obvious murmurs ABDOMEN: Some distention, nontender EXTREMITIES : Bilateral LE swelling, without tenderness, palpable pulses, no other conspicuous deformities noted NEUROLOGIC : Coherent, no facial asymmetry, no other gross focality Discharge Exam General: Alert, oriented. No acute distress HEENT: NC/AT CV: RRR Resp: Breath sounds with slight wheezing bilaterally, no increased effort of breathing Abdomen: Soft, nontender Extremities: improving edema in lower extremities bilaterally. Updated Medication List Medication Instructions Recorded Confirmed Type losartan 100 mg tablet 100 mg PO QAM 03/26/21 03/05/25 History acetaminophen 500 mg tablet 1,000 mg PO TID Pain 07/10/22 03/05/25 History (Tylenol Extra Strength) albuterol sulfate 90 mcg/actuation 2 puff inhalation Q4H PRN 07/10/22 03/05/25 History aerosol inhaler Shortness Of Breath Or Wheezing folic acid 1 mg tablet 1 mg PO QAM #30 tabs 07/26/22 03/05/25 Rx tamsulosin 0.4 mg capsule 0.4 mg PO QAM #30 caps 07/26/22 03/05/25 Rx thiamine HCl (vitamin B1) 100 mg 100 mg PO QAM #30 tabs 07/26/22 03/05/25 Rx tablet furosemide 40 mg tablet 40 mg PO QAM 12/07/22 03/05/25 History gabapentin 300 mg capsule 300 mg PO BID 12/07/22 03/05/25 History aripiprazole 5 mg tablet 5 mg PO DAILY 01/22/25 03/05/25 History atorvastatin 20 mg tablet 20 mg PO QAM 01/22/25 03/05/25 History fluticasone fur. 100 mcg-umeclid 1 inh inhalation QAM 01/22/25 03/05/25 History 62.5 mcg-vilant 25 mcg inhalat.powder (Trelegy Ellipta) naltrexone microspheres 380 mg 0 mg IM MONTHLY 01/22/25 03/05/25 History intramuscular suspension,extended release nicotine 21 mg/24 hr daily 1 patch transdermal DAILY 01/22/25 03/05/25 History transdermal patch sertraline 100 mg tablet 150 mg PO QAM 01/22/25 03/05/25 History Saccharomyces boulardii 250 mg 250 mg PO DAILY #30 caps 03/09/25 Rx capsule (Florastor) amoxicillin 875 mg-potassium 1 tab PO BIDM #7 tabs 03/09/25 Rx clavulanate 125 mg tablet prednisone 20 mg tablet 40 mg (2 x 20 mg) PO DAILY #2 tabs 03/09/25 Rx Hospital Stay Data Consultations 03/06/25 00:30 ED Decision to Admit Stat Diagnostic Imagining Performed 03/06/25 02:49 CT angio chest PE protocol Stat Chest X-Ray 03/05/25 22:13 Exam(s): XR CXR 1 VIEW EXAM: XR Chest, 1 View CLINICAL HISTORY: Reason for exam: Dyspnea. TECHNIQUE: Frontal view of the chest. COMPARISON: Prior chest x-ray from January 22, 2025. FINDINGS: Lungs: Mild to moderate peribronchial thickening of the central and lower lobe bronchi with increased interstitial opacities in the lower lobes. No consolidation. Pleural space: Unremarkable. No pneumothorax. Heart: Unremarkable. No cardiomegaly. Mediastinum: Unremarkable. Normal mediastinal contour. Bones/joints: Unremarkable. No acute fracture. IMPRESSION: Bronchitis, which may be of infectious or inflammatory etiologies. No consolidation or pleural effusion. Electronically signed by: Lanny Del Angel MD 03/06/25 01:09 AM Chest CTA 03/06/25 02:49 EXAM: CT angio chest PE protocol CLINICAL HISTORY: Chest pain. TECHNIQUE: CT angiography of the chest was performed with and without intravenous contrast with the following protocol: axial images with reconstructed coronal and sagittal images. Intravenous contrast 101 ml Optiray 320 was administered using automated injection techniques. Bolus tracking was employed to optimize arterial phase imaging. One of these 3D techniques was utilized: Maximum Intensity Pixel (MIP), 3D Reconstructed Images, Volume Rendered Images, Surface Shaded Rendering. One of the following dose reduction techniques was utilized for this exam: Automated exposure control, adjustment of the mA and/or kV according to patient size, and use of iterative reconstruction. COMPARISON: Comparison is made with CT 03/26/2021 and prior xrays last dated 01/22/2025. FINDINGS: Aorta and Great Vessels: Ascending Aorta: Normal in caliber, no aneurysm, dissection. Bilateral basilar mild ligament thickening/effusion with lower lobes basal segments atelectatic changes, possibly postinflammatory/reactive. New Upper lung lobes mild emphysematous changes more appreciated than previous CT study. Scattered atheromatous calcification of the ascending aorta and aortic arch. Mildly nodular thickening of both adrenals more on the left side. Small hiatus hernia Aortic Arch: Normal in caliber, no aneurysm, dissection.Scattered atheromatous calcification of the ascending aorta and aortic arch. Descending Aorta: Normal in caliber, no aneurysm, dissection, or significant atherosclerosis. Pulmonary Arteries: The main pulmonary artery and its branches are patent. No evidence of pulmonary embolism or significant stenosis. Heart: Cardiac Chambers: Normal in size. No evidence of cardiomegaly. Pericardium: No pericardial effusion or thickening. Lungs and Pleura: Bilateral basilar mild ligament thickening/effusion with lower lobes basal segments atelectatic changes, possibly postinflammatory/reactive. New. Upper lung lobes mild emphysematous changes more appreciated than previous CT study. Mediastinum: No mediastinal mass or abnormal lymphadenopathy. Normal appearance of the trachea and central bronchi. Hilar Structures: Hilar structures are normal without enlargement. Chest Wall: No mass lesions or abnormalities in the chest wall. Vascular Structures: Superior Vena Cava: Patent without evidence of stenosis or thrombus. Inferior Vena Cava: Patent without evidence of stenosis or thrombus. Bones and Soft Tissues: No fractures, lytic, or blastic lesions of the visualized bony structures. Mildly nodular thickening of both adrenals more on the left side Small hiatus hernia Thoracic spondylosis IMPRESSION: 1. No evidence of pulmonary thromboembolism. 2. Bilateral basilar mild ligament thickening/effusion with lower lobes basal segments atelectatic changes, possibly postinflammatory/reactive. New. 3. Upper lung lobes mild emphysematous changes more appreciated than previous CT study. Electronically signed by Corby Ochoa 03-06-2025 05:22 AM Discharge Instructions Given to Patient (Per Discharging Provider) Mr. Malloy, We are discharging you home. Continue with the antibiotics for another 4 days. Continue with the probiotic while on the antibiotics. Continue with the steroid prednisone for one more day. Continue with your inhalers at home. Continue with your home lasix every day. Please do all you can to stop drinking alcohol. Please keep close follow up with your primary care provider after discharge. Please do not hesitate to come back to the emergency room if your symptoms worsen or return. It was a pleasure taking care of you while you were here. Total Time Total Time Spent Total Time Spent (In Minutes): 60
--- NOTE | 2025-03-09 16:37 | Hospitalist Progress Note ---
Date of Service March 09, 2025 Assessment & Plan (1) Acute exacerbation of chronic obstructive pulmonary disease: Plan Pt is a 64yoM with PMhx significant for chronic right-sided heart failure (EF 60 to 64%, TTE 2024), mild TR, hypertension, hyperlipidemia, COPD, prediabetes, chronic hyponatremia, BPH, morbid obesity, anxiety/mood disorder ongoing tobacco/alcohol abuse who presented with concern for cough/SOB and swelling. Acute hypoxemic respiratory failure COPD exacerbation secondary to possible aspiration pneumonitis, no sepsis for now CTA chest with no PE, notes emphysematous changes and possible postinflammatory/reactive changes Unasyn followed by Augmentin course, discharged with 4 more days with probiotic nebs prednisone course, discharged with prednisone 40mg daily to complete 5 day course of rx Oxygen supplementation as needed, pt weaned off of oxygen Consider outpatient pulmonology followup Possible decompensated Heart failure patient presenting with right side heart failure symptoms On po lasix 40mg at home daily Diuretic Rx for CHF component- has received multiple doses of IV lasix 40mg with about 14L outpt, weight 125.1kg on admission, down to 116.1 kg on day of discharge. Transitioned from IV lasix 40mg daily to home dose of po 40mg Strict I/Os, daily weights, CHF education, fluid restriction Consider Cardiology followup as an outpatient pt weaned off of oxygen Chronic Alcohol Use AWSS at risk protocol, DT precautions Pt remained stable while hospitalized Chronic Medical Problems: mild TR hypertension, stable hyperlipidemia, on statin Rx prediabetes, hemoglobin A1c of 6.05 December 2024 chronic hyponatremia, in the setting of alcohol abuse anxiety/mood disorder, at baseline ongoing tobacco abuse Admission and Anticipated Discharge Date Admission Date: March 06, 2025 Results & Data Results & Data Vital Signs (Past 12 Hours) Vital Signs Temp Pulse Pulse Resp BP Pulse Ox O2 Del Method 03/09/25 15:29 36.5 C 72 20 142/83 H 90 Room Air 03/09/25 14:53 76 18 92 Room Air 03/09/25 14:22 78 03/09/25 11:21 36.3 C L 75 19 153/89 H 90 Room Air 03/09/25 11:05 78 16 88 L Room Air 03/09/25 10:33 Room Air 03/09/25 07:49 36.6 C 68 20 133/83 90 Room Air 03/09/25 07:48 60 03/09/25 07:08 68 16 92 Room Air
--- NOTE | 2025-03-09 16:51 | Hospitalist Progress Note ---
Date of Service March 09, 2025 Assessment & Plan (1) Acute hypoxemic respiratory failure: Plan Pt is a 64yoM with PMhx significant for chronic right-sided heart failure (EF 60 to 64%, TTE 2024), mild TR, hypertension, hyperlipidemia, COPD, prediabetes, chronic hyponatremia, BPH, morbid obesity, anxiety/mood disorder ongoing tobacco/alcohol abuse who presented with concern for cough/SOB and swelling. Acute hypoxemic respiratory failure COPD exacerbation secondary to possible aspiration pneumonitis, no sepsis for now CTA chest with no PE, notes emphysematous changes and possible postinflammatory/reactive changes Unasyn followed by Augmentin course, to be discharged with 3 more days with probiotic nebs prednisone course, complete 5 day course of rx Oxygen supplementation as needed, pt weaned off of oxygen Consider outpatient pulmonology followup Possible decompensated Heart failure patient presenting with right side heart failure symptoms On po lasix 40mg at home daily Diuretic Rx for CHF component- has received multiple doses of IV lasix 40mg with about 14L outpt, weight 125.1kg on admission, down to 116.1 kg on day of discharge. Transitioned from IV lasix 40mg daily to home dose of po 40mg Strict I/Os, daily weights, CHF education, fluid restriction Consider Cardiology followup as an outpatient pt weaned off of oxygen Chronic Alcohol Use AWSS at risk protocol, DT precautions Pt remained stable while hospitalized Chronic Medical Problems: mild TR hypertension, stable hyperlipidemia, on statin Rx prediabetes, hemoglobin A1c of 6.05 December 2024 chronic hyponatremia, in the setting of alcohol abuse anxiety/mood disorder, at baseline ongoing tobacco abuse Admission and Anticipated Discharge Date Admission Date: March 06, 2025 Subjective pt was seen sitting near bed, coloring Stable for discharge and has been off of oxygen for the past 2 days Unofficial 2 step indicating pt's o2 in 88-92% range, official 2 step ordered Will need oxygen on discharge, case management aware Review of Systems Review of Systems: All systems reviewed & are unremarkable except as noted in Subjective Physical Exam 2 Physical Exam: General: Alert, oriented. No acute distress HEENT: NC/AT CV: RRR Resp: Breath sounds with slight wheezing bilaterally, no increased effort of breathing Abdomen: Soft, nontender Extremities: improving edema in lower extremities bilaterally. Results & Data Results & Data Vital Signs (Past 12 Hours) Vital Signs Temp Pulse Pulse Resp BP Pulse Ox O2 Del Method 05/06/25 15:29 36.5 C 72 20 142/83 H 90 Room Air 03/09/25 14:53 76 18 92 Room Air 03/09/25 14:22 78 03/09/25 11:21 36.3 C L 75 19 153/89 H 90 Room Air 03/09/25 11:05 78 16 88 L Room Air 03/09/25 10:33 Room Air 03/09/25 07:49 36.6 C 68 20 133/83 90 Room Air 03/09/25 07:48 60 03/09/25 07:08 68 16 92 Room Air
[2025-03-10 06:45] LABS: Basophils # (auto) 0.05 K/uL (0.00-0.20); Basophils % (auto) 0.6 %; Eosinophils # (auto) 0.17 K/uL (0.00-0.50); Eosinophils % (auto) 2.2 %; Hematocrit (blood only) 53.9 % (42.0-52.0); Immature Granulocytes # (auto) 0.21 K/uL (0.01-0.20); Immature Granulocytes % (auto) 2.7 %; Lymphocytes # (auto) 1.27 K/uL (1.20-3.40); Lymphocytes % (auto) 16.2 %; Mean Corpuscular Hemoglobin 31.1 pg (25.0-34.0); Mean Corpuscular Hgb Conc 33.4 g/dL (32.0-36.0); Mean Corpuscular Volume 93.3 fL (80.0-100.0); Mean Platelet Volume 9.7 fL (9.4-12.4); Monocytes # (auto) 1.05 K/uL (0.11-0.59); Monocytes % (auto) 13.4 %; Neutrophils # (auto) 5.08 K/uL (1.40-6.50); Neutrophils % (auto) 64.9 %; Platelet Count 286 K/uL (130-400); RDW Coefficient of Variation 15.1 % (11.5-14.5); RDW Standard Deviation 51.3 fL (36.4-46.3); Red Blood Count 5.78 M/uL (4.70-6.10); White Blood Count 7.83 K/ul (4.8-10.8)
[2025-03-10 07:24] LABS: Alanine Aminotransferase 40 U/L (7-52); Albumin Globulin Ratio 1.6 (0.9-2); Albumin Level 4.2 gm/dl (3.4-5.0); Alkaline Phosphatase 72 U/L (34-104); Anion Gap 4 (3-11); BUN Creatinine Ratio 24.3 (10-20); Bilirubin,Total 0.5 mg/dl (0.2-1.0); Blood Urea Nitrogen 18 mg/dl (6-23); Calcium 8.9 mg/dl (8.6-10.3); Carbon Dioxide 37 mmol/L (21-32); Chloride 99 mmol/L (98-107); Creatinine Clr Calc Pharmacy 125.1 ml/min; Globulin 2.6 gm/dl (2.5-4.0); Glucose 87 mg/dl (70-99(Fasting)); Magnesium 2.5 mg/dl (1.7-2.4); Phosphorus 4.6 mg/dl (2.5-4.9); Sodium 140 mmol/L (136-145); Total Protein 6.8 gm/dl (6.0-8.3)
[2025-03-10 07:30] VITALS: PULSE 74
[2025-03-10 12:30] VITALS: BP 115/75; TEMP 97.5; O2SAT 93
--- NOTE | 2025-03-10 12:56 | Discharge Summary ---
Discharge Summary Date of Service March 10, 2025 Principal Dx & Hospital Course #1 = Principal Diagnosis (1) Acute hypoxemic respiratory failure: Plan Pt is a 64yoM with PMhx significant for chronic right-sided heart failure (EF 60 to 64%, TTE 2024), mild TR, hypertension, hyperlipidemia, COPD, prediabetes, chronic hyponatremia, BPH, morbid obesity, anxiety/mood disorder ongoing tobacco/alcohol abuse who presented with concern for cough/SOB and swelling. Acute hypoxemic respiratory failure COPD exacerbation secondary to possible aspiration pneumonitis, no sepsis for now CTA chest with no PE, notes emphysematous changes and possible postinflammatory/reactive changes Unasyn followed by Augmentin course, to be discharged with 3 more days with probiotic nebs prednisone course, complete 5 day course of rx Oxygen supplementation as needed, pt weaned off of oxygen Consider outpatient pulmonology followup Possible decompensated Heart failure patient presenting with right side heart failure symptoms On po lasix 40mg at home daily Diuretic Rx for CHF component- has received multiple doses of IV lasix 40mg with about 14L outpt, weight 125.1kg on admission, down to 116.1 kg on day of discharge. Transitioned from IV lasix 40mg daily to home dose of po 40mg Strict I/Os, daily weights, CHF education, fluid restriction Consider Cardiology followup as an outpatient pt weaned off of oxygen Chronic Alcohol Use AWSS at risk protocol, DT precautions Pt remained stable while hospitalized Chronic Medical Problems: mild TR hypertension, stable hyperlipidemia, on statin Rx prediabetes, hemoglobin A1c of 6.05 December 2024 chronic hyponatremia, in the setting of alcohol abuse anxiety/mood disorder, at baseline ongoing tobacco abuse Notes For Next Care Provider 64 yo male with pmhx of chronic right-sided heart failure (EF 60 to 64%, TTE 2024), mild TR, hypertension, hyperlipidemia, COPD, prediabetes, chronic hyponatremia, BPH, morbid obesity, anxiety/mood disorder ongoing tobacco/alcohol abuse who presented for cough and SOB. On medicine, given steroids and diuresis with improvement. Failed 2-step, requires oxygen at home, ordered for discharge. On 03/10/2025 patient medically stable for discharge home. Medication Changes From Visit -see below Admission HPI Per Admitting Provider History obtained from patient and records. Medical history significant for chronic right-sided heart failure (EF 60 to 64%, TTE 2024), mild TR, hypertension, hyperlipidemia, COPD, prediabetes, chronic hyponatremia, BPH, morbid obesity, anxiety/mood disorder ongoing tobacco/alcohol abuse. Last confinement July 2022 for right-sided heart failure, pericardial effusion. Patient with worsening junky cough symptoms and SOB the last few days. Admits to coughing with meals/water intake. Chest pain from coughing. Fluid retention and weight gain about 10 pounds. Lowest O2 sats of 80s upon arrival at the ER. Medical History as above Surgical History : Knee surgery Family History : Lung cancer, heart disease Personal/Social history : 1 pack daily, alcohol abuse Discharge Exam Gen: A&O 3 NAD HEENT: NCAT, EOMI, not icteric. External ears normal. No rhinorrhea. Moist mucous membranes. Neck: Supple, full range of motion, no observable masses, No meningeal sign. Lungs: fair air movement bilaterally CV: RRR, no edema. Abdomen: Soft, nondistended, No rebound tenderness. MSK: No joint swelling, no redness. Skin: No rashes, petechiae, lesions. Normal color per patient. Neuro: Normal Gait, Grossly intact. Psych: Appropriate for situation. Updated Medication List Medication Instructions Recorded Confirmed Type losartan 100 mg tablet 100 mg PO QAM 03/26/21 03/05/25 History acetaminophen 500 mg tablet 1,000 mg PO TID Pain 07/10/22 03/05/25 History (Tylenol Extra Strength) albuterol sulfate 90 mcg/actuation 2 puff inhalation Q4H PRN 07/10/22 03/05/25 History aerosol inhaler Shortness Of Breath Or Wheezing folic acid 1 mg tablet 1 mg PO QAM #30 tabs 07/26/22 03/05/25 Rx tamsulosin 0.4 mg capsule 0.4 mg PO QAM #30 caps 07/26/22 03/05/25 Rx thiamine HCl (vitamin B1) 100 mg 100 mg PO QAM #30 tabs 07/26/22 03/05/25 Rx tablet furosemide 40 mg tablet 40 mg PO QAM 12/07/22 03/05/25 History gabapentin 300 mg capsule 300 mg PO BID 12/07/22 03/05/25 History aripiprazole 5 mg tablet 5 mg PO DAILY 01/22/25 03/05/25 History atorvastatin 20 mg tablet 20 mg PO QAM 01/22/25 03/05/25 History fluticasone fur. 100 mcg-umeclid 1 inh inhalation QAM 01/22/25 03/05/25 History 62.5 mcg-vilant 25 mcg inhalat.powder (Trelegy Ellipta) naltrexone microspheres 380 mg 0 mg IM MONTHLY 01/22/25 03/05/25 History intramuscular suspension,extended release nicotine 21 mg/24 hr daily 1 patch transdermal DAILY 01/22/25 03/05/25 History transdermal patch sertraline 100 mg tablet 150 mg PO QAM 01/22/25 03/05/25 History Saccharomyces boulardii 250 mg 250 mg PO DAILY #30 caps 03/09/25 Rx capsule (Florastor) amoxicillin 875 mg-potassium 1 tab PO BIDM #7 tabs 03/09/25 Rx clavulanate 125 mg tablet Hospital Stay Data Consultations 03/06/25 00:30 ED Decision to Admit Stat Diagnostic Imagining Performed 03/06/25 02:49 CT angio chest PE protocol Stat Pending Results Patient Have Any Pending Studies at Discharge: No Discharge Instructions Given to Patient (Per Discharging Provider) Mr. Malloy, We are discharging you home. Continue with the antibiotics for another 4 days. Continue with the probiotic while on the antibiotics. Continue with the steroid prednisone for one more day. Continue with your inhalers at home. Continue with your home lasix every day. Please do all you can to stop drinking alcohol. Please keep close follow up with your primary care provider after discharge. Please do not hesitate to come back to the emergency room if your symptoms worsen or return. It was a pleasure taking care of you while you were here. Total Time Total Time Spent Total Time Spent (In Minutes): I spent a total of 35 minutes in direct patient care, including [id number] time with the patient and/or family, reviewing medical records, ordering and reviewing diagnostic tests, and coordinating care with other healthcare providers. This time includes: history taking, physical examination, medical decision making, counseling, ECG interpretation, imaging interpretation, lab interpretation, orders, and education, excluding time spent in the performance of separately billed services.
[2025-03-10 14:12] VITALS: RESP 18
== END 2025-03-10 14:34 | disposition home or self-care (01) | DRG 189 ==
LOC: ED 21:41 → SUATTDRO 03-06 02:46 → 2S 03-06 02:46

== ENCOUNTER 2025-04-28 08:13 | Inpatient (IN) ==
[2025-04-28] MEDS: MoRPHine SULFATE 4 MG/ML 1 ML CARP\\VIAL IV STA (10:10)
[2025-04-28 10:27] LABS: Basophils # (auto) 0.04 K/uL (0.00-0.20); Basophils % (auto) 0.5 %; Eosinophils # (auto) 0.21 K/uL (0.00-0.50); Eosinophils % (auto) 2.7 %; Hematocrit (blood only) 46.2 % (42.0-52.0); Immature Granulocytes # (auto) 0.08 K/uL (0.01-0.20); Lymphocytes # (auto) 1.06 K/uL (1.20-3.40); Lymphocytes % (auto) 13.8 %; Mean Corpuscular Hemoglobin 32.1 pg (25.0-34.0); Mean Corpuscular Hgb Conc 34.6 g/dL (32.0-36.0); Mean Corpuscular Volume 92.8 fL (80.0-100.0); Mean Platelet Volume 9.9 fL (9.4-12.4); Monocytes # (auto) 0.84 K/uL (0.11-0.59); Monocytes % (auto) 10.9 %; Neutrophils # (auto) 5.45 K/uL (1.40-6.50); Neutrophils % (auto) 71.1 %; Platelet Count 241 K/uL (130-400); RDW Coefficient of Variation 15.5 % (11.5-14.5); RDW Standard Deviation 53.1 fL (36.4-46.3); Red Blood Count 4.98 M/uL (4.70-6.10); White Blood Count 7.68 K/ul (4.8-10.8)
[2025-04-28 10:54] LABS: Albumin Globulin Ratio 1.4 (0.9-2); Albumin Level 3.5 gm/dl (3.4-5.0); BUN Creatinine Ratio 13.9 (10-20); Bilirubin,Total 0.4 mg/dl (0.2-1.0); Calcium 8.7 mg/dl (8.6-10.3); Creatinine Clr Calc Pharmacy 133.5 ml/min; Globulin 2.5 gm/dl (2.5-4.0); Potassium 3.8 mmol/L (3.5-5.1)
--- NOTE | 2025-04-28 11:00 | CT Scan Report ---
CT lumbar spine wo con CLINICAL HISTORY: low back pain; pain down left leg COMPARISON STUDY: 04/12/2021 FINDINGS: No fracture or subluxation. There is diffuse degenerative disc disease most severe at the l ower lumbar spine. There is lower lumbar facet degeneration. There is mild bilateral neural foraminal narrowing at L3-4 through L5-S1. There is mild central canal narrowing at L2-3, L3-4, and L4-5. IMPRESSION: 1. No fracture seen. 2. Lower lumbar degenerative changes. ACT 112: Negative or not required by law. Electronically signed by: Wilian Gomes M.D. 04/28/2025 10:58 AM
--- NOTE | 2025-04-28 11:19 | XRay Report ---
XR hip RT 2V w pelvis CLINICAL HISTORY: R hip pain COMPARISON: 04/12/2021 FINDINGS: No fracture or dislocation. There are mild degenerative changes at the hips. SI joints are unremarkable. There are lower lumbar degenerative changes. IMPRESSION: No fracture seen. ACT 112: Negative or not required by law. Electronically signed by: Wilian Gomes M.D. 04/28/2025 11:18 AM
--- NOTE | 2025-04-28 11:37 | Emergency Department Note ---
Impression & Plan Acute pain of right hip, Ambulatory dysfunction ED Provider Note HISTORY OF PRESENT ILLNESS: Patient is a 64-year-old male presenting with right hip pain. Patient reports he is having pain in his right hip and right leg that started yesterday. Reports pain started acutely. Denies any injury to the hip or leg. He locates the pain to the right lateral hip and states that it radiates down the anterior and posterior part of his leg into his toes. He states that he occasionally gets a shooting, numbness and tingling sensation. He is on baseline 2 L nasal cannula. He denies any recent fevers. He denies any bowel or bladder incontinence. Denies any saddle anesthesia. He did not take anything for the pain today. ROS: as above PHYSICAL EXAM: Constitutional: Patient appears in no acute distress. Morbidly obese HENT: Head: Normocephalic and atraumatic. Eyes: EOMI, PERRL Mouth/Throat: Mucous membranes moist. Neck: Trachea midline. Neck supple. Cardiovascular: RRR, No murmurs, rubs or gallops. Intact distal pulses. Pulmonary/Chest: No respiratory distress. Breath sounds clear and equal bilaterally. No wheezes or rales. Patient on baseline 2 L nasal cannula. Abdominal: Abdomen soft, no tenderness, rebound or guarding. Musculoskeletal: - RLE: No obvious deformity, ecchymosis or open wounds. No tenderness to palpation of the pelvis and no laxity with palpation of the pelvis. Able to internally and externally rotate the femur without significant pain. Able to dorsiflex and plantarflex the ankle. Able to flex and extend the knee. Intact DP and PT pulses. Sensation intact to light touch about the nerve distributions. Back: No midline back pain or step-offs. Skin: Warm and dry. No rash, erythema, pallor or cyanosis Psychiatric: Appropriate mood and affect for situation. Neurological: Alert and keenly responsive. CN II-XII grossly intact, moving all extremities equally and fully. MDM: - Vitals signs showed hypertension and hypoxia on room air. Patient does wear supplemental oxygen at baseline. His saturations are 94% on his baseline 2 L. - History obtained via patient. History as above. - Chronic conditions affecting care: HTN; HLD; COPD (on 2L NC); severe obesity - Differential diagnoses include, but are not limited to: Septic joint; tendinitis; acute fracture; radiculopathy; herniated disc; cauda equina - Order placed for continuous cardiac monitoring. At this time, monitor showed rate of 67 bpm with normal sinus rhythm, per my interpretation. - External medical records reviewed. Discharge summary dated 03/10/2025 was reviewed. Patient was admitted that time for acute hypoxemic respiratory failure - Laboratory workup interpreted by myself showed normal WBC; stable electrolytes; normal lipase - Xray pelvis with right hip view images interpreted by myself are negative for acute fracture, per my interpretation. - CT lumbar spine wo contrast negative for acute fracture. Noted to have lower lumbar degenerative changes. - Patient initially given 4 mg IV morphine in ER. On reassessment, he is still complaining of pain. - Given 1g IV tylenol - Patient has no overlying skin changes, and no systemic symptoms suggestive of infection like fever or chills. - Patient is normally ambulatory without the use of assistive devices at home. However over the last 24 hours he has been unable to get up secondary to pain in the right hip. He was agreeable to admission for PT/OT assessment. - Discussion was had with child support case officer about patient's case and need for admission - Hospitalist consulted for admission - [facility] ASSESSMENT AND PLAN: Diagnosis: Acute right hip pain; ambulatory dysfunction Plan: Admit Past Med/Surg History Problem List (Updated 04/28/25 @ 12:57 by Janet Goodwin MD) Ambulatory dysfunction (Acute) Acute pain of right hip (Acute) Acute exacerbation of chronic obstructive pulmonary disease (Acute) Localized swelling of both lower legs (Acute) Bilateral cellulitis of lower leg (Acute) Acute hypoxemic respiratory failure (Acute) Acute hypoxemic respiratory failure PSVT (paroxysmal supraventricular tachycardia) HTN (hypertension) COPD (chronic obstructive pulmonary disease) Pericardial effusion Bilateral lower leg cellulitis DVT prophylaxis Tobacco use disorder Severe obesity Granulomatous lung disease Centrilobular emphysema Acute right heart failure Pedal edema (Acute) Fluid overload (Acute) Rapid weight gain (Acute) Acute URI Acute hyponatremia (Acute) Alcohol dependence (Acute) Low back pain (Acute) Wheeze Syncope (Acute) History of alcohol abuse Liver lesion Pulmonary nodule Abnormal CT of the chest Lesion of adrenal gland Screening for malignant neoplasm of prostate Impaired fasting glucose Hyperlipidemia Hypertension Encounter for health maintenance examination in adult Surgical History History of colonoscopy (10/13/12) Dr Silva, sigmoid tics, otherwise normal, recheck recommended in 5 years due to FHx (brother) S/P right knee arthroscopy 1986 Family History Brother Colorectal cancer Lung cancer Mother Lung cancer Father Myocardial infarction Denies family history of Ovarian cancer Prostate cancer Breast cancer Social History Smoking Status: Current every day smoker Tobacco Type: Cigarettes Cigarettes Per Day: 1-1.5 packs; Second Hand Exposure: Yes; Do You Dip or Chew Tobacco: No; Hx Alcohol Use: Yes Alcohol type: beer Hx Substance Use: No Preferred Language: [place] Communication Ability: Effective Load Mixer Required: No Beliefs That Will Affect Care: None marital status: Current Living Situation: Alone current occupational status: employed Feels Safe at Home: Yes Assistive Devices: None Allergies Allergies Allergy/AdvReac Type Severity Reaction Status Date / Time No Known Allergies Allergy Verified 04/28/25 12:49 Home Meds Home Medications Medication Instructions Recorded Confirmed losartan 100 mg tablet 100 mg PO QAM 03/26/21 04/28/25 acetaminophen 500 mg tablet 1,000 mg PO TID Pain 07/10/22 04/28/25 (Tylenol Extra Strength) albuterol sulfate 90 mcg/actuation 2 puff inhalation Q4H PRN 07/10/22 04/28/25 aerosol inhaler Shortness Of Breath Or Wheezing furosemide 40 mg tablet 60 mg PO QAM 12/07/22 04/28/25 aripiprazole 5 mg tablet 5 mg PO DAILY 01/22/25 04/28/25 atorvastatin 20 mg tablet 20 mg PO QAM 01/22/25 04/28/25 fluticasone fur. 100 mcg-umeclid 1 inh inhalation QAM 01/22/25 04/28/25 62.5 mcg-vilant 25 mcg inhalat.powder (Trelegy Ellipta) naltrexone microspheres 380 mg 380 mg IM MONTHLY 01/22/25 04/28/25 intramuscular suspension,extended release nicotine 21 mg/24 hr daily 1 patch transdermal DAILY 01/22/25 04/28/25 transdermal patch sertraline 100 mg tablet 150 mg PO QAM 01/22/25 04/28/25 albuterol sulfate 2.5 mg/3 mL 2.5 mg inhalation Q6H PRN 04/28/25 04/28/25 (0.083 %) solution for nebulization Shortness Of Breath Or Wheezing finasteride 5 mg tablet 5 mg PO QAM 04/28/25 04/28/25 metformin 500 mg tablet 500 mg PO DAILY 04/28/25 04/28/25 mirtazapine 15 mg tablet 15 mg PO HS 04/28/25 04/28/25 Previous Rx's Medication Instructions Recorded folic acid 1 mg tablet 1 mg PO QAM #30 tabs 07/26/22 tamsulosin 0.4 mg capsule 0.4 mg PO QAM #30 caps 07/26/22 thiamine HCl (vitamin B1) 100 mg 100 mg PO QAM #30 tabs 07/26/22 tablet Saccharomyces boulardii 250 mg 250 mg PO DAILY #30 caps 03/09/25 capsule (Florastor) Results & Data (ED) Vital Signs Vital Signs - 24 hr 04/28/25 08:18 04/28/25 08:30 04/28/25 08:45 Temperature 36.6 C Temperature Source Oral Pulse Rate 77 Pulse Rate [Finger] Respiratory Rate 16 Respiratory Effort / Characteristics Respiratory Depth Blood Pressure 149/76 H Blood Pressure [Right Arm] Blood Pressure Mean 100 Blood Pressure Mean [Right Arm] Blood Pressure Position Semi-fowlers Blood Pressure Position [Right Arm] Pulse Oximetry 90 88 L 92 Oxygen Delivery Method Room Air Room Air Nasal Cannula Oxygen Flow Rate 2 Sepsis Recent Fever Within 48 Hours No Sepsis New/Unexplained Change in Mental Status N/A Sepsis Action Taken by Nursing No Action Required 04/28/25 09:32 04/28/25 10:16 04/28/25 10:20 Temperature Temperature Source Pulse Rate 71 Pulse Rate [Finger] 68 Respiratory Rate 16 Respiratory Effort / Characteristics Non-Labored Spontaneous Respiratory Depth Normal Blood Pressure Blood Pressure [Right Arm] 132/70 Blood Pressure Mean Blood Pressure Mean [Right Arm] 90 Blood Pressure Position Blood Pressure Position [Right Arm] Semi-fowlers Pulse Oximetry 94 95 Oxygen Delivery Method Nasal Cannula Nasal Cannula Oxygen Flow Rate 2 2 Sepsis Recent Fever Within 48 Hours Sepsis New/Unexplained Change in Mental Status Sepsis Action Taken by Nursing 04/28/25 11:00 Temperature Temperature Source Pulse Rate Pulse Rate [Finger] 67 Respiratory Rate 20 Respiratory Effort / Characteristics Non-Labored Spontaneous Respiratory Depth Normal Blood Pressure Blood Pressure [Right Arm] 136/80 Blood Pressure Mean Blood Pressure Mean [Right Arm] 98 Blood Pressure Position Blood Pressure Position [Right Arm] Semi-fowlers Pulse Oximetry 94 Oxygen Delivery Method Nasal Cannula Oxygen Flow Rate 2 Sepsis Recent Fever Within 48 Hours Sepsis New/Unexplained Change in Mental Status Sepsis Action Taken by Nursing Laboratory Data 04/28/25 10:14 04/28/25 10:14 Lab Results 04/28/25 Range/Units 10:14 WBC 7.68 (4.8-10.8) K/ul RBC 4.98 (4.70-6.10) M/uL Hgb 16.0 (14.0-18.0) g/dl Hct 46.2 (42.0-52.0) % MCV 92.8 (80.0-100.0) fL MCH 32.1 (25.0-34.0) pg MCHC 34.6 (32.0-36.0) g/dL RDW Std Deviation 53.1 H (36.4-46.3) fL RDW Coeff of Beth 15.5 H (11.5-14.5) % Plt Count 241 (130-400) K/uL MPV 9.9 (9.4-12.4) fL Immature Gran % (Auto) 1.0 % Neut % (Auto) 71.1 % Lymph % (Auto) 13.8 % [place] % (Auto) 10.9 % Eos % (Auto) 2.7 % Baso % (Auto) 0.5 % Neut # (Auto) 5.45 (1.40-6.50) K/uL Lymph # (Auto) 1.06 L (1.20-3.40) K/uL [place] # (Auto) 0.84 H (0.11-0.59) K/uL Eos # (Auto) 0.21 (0.00-0.50) K/uL Baso # (Auto) 0.04 (0.00-0.20) K/uL Immature Gran # (Auto) 0.08 (0.01-0.20) K/uL Sodium 138 (136-145) mmol/L Potassium 3.8 (3.5-5.1) mmol/L Chloride 103 (98-107) mmol/L Carbon Dioxide 29 (21-32) mmol/L Anion Gap 6 (3-11) BUN 10 (6-23) mg/dl Creatinine 0.72 (0.6-1.4) mg/dl Est Cr Clr Drug Dosing 133.5 ml/min eGFR 101.39 BUN/Creatinine Ratio 13.9 (10-20) Glucose 101 H (70-99(Fasting)) mg/dl Calcium 8.7 (8.6-10.3) mg/dl Total Bilirubin 0.4 (0.2-1.0) mg/dl AST 15 (13-39) U/L ALT 20 (7-52) U/L Alkaline Phosphatase 65 (34-104) U/L Total Protein 6.0 (6.0-8.3) gm/dl Albumin 3.5 (3.4-5.0) gm/dl Globulin 2.5 (2.5-4.0) gm/dl Albumin/Globulin Ratio 1.4 (0.9-2) Lipase 24 (11-82) U/L Administered Medications Discontinued Medications Acetaminophen (Ofirmev) 1,000 mg in 100 mls @ 400 mls/hr IV NOW STA Stop: 04/28/25 12:49 Last Admin: 04/28/25 12:47 Dose: 400 mls/hr Documented By: SNS Morphine Sulfate (Morphine Sulfate 4 Mg/Ml 1 Ml Carp\Vial) 4 mg IV NOW STA Stop: 04/28/25 09:54 Last Admin: 04/28/25 10:10 Dose: 4 mg Documented By: [facility] Imaging Data Radiologist's Impression: Hip/Pelvis X-Ray 04/28/25 09:53 XR hip RT 2V w pelvis CLINICAL HISTORY: R hip pain COMPARISON: 04/12/2021 FINDINGS: No fracture or dislocation. There are mild degenerative changes at the hips. SI joints are unremarkable. There are lower lumbar degenerative changes. IMPRESSION: No fracture seen. ACT 112: Negative or not required by law. Electronically signed by: Wilian Gomes M.D. 04/28/2025 11:[address] 04/28/25 09:53 CT lumbar spine wo con CLINICAL HISTORY: low back pain; pain down left leg COMPARISON STUDY: 04/12/2021 FINDINGS: No fracture or subluxation. There is diffuse degenerative disc disease most severe at the lower lumbar spine. There is lower lumbar facet degeneration. There is mild bilateral neural foraminal narrowing at L3-4 through L5-S1. There is mild central canal narrowing at L2-3, L3-4, and L4-5. IMPRESSION: 1. No fracture seen. 2. Lower lumbar degenerative changes. ACT 112: Negative or not required by law. Electronically signed by: Wilian Gomes M.D. 04/28/2025 10:58 AM Discharge Plan Visit Data Chief Complaint: Hip Pain Stated Complaint: LEG PAIN ED Provider: Janet Goodwin Discharge Problem: Acute pain of right hip, Ambulatory dysfunction Condition: Fair Forms Stand Alone Forms: My [facility] [employer] Prescriptions Prescriptions: No Action losartan 100 mg tablet 100 mg PO QAM furosemide 40 mg tablet 60 mg PO QAM acetaminophen [Tylenol Extra Strength] 500 mg Tablet 1,000 mg PO TID albuterol sulfate 90 mcg/actuation Hfa Aerosol Inhaler 2 puff INHALATION Q4H PRN (Reason: Shortness Of Breath Or Wheezing) folic acid 1 mg Tablet 1 mg PO QAM Qty: 30 0RF thiamine HCl (vitamin B1) 100 mg Tablet 100 mg PO QAM Qty: 30 0RF tamsulosin 0.4 mg Capsule 0.4 mg PO QAM Qty: 30 0RF sertraline 100 mg tablet 150 mg PO QAM nicotine 21 mg/24 hr Patch 24 Hour 1 patch TRANSDERMAL DAILY aripiprazole 5 mg tablet 5 mg PO DAILY naltrexone microspheres 380 mg Suspension,Extended Rel Recon 380 mg IM MONTHLY Trelegy Ellipta 100-62.5-25 mcg blister with device 1 inh INHALATION QAM Rx Instructions: RINSE MOUTH AFTER USE. atorvastatin 20 mg tablet 20 mg PO QAM Saccharomyces boulardii [Florastor] 250 mg capsule 250 mg PO DAILY Qty: 30 0RF metformin 500 mg tablet 500 mg PO DAILY albuterol sulfate 2.5 mg /3 mL (0.083 %) solution for nebulization 2.5 mg inhalation Q6H PRN (Reason: Shortness Of Breath Or Wheezing) mirtazapine 15 mg tablet 15 mg PO HS finasteride 5 mg tablet 5 mg PO QAM Referrals Referrals: Khai Mejia MD [Primary Care Provider] -
[2025-04-28] MEDS: ACETAMINOPHEN 1,000 MG/100 ML VIAL IV STA (12:47)
--- NOTE | 2025-04-28 12:57 | History & Physical Report ---
Date of Service April 28, 2025 Assessment & Plan (1) Lumbosacral radiculopathy: (2) Ambulatory dysfunction: Plan: Patient is 64-year-old male with PMH chronic right sided heart failure, HTN, HLD, COPD, chronic hypoxemic respiratory failure on 2L oxygen, prediabetes, chronic hyponatremia, tobacco abuse, alcohol abuse, anxiety, mood disorder, BPH and others listed below presented to ER with c/o right hip pain and RLE numbness x 1 day. Denies trauma/known injury, fever or chills In ER vitals stable. Labs unremarkable CT Lumbar spine: No fracture or subluxation. There is diffuse degenerative disc disease most severe at the lower lumbar spine. There is lower lumbar facet degeneration. There is mild bilateral neural foraminal narrowing at L3-4 through L5-S1. There is mild central canal narrowing at L2-3, L3-4, and L4-5. Right Hip xray: No fracture noted In ER given Tylenol, morphine History and exam consistent with lumbosacral radiculopathy Will obtain MRI L spine Fall precautions Pain control with scheduled Tylenol, lidocaine patch, oxycodone prn. Continue home gabapentin PT/OT eval May need to consider ortho spine consult (3) Acute on chronic heart failure with preserved ejection fraction (HFpEF): Plan: Recent hospitalization 03/06/25-03/10/25 for acute hypoxemic respiratory failure, COPD exacerbation and decompensated heart failure, discharged on home oxygen 03/07/25 Echo: EF: 55-60%, normal LV wall motion, RV normal in size, no valvular disease, no pulmonary hypertension noted One week h/o weight gain, BLE edema, increased SOB with trial increased Lasix from 40mg to 60mg daily without relief. Not following low sodium or fluid restrictions at home. Using home O2 as needed Obtain CXR Monitor I's & O's, daily weight. Low sodium diet. Fluid restriction 1800ml Supplemental oxygen Lasix 40mg IV BID. Hold home oral diuretics BMP in am #Prediabetes A1c: 6.3 on 03/26/25 Hold home metformin #ETOH abuse On monthly naltrexone injections Drinks 6 beers daily. Last reported drink yesterday. Reports decreased from prior 24 beers daily Continue home gabapentin Alcohol withdrawal protocol Daily multivitamin, thiamine, folic acid Encouraged alcohol cessation #Chronic hypoxic respiratory failure #COPD #Granulomatous disease 3 weeks ago treated for COPD exacerbation outpatient with z-pack and medrol dose pack Continue home Trelegy Continue supplemental oxygen Duonebs prn #HTN Continue home losartan #HLD Continue home atorvastatin #Mood disorder. Anxiety Continue home aripiprazole, mirtazapine #Tobacco abuse Currently smoking 1ppd, down from 3 packs per day Continue nicotine patch Continue attempts at tobacco cessation #BPH Continue tamsulosin, finasteride #Obesity BMI: 40 DVT Prophylaxis Lovenox SQ Admit med tele Full Code as per discussion with pt Follows with Dr Mejia for routine care Pt was seen and care coordinated with Dr Kothari. See addendum I spent a total of 60 minutes reviewing notes, outpatient records, labs, medication, coordinating, documenting and providing care for this patient excluding time spent in the performance of separately billed services and excluding time spent by another provider/QHP. History of Present Illness Chief Complaint: Right hip pain Primary Care Provider: Khai Mejia MD Patient is 64-year-old male with PMH chronic right sided heart failure, HTN, HLD, COPD, chronic hypoxemic respiratory failure on 2L oxygen, prediabetes, chronic hyponatremia, tobacco abuse, alcohol abuse, anxiety, mood disorder, BPH and others listed below presented to ER with c/o right hip pain and RLE numbness x 1 day. Patient reports yesterday was walking when had onset of right buttock and right hip pain with associated right leg paresthesias. States right leg feels like it is gives out when walking and having trouble ambulating. Denies history back or extremity pain. Denies known trauma or fall. Tried Tylenol with limited relief. Per inpatient chart review recent hospitalization 03/06/25-03/10/25 for acute hypoxemic respiratory failure, COPD exacerbation and decompensated heart failure treated with steroids and IV Lasix with about 14L output and weight 125.1kg on admission, down to 116.1 kg on day of discharge, patient had improvement and was discharged on home oxygen. Patient reports has not been using oxygen continuous at home as uses as needed when he feels SOB. Per outpatient chart review was seen on 04/07/25 and prescribed a Medrol Dosepak and Z-titi. His Lasix was stopped and changed to torsemide 20mg daily at that time. Patient states is now on Lasix 40mg daily. He states for past week his home weights have been increasing and noticing increased BLE edema and abdominal girth as well as increased exertional SOB. He states for past week taking 60mg Lasix but states hasn't lost any weight. He reports is to be on 48 ounce fluid restriction however patient reports been drinking "a lot more than that" recently. He also admits to eating potato chips and lunch meat sandwiches frequently. Did not have home medications today. States drinks 6 beers daily. Is on monthly naltrexone injection, last received one week ago. Denies saddle paresthesias, urinary or bowel incontinence. Denies fever/chills, diaphoresis, N/V/D/C, RODRIGUEZ, dizziness, syncope, vision changes, neck pain, CP, palpitations, cough, sore throat, otalgia, rhinorrhea, abdominal pain, rashes, urinary symptoms. Allergies Allergy/AdvReac Type Severity Reaction Status Date / Time No Known Allergies Allergy Verified 04/28/25 12:49 Home Medications Medication Instructions Recorded Confirmed Type losartan 100 mg tablet 100 mg PO QAM 03/26/21 04/28/25 History acetaminophen 500 mg tablet 1,000 mg PO TID Pain 07/10/22 04/28/25 History (Tylenol Extra Strength) albuterol sulfate 90 mcg/actuation 2 puff inhalation Q4H PRN 07/10/22 04/28/25 History aerosol inhaler Shortness Of Breath Or Wheezing folic acid 1 mg tablet 1 mg PO QAM #30 tabs 07/26/22 04/28/25 Rx tamsulosin 0.4 mg capsule 0.4 mg PO QAM #30 caps 07/26/22 04/28/25 Rx thiamine HCl (vitamin B1) 100 mg 100 mg PO QAM #30 tabs 07/26/22 04/28/25 Rx tablet furosemide 40 mg tablet 60 mg PO QAM 12/07/22 04/28/25 History aripiprazole 5 mg tablet 5 mg PO DAILY 01/22/25 04/28/25 History atorvastatin 20 mg tablet 20 mg PO QAM 01/22/25 04/28/25 History fluticasone fur. 100 mcg-umeclid 1 inh inhalation QAM 01/22/25 04/28/25 History 62.5 mcg-vilant 25 mcg inhalat.powder (Trelegy Ellipta) naltrexone microspheres 380 mg 380 mg IM MONTHLY 01/22/25 04/28/25 History intramuscular suspension,extended release nicotine 21 mg/24 hr daily 1 patch transdermal DAILY 01/22/25 04/28/25 History transdermal patch sertraline 100 mg tablet 150 mg PO QAM 01/22/25 04/28/25 History albuterol sulfate 2.5 mg/3 mL 2.5 mg inhalation Q6H PRN 04/28/25 04/28/25 History (0.083 %) solution for nebulization Shortness Of Breath Or Wheezing finasteride 5 mg tablet 5 mg PO QAM 04/28/25 04/28/25 History gabapentin 300 mg capsule 300 mg PO BID 04/28/25 04/28/25 History metformin 500 mg tablet 500 mg PO DAILY 04/28/25 04/28/25 History mirtazapine 15 mg tablet 15 mg PO HS 04/28/25 04/28/25 History Past Med/Surg History Problem List (Updated 04/28/25 @ 14:16 by Vijaya Meyers PA-C) Acute on chronic heart failure with preserved ejection fraction (HFpEF) Lumbosacral radiculopathy Ambulatory dysfunction (Acute) Acute pain of right hip (Acute) Acute exacerbation of chronic obstructive pulmonary disease (Acute) Localized swelling of both lower legs (Acute) Bilateral cellulitis of lower leg (Acute) Acute hypoxemic respiratory failure (Acute) Acute hypoxemic respiratory failure PSVT (paroxysmal supraventricular tachycardia) HTN (hypertension) COPD (chronic obstructive pulmonary disease) Pericardial effusion Bilateral lower leg cellulitis DVT prophylaxis Tobacco use disorder Severe obesity Granulomatous lung disease Centrilobular emphysema Acute right heart failure Pedal edema (Acute) Fluid overload (Acute) Rapid weight gain (Acute) Acute URI Acute hyponatremia (Acute) Alcohol dependence (Acute) Low back pain (Acute) Wheeze Syncope (Acute) History of alcohol abuse Liver lesion Pulmonary nodule Abnormal CT of the chest Lesion of adrenal gland Screening for malignant neoplasm of prostate Impaired fasting glucose Hyperlipidemia Hypertension Encounter for health maintenance examination in adult Surgical History History of colonoscopy (10/13/12) Dr Silva, sigmoid tics, otherwise normal, recheck recommended in 5 years due to FHx (brother) S/P right knee arthroscopy 1986 Family History Brother Colorectal cancer Lung cancer Mother Lung cancer Father Myocardial infarction Denies family history of Ovarian cancer Prostate cancer Breast cancer Social History Smoking Status: Current every day smoker Tobacco Type: Cigarettes Cigarettes Per Day: 1-1.5 packs; Second Hand Exposure: Yes; Do You Dip or Chew Tobacco: No; Hx Alcohol Use: Yes Alcohol type: beer Hx Substance Use: No Preferred Language: Polish Communication Ability: Effective Restorative Coordinator Required: No Beliefs That Will Affect Care: None marital status: Current Living Situation: Alone current occupational status: employed Feels Safe at Home: Yes Assistive Devices: None Review of Systems Review of Systems: All systems reviewed & are unremarkable except as noted in HPI & below Physical Exam Physical Exam: General: no distress, obese Head: normocephalic, atraumatic Eyes: conjunctiva non-injected, anicteric ENT: normal inspection external ears, nose, mucous membranes moist Neck: supple, trachea midline Lungs: no respiratory distress, +2L via NC with sat 96%, +scattered wheezing CV: RRR, no murmur, 2+ pretibial edema Abd: protuberant, normal BS, soft, non-tender Back: No spinous process tenderness to palpation, +tender to palpation right lower paraspinous muscles and right buttock. +right straight leg raise to appro ximately 30 degrees. Distal pulses intact, sensation to light touch intact, bilateral pedal pushes and pulls intact Ext: no cyanosis, no calf tenderness Neuro: A&O x 3, no focal deficits noted, normal affect Skin: warm, dry Results & Data Results & Data Vital Signs (Past 12 Hours) Vital Signs Temp Pulse Pulse Resp BP BP Pulse Ox 04/28/25 11:00 67 20 136/80 94 04/28/25 10:20 71 04/28/25 10:16 95 04/28/25 09:32 68 16 132/70 94 04/28/25 08:45 92 04/28/25 08:30 88 L 04/28/25 08:18 36.6 C 77 16 149/76 H 90 O2 Del Method O2 Flow Rate 04/28/25 11:00 Nasal Cannula 2 04/28/25 10:20 04/28/25 10:16 Nasal Cannula 2 04/28/25 09:32 Nasal Cannula 2 04/28/25 08:45 Nasal Cannula 2 04/28/25 08:30 Room Air 04/28/25 08:18 Room Air Laboratory Results Short CBC 04/28/25 Range/Units 10:14 WBC 7.68 (4.8-10.8) K/ul Hgb 16.0 (14.0-18.0) g/dl Hct 46.2 (42.0-52.0) % Plt Count 241 (130-400) K/uL BMP 04/28/25 10:14 Sodium 138 Potassium 3.8 Chloride 103 Carbon Dioxide 29 BUN 10 Creatinine 0.72 Glucose 101 H Calcium 8.7 Liver Function 04/28/25 Range/Units 10:14 Total Bilirubin 0.4 (0.2-1.0) mg/dl AST 15 (13-39) U/L ALT 20 (7-52) U/L Alkaline Phosphatase 65 (34-104) U/L Albumin 3.5 (3.4-5.0) gm/dl Diagnostic Findings Hip/Pelvis X-Ray 04/28/25 09:53 XR hip RT 2V w pelvis CLINICAL HISTORY: R hip pain COMPARISON: 04/12/2021 FINDINGS: No fracture or dislocation. There are mild degenerative changes at the hips. SI joints are unremarkable. There are lower lumbar degenerative changes. IMPRESSION: No fracture seen. ACT 112: Negative or not required by law. Electronically signed by: Wilian Gomes M.D. 04/28/2025 11:[address] 04/28/25 09:53 CT lumbar spine wo con CLINICAL HISTORY: low back pain; pain down left leg COMPARISON STUDY: 04/12/2021 FINDINGS: No fracture or subluxation. There is diffuse degenerative disc disease most severe at the lower lumbar spine. There is lower lumbar facet degeneration. There is mild bilateral neural foraminal narrowing at L3-4 through L5-S1. There is mild central canal narrowing at L2-3, L3-4, and L4-5. IMPRESSION: 1. No fracture seen. 2. Lower lumbar degenerative changes. ACT 112: Negative or not required by law. Electronically signed by: Wilian Gomes M.D. 04/28/2025 10:58 AM ECG Additional Comments: sinus rhythm, rate 72, no acute ST elevation per my interpretation Supervising Physician Co-Signing Physician Notes 64-year-old male with PMH of chronic right-sided heart failure, HTN, HLD, COPD, chronic hypoxemic respiratory failure on 2 L oxygen [patient noncompliant with oxygen, uses 2L oxygen- 1 hr twice a day at home], chronic hyponatremia, tobacco abuse, alcohol abuse (last drink yesterday, drinks about 6 beers a day], anxiety, mood disorder, BPH presents to the ED with complaint of Right lower extremity pain with sharp pain down the leg posteriorly, associated with numbness and tingling. Patient denies any bowel or bladder incontinence. Patient denied febrile illness or sore throat or cough. Patient denied chest pain or belly pain. Denies nausea, vomiting, reports eating okay moving bowels okay. Patient reports gaining weight for about a week time, reports having shortness of breath with audible wheezing at home since 3 days, progressively worsening. Patient encouraged to maintain fluid and salt compliance. Labs and imagings reviewed. CBC fairly WNL, renal function fairly WNL, LFT WNL, lipase normal. Right hip/pelvis x-ray and lumbar spine CT with no acute findings.Lumbar spine sitting with mild central canal narrowing at L2-3, L3-4 and L4-5. Also noted bilateral neural foraminal narrowing at L3-4 through L5-S1. Acute on chronic right-sided heart failure: Occasional rhonci crackles on exam, presents here with progressive shortness of breath and weight gain. Noncompliant with diet and fluid restriction. Lasix 40 Mg IV, monitor replete electrolytes. Telemetry monitoring. Alcohol abuse: Drinks 6 beers a day, YVONNE protocol with as needed Ativan, thiamine and folic acid. RLE radiculopathy: Imaging as above, will get MRI L-spine. PT/OT, pain management. On exam: 2 L nasal cannula oxygen, trace/1+ BLE edema, occasional wheeze and crackles bilateral lungs, SLRT positive on RLE. Rest of the examination as above. Time spent independently: 25 minutes. I have seen and examined the patient and have discussed the case with the provider above. I agree with the assessment and plan as stated.
[2025-04-28] MEDS: FUROSEMIDE 40 MG/4 ML VIAL IV ONE (13:46)
[2025-04-28] MEDS ORDERED: ALBUT/IPRATROP 3MG/0.5MG NEB 3 ML VIAL NEB PRN (14:55)
[2025-04-28] MEDS ORDERED: ONDANSETRON INJ 2 MG/ML 2 ML VIAL IV PRN (14:55)
[2025-04-28] MEDS ORDERED: POLYETHYLENE (MIRALAX) 17 GM PACK PO PRN (14:55)
[2025-04-28] MEDS ORDERED: MAGNESIUM HYDROXIDE SUSP 30 ML UDC PO PRN (14:55)
[2025-04-28] MEDS ORDERED: LORazepam 2 MG/1 ML VIAL IV PRN (14:55)
[2025-04-28] MEDS: ENOXAPARIN INJ 40 MG/0.4 ML SYR SQ SCH (16:16)
[2025-04-28] MEDS: FOLIC ACID 1 MG TAB PO SCH (16:18)
[2025-04-28] MEDS: LOSARTAN POTASSIUM 50 MG TAB PO ONE (16:19)
[2025-04-28] MEDS: TAMSULOSIN HCL 0.4 MG CAP PO SCH (16:20)
[2025-04-28] MEDS: ARIPiprazole 5 MG TAB PO SCH (16:20)
[2025-04-28] MEDS: THIAMINE HCL 100 MG TAB PO SCH (16:21)
[2025-04-28] MEDS: POTASSIUM CHLORIDE CRTAB 20 MEQ TABCR PO SCH (16:26)
[2025-04-28] MEDS: LIDOCAINE 5% 1 PATCH TD STA (16:26)
--- NOTE | 2025-04-28 16:54 | XRay Report ---
Clinical History: MRI clearance Technique: 3 views of the orbits are submitted for review. Findings: No definite sinus opacification is seen. No fracture is evident. No focal osseous lesion is identified. There are no radiopaque foreign bodies. Impression: No visible foreign body. No contraindication to MRI is seen Electronically signed by Ankush Avendano 04-28-2025 4:53 PM
--- NOTE | 2025-04-28 17:03 | XRay Report ---
Clinical History: Fluid overload Technique: A frontal view of the chest was obtained Comparison is made to the prior examination dated 03/05/2025 Findings: There are no definite pulmonary infiltrates. The heart size is within normal limits. No pleural effusion or pneumothorax is seen. There is suspected mild left lung base atelectasis No fracture is noted. No foreign body is seen Impression: Mild left lung base atelectasis ACT 112: Positive. There are findings on this exam that require communication between the performing entity and the patient following Patient Test Result Information Act ([place] ACT 112) guidelines. Electronically signed by Ankush Avendano 04-28-2025 5:03 PM
[2025-04-28] MEDS: FUROSEMIDE 40 MG/4 ML VIAL IV SCH (17:36)
[2025-04-28 17:44] LABS: Appearance Urine Clear (Clear); Bacteria Urine Automated None Seen (None Seen); Bilirubin Urine Negative (Negative); Blood Urine Negative (Negative); Cast Urine Automated 0-2 /lpf (0-2); Color Urine Yellow; Epithelial Cell Urine Auto 0-2 /hpf (0-2); Glucose Urine UA Negative (Negative); Ketones Urine Negative (Negative); Leukocyte Esterase Urine Trace (Negative); Nitrite Urine Negative (Negative); Protein Urine Negative (Negative); RBC Urine Automated 0-2 /hpf (0-2); Specific Gravity Urine 1.009 (1.000-1.030); Urobilinogen Urine Negative (Negative); WBC Urine Automated 0-5 /hpf (0-5)
--- NOTE | 2025-04-28 20:05 | Magnetic Resonance Report ---
MRI of the lumbar spine without contrast Technique:Multifocal and multi sequential unenhanced MRI images of the lumbar spine No comparison Findings: Loss of disc signal and height at L3-L4 without significant canal or foraminal stenosis Disc desiccation at L4-L5 with right paracentral disc herniation measuring 0.4 x 1 x 0.7 cm. This results in significant right foraminal narrowing with contact of the descending right L5 nerve root. No fractures or dislocations identified on this exam. Spinal cord terminates at a normal level. Impression Focal right paracentral disc herniation at L4-5 measuring 0.4 x 1 x 0.7 cm resulting in compression of the descending right L5 nerve root. Correlate clinically for radiculopathy at this level. Electronically signed by Federico Rose 04-28-2025 8:05 PM
[2025-04-28] MEDS: ACETAMINOPHEN 500 MG TAB PO SCH (21:29)
[2025-04-28] MEDS: GABAPENTIN 300 MG CAP PO SCH (21:29)
[2025-04-28] MEDS: MIRTAZAPINE TAB 15 MG TAB PO SCH (21:29)
[2025-04-29 06:54] LABS: Hematocrit (blood only) 49.1 % (42.0-52.0); Hemoglobin 16.5 g/dl (14.0-18.0); Mean Corpuscular Hemoglobin 31.5 pg (25.0-34.0); Mean Corpuscular Hgb Conc 33.6 g/dL (32.0-36.0); Mean Corpuscular Volume 93.9 fL (80.0-100.0); Mean Platelet Volume 9.9 fL (9.4-12.4); Platelet Count 253 K/uL (130-400); RDW Coefficient of Variation 15.7 % (11.5-14.5); RDW Standard Deviation 53.8 fL (36.4-46.3); Red Blood Count 5.23 M/uL (4.70-6.10)
[2025-04-29 07:14] LABS: BUN Creatinine Ratio 17.9 (10-20); Calcium 8.8 mg/dl (8.6-10.3); Creatinine Clr Calc Pharmacy 140.8 ml/min; Magnesium 2.3 mg/dl (1.7-2.4); Potassium 3.6 mmol/L (3.5-5.1)
[2025-04-29] MEDS: MULTIVITAMIN TAB PO SCH (08:55)
[2025-04-29] MEDS: FINASTERIDE 5 MG TAB PO SCH (08:55)
[2025-04-29] MEDS: SERTRALINE HCL 50 MG TABLET PO SCH (08:55)
[2025-04-29] MEDS: ATORVASTATIN 20 MG TAB PO SCH (08:55)
[2025-04-29] MEDS: UMECLIDINIUM/VILANTEROL 62.5/25MCG 7 PUFFS/INHALER INH SCH (08:55)
[2025-04-29] MEDS: LOSARTAN POTASSIUM 50 MG TAB PO SCH (08:55)
[2025-04-29] MEDS: NICOTINE 21 MG/24 HR TDSY TD SCH (08:55)
[2025-04-29] MEDS: FLUTICASONE FUROATE 100MCG 14 PUFFS/INHALER INH SCH (08:55)
[2025-04-29] MEDS ORDERED: NON-FORMULARY MEDICATION (Fluticasone-Umeclidin-Vilanter [Trelegy Ellipta] 100-62.5-25 mcg INH SCH (09:00)
--- NOTE | 2025-04-29 09:24 | Cardiology Consultation ---
Date of Consultation April 29, 2025 Assessment & Plan (1) Acute on chronic heart failure with preserved ejection fraction (HFpEF): (2) Ambulatory dysfunction: (3) Acute pain of right hip: (4) Lumbosacral radiculopathy: Plan Assessment: 64 year old male admitted for ambulatory dysfunction, radiculopathy symptoms and notation of acute on chronic HF exacerbation. Cardiology consulted for further assessment and recommendations Plan: Acute on chronic HF with preserved ejection fraction: -Patient with evidence of volume overload. Reports medication compliance, but does endorse increased fluid consumption and dietary indiscretion with chips and deli meat sandwiches. -Continue Lasix 40mg IV BID -Continue Losartan as part of HF regimen. Patient is not on any beta kj therapy per home regimen due to borderline bradycardia. -Strict I&O and daily weights on standing scale. Close monitoring of renal function and serum electrolytes. Goal serum K >4.0, and serum mag > 2.0. Supplement as appropriate. -Reassess fluid status in the AM Ambulatory dysfunction Acute pain right hip Lumbosacral radiculopathy -As per management of primary team. Case has been discussed with Dr. Rosas. Further recommendations regarding plan of care as per his assessment. I spent a total of 40 minutes on the date of service in preparation, delivery, documentation of the care provided to the patient excluding any time spent in the performance of separately billed services. NADER Serrano [facility] Cardiology [facility] Supervising Physician Co-Signing Physician Notes I have personally performed a history and physical examination on the patient. I have reviewed the advance practitioner's documentation, and I agree with, and take responsibility for the plan of care. 64-year-old male admitted secondary to ambulatory dysfunction possible radiculopathy noted with acute on chronic heart failure. Admits to dietary indiscretions including excessive sodium intake in the days preceding admission. Approximately 8 pound weight gain. Recommendations: * Continue IV Lasix 40 mg twice daily. * Monitor fluid balance, daily, GFR, and electrolytes. * Maintain serum potassium greater than 4.0, and serum magnesium greater than 2.0. * Supplement as indicated. * Continue losartan. * Currently not treated with beta-kj due to borderline resting bradycardia. Flaco Carbone DO, [facility] I spent a total of 30 minutes on the date of service in preparation, delivery, and documentation of the care provided to this patient, excluding any time spent in the performance of separately billed services. History of Present Illness Reason for Consultation: CHF exacerbation Requesting Physician: Rosalind hospitalist Attending Physician: Ana Terrazas MD History of Present Illness HPI: Patient is a 64 year old male with Chronic right sided heart failure, HTN, HLD, COPD with chronic hypoxic resp. failure on O2, Chronic hyponatremia, ETOH abuse, Tobacco abuse, anxiety/mood disorder/and BPH that presented to the ER on 04/28/25 with acute complaints of Right hip and Right lower extremity pain with numbness x1 day. Developed severe buttock pain while ambulating yesterday, and then developed further pain down the leg with paraesthesias. Reports his leg is weak and feels unstable. Patient also endorses increased weights over the past week, increased belly bloat and bilateral lower extremity edema, and dyspnea on exertion. He endorses that he was taking Lasix 60mg daily with no improvement. He admits to increased fluid intake as well as dietary indiscretion with frequent potato chips and deli meat sandwiches, currently consuming 6 beers per day, but is receiving a monthly naltrexone injection. EKG NSR, incomplete Right BBB Chest xray: Impression: Mild left lung base atelectasis Review of telemetry shows SB/SR with PAC's rates 50-60's. No acute events overnight. Upon seeing patient he is sitting up in bed feeling fair from a cardiac perspective. He reports that is breathing is "somewhat improved", but continues to endorse abdominal and lower extremity edema. He has not been up to walk much to determine how his leg pain is. No chest pain, pressure or palpitations, uses supplemental O2 PRN. No near syncope or syncope. Allergies Allergy/AdvReac Type Severity Reaction Status Date / Time No Known Allergies Allergy Verified 04/28/25 12:49 Home Medications Medication Instructions Recorded Confirmed Type losartan 100 mg tablet 100 mg PO QAM 03/26/21 04/28/25 History acetaminophen 500 mg tablet 1,000 mg PO TID Pain 07/10/22 04/28/25 History (Tylenol Extra Strength) albuterol sulfate 90 mcg/actuation 2 puff inhalation Q4H PRN 07/10/22 04/28/25 History aerosol inhaler Shortness Of Breath Or Wheezing folic acid 1 mg tablet 1 mg PO QAM #30 tabs 07/26/22 04/28/25 Rx tamsulosin 0.4 mg capsule 0.4 mg PO QAM #30 caps 07/26/22 04/28/25 Rx thiamine HCl (vitamin B1) 100 mg 100 mg PO QAM #30 tabs 07/26/22 04/28/25 Rx tablet furosemide 40 mg tablet 60 mg PO QAM 12/07/22 04/28/25 History aripiprazole 5 mg tablet 5 mg PO DAILY 01/22/25 04/28/25 History atorvastatin 20 mg tablet 20 mg PO QAM 01/22/25 04/28/25 History fluticasone fur. 100 mcg-umeclid 1 inh inhalation QAM 01/22/25 04/28/25 History 62.5 mcg-vilant 25 mcg inhalat.powder (Trelegy Ellipta) naltrexone microspheres 380 mg 380 mg IM MONTHLY 01/22/25 04/28/25 History intramuscular suspension,extended release nicotine 21 mg/24 hr daily 1 patch transdermal DAILY 01/22/25 04/28/25 History transdermal patch sertraline 100 mg tablet 150 mg PO QAM 01/22/25 04/28/25 History albuterol sulfate 2.5 mg/3 mL 2.5 mg inhalation Q6H PRN 04/28/25 04/28/25 History (0.083 %) solution for nebulization Shortness Of Breath Or Wheezing finasteride 5 mg tablet 5 mg PO QAM 04/28/25 04/28/25 History gabapentin 300 mg capsule 300 mg PO BID 04/28/25 04/28/25 History metformin 500 mg tablet 500 mg PO DAILY 04/28/25 04/28/25 History mirtazapine 15 mg tablet 15 mg PO HS 04/28/25 04/28/25 History Patient History Surgical History History of colonoscopy (10/13/12) Dr Silva, sigmoid tics, otherwise normal, recheck recommended in 5 years due to FHx (brother) S/P right knee arthroscopy 1986 Family History Brother Colorectal cancer Lung cancer Mother Lung cancer Father Myocardial infarction Denies family history of Ovarian cancer Prostate cancer Breast cancer Social History Smoking Status: Current every day smoker Tobacco Type: Cigarettes Cigarettes Per Day: 1 ppd; Second Hand Exposure: No; Do You Dip or Chew Tobacco: No; Tobacco Cessation Education Requested by Patient: No Hx Alcohol Use: Yes Alcohol type: beer Hx Substance Use: No Preferred Language: Czech Communication Ability: Effective 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 Beliefs That Will Affect Care: None marital status: Current Living Situation: Alone current occupational status: employed Other Information That Helps Us Care for You: No Feels Safe at Home: Yes Safety Concerns: Feels Safe At This Time Assistive Devices: None Assistive Devices Comment: reported he did not hav enough oxygen at home Review of Systems Review of Systems: All systems reviewed & are unremarkable except as noted in HPI & below Physical Exam Constitutional: well developed and + overweight Neck: normal visual inspection and trachea midline Respiratory: normal respiratory effort; no respiratory distress, no labored breathing and no cough Auscultation: + wheezes (exp. wheezes) Cardiovascular: Rate/Rhythm: regular rate and regular rhythm Heart Sounds: normal S1 and normal S2; no murmur Vessels: dorsalis pedis pulses present; no JVD Extremities: + edema (trace BLE, increased abdominal fullness) Skin: no rashes, warm and dry Psychiatric: A+Ox3, euthymic affect Results & Data Vital Signs (Past 12 Hours) Vital Signs Temp Pulse Pulse Resp BP Pulse Ox O2 Del Method 04/29/25 08:02 36.4 C L 59 L 18 116/75 96 Nasal Cannula 04/29/25 06:45 89 04/29/25 03:43 92 Nasal Cannula 04/29/25 03:43 36.8 C 55 L 20 124/78 88 L Room Air 04/28/25 23:34 36.5 C 53 L 20 135/77 92 Room Air 04/28/25 22:54 64 O2 Flow Rate 04/29/25 08:02 1 04/29/25 06:45 04/29/25 03:43 2 04/29/25 03:43 04/28/25 23:34 04/28/25 22:54 Laboratory Results Cardiac Enzymes 04/28/25 04/28/25 Range/Units 10:14 14:19 AST 15 (13-39) U/L B-Natriuretic Peptide 77 (0-100) pg/ml Coagulation 04/28/25 Range/Units 14:19 B-Natriuretic Peptide 77 (0-100) pg/ml CBC 04/28/25 04/29/25 Range/Units 10:14 06:32 WBC 7.68 5.60 (4.8-10.8) K/ul RBC 4.98 5.23 (4.70-6.10) M/uL Hgb 16.0 16.5 (14.0-18.0) g/dl Hct 46.2 49.1 (42.0-52.0) % Plt Count 241 253 (130-400) K/uL Neut # (Auto) 5.45 (1.40-6.50) K/uL Lymph # (Auto) 1.06 L (1.20-3.40) K/uL [place] # (Auto) 0.84 H (0.11-0.59) K/uL Eos # (Auto) 0.21 (0.00-0.50) K/uL Baso # (Auto) 0.04 (0.00-0.20) K/uL Comprehensive Metabolic Panel 04/28/25 04/29/25 Range/Units 10:14 06:32 Sodium 138 141 (136-145) mmol/L Potassium 3.8 3.6 (3.5-5.1) mmol/L Chloride 103 103 (98-107) mmol/L Carbon Dioxide 29 31 (21-32) mmol/L BUN 10 12 (6-23) mg/dl Creatinine 0.72 0.67 (0.6-1.4) mg/dl Glucose 101 H 134 H (70-99(Fasting)) mg/dl Calcium 8.7 8.8 (8.6-10.3) mg/dl AST 15 (13-39) U/L ALT 20 (7-52) U/L Alkaline Phosphatase 65 (34-104) U/L Total Protein 6.0 (6.0-8.3) gm/dl Albumin 3.5 (3.4-5.0) gm/dl Intake and Output 04/28/25 04/29/25 04/29/25 22:59 06:59 14:59 Intake Total 1200 / 1400 100 / 1400 Balance 1200 / 1400 100 / 1400 Intake: Oral 1200 / 1300 100 / 1300 Other: # Unmeasured Voids 3 1 Weight 120.3 kg Weight Measurement Method Built in [facility]
--- NOTE | 2025-04-29 15:21 | Electrocardiogram Report ---
Test Reason : Blood Pressure : */* mmHG Vent. Rate : 72 BPM Atrial Rate : 72 BPM P-R Int : 156 ms QRS Dur : 110 ms QT Int : 394 ms P-R-T Axes : 61 -38 59 degrees QTcB Int : 431 ms Normal sinus rhythm Left axis deviation Incomplete right bundle branch block Abnormal ECG When compared with ECG of 05-Mar-2025 21:54, Premature atrial complexes are no longer Present Confirmed by Mike Paredes ([id number]) on 04/29/2025 3:21:35 PM Referred By: REFERRED SELF Confirmed By: Mike Paredes
[2025-04-29] MEDS: oxyCODONE HCL IR 5 MG TAB (IMMEDIATE RELEASE) PO PRN ×2 (15:22→22:24)
--- NOTE | 2025-04-29 17:02 | Hospitalist Progress Note ---
Date of Service April 29, 2025 Assessment & Plan (1) Acute on chronic heart failure with preserved ejection fraction (HFpEF): (2) Lumbosacral radiculopathy: Plan Patient is 64-year-old male with PMH chronic right sided heart failure, HTN, HLD, COPD, chronic hypoxemic respiratory failure on 2L oxygen, prediabetes, chronic hyponatremia, tobacco abuse, alcohol abuse, anxiety, mood disorder, BPH and others listed below presented to ER with c/o right hip pain and RLE numbness x 1 day. Denies trauma/known injury, fever or chills Ambulatory Dysfunction In ER vitals stable. Labs unremarkable CT Lumbar spine: No fracture or subluxation. There is diffuse degenerative disc disease most severe at the lower lumbar spine. There is lower lumbar facet degeneration. There is mild bilateral neural foraminal narrowing at L3-4 through L5-S1. There is mild central canal narrowing at L2-3, L3-4, and L4-5. Right Hip xray: No fracture noted In ER given Tylenol, morphine MRI L spine Fall precautions Pain control with scheduled Tylenol, lidocaine patch, oxycodone prn. Continue home gabapentin PT/OT eval 04/29- MRI spine noting disc herniation and nerve compression, [facility] spine consulted, appreicate recs. Acute on chronic heart failure with preserved ejection fraction (HFpEF): Recent hospitalization 03/06/25-03/10/25 for acute hypoxemic respiratory failure, COPD exacerbation and decompensated heart failure, discharged on home oxygen 03/07/25 Echo: EF: 55-60%, normal LV wall motion, RV normal in size, no valvular disease, no pulmonary hypertension noted One week h/o weight gain, BLE edema, increased SOB with trial increased Lasix from 40mg to 60mg daily without relief. Not following low sodium or fluid restrictions at home. Using home O2 as needed Obtain CXR Monitor I's & O's, daily weight. Low sodium diet. Fluid restriction 1800ml Supplemental oxygen Lasix 40mg IV BID. Hold home oral diuretics 04/29- Cardiology consulted, appreciate recs Prediabetes A1c: 6.3 on 03/26/25 Hold home metformin ETOH abuse On monthly naltrexone injections Drinks 6 beers daily. Last reported drink yesterday. Reports decreased from prior 24 beers daily Continue home gabapentin Alcohol withdrawal protocol Daily multivitamin, thiamine, folic acid Encouraged alcohol cessation Chronic hypoxic respiratory failure COPD Granulomatous disease 3 weeks ago treated for COPD exacerbation outpatient with z-pack and medrol dose pack Continue home Trelegy Continue supplemental oxygen Duonebs prn HTN Continue home losartan HLD Continue home atorvastatin Mood disorder. Anxiety Continue home aripiprazole, mirtazapine Tobacco abuse Currently smoking 1ppd, down from 3 packs per day Continue nicotine patch Continue attempts at tobacco cessation BPH Continue tamsulosin, finasteride Obesity BMI: 40 DVT Prophylaxis Lovenox SQ Full Code as per discussion with pt Admission and Anticipated Discharge Date Admission Date: April 28, 2025 Subjective Pt was seen in the AM, sitting in a chair coloring Denied acute concerns Notes his lower extremities are "no better" Review of Systems Review of Systems: All systems reviewed & are unremarkable except as noted in Subjective Physical Exam Physical Exam: General: Alert, oriented. No acute distress HEENT: NC/AT CV: RRR Resp: Breath sounds with wheezing bilaterally, no increased effort of breathing. Abdomen: Soft, nontender Extremities: edema in lower extremities bilaterally. Results & Data Results & Data Vital Signs (Past 12 Hours) Vital Signs Temp Pulse Pulse Resp BP Pulse Ox O2 Del Method 04/29/25 08:55 Room Air 04/29/25 08:02 36.4 C L 59 L 18 116/75 96 Nasal Cannula 04/29/25 06:45 89 04/29/25 03:43 92 Nasal Cannula 04/29/25 03:43 36.8 C 55 L 20 124/78 88 L Room Air O2 Flow Rate 04/29/25 08:55 04/29/25 08:02 1 04/29/25 06:45 04/29/25 03:43 2 04/29/25 03:43
[2025-04-29] MEDS: ALBUT/IPRATROP 3MG/0.5MG NEB 3 ML VIAL NEB SCH (19:12)
[2025-04-30 07:41] LABS: Basophils # (auto) 0.03 K/uL (0.00-0.20); Basophils % (auto) 0.4 %; Eosinophils # (auto) 0.32 K/uL (0.00-0.50); Hematocrit (blood only) 52.8 % (42.0-52.0); Hemoglobin 17.9 g/dl (14.0-18.0); Immature Granulocytes # (auto) 0.09 K/uL (0.01-0.20); Immature Granulocytes % (auto) 1.1 %; Lymphocytes # (auto) 1.17 K/uL (1.20-3.40); Lymphocytes % (auto) 14.5 %; Mean Corpuscular Hemoglobin 32.3 pg (25.0-34.0); Mean Corpuscular Hgb Conc 33.9 g/dL (32.0-36.0); Mean Corpuscular Volume 95.3 fL (80.0-100.0); Mean Platelet Volume 9.9 fL (9.4-12.4); Monocytes # (auto) 0.82 K/uL (0.11-0.59); Monocytes % (auto) 10.1 %; Neutrophils # (auto) 5.66 K/uL (1.40-6.50); Neutrophils % (auto) 69.9 %; Platelet Count 275 K/uL (130-400); RDW Coefficient of Variation 15.6 % (11.5-14.5); RDW Standard Deviation 55.3 fL (36.4-46.3); Red Blood Count 5.54 M/uL (4.70-6.10); White Blood Count 8.09 K/ul (4.8-10.8)
[2025-04-30 07:56] LABS: Albumin Globulin Ratio 1.6 (0.9-2); Albumin Level 4.2 gm/dl (3.4-5.0); BUN Creatinine Ratio 30.4 (10-20); Bilirubin,Total 0.3 mg/dl (0.2-1.0); Calcium 9.3 mg/dl (8.6-10.3); Creatinine Clr Calc Pharmacy 102.2 ml/min; Globulin 2.6 gm/dl (2.5-4.0); Magnesium 2.4 mg/dl (1.7-2.4); Potassium 4.4 mmol/L (3.5-5.1); Total Protein 6.8 gm/dl (6.0-8.3)
--- NOTE | 2025-04-30 08:26 | Cardiology Progress Note ---
Date of Service April 30, 2025 Assessment & Plan (1) Acute on chronic heart failure with preserved ejection fraction (HFpEF): (2) Ambulatory dysfunction: (3) Acute pain of right hip: (4) Lumbosacral radiculopathy: Plan Assessment: 64 year old male admitted for ambulatory dysfunction, radiculopathy symptoms and notation of acute on chronic HF exacerbation. Cardiology consulted for further assessment and recommendations Plan: 04/29/2025 Acute on chronic HF with preserved ejection fraction: -Patient with evidence of volume overload. Reports medication compliance, but does endorse increased fluid consumption and dietary indiscretion with chips and deli meat sandwiches. -Continue Lasix 40mg IV BID -Continue Losartan as part of HF regimen. Patient is not on any beta kj therapy per home regimen due to borderline bradycardia. -Strict I&O and daily weights on standing scale. Close monitoring of renal function and serum electrolytes. Goal serum K >4.0, and serum mag > 2.0. Supplement as appropriate. -Reassess fluid status in the AM Ambulatory dysfunction Acute pain right hip Lumbosacral radiculopathy -As per management of primary team. 04/30/2025: -Patient demonstrates clinical improvement from a cardiac standpoint. -Maintains slight volume overload, continue IV lasix today (40mg IV BID) and consider transitioning back to PO Lasix in the AM 60mg PO QD. Approx 1Kg weight loss. -Continue Losartan as part of HF regimen. Patient is not on any beta kj therapy per home regimen due to borderline bradycardia. -Strict I&O and daily weights on standing scale. Close monitoring of renal function and serum electrolytes. Goal serum K >4.0, and serum mag > 2.0. Supplement as appropriate. -Patient expressed concern that he is getting "edgy" today without nicotine or alcohol. He has a nicotine patch in place, but recommend that primary care team consider PRN protocol with a benzo agent for concern of nearing alcohol withdraw. -Ongoing management of acute right hip pain, ambulatory dysfunction per primary team. patient would benefit from PT if not already addressed. Case has been discussed with Dr. Rosas. Further recommendations regarding plan of care as per his assessment. I spent a total of 30 minutes on the date of service in preparation, delivery, documentation of the care provided to the patient excluding any time spent in the performance of separately billed services. NADER Serrano [facility] Cardiology [facility] Admission and Anticipated Discharge Date Admission Date: April 28, 2025 Supervising Physician Co-Signing Physician Notes I have personally performed a history and physical examination on the patient. I have reviewed the advance practitioner's documentation, and I agree with, and take responsibility for the plan of care. 64-year-old male admitted secondary to ambulatory dysfunction possible radiculopathy noted with acute on chronic heart failure. Admits to dietary indiscretions including excessive sodium intake in the days preceding admission. Approximately 8 pound weight gain. Recommendations: * Continue IV Lasix 40 mg twice daily for additional 24 hours. * Transition to oral diuretic therapy (Lasix 60mg daily) 05/01/2025 * Monitor fluid balance, daily, GFR, and electrolytes. * Maintain serum potassium greater than 4.0, and serum magnesium greater than 2.0. * Supplement as indicated. * Continue losartan. * Currently not treated with beta-kj due to borderline resting bradycardia. * Cardiology will sign off. Flaco Carbone DO, [facility] I spent a total of 30 minutes on the date of service in preparation, delivery, and documentation of the care provided to this patient, excluding any time spent in the performance of separately billed services. Subjective 04/30/2025: Patient seen and examined in follow up today. Feeling improved from a cardiac perspective. He is noting a decrease in swelling (both abdominal and lower extremity). Patient continues with leg pain, although has been up ambulating very short distances. Patient denies any acute cardiac concerns, but states "Im starting to get a little edgy, no cigarettes and no beer" Patient has a nicotine patch in place. Labs, vitals, diagnostics, telemetry and documentation reviewed. Telemetry reviewed showing SR with PAC's rates 70-80's. Review of Systems Review of Systems: All systems reviewed & are unremarkable except as noted in HPI & below Physical Exam Constitutional: well developed and + overweight Neck: normal visual inspection and trachea midline Respiratory: normal respiratory effort; no respiratory distress, no labored breathing and no cough Auscultation: lungs clear to auscultation bilaterally Cardiovascular: Rate/Rhythm: regular rate and regular rhythm Heart Sounds: normal S1 and normal S2; no murmur Vessels: dorsalis pedis pulses present; no JVD Extremities: + edema (trace BLE, increased abdominal fullness) Skin: no rashes, warm and dry Psychiatric: A+Ox3, euthymic affect Affect: + anxious affect Results & Data Vital Signs (Past 12 Hours) Vital Signs Temp Pulse Pulse Resp BP Pulse Ox O2 Del Method 04/30/25 07:35 36.4 C L 72 18 125/65 90 Nasal Cannula 04/30/25 07:31 79 17 90 Nasal Cannula 04/30/25 07:15 81 04/30/25 03:57 36.4 C L 70 18 126/79 91 Nasal Cannula 04/29/25 23:48 36.3 C L 69 18 128/78 90 Room Air 04/29/25 21:43 67 O2 Flow Rate 04/30/25 07:35 2 04/30/25 07:31 2 04/30/25 07:15 04/30/25 03:57 2 04/29/25 23:48 04/29/25 21:43 Laboratory Results Cardiac Enzymes 04/30/25 Range/Units 07:18 AST 16 (13-39) U/L CBC 04/30/25 Range/Units 07:18 WBC 8.09 (4.8-10.8) K/ul RBC 5.54 (4.70-6.10) M/uL Hgb 17.9 (14.0-18.0) g/dl Hct 52.8 H (42.0-52.0) % Plt Count 275 (130-400) K/uL Neut # (Auto) 5.66 (1.40-6.50) K/uL Lymph # (Auto) 1.17 L (1.20-3.40) K/uL [place] # (Auto) 0.82 H (0.11-0.59) K/uL Eos # (Auto) 0.32 (0.00-0.50) K/uL Baso # (Auto) 0.03 (0.00-0.20) K/uL Comprehensive Metabolic Panel 04/30/25 Range/Units 07:18 Sodium 141 (136-145) mmol/L Potassium 4.4 D (3.5-5.1) mmol/L Chloride 103 (98-107) mmol/L Carbon Dioxide 31 (21-32) mmol/L BUN 28 H (6-23) mg/dl Creatinine 0.92 (0.6-1.4) mg/dl Glucose 109 H (70-99(Fasting)) mg/dl Calcium 9.3 (8.6-10.3) mg/dl AST 16 (13-39) U/L ALT 20 (7-52) U/L Alkaline Phosphatase 71 (34-104) U/L Total Protein 6.8 (6.0-8.3) gm/dl Albumin 4.2 (3.4-5.0) gm/dl Intake and Output 04/29/25 04/30/25 04/30/25 22:59 06:59 14:59 Intake Total 275 / 965 140 / 965 Balance 275 / 965 140 / 965 Intake: Oral 275 / 965 140 / 965 Other: Weight 119.5 kg
--- NOTE | 2025-04-30 11:13 | Orthopedic Consultation ---
Date of Consultation April 30, 2025 Assessment & Plan (1) Lumbar disc herniation with radiculopathy: MRI does demonstrate evidence of marked degenerative change L4-L5 with broad- based disc herniation and severe subarticular stenosis favoring the right. This is concordant with his pain patterns. I have discussed this with the patient. In light of his health history we would very much like to avoid any surgical invention. Will consult interventional pain management and hopefully a course of injections will control his symptoms. However if this is unsuccessful he may require a decompression at this level. Patient or stands and agrees. History of Present Illness Reason for Consultation: Back and right leg pain Attending Physician: Ana Terrazas MD History of Present Illness This is a very pleasant 64-year-old male who presents with recent incident of a severe right sciatica. He describes it involving the right buttock posterior thigh into the foot. He notes a small stumble while walking a few days ago and that is when the pain began. He denies any previous issues. This morning he is comfortable sitting at the side of the bed. The left lower extremity is asymptomatic. Allergies Allergy/AdvReac Type Severity Reaction Status Date / Time No Known Allergies Allergy Verified 04/28/25 12:49 Home Medications Medication Instructions Recorded Confirmed Type losartan 100 mg tablet 100 mg PO QAM 03/26/21 04/28/25 History acetaminophen 500 mg tablet 1,000 mg PO TID Pain 07/10/22 04/28/25 History (Tylenol Extra Strength) albuterol sulfate 90 mcg/actuation 2 puff inhalation Q4H PRN 07/10/22 04/28/25 History aerosol inhaler Shortness Of Breath Or Wheezing folic acid 1 mg tablet 1 mg PO QAM #30 tabs 07/26/22 04/28/25 Rx tamsulosin 0.4 mg capsule 0.4 mg PO QAM #30 caps 07/26/22 04/28/25 Rx thiamine HCl (vitamin B1) 100 mg 100 mg PO QAM #30 tabs 07/26/22 04/28/25 Rx tablet furosemide 40 mg tablet 60 mg PO QAM 12/07/22 04/28/25 History aripiprazole 5 mg tablet 5 mg PO DAILY 01/22/25 04/28/25 History atorvastatin 20 mg tablet 20 mg PO QAM 01/22/25 04/28/25 History fluticasone fur. 100 mcg-umeclid 1 inh inhalation QAM 01/22/25 04/28/25 History 62.5 mcg-vilant 25 mcg inhalat.powder (Trelegy Ellipta) naltrexone microspheres 380 mg 380 mg IM MONTHLY 01/22/25 04/28/25 History intramuscular suspension,extended release nicotine 21 mg/24 hr daily 1 patch transdermal DAILY 01/22/25 04/28/25 History transdermal patch sertraline 100 mg tablet 150 mg PO QAM 01/22/25 04/28/25 History albuterol sulfate 2.5 mg/3 mL 2.5 mg inhalation Q6H PRN 04/28/25 04/28/25 History (0.083 %) solution for nebulization Shortness Of Breath Or Wheezing finasteride 5 mg tablet 5 mg PO QAM 04/28/25 04/28/25 History gabapentin 300 mg capsule 300 mg PO BID 04/28/25 04/28/25 History metformin 500 mg tablet 500 mg PO DAILY 04/28/25 04/28/25 History mirtazapine 15 mg tablet 15 mg PO HS 04/28/25 04/28/25 History Patient History Surgical History History of colonoscopy (10/13/12) Dr Silva, sigmoid tics, otherwise normal, recheck recommended in 5 years due to FHx (brother) S/P right knee arthroscopy 1986 Family History Brother Colorectal cancer Lung cancer Mother Lung cancer Father Myocardial infarction Denies family history of Ovarian cancer Prostate cancer Breast cancer Social History Smoking Status: Current every day smoker Tobacco Type: Cigarettes Cigarettes Per Day: 1 ppd; Second Hand Exposure: No; Do You Dip or Chew Tobacco: No; Tobacco Cessation Education Requested by Patient: No Hx Alcohol Use: Yes Alcohol type: beer Hx Substance Use: No Preferred Language: Bruneian Communication Ability: Effective 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 Negative on the left. He has a reasonable 4+/5 plantarflexion dorsiflexion quadriceps. Sensory diminished. Deep tendon reflexes absent. Results & Data Vital Signs (Past 12 Hours) Vital Signs Temp Pulse Pulse Resp BP Pulse Ox O2 Del Method 04/30/25 07:35 36.4 C L 72 18 125/65 90 Nasal Cannula 04/30/25 07:31 79 17 90 Nasal Cannula 04/30/25 07:15 81 04/30/25 03:57 36.4 C L 70 18 126/79 91 Nasal Cannula 04/29/25 23:48 36.3 C L 69 18 128/78 90 Room Air O2 Flow Rate 04/30/25 07:35 2 04/30/25 07:31 2 04/30/25 07:15 04/30/25 03:57 2 04/29/25 23:48
--- NOTE | 2025-04-30 14:02 | Hospitalist Progress Note ---
Date of Service April 30, 2025 Assessment & Plan (1) Acute on chronic heart failure with preserved ejection fraction (HFpEF): (2) Lumbosacral radiculopathy: Plan Patient is 64-year-old male with PMH chronic right sided heart failure, HTN, HLD, COPD, chronic hypoxemic respiratory failure on 2L oxygen, prediabetes, chronic hyponatremia, tobacco abuse, alcohol abuse, anxiety, mood disorder, BPH and others listed below presented to ER with c/o right hip pain and RLE numbness x 1 day. Denies trauma/known injury, fever or chills Ambulatory Dysfunction In ER vitals stable. Labs unremarkable CT Lumbar spine: No fracture or subluxation. There is diffuse degenerative disc disease most severe at the lower lumbar spine. There is lower lumbar facet degeneration. There is mild bilateral neural foraminal narrowing at L3-4 through L5-S1. There is mild central canal narrowing at L2-3, L3-4, and L4-5. Right Hip xray: No fracture noted In ER given Tylenol, morphine MRI L spine Fall precautions Pain control with scheduled Tylenol, lidocaine patch, oxycodone prn. Continue home gabapentin PT/OT eval 04/29- MRI spine noting disc herniation and nerve compression, [facility] spine consulted, appreciate recs. 04/30- seen by ortho spine, recommending pain management consult. Acute on chronic heart failure with preserved ejection fraction (HFpEF): Recent hospitalization 03/06/25-03/10/25 for acute hypoxemic respiratory failure, C OPD exacerbation and decompensated heart failure, discharged on home oxygen 03/07/25 Echo: EF: 55-60%, normal LV wall motion, RV normal in size, no valvular disease, no pulmonary hypertension noted One week h/o weight gain, BLE edema, increased SOB with trial increased Lasix from 40mg to 60mg daily without relief. Not following low sodium or fluid restrictions at home. Using home O2 as needed Obtain CXR Monitor I's & O's, daily weight. Low sodium diet. Fluid restriction 1800ml Supplemental oxygen Lasix 40mg IV BID. Hold home oral diuretics 04/29- Cardiology consulted, appreciate recs Prediabetes A1c: 6.3 on 03/26/25 Hold home metformin ETOH abuse On monthly naltrexone injections Drinks 6 beers daily. Last reported drink yesterday. Reports decreased from prior 24 beers daily Continue home gabapentin Alcohol withdrawal protocol- at risk ordered Daily multivitamin, thiamine, folic acid Encouraged alcohol cessation Chronic hypoxic respiratory failure COPD Granulomatous disease 3 weeks ago treated for COPD exacerbation outpatient with z-pack and medrol dose pack Continue home Trelegy Continue supplemental oxygen Duonebs prn HTN Continue home losartan HLD Continue home atorvastatin Mood disorder. Anxiety Continue home aripiprazole, mirtazapine Tobacco abuse Currently smoking 1ppd, down from 3 packs per day Continue nicotine patch Continue attempts at tobacco cessation BPH Continue tamsulosin, finasteride Obesity BMI: 40 DVT Prophylaxis Lovenox SQ Full Code as per discussion with pt Admission and Anticipated Discharge Date Admission Date: April 28, 2025 Subjective Pt was seen in the AM Sitting up at the side of the bed coloring Notes he is still having difficulty ambulating Required oxygen overnight, 3L Review of Systems Review of Systems: All systems reviewed & are unremarkable except as noted in Subjective Physical Exam Physical Exam: General: Alert, oriented. No acute distress HEENT: NC/AT CV: RRR Resp: Breath sounds with improved wheezing bilaterally, no increased effort of breathing. Abdomen: Soft, nontender Extremities: edema in lower extremities bilaterally. Results & Data Results & Data Vital Signs (Past 12 Hours) Vital Signs Temp Pulse Pulse Resp BP Pulse Ox O2 Del Method 04/30/25 13:40 76 18 91 Room Air 04/30/25 11:20 36.4 C L 80 18 115/70 90 Room Air 04/30/25 07:45 Room Air, Nasal Cannula 04/30/25 07:35 36.4 C L 72 18 125/65 90 Nasal Cannula 04/30/25 07:31 79 17 90 Nasal Cannula 04/30/25 07:15 81 04/30/25 03:57 36.4 C L 70 18 126/79 91 Nasal Cannula O2 Flow Rate FiO2 04/30/25 13:40 21 04/30/25 11:20 04/30/25 07:45 2 04/30/25 07:35 2 04/30/25 07:31 2 04/30/25 07:15 04/30/25 03:57 2
--- NOTE | 2025-04-30 14:47 | Pain Management Consultation ---
Date of Consultation April 30, 2025 Assessment & Plan (1) Lumbar disc herniation with radiculopathy: * Recommend right L4-L5 transforaminal epidural steroid injection as an outpatient. Will establish patient for new patient appointment in the clinic. Patient is aware that we are backlogged in the office and this may take several weeks. * Risk versus benefit versus alternatives of treatment discussed with patient. He would like to see us in the outpatient setting for consideration of epidural steroid injection. * Patient reports that since starting gabapentin, his pain is significantly improved. He is seen ambulating in the hallway with a walker. * Would recommend discharge on gabapentin 300 mg p.o. 3 times daily. * Patient is increased risk for opioid abuse secondary to tobacco and alcohol abuse. Consider de-escalating pain medications from oxycodone to tramadol if opiates are needed. Recommend trial of NSAIDs and Tylenol as patient's pain is better controlled with the gabapentin Plan Thank you for including us in the care of this patient. Pain management will sign off and follow in the outpatient clinic. Case discussed with Dr. Correa History of Present Illness Attending Physician: Ana Terrazas MD History of Present Illness Attending: Dr. Correa Mr. Griffith is a 64-year-old male who reports that he has longstanding history of back pain. He recently worsened when he felt a click and stumbled and had increased pain in his back with radicular symptoms down into his right leg to the foot. He characterizes pain as sharp at time of incident and not generally aching. Aggravated by extension of his back, prolonged standing prolonged walking. Significant improvement with gabapentin, repositioning, sitting, leaning over walker. Patient reports pain at worst 8/10 and at best 2/10. He reports that he is able to reposition in bed easily. No difficulty going from sitting to standing position. He ambulates approximately 100 feet and then needs to rest by sitting. Patient does report that he has a scabbed over wound on his left leg there was a scratch. He reports that he had an "itch" and scratched it open. Patient advised that if he has injection of the clinic he will not be able to have any open sores. He states understanding. No previous outpatient treatment Patient was seen by orthospine in consultation in the hospital who recommends conservative treatment without surgical intervention at this time. Lumbar spine MRI 04/28/[address] scan 04/28/2025 Hip/pelvis x-ray 04/28/2025 Patient denies any bowel or bladder incontinence. He has no saddle anesthesia. He denies any unusual bleeding or bruising. He does report that he is a tobacco abuser and smokes 1 - 1 1/2 packs per day. Patient also drinks at least 1 sixpack of beer per day. Patient with no other constitutional complaints Allergies Allergy/AdvReac Type Severity Reaction Status Date / Time No Known Allergies Allergy Verified 04/28/25 12:49 Home Medications Medication Instructions Recorded Confirmed Type losartan 100 mg tablet 100 mg PO QAM 03/26/21 04/28/25 History acetaminophen 500 mg tablet 1,000 mg PO TID Pain 07/10/22 04/28/25 History (Tylenol Extra Strength) albuterol sulfate 90 mcg/actuation 2 puff inhalation Q4H PRN 07/10/22 04/28/25 History aerosol inhaler Shortness Of Breath Or Wheezing folic acid 1 mg tablet 1 mg PO QAM #30 tabs 07/26/22 04/28/25 Rx tamsulosin 0.4 mg capsule 0.4 mg PO QAM #30 caps 07/26/22 04/28/25 Rx thiamine HCl (vitamin B1) 100 mg 100 mg PO QAM #30 tabs 07/26/22 04/28/25 Rx tablet furosemide 40 mg tablet 60 mg PO QAM 12/07/22 04/28/25 History aripiprazole 5 mg tablet 5 mg PO DAILY 01/22/25 04/28/25 History atorvastatin 20 mg tablet 20 mg PO QAM 01/22/25 04/28/25 History fluticasone fur. 100 mcg-umeclid 1 inh inhalation QAM 01/22/25 04/28/25 History 62.5 mcg-vilant 25 mcg inhalat.powder (Trelegy Ellipta) naltrexone microspheres 380 mg 380 mg IM MONTHLY 01/22/25 04/28/25 History intramuscular suspension,extended release nicotine 21 mg/24 hr daily 1 patch transdermal DAILY 01/22/25 04/28/25 History transdermal patch sertraline 100 mg tablet 150 mg PO QAM 01/22/25 04/28/25 History albuterol sulfate 2.5 mg/3 mL 2.5 mg inhalation Q6H PRN 04/28/25 04/28/25 History (0.083 %) solution for nebulization Shortness Of Breath Or Wheezing finasteride 5 mg tablet 5 mg PO QAM 04/28/25 04/28/25 History gabapentin 300 mg capsule 300 mg PO BID 04/28/25 04/28/25 History metformin 500 mg tablet 500 mg PO DAILY 04/28/25 04/28/25 History mirtazapine 15 mg tablet 15 mg PO HS 04/28/25 04/28/25 History Pain History Chief Complaint Chief Complaint: Lumbar radiculopathy into the right leg and foot Patient History Surgical History History of colonoscopy (10/13/12) Dr Silva, sigmoid tics, otherwise normal, recheck recommended in 5 years due to FHx (brother) S/P right knee arthroscopy 1986 Family History Brother Colorectal cancer Lung cancer Mother Lung cancer Father Myocardial infarction Denies family history of Ovarian cancer Prostate cancer Breast cancer Social History Smoking Status: Current every day smoker Tobacco Type: Cigarettes Cigarettes Per Day: 1 ppd; Second Hand Exposure: No; Do You Dip or Chew Tobacco: No; Tobacco Cessation Education Requested by Patient: No Hx Alcohol Use: Yes Alcohol type: beer Hx Substance Use: No Preferred Language: Hungarian Communication Ability: Effective Head Of Science Required: No Beliefs That Will Affect Care: None marital status: Current Living Situation: Alone current occupational status: employed Other Information That Helps Us Care for You: No Feels Safe at Home: Yes Safety Concerns: Feels Safe At This Time Assistive Devices: None Assistive Devices Comment: reported he did not hav enough oxygen at home Physical Exam 2 Physical Exam: Physical Exam: Constitutional: Well-developed, well-nourished, healthy-appearing, normal weight Psych: Awake, alert, and oriented 3 with normal affect and mood. Memory appears grossly intact, resting comfortably on examination Skin: No evidence of edema, erythema or skin breakdown. No rashes, lesions, ulcers, or induration noted. Musculoskeletal: Head is normocephalic and atraumatic, gait shuffled. Lumbar: Lordotic curve: Loss of lumbar Lordosis Range of motion is decreased with extension. Improved with flexion forward Tenderness: Nontender over the axial midline Facet provocation: Positive bilaterally Straight leg raise: Positive on the right and negative on the left Strength: Strength is equal bilaterally with 5 out of 5 strength in all planes Sensation of lower extremities: Intact bilaterally Deep tendon reflexes: Rated at 2/4 in bilateral patellar tendons Myofascial spasm: No appreciable lumbar spasm. No discrete trigger points noted Greater trochanters: Tender bilaterally left > right Sacroiliac joints: Tender bilaterally. Negative FADIR. Negative JEREL. Positive bilateral compression test. No appreciable leg length discrepancy Skin: Scabbed over area on left lower extremity Pathologic reflexes noted: None Neuro: No focal neurological deficits appreciated. Results (Pain Clinic) Laboratory Review Additional Comments: 04/30/25 07:18 04/30/25 07:18 Diagnostic Review MRI: reports reviewed, images reviewed and findings discussed with patient MRI Findings: Magnetic Resonance Report Patient: SIDRA GRIFFITH Admit Date: 04/28/25 MR#: [id number] Address1: [address] [place] [address] Acct ID:[id number] Address2: Date: 1960 [facility] Zip: [place] [address] Age: 64 Location: 2W Sex: M Room/Bed: [facility] Att Phy: nAa María Kothari MD Diagnosis: AMBULATORY DYSFUNCTION Lauryn Phy: Khai Mejia III, MD Service Date: 04/28/25 Fam Phy: Interpreting Phy: [facility]: Ana María Kothari MD Ordering Phy: Vijaya Meyers PA-C cc: ~ MRI of the lumbar spine without contrast Technique:Multifocal and multi sequential unenhanced MRI images of the lumbar spine No comparison Findings: Loss of disc signal and height at L3-L4 without significant canal or foraminal stenosis Disc desiccation at L4-L5 with right paracentral disc herniation measuring 0.4 x 1 x 0.7 cm. This results in significant right foraminal narrowing with contact of the descending right L5 nerve root. No fractures or dislocations identified on this exam. Spinal cord terminates at a normal level. Impression Focal right paracentral disc herniation at L4-5 measuring 0.4 x 1 x 0.7 cm resulting in compression of the descending right L5 nerve root. Correlate clinically for radiculopathy at this level. Electronically signed by Federico Rose 04-28-2025 8:05 PM Previous Records Review Previous Records: personally reviewed by me
[2025-04-30 23:16] VITALS: TEMP 97.7
[2025-05-01 06:00] LABS: Basophils # (auto) 0.04 K/uL (0.00-0.20); Basophils % (auto) 0.5 %; Eosinophils # (auto) 0.32 K/uL (0.00-0.50); Eosinophils % (auto) 3.9 %; Hemoglobin 17.1 g/dl (14.0-18.0); Immature Granulocytes % (auto) 1.2 %; Lymphocytes # (auto) 1.52 K/uL (1.20-3.40); Lymphocytes % (auto) 18.6 %; Mean Corpuscular Hemoglobin 31.3 pg (25.0-34.0); Mean Corpuscular Hgb Conc 32.9 g/dL (32.0-36.0); Mean Corpuscular Volume 95.1 fL (80.0-100.0); Mean Platelet Volume 9.7 fL (9.4-12.4); Monocytes # (auto) 0.69 K/uL (0.11-0.59); Monocytes % (auto) 8.4 %; Neutrophils # (auto) 5.51 K/uL (1.40-6.50); Neutrophils % (auto) 67.4 %; Platelet Count 263 K/uL (130-400); RDW Coefficient of Variation 15.7 % (11.5-14.5); Red Blood Count 5.47 M/uL (4.70-6.10); White Blood Count 8.18 K/ul (4.8-10.8)
[2025-05-01 06:28] LABS: Alanine Aminotransferase 19 U/L (7-52); Albumin Globulin Ratio 1.5 (0.9-2); Alkaline Phosphatase 63 U/L (34-104); BUN Creatinine Ratio 27.7 (10-20); Bilirubin,Total 0.4 mg/dl (0.2-1.0); Blood Urea Nitrogen 26 mg/dl (6-23); Carbon Dioxide 33 mmol/L (21-32); Chloride 102 mmol/L (98-107); Globulin 2.6 gm/dl (2.5-4.0); Glucose 100 mg/dl (70-99(Fasting)); Total Protein 6.6 gm/dl (6.0-8.3)
[2025-05-01 08:04] LABS: Magnesium 2.2 mg/dl (1.7-2.4); Potassium 3.7 mmol/L (3.5-5.1)
[2025-05-01] MEDS ORDERED: ALBUT/IPRATROP 3MG/0.5MG NEB 3 ML VIAL NEB PRN (08:37)
[2025-05-01] MEDS: FUROSEMIDE 20 MG TAB PO SCH (09:11)
[2025-05-01 11:17] VITALS: BP 114/67; PULSE 73; RESP 18; O2SAT 93
--- NOTE | 2025-05-01 13:36 | Discharge Summary ---
Discharge Summary Date of Service May 01, 2025 Principal Dx & Hospital Course #1 = Principal Diagnosis (1) Acute on chronic heart failure with preserved ejection fraction (HFpEF): (2) Lumbosacral radiculopathy: (3) Lumbar disc herniation with radiculopathy: Plan Patient is 64-year-old male with PMH chronic right sided heart failure, HTN, HLD, COPD, chronic hypoxemic respiratory failure on 2L oxygen, prediabetes, chronic hyponatremia, tobacco abuse, alcohol abuse, anxiety, mood disorder, BPH and others listed below presented to ER with c/o right hip pain and RLE numbness x 1 day. Denies trauma/known injury, fever or chills Ambulatory Dysfunction In ER vitals stable. Labs unremarkable CT Lumbar spine: No fracture or subluxation. There is diffuse degenerative disc disease most severe at the lower lumbar spine. There is lower lumbar facet degeneration. There is mild bilateral neural foraminal narrowing at L3-4 through L5-S1. There is mild central canal narrowing at L2-3, L3-4, and L4-5. Right Hip xray: No fracture noted In ER given Tylenol, morphine MRI L spine with lumbar disc herniation and radiculopathy Fall precautions Pain control with scheduled Tylenol, lidocaine patch, oxycodone prn. Continue home gabapentin [facility] consulted- recommended pain management consult Pain Management recommended outpt followup, conservative management with prn tylenol/NSAIDs and tramadol if needed. Given use of lasix (see below) will defer on further nephrotoxicity with nsaids at this time. PT/OT eval- recommended discharge home Pt discharged with renewed tyleonl 100mg TID, prn tramadol 50mg daily for severe pain only and will need close pain management and ortho spine followup. Close PCP follow up as well. Acute on chronic heart failure with preserved ejection fraction (HFpEF): Recent hospitalization 03/06/25-03/10/25 for acute hypoxemic respiratory failure, COPD exacerbation and decompensated heart failure, discharged on home oxygen 03/07/25 Echo: EF: 55-60%, normal LV wall motion, RV normal in size, no valvular disease, no pulmonary hypertension noted One week h/o weight gain, BLE edema, increased SOB with trial increased Lasix from 40mg to 60mg daily without relief. Not following low sodium or fluid restrictions at home. Using home O2 as needed Obtain CXR Monitor I's & O's, daily weight. Low sodium diet. Fluid restriction 1800ml Supplemental oxygen Lasix 40mg IV BID. Hold home oral diuretics Cardiology consulted, appreciate recs. Recommended/stated the following the day before discharge: "Recommendations: Continue IV Lasix 40 mg twice daily for additional 24 hours. Transition to oral diuretic therapy (Lasix 60mg daily) 05/01/2025 Monitor fluid balance, daily, GFR, and electrolytes. Maintain serum potassium greater than 4.0, and serum magnesium greater than 2.0. Supplement as indicated. Continue losartan. Currently not treated with beta-kj due to borderline resting bradycardia. Cardiology will sign off...." Close cardiology followup after discharge Prediabetes A1c: 6.3 on 03/26/25 Resume home metformin on discharge ETOH abuse On monthly naltrexone injections Drinks 6 beers daily. Last reported drink yesterday. Reports decreased from prior 24 beers daily Continue home gabapentin Alcohol withdrawal protocol- at risk ordered Daily multivitamin, thiamine, folic acid Encouraged alcohol cessation Chronic hypoxic respiratory failure COPD Granulomatous disease 3 weeks ago treated for COPD exacerbation outpatient with z-pack and medrol dose pack Continue home Trelegy Continue supplemental oxygen Duonebs prn HTN Continue home losartan HLD Continue home atorvastatin Mood disorder. Anxiety Continue home aripiprazole, mirtazapine Tobacco abuse Currently smoking 1ppd, down from 3 packs per day Continue nicotine patch Continue attempts at tobacco cessation BPH Continue tamsulosin, finasteride Obesity BMI: 40 Notes For Next Care Provider As above Medication Changes From Visit Per pain management: -gabapentin increased to 300mg TID -prn tramadol 50mg daily, 10 tabs only Per Cardiology: po lasix 60mg daily Admission HPI Per Admitting Provider Patient is 64-year-old male with PMH chronic right sided heart failure, HTN, HLD, COPD, chronic hypoxemic respiratory failure on 2L oxygen, prediabetes, chronic hyponatremia, tobacco abuse, alcohol abuse, anxiety, mood disorder, BPH and others listed below presented to ER with c/o right hip pain and RLE numbness x 1 day. Patient reports yesterday was walking when had onset of right buttock and right hip pain with associated right leg paresthesias. States right leg feels like it is gives out when walking and having trouble ambulating. Denies history back or extremity pain. Denies known trauma or fall. Tried Tylenol with limited relief. Per inpatient chart review recent hospitalization 03/06/25-03/10/25 for acute hypoxemic respiratory failure, COPD exacerbation and decompensated heart failure treated with steroids and IV Lasix with about 14L output and weight 125.1kg on admission, down to 116.1 kg on day of discharge, patient had improvement and was discharged on home oxygen. Patient reports has not been using oxygen continuous at home as uses as needed when he feels SOB. Per outpatient chart review was seen on 04/07/25 and prescribed a Medrol Dosepak and Z-titi. His Lasix was stopped and changed to torsemide 20mg daily at that time. Patient states is now on Lasix 40mg daily. He states for past week his home weights have been increasing and noticing increased BLE edema and abdominal girth as well as increased exertional SOB. He states for past week taking 60mg Lasix but states hasn't lost any weight. He reports is to be on 48 ounce fluid restriction however patient reports been drinking "a lot more than that" recently. He also admits to eating potato chips and lunch meat sandwiches frequently. Did not have home medications today. States drinks 6 beers daily. Is on monthly naltrexone injection, last received one week ago. Denies saddle paresthesias, urinary or bowel incontinence. Denies fever/chills, diaphoresis, N/V/D/C, RODRIGUEZ, dizziness, syncope, vision changes, neck pain, CP, palpitations, cough, sore throat, otalgia, rhinorrhea, abdominal pain, rashes, urinary symptoms. Admission Exam Per Admitting Provider General: no distress, obese Head: normocephalic, atraumatic Eyes: conjunctiva non-injected, anicteric ENT: normal inspection external ears, nose, mucous membranes moist Neck: supple, trachea midline Lungs: no respiratory distress, +2L via NC with sat 96%, +scattered wheezing CV: RRR, no murmur, 2+ pretibial edema Abd: protuberant, normal BS, soft, non-tender Back: No spinous process tenderness to palpation, +tender to palpation right lower paraspinous muscles and right buttock. +right straight leg raise to approximately 30 degrees. Distal pulses intact, sensation to light touch intact, bilateral pedal pushes and pulls intact Ext: no cyanosis, no calf tenderness Neuro: A&O x 3, no focal deficits noted, normal affect Skin: warm, dry Discharge Exam General: Alert, oriented. No acute distress HEENT: NC/AT CV: RRR Resp: Breath sounds with clear breath sounds bilaterally, no increased effort of breathing. Abdomen: Soft, nontender Extremities: edema in lower extremities bilaterally. Updated Medication List Medication Instructions Recorded Confirmed Type losartan 100 mg tablet 100 mg PO QAM 03/26/21 04/28/25 History albuterol sulfate 90 mcg/actuation 2 puff inhalation Q4H PRN 07/10/22 04/28/25 History aerosol inhaler Shortness Of Breath Or Wheezing folic acid 1 mg tablet 1 mg PO QAM #30 tabs 07/26/22 04/28/25 Rx tamsulosin 0.4 mg capsule 0.4 mg PO QAM #30 caps 07/26/22 04/28/25 Rx thiamine HCl (vitamin B1) 100 mg 100 mg PO QAM #30 tabs 07/26/22 04/28/25 Rx tablet aripiprazole 5 mg tablet 5 mg PO DAILY 01/22/25 04/28/25 History atorvastatin 20 mg tablet 20 mg PO QAM 01/22/25 04/28/25 History fluticasone fur. 100 mcg-umeclid 1 inh inhalation QAM 01/22/25 04/28/25 History 62.5 mcg-vilant 25 mcg inhalat.powder (Trelegy Ellipta) naltrexone microspheres 380 mg 380 mg IM MONTHLY 01/22/25 04/28/25 History intramuscular suspension,extended release nicotine 21 mg/24 hr daily 1 patch transdermal DAILY 01/22/25 04/28/25 History transdermal patch sertraline 100 mg tablet 150 mg PO QAM 01/22/25 04/28/25 History albuterol sulfate 2.5 mg/3 mL 2.5 mg inhalation Q6H PRN 04/28/25 04/28/25 History (0.083 %) solution for nebulization Shortness Of Breath Or Wheezing finasteride 5 mg tablet 5 mg PO QAM 04/28/25 04/28/25 History metformin 500 mg tablet 500 mg PO DAILY 04/28/25 04/28/25 History mirtazapine 15 mg tablet 15 mg PO HS 04/28/25 04/28/25 History acetaminophen 500 mg tablet 1,000 mg (2 x 500 mg) PO TID Pain 05/01/25 Rx (Tylenol Extra Strength) #90 tabs furosemide 40 mg tablet 60 mg (1.5 x 40 mg) PO QAM #45 tabs 05/01/25 Rx gabapentin 300 mg capsule 300 mg PO TID #45 caps 05/01/25 Rx tramadol 50 mg tablet 50 mg PO DAILY PRN severe pain 05/01/25 Rx (scale score 7-10) #10 tabs Hospital Stay Data Consultations 04/28/25 12:56 ED Decision to Admit Stat 04/29/25 07:40 Consult Cardiology Routine 04/29/25 17:05 Consult Orthopedic Spine Surgery Routine 04/30/25 11:13 Consult Pain Management Routine Diagnostic Imagining Performed 04/28/25 09:53 CT lumbar spine wo con Stat 04/28/25 13:35 MRI Spine [MR lumbar spine wo con] Routine Hip/Pelvis X-Ray 04/28/25 09:53 XR hip RT 2V w pelvis CLINICAL HISTORY: R hip pain COMPARISON: 04/12/2021 FINDINGS: No fracture or dislocation. There are mild degenerative changes at the hips. SI joints are unremarkable. There are lower lumbar degenerative changes. IMPRESSION: No fracture seen. ACT 112: Negative or not required by law. Electronically signed by: Wilian Gomes M.D. 04/28/2025 11:[address] 04/28/25 09:53 CT lumbar spine wo con CLINICAL HISTORY: low back pain; pain down left leg COMPARISON STUDY: 04/12/2021 FINDINGS: No fracture or subluxation. There is diffuse degenerative disc disease most severe at the lower lumbar spine. There is lower lumbar facet degeneration. There is mild bilateral neural foraminal narrowing at L3-4 through L5-S1. There is mild central canal narrowing at L2-3, L3-4, and L4-5. IMPRESSION: 1. No fracture seen. 2. Lower lumbar degenerative changes. ACT 112: Negative or not required by law. Electronically signed by: Wilian Gomes M.D. 04/28/2025 10:58 AM Lumbar Spine MRI 04/28/25 13:35 MRI of the lumbar spine without contrast Technique:Multifocal and multi sequential unenhanced MRI images of the lumbar spine No comparison Findings: Loss of disc signal and height at L3-L4 without significant canal or foraminal stenosis Disc desiccation at L4-L5 with right paracentral disc herniation measuring 0.4 x 1 x 0.7 cm. This results in significant right foraminal narrowing with contact of the descending right L5 nerve root. No fractures or dislocations identified on this exam. Spinal cord terminates at a normal level. Impression Focal right paracentral disc herniation at L4-5 measuring 0.4 x 1 x 0.7 cm resulting in compression of the descending right L5 nerve root. Correlate clinically for radiculopathy at this level. Electronically signed by Federico Rose 04-28-2025 8:05 PM Chest X-Ray 04/28/25 13:36 Clinical History: Fluid overload Technique: A frontal view of the chest was obtained Comparison is made to the prior examination dated 03/05/2025 Findings: There are no definite pulmonary infiltrates. The heart size is within normal limits. No pleural effusion or pneumothorax is seen. There is suspected mild left lung base atelectasis No fracture is noted. No foreign body is seen Impression: Mild left lung base atelectasis ACT 112: Positive. There are findings on this exam that require communication between the performing entity and the patient following Patient Test Result Information Act ([place] ACT 112) guidelines. Electronically signed by Ankush Avendano 04-28-2025 5:03 PM Orbit X-Ray 04/28/25 13:50 Clinical History: MRI clearance Technique: 3 views of the orbits are submitted for review. Findings: No definite sinus opacification is seen. No fracture is evident. No focal osseous lesion is identified. There are no radiopaque foreign bodies. Impression: No visible foreign body. No contraindication to MRI is seen Electronically signed by Ankush Avendano 04-28-2025 4:53 PM Discharge Instructions Given to Patient (Per Discharging Provider) Mr. Malloy, Guillaume were seen by the orthopedic surgeon and pain management. They recommended that you follow up as an outpatient and that you continue with the pain meds prescribed: tylenol and VERY SPARING USE OF NEEDED Tramadol. Your gabapentin dose has been increased to three times daily. You were also seen by the environmental compliance specialist who recommends that you continue with your home lasix 60mg daily. Please keep close follow up with your primary care provider after discharge. Please do not hesitate to come back to the emergency room if your symptoms worsen or return. It was a pleasure taking care of you while you were here. Total Time Total Time Spent Total Time Spent (In Minutes): 60
== END 2025-05-01 14:52 | disposition home or self-care (01) | DRG 291 ==
LOC: ED 08:13 → SUATTDRO 13:02 → 2W 13:02